=== PATIENT | female | born 1940 | race Caucasian/White ===

== ENCOUNTER 2016-12-15 09:15 | Day surgery (SDC) | payer OTHER, MEDICARE ==
[2016-12-15 08:38] VITALS: BMI 21.6
[2016-12-15] MEDS ORDERED: PROPOFOL 20 ML ONE ×2 (10:14)
[2016-12-15 11:46] VITALS: TEMP 97.4
[2016-12-15 12:22] VITALS: BP 143/62; PULSE 55
== END 2016-12-15 12:28 | disposition home or self-care (01) ==
LOC: JASU-ENDO 09:15
PROVIDERS: ATTEND Internal Medicine Gastroenterology
PROC: 0DJD8ZZ Inspection of Lower Intestinal Tract, Via Natural or Artificial Opening Endoscopic (ICD-10-PCS; principal; 2016-12-15 10:15)
DX: Z12.11 Encounter for screening for malignant neoplasm of colon (principal); K57.30 Diverticulosis of large intestine without perforation or abscess without bleeding; K63.89 Other specified diseases of intestine

== ENCOUNTER → 2017-04-26 | Day surgery (SDC) | payer OTHER, MEDICARE ==
--- NOTE | 2017-04-27 13:39 | PATH ---
Cytology Non-Gynecological Report Patient Name: RACHEL PERRIN [facility]. Rec. #: [id number] /Age/Gender: 1940 (Age: 76) / F Account: [id number] Location: RADIOLOGY Taken: 04/26/2017 Received: 04/26/2017 Reported: 04/27/2017 Physicians: Marlen Smith M.D. Specimen(s) Received LEFT THYROID FNA Clinical History Left 1.95 x 1.88 x 1.49 cm Final Diagnosis THYROID, LEFT, FINE NEEDLE ASPIRATION: SATISFACTORY FOR EVALUATION BETHESDA CATEGORY II: BENIGN (NO MALIGNANT CELLS IDENTIFIED) CYTOLOGIC FINDINGS ARE CONSISTENT WITH A BENIGN FOLLICULAR NODULE (ADENOMATOID NODULE) BENIGN FOLLICULAR CELLS AND COLLOID PRESENT. Comment: Recommend correlation with clinical findings and follow up as clinically indicated. Electronically Signed Mina Blunt M.D. Gross Description Received are eight direct smears, four of which are air-dried and Diff-Quik stained, and four of which are alcohol fixed and Pap stained. Also received is 20 ml of bloody formalin from which one cellblock is prepared.
== END | disposition home or self-care (01) ==
LOC: JRADIR 09:00
PROVIDERS: ATTEND Internal Medicine Endocrinology, Diabetes & Metabolism
PROC: 0G9G3ZX Drainage of Left Thyroid Gland Lobe, Percutaneous Approach, Diagnostic (ICD-10-PCS; principal; 2017-04-26)
PROC: BG44ZZZ Ultrasonography of Thyroid Gland (ICD-10-PCS; 2017-04-26)
DX: E04.1 Nontoxic single thyroid nodule (principal)
CPT/HCPCS: 76942; 88173; 88305-TC

== ENCOUNTER 2017-05-07 19:00 | Emergency (ER) | payer OTHER, MEDICARE ==
--- NOTE | 2017-05-07 19:13 | PDOC ---
History of Present Illness - General History Source: Patient, Family, Old Records Exam Limitations: No Limitations - History of Present Illness Initial Comments: 05/07/17 19:36 The patient is a 76 year old female, accompanied by son, with past medical history of chronic constipation and bronchiectasis, who presents to the emergency department today s/p witnessed fall. The patient states that she was sleeping on the couch in the living room when she heard her son yell in the kitchen and got up to help him. As per son the patient entered the kitchen, fell , and hit the back of her head on the tile floor. Son states that the patient lost consciousness for approximately 10 seconds. The patient reports compliance with all medications and denies being on any blood thinners. She notes that she took a muscle relaxant just prior to falling asleep on the couch. She reports recent discharge from the hospital today after a 9 day stay. She reports mild chest pain and shortness of breath upon entering the ED and notes it may be anxiety related. <Raul Alvarado - Last Filed: 05/07/17 19:17> <Idalia Atwood - Last Filed: 05/07/17 22:06> - General Chief Complaint: Injury Stated Complaint: FELL, STRUCK HEAD, LOC 10 SECONDS, CHEST PAIN Past History <Raul Alvarado - Last Filed: 05/07/17 19:17> - Past Medical History Anemia: No Asthma: No Cancer: No Cardiac Disorders: Yes (MVP) CVA: No COPD: Yes (BRONCHIETASIS) CHF: No Dementia: No Diabetes: No GI Disorders: No Disorders: No HTN: Yes (LOW BP) Hypercholesterolemia: No Liver Disease: No Seizures: No Thyroid Disease: No - Surgical History Abdominal Surgery: (S/P DIVERTICULITIS) Appendectomy: Yes Cardiac Surgery: No Cholecystectomy: No Lung Surgery: Yes (SX.FOR BRONCHIECTASIS) Neurologic Surgery: No Orthopedic Surgery: Yes (l hip orifice with insertion and hardware removal, hx.fall) - Immunization History Immunization Up to Date: Yes - Suicide/Smoking/Psychosocial Hx Smoking Status: Yes Smoking History: Former smoker Have you smoked in the past 12 months: No Number of Cigarettes Smoked Daily: 0 If you are a former smoker, when did you quit?: 1986 Alcohol Use: Yes (occasion) Drug/Substance Use Hx: No Substance Use Type: None Hx Substance Use Treatment: No <Idalia Atwood - Last Filed: 05/07/17 22:06> - Past Medical History Allergies/Adverse Reactions: Allergies Allergy/AdvReac Type Severity Reaction Status Date / Time No Known Drug Allergies Allergy Verified 01/06/16 11:01 Home Medications: Ambulatory Orders Alprazolam [Xanax] 0.25 mg PO BID PRN 01/25/12 Ascorbic Acid [Vitamin C] 2,000 mg PO DAILY 01/25/12 Calcium Carbonate/Vitamin D3 [Caltrate 600 + D Tablet] 1 each PO BID 01/25/12 Citalopram Hydrobromide [Celexa -] 20 mg PO HS 01/25/12 Propranolol HCl [Inderal -] 60 mg PO DAILY 01/25/12 Ranitidine [Zantac -] 150 mg PO BID 01/25/12 Albuterol 0.083% Nebulizer Manju [Ventolin 0.083% Nebulizer Soln -] 1 neb NEB DAILY 09/25/13 Oxycodone HCl/Acetaminophen [Percocet 10-325 mg Tablet] 15 mg PO BID PRN Tobramycin/Na Chlor 0.2% [Cornell (Do Not Stock)] 300 mg IH DAILY 02/19/15 Biotin 1 mg PO DAILY 01/05/16 Butalbit/Acetamin/Caff/Codeine [Fioricet-Cod 92-913-16-30 Cap] 1 each PO TID PRN 01/05/16 Calcium/Cranberry Fruit [Cranberry 400 mg Caplet] 1 each PO DAILY 01/05/16 Gabapentin [Neurontin] 300 mg PO TID 01/05/16 L.acidoph,Paracasei, B.lactis [Probiotic] 1 each PO BID 01/05/16 Multivitamins [Multivit ([facility] Formulary)] 1 tab PO DAILY 01/05/16 Potassium Chloride [Klor-Con 10] 20 meq PO BID 01/05/16 Budesonide/Formeterol Fumarate [SYMBICORT 160/4.5mcg -] 2 inh PO BID 12/15/16 Magnesium Oxide [Magnesium] 500 mg PO DAILY 12/15/16 Tizanidine HCl 2 mg PO HS 12/15/16 Review of Systems - Review of Systems Able to Perform ROS?: Yes Comments:: 05/07/17 19:37 GENERAL/CONSTITUTIONAL: No fever or chills. No weakness. HEAD, EYES, EARS, NOSE AND THROAT: No change in vision. No ear pain or discharge. No sore throat. GASTROINTESTINAL: No nausea, vomiting, diarrhea or constipation. GENITOURINARY: No dysuria, frequency, or change in urination. CARDIOVASCULAR: (+) Mild chest pain, shortness of breath. RESPIRATORY: No cough, wheezing, or hemoptysis. MUSCULOSKELETAL: No joint or muscle swelling or pain. No neck or back pain. SKIN: No rash NEUROLOGIC: (+) headache, loss of consciousness, No change in strength/ sensation. ENDOCRINE: No increased thirst. No abnormal weight change. HEMATOLOGIC/LYMPHATIC: No anemia, easy bleeding, or history of blood clots. ALLERGIC/IMMUNOLOGIC: No hives or skin allergy. <Raul Alvarado - Last Filed: 05/07/17 19:17> *Physical Exam - Physical Exam Comments: 05/07/17 19:37 GENERAL: Awake, alert, and fully oriented, in no acute distress HEAD: (+) 2cm by 2 cm right occipital hematoma EYES: PERRLA, EOMI, sclera anicteric, conjunctiva clear ENT: Nares patent, oropharynx clear without exudates. Moist mucosa NECK: Normal ROM, supple, no lymphadenopathy, JVD, or masses LUNGS: Breath sounds equal, clear to auscultation bilaterally. No wheezes, and no crackles HEART: Regular rate and rhythm, normal S1 and S2, no murmurs, rubs or gallops ABDOMEN: Soft, nontender, normoactive bowel sounds. No guarding, no rebound. No masses EXTREMITIES: Normal range of motion, no edema. No clubbing or cyanosis. No cords, erythema, or tenderness NEUROLOGICAL: Cranial nerves II through XII grossly intact. Normal speech, normal gait. Normal Romberg's. Normal finger to nose. SKIN: Warm, Dry, normal turgor, no rashes or lesions noted. <Raul Alvarado - Last Filed: 05/07/17 19:17> Medical Decision Making - Medical Decision Making 05/07/17 22:01 Patient Name: RACHEL PERRIN THIS IS A PRELIMINARY REPORT FROM [facility] DATE OF SERVICE: 2017-05-07 19:50:38 IMAGES: 69 EXAM: CT head without contrast HISTORY:Syncope COMPARISON: None. FINDINGS: 1. There is no CT evidence of an acute intracranial process and no evidence of intracranial hemorrhage or mass effect. 2. Ventricular size is concordant with the degree of atrophy. 3. The visualized portions of the orbits, paranasal and mastoid sinuses are notable for evidence of previous right sinonasal surgery. 4. There is no evidence of fracture. 5. Right parietal-occipital scalp soft tissue swelling/hematoma. Patient Name: RACHEL PERRIN THIS IS A PRELIMINARY REPORT FROM [facility] DATE OF SERVICE: 2017-05-07 19:42:03 IMAGES: [id number] EXAM: CT cervical spine without contrast HISTORY:Syncope COMPARISON: None. FINDINGS: 1. There is reversal of the normal lordotic curve of the cervical spine. This may be positional in nature. 2. There is mild anterolisthesis of C4 on C5 there is most likely secondary to degenerative facet change at this level. There is degenerative disc and endplate change at the C5-C6 and C6-C7 levels. 3. There is no evidence of fracture or posttraumatic subluxation of the cervical spine. 4. Visualization of detail of the contents of the cervical canal is significantly limited by artifact 05/07/17 22:03 Pt was released from the hospital at [facility] today, where she gets regular inpateint treatment for bronchiectasis. Today she wqas lying on the couch in the living room, took a muscle relaxant, and her BP was low. Her son was making dinner in the [place], and yelled out when he scalded his had. Pt went running to the kitches and when she got there felt lightheaded and fell to the ground, hitting occiput and lost consciousness x 10 seconds. She has no pain in the body or neck. Occipital tenderness only. A+Ox3. Pt has no distress; neuro exam normal, pt is on no blood thinners. CT normal, exam normal. She will go home with son. Follow with PMD as needed. <Idalia Atwood - Last Filed: 05/07/17 22:06> *DC/Admit/Observation/Transfer - Attestations Scribe Attestion: 05/07/17 19:37 Documentation prepared by Raul Alvarado, acting as medical radiation tech for Idalia Atwood MD <Raul Alvarado - Last Filed: 05/07/17 19:17> - Discharge Dispostion Admit: No <Idalia Atwood - Last Filed: 05/07/17 22:06> Diagnosis at time of Disposition: Vasovagal episode, Hypotension - Discharge Dispostion Disposition: HOME Condition at time of disposition: Stable - Referrals Referrals: John Vargas MD [Primary Care Provider] - - Patient Instructions Printed Discharge Instructions: DI for Orthostatic Hypotension
[2017-05-07 19:34] VITALS: TEMP 97.3; BMI 20.5
[2017-05-07 20:50] VITALS: BP 108/52; PULSE 66
--- NOTE | 2017-05-08 16:24 | EKG ---
Test Reason : Blood Pressure : / mmHG Vent. Rate : 069 BPM Atrial Rate : 069 BPM P-R Int : 206 ms QRS Dur : 082 ms QT Int : 396 ms P-R-T Axes : 057 013 048 degrees QTc Int : 424 ms NORMAL SINUS RHYTHM NONSPECIFIC ST ABNORMALITY ABNORMAL ECG WHEN COMPARED WITH ECG OF 10-DEC-2016 14:13, NO SIGNIFICANT CHANGE WAS FOUND CLINICAL CORRELATION IS RECOMMENDED Confirmed by JOSE SIEGEL MD ([id number]) on 05/08/2017 4:24:12 PM Referred By: ISH Confirmed By:JOSE SIEGEL MD
== END 2017-05-07 21:08 | disposition home or self-care (01) ==
LOC: FER 19:00
DX: R55 Syncope and collapse (principal); I95.9 Hypotension, unspecified; K59.00 Constipation, unspecified; Z87.891 Personal history of nicotine dependence; J44.9 Chronic obstructive pulmonary disease, unspecified; I51.9 Heart disease, unspecified
CPT/HCPCS: 70450-TC; 71010-TC; 72125-TC; 93005; 99283-25

== ENCOUNTER 2017-06-21 04:18 | Emergency (ER) | payer OTHER, MEDICARE ==
[2017-06-21] MEDS ORDERED: SODIUM CHLORIDE 1,000 ML IV STA ×2 (04:31→04:43)
[2017-06-21 04:34] VITALS: BMI 20.3
--- NOTE | 2017-06-21 05:09 | PDOC ---
History of Present Illness - General Chief Complaint: Constipation Stated Complaint: ABD PAIN Time Seen by Provider: 06/21/17 04:31 - History of Present Illness Initial Comments: 06/21/17 05:45 76 yo F with h/o who presents with worsening, diffuse, abdominal pain for the past 1 week with loss of appetite. Patient states that she has been having dry, hard, scant stools multiple times through the day. Reports waking up this AM with multiple episodes of non biliary, noon bloody emesis, and diaphoresis. Patient denies fevers/chills, chest pain, SOB, lightheadedness, weakness, LOC, dysuria, flank pain, blood per rectum, hematuria. Physical with predominant lower quadrant ttp, and dry mucous membranes. Pt. States that she takes Oxycodone daily for back pain. Has attempted senna/docusate, miralax, and other laxatives for constipation, with little to no relief. Recently seen at outpatient provider 2 weeks ago and told she was hyponatremic, and advised to eat "saltines." Past History - Past Medical History Allergies/Adverse Reactions: Allergies Allergy/AdvReac Type Severity Reaction Status Date / Time No Known Drug Allergies Allergy Verified 06/21/17 04:25 Home Medications: Ambulatory Orders Alprazolam [Xanax] 0.25 mg PO BID PRN 01/25/12 Ascorbic Acid [Vitamin C] 2,000 mg PO DAILY 01/25/12 Calcium Carbonate/Vitamin D3 [Caltrate 600 + D Tablet] 1 each PO BID 01/25/12 Citalopram Hydrobromide [Celexa -] 20 mg PO HS 01/25/12 Propranolol HCl [Inderal -] 60 mg PO DAILY 01/25/12 Ranitidine [Zantac -] 150 mg PO BID 01/25/12 Albuterol 0.083% Nebulizer Manju [Ventolin 0.083% Nebulizer Soln -] 1 neb NEB DAILY 09/25/13 Oxycodone HCl/Acetaminophen [Percocet 10-325 mg Tablet] 15 mg PO BID PRN Tobramycin/Na Chlor 0.2% [Cornell (Do Not Stock)] 300 mg IH DAILY 02/19/15 Biotin 1 mg PO DAILY 01/05/16 Butalbit/Acetamin/Caff/Codeine [Fioricet-Cod 28-351-11-30 Cap] 1 each PO TID PRN 01/05/16 Calcium/Cranberry Fruit [Cranberry 400 mg Caplet] 1 each PO DAILY 01/05/16 Gabapentin [Neurontin] 300 mg PO TID 01/05/16 L.acidoph,Paracasei, B.lactis [Probiotic] 1 each PO BID 01/05/16 Multivitamins [Multivit ([facility] Formulary)] 1 tab PO DAILY 01/05/16 Potassium Chloride [Klor-Con 10] 20 meq PO BID 01/05/16 Budesonide/Formeterol Fumarate [SYMBICORT 160/4.5mcg -] 2 inh PO BID 12/15/16 Magnesium Oxide [Magnesium] 500 mg PO DAILY 12/15/16 Tizanidine HCl 2 mg PO HS 12/15/16 Anemia: No Asthma: No Cancer: No Cardiac Disorders: Yes (MVP) CVA: No COPD: Yes (BRONCHIETASIS) CHF: No Dementia: No Diabetes: No GI Disorders: No Disorders: No HTN: Yes (LOW BP) Hypercholesterolemia: No Liver Disease: No Seizures: No Thyroid Disease: No - Surgical History Abdominal Surgery: (S/P DIVERTICULITIS) Appendectomy: Yes Cardiac Surgery: No Cholecystectomy: No Lung Surgery: Yes (SX.FOR BRONCHIECTASIS) Neurologic Surgery: No Orthopedic Surgery: Yes (l hip orifice with insertion and hardware removal, hx.fall) - Immunization History Immunization Up to Date: Yes - Suicide/Smoking/Psychosocial Hx Smoking Status: Yes Smoking History: Never smoked Have you smoked in the past 12 months: No Number of Cigarettes Smoked Daily: 0 If you are a former smoker, when did you quit?: 1986 Information on smoking cessation initiated: No Hx Alcohol Use: No Drug/Substance Use Hx: No Substance Use Type: None Hx Substance Use Treatment: No Review of Systems - Review of Systems Comments:: 06/21/17 05:09 GENERAL/CONSTITUTIONAL: No fever or chills. No weakness. HEAD, EYES, EARS, NOSE AND THROAT: No change in vision. No ear pain or discharge. No sore throat.- CARDIOVASCULAR: No chest pain or shortness of breath RESPIRATORY: No cough, wheezing, or hemoptysis. GASTROINTESTINAL:+ abdominal pain, nausea, vomiting,and constipation. No diarrhea GENITOURINARY: No dysuria, frequency, or change in urination. MUSCULOSKELETAL: No joint or muscle swelling or pain. No neck or back pain. SKIN: No rash NEUROLOGIC: No headache, vertigo, loss of consciousness, or change in strength/ sensation. ENDOCRINE: No increased thirst. No abnormal weight change HEMATOLOGIC/LYMPHATIC: No anemia, easy bleeding, or history of blood clots. ALLERGIC/IMMUNOLOGIC: No hives or skin allergy. *Physical Exam - Vital Signs Last Vital Signs Temp Pulse Resp BP Pulse Ox 97.1 F L 51 L 14 87/46 100 06/21/17 04:25 06/21/17 04:25 06/21/17 04:25 06/21/17 04:25 06/21/17 04:25 - Physical Exam Comments: 06/21/17 05:09 GENERAL: Pale appearing, Awake, alert, and fully oriented, in no acute distress HEAD: No signs of trauma, normocephalic, atraumatic EYES: PERRLA, EOMI, sclera anicteric, conjunctiva clear ENT: Hearing grossly normal, nares patent, oropharynx clear without exudates. Dry mucous membranes NECK: Normal ROM, supple, no JVD, or masses LUNGS: No distress, speaks full sentences, clear to auscultation bilaterally HEART: Regular rate and rhythm, normal S1 and S2, no murmurs, rubs or gallops, peripheral pulses normal and equal bilaterally. ABDOMEN: Soft, diffusely ttp with lower quadrant predominance, normoactive bowel sounds. No guarding, no rebound. No masses. Neg CVA ttp. EXTREMITIES : Normal inspection, Normal range of motion, no edema. No clubbing or cyanosis. SKIN: Warm, Dry, normal turgor, no rashes or lesions noted. ED Treatment Course - LABORATORY CBC & Chemistry Diagram: 06/21/17 05:16 06/21/17 05:16 - RADIOLOGY Radiology Studies Ordered: Category Date Time Status ABDOMEN [id number] [RAD] Stat Radiology 06/21/17 04:49 Ordered Medical Decision Making - Medical Decision Making 06/21/17 06:06 76 yo F with h/o who presents with worsening, diffuse, abdominal pain for the past 1 week with loss of appetite. Patient states that she has been having dry, hard, scant stools multiple times through the day and reports waking up this AM with multiple episodes of non biliary, non bloody emesis, and diaphoresis. No fevers/chills, chest pain, SOB, lightheadedness, urinary symptoms, blood per rectum, hematuria. Physical with predominant lower quadrant ttp, and dry mucous membranes. Arrived to ED with BP 87/46. P 51. Takes Oxycodone daily for back pain. ED Course: CBC, CMP, UA, EKG, ABD RAD SERIES 06/21/17 06:24 IV NS 1 L Patient had large bowel movement in bed. Symptoms resolved. 06/21/17 06:24 EKG: Sinus Bradycardia with absent RADHA, STD. 06/21/17 06:26 Na+ 129 WBC: 11.1 06/21/17 06:29 Serum Osmol:268 Hypotonic Hyponatremia 06/21/17 06:55 Patient is stable and ready for discharge with return precautions. Advised to f/ u outpatient. *DC/Admit/Observation/Transfer Diagnosis at time of Disposition: Constipation Qualifiers: Constipation type: other constipation type Qualified Code(s): K59.09 - Other constipation - Discharge Dispostion Disposition: HOME Condition at time of disposition: Stable Admit: No - Referrals Referrals: John Vargas MD [Primary Care Provider] - - Patient Instructions Printed Discharge Instructions: DI for Constipation, Constipation (Alternative Therapy) Additional Instructions: Please return to the emergency department with any new or worsening symptoms or concerns.Please follow up with your primary care within one week. - Post Discharge Activity - Attestations Physician Attestion: 06/21/17 06:58 I attest to the information provided in this note.
[2017-06-21 05:38] LABS: BASOPHIL 0.5 % (0-2.0); EOSINOPHIL 1.6 % (0-4.5); MCHC 33.5 g/dl (32.0-36.0); MEAN CELL VOLUME 101.4 fl (80-96); MEAN PLT VOLUME 7.4 fl (7.5-11.1); PLATELET COUNT 231 K/MM3 (134-434); WHITE BLOOD COUNT 11.1 K/mm3 (4.0-10.0)
[2017-06-21 05:53] LABS: INR 0.91 (0.82-1.09); PROTHROMBIN TIME (PATIENT) 10.3 SEC (9.98-11.88)
[2017-06-21 06:02] LABS: ALBUMIN 3.6 g/dl (3.4-5.0); ALK PHOS 66 U/L (45-117); ANION GAP 10 (8-16); BILIRUBIN,TOTAL 0.5 mg/dL (0.2-1.0); CALCIUM 8.5 mg/dL (8.5-10.1); CO2 23 mmol/L (21-32); CREATININE 0.8 mg/dL (0.55-1.02); GLUCOSE,RANDOM 97 mg/dL (74-106); SGOT/AST 25 U/L (15-37); SGPT/ALT 27 U/L (12-78); TOT PROT 6.1 g/dl (6.4-8.2)
[2017-06-21 06:04] LABS: CPK 94 IU/L (26-192); TROPONIN I < 0.02 ng/ml (0.00-0.05)
[2017-06-21 06:32] VITALS: BP 110/55; PULSE 56; TEMP 97.3
--- NOTE | 2017-06-21 18:00 | EKG ---
Test Reason : Blood Pressure : / mmHG Vent. Rate : 057 BPM Atrial Rate : 057 BPM P-R Int : 188 ms QRS Dur : 080 ms QT Int : 456 ms P-R-T Axes : 060 008 053 degrees QTc Int : 443 ms SINUS BRADYCARDIA NONSPECIFIC ST ABNORMALITY WHEN COMPARED WITH ECG OF 07-MAY-2017 19:16, NO MAJOR CHANGES SEEN CLINICAL CORRELATION IS RECOMMENDED Confirmed by JOSE SIEGEL MD ([id number]) on 06/21/2017 6:00:24 PM Referred By: Confirmed By:JOSE SIEGEL MD
== END 2017-06-21 07:10 | disposition home or self-care (01) ==
LOC: JER 04:18
PROC: 3E0337Z Introduction of Electrolytic and Water Balance Substance into Peripheral Vein, Percutaneous Approach (ICD-10-PCS; principal; 2017-06-21)
DX: K59.09 Other constipation (principal); Z87.19 Personal history of other diseases of the digestive system
CPT/HCPCS: 36415; 74020-TC; 80053; 82550; 83930; 84484; 85025; 85610; 93005; 93010; 99281-25

== ENCOUNTER 2019-03-14 12:01 | Inpatient (IN) | payer OTHER, MEDICARE ==
[2019-03-14 12:21] VITALS: BMI 19.5
--- NOTE | 2019-03-14 13:14 | PDOC ---
History of Present Illness - General Chief Complaint: Weakness Stated Complaint: WEAKNESS - History of Present Illness Initial Comments: 03/14/19 13:14 Ms. Burton is a 78 yo female w/ pmh of chronic constipation, bronchiectasis, prior hyponatremia, prior hyperkalemia, with daily laxative use, chronic abdominal pain, and mitral valve prolapse who presents for evaluation of 1 day history of weakness upon standing and coinciding sweating. Patient reports she is typically able to ambulate without difficulty however yesterday began to have weakness w/ any movement (improved by sitting / rest). Patient further endorses increased abdominal pain from her baseline. Last BM was yesterday. Denies any other symptoms at this time. The patient denies chest pain, shortness of breath, headache and dizziness. Denies fever, chills, nausea, vomit, diarrhea and constipation. Denies dysuria, frequency, urgency and hematuria. Past History - Past Medical History Allergies/Adverse Reactions: Allergies Allergy/AdvReac Type Severity Reaction Status Date / Time No Known Drug Allergies Allergy Verified 03/14/19 12:21 Home Medications: Ambulatory Orders Alprazolam [Xanax] 0.25 mg PO BID PRN 01/25/12 Ascorbic Acid [Vitamin C] 2,000 mg PO DAILY 01/25/12 Calcium Carbonate/Vitamin D3 [Caltrate 600 + D Tablet] 1 each PO BID 01/25/12 Citalopram Hydrobromide [Celexa -] 20 mg PO HS 01/25/12 Ranitidine [Zantac -] 150 mg PO BID 01/25/12 propRANOLol HCL [Inderal -] 60 mg PO DAILY 01/25/12 Albuterol 0.083% Nebulizer Manju [Ventolin 0.083% Nebulizer Soln -] 1 neb NEB DAILY 09/25/13 Oxycodone HCl/Acetaminophen [Percocet 10-325 mg Tablet] 15 mg PO BID PRN Tobramycin/Na Chlor 0.2% [Cornell (Do Not Stock)] 300 mg IH DAILY 02/19/15 Biotin 1 mg PO DAILY 01/05/16 Butalbit/Acetamin/Caff/Codeine [Fioricet-Cod 57-178-03-30 Cap] 1 each PO TID PRN 01/05/16 Calcium/Cranberry Fruit [Cranberry 400 mg Caplet] 1 each PO DAILY 01/05/16 Gabapentin [Neurontin] 300 mg PO TID 01/05/16 L.acidoph,Paracasei, B.lactis [Probiotic] 1 each PO BID 01/05/16 Multivitamins [Multivit ([facility] Formulary)] 1 tab PO DAILY 01/05/16 Potassium Chloride [Klor-Con 10] 20 meq PO BID 01/05/16 Budesonide/Formeterol Fumarate [SYMBICORT 160/4.5mcg -] 2 inh PO BID 12/15/16 Magnesium Oxide [Magnesium] 500 mg PO DAILY 12/15/16 Tizanidine HCl 2 mg PO HS 12/15/16 Anemia: No Asthma: No Cancer: No Cardiac Disorders: Yes (MVP) CVA: No COPD: Yes (BRONCHIETASIS) CHF: No Dementia: No Diabetes: No GI Disorders: No Disorders: No HTN: Yes (LOW BP) Hypercholesterolemia: No Liver Disease: No Seizures: No Thyroid Disease: No - Surgical History Abdominal Surgery: (S/P DIVERTICULITIS) Appendectomy: Yes Cardiac Surgery: No Cholecystectomy: No Lung Surgery: Yes (SX.FOR BRONCHIECTASIS) Neurologic Surgery: No Orthopedic Surgery: Yes (l hip orifice with insertion and hardware removal, hx.fall) - Immunization History Immunization Up to Date: Yes - Suicide/Smoking/Psychosocial Hx Smoking Status: Yes Smoking History: Never smoked Have you smoked in the past 12 months: No Number of Cigarettes Smoked Daily: 0 If you are a former smoker, when did you quit?: 1986 Information on smoking cessation initiated: No Hx Alcohol Use: No Drug/Substance Use Hx: No Substance Use Type: None Hx Substance Use Treatment: No Review of Systems - Review of Systems Comments:: 03/14/19 13:34 GENERAL/CONSTITUTIONAL: +Generalized weakness as described. No fever or chills. HEAD, EYES, EARS, NOSE AND THROAT: No change in vision. No ear pain or discharge. No sore throat. CARDIOVASCULAR: No chest pain or shortness of breath RESPIRATORY: No cough, wheezing, or hemoptysis. GASTROINTESTINAL: +Patient's normal constipation symptoms. No nausea, vomiting, or diarrhea. GENITOURINARY: No dysuria, frequency, or change in urination. MUSCULOSKELETAL: No joint or muscle swelling or pain. No neck or back pain. SKIN: No rash NEUROLOGIC: No headache, vertigo, loss of consciousness, or change in strength/ sensation. ENDOCRINE: No increased thirst. No abnormal weight change HEMATOLOGIC/LYMPHATIC: No anemia, easy bleeding, or history of blood clots. ALLERGIC/IMMUNOLOGIC: No hives or skin allergy. *Physical Exam - Vital Signs Last Vital Signs Temp Pulse Resp BP Pulse Ox 97.8 F 98 H 16 111/69 100 03/14/19 12:18 03/14/19 12:18 03/14/19 12:18 03/14/19 12:18 03/14/19 12:18 - Physical Exam Comments: 03/14/19 13:35 GENERAL: Awake, alert, and fully oriented, in no acute distress HEAD: No signs of trauma, normocephalic, atraumatic EYES: PERRLA, EOMI, sclera anicteric, conjunctiva clear ENT: Auricles normal inspection, hearing grossly normal, nares patent, oropharynx clear without exudates. Moist mucosa NECK: Normal ROM, supple, no lymphadenopathy, JVD, or masses LUNGS: No distress, speaks full sentences, clear to auscultation bilaterally HEART: Regular rate and rhythm, normal S1 and S2, no murmurs, rubs or gallops, peripheral pulses normal and equal bilaterally. ABDOMEN: +Diffuse abdominal TTP, greatest in RLQ. Soft, normoactive bowel sounds. No guarding, no rebound. No masses EXTREMITIES: Normal inspection, Normal range of motion, no edema. No clubbing or cyanosis. NEUROLOGICAL: Cranial nerves II through XII grossly intact. Normal speech, normal gait, no focal sensorimotor deficits SKIN: Warm, Dry, normal turgor, no rashes or lesions noted. RECTAL: No tenderness, small skin tag, no blood noted on glove ED Treatment Course - LABORATORY CBC & Chemistry Diagram: 03/14/19 14:04 03/14/19 14:04 Medical Decision Making - Medical Decision Making 03/14/19 15:55 Ms. Burton is a 78 yo female w/ pmh as described who presents for evaluation of symptoms of generalized weakness as described. Patient evaluated w/ cardiac/ infectious workup as below for causes. Patient labs significant for anemia as below likely causing symptoms. Abdominal CT ordered for evaluation of abdominal pain. Patient ordered for 2 units PRBc's. 03/14/19 17:03 CT abdomen negative. Stool for occult blood positive. Patient will be admitted for transfusion and GI evaluation. 03/14/19 17:15 IP team requested 2ndary access w/ EJ. Patient evaluated however unable to identify access point for patient. 2nd Access not obtained given anatomy. Patient continues to have 20g on R forearm. Laboratory Results - last 24 hr 03/14/19 03/14/19 03/14/19 14:04 14:04 14:04 WBC 12.1 H RBC 2.07 L Hgb 7.1 L Hct 21.6 L D MCV 104.3 H MCH 34.1 H MCHC 32.7 RDW 14.4 Plt Count 251 MPV 7.5 Absolute Neuts (auto) 9.5 H Neutrophils % 78.4 Lymphocytes % 13.0 Monocytes % 6.5 Eosinophils % 1.3 Basophils % 0.8 Nucleated RBC % 0 PT with INR INR PTT (Actin FS) Sodium 138 Potassium 4.7 Chloride 108 H Carbon Dioxide 24 Anion Gap 6 L BUN 64.1 H Creatinine 0.9 Est GFR (CKD-EPI)AfAm 70.48 Est GFR (CKD-EPI)NonAf 60.81 Random Glucose 113 H Calcium 8.3 L Total Bilirubin 0.2 AST 19 ALT 25 Alkaline Phosphatase 62 Total Protein 6.0 L Albumin 3.4 Urine Color Yellow Urine Appearance Clear Urine pH 6.5 Ur Specific [place] 1.016 Urine Protein Negative Urine Glucose (UA) Negative Urine Ketones Negative Urine Blood Negative Urine Nitrite Negative Urine Bilirubin Negative Urine Urobilinogen 0.2 Ur Leukocyte Esterase Negative Blood Type Antibody Screen Crossmatch 03/14/19 03/14/19 14:04 14:04 WBC RBC Hgb Hct MCV MCH MCHC RDW Plt Count MPV Absolute Neuts (auto) Neutrophils % Lymphocytes % Monocytes % Eosinophils % Basophils % Nucleated RBC % PT with INR 11.50 INR 0.97 PTT (Actin FS) 28.0 Sodium Potassium Chloride Carbon Dioxide Anion Gap BUN Creatinine Est GFR (CKD-EPI)AfAm Est GFR (CKD-EPI)NonAf Random Glucose Calcium Total Bilirubin AST ALT Alkaline Phosphatase Total Protein Albumin Urine Color Urine Appearance Urine pH Ur Specific [place] Urine Protein Urine Glucose (UA) Urine Ketones Urine Blood Urine Nitrite Urine Bilirubin Urine Urobilinogen Ur Leukocyte Esterase Blood Type O NEGATIVE Antibody Screen Negative Crossmatch See Detail *DC/Admit/Observation/Transfer Diagnosis at time of Disposition: Anemia Qualifiers: Anemia type: unspecified type Qualified Code(s): D64.9 - Anemia, unspecified GI bleed Qualifiers: GI bleed type/associated pathology: unspecified gastrointestinal hemorrhage type Qualified Code(s): K92.2 - Gastrointestinal hemorrhage, unspecified - Discharge Dispostion Decision to Admit order: Yes - Referrals - Patient Instructions - Post Discharge Activity
[2019-03-14] MEDS ORDERED: SODIUM CHLORIDE 500 ML IV STA (13:18)
[2019-03-14 14:36] LABS: BASO % 0.8 % (0-2.0); EOS % 1.3 % (0-4.5); HEMATOCRIT 21.6 % (32.4-45.2); HEMOGLOBIN 7.1 GM/dL (10.7-15.3); MCH 34.1 pg (25.7-33.7); MCHC 32.7 g/dl (32.0-36.0); MEAN CELL VOLUME 104.3 fl (80-96); MEAN PLT VOLUME 7.5 fl (7.5-11.1); MONO % 6.5 % (3.8-10.2); NEUT % 78.4 % (42.8-82.8); PLATELET COUNT 251 K/MM3 (134-434); RBC 2.07 M/mm3 (3.60-5.2); RDW 14.4 % (11.6-15.6); WHITE BLOOD COUNT 12.1 K/mm3 (4.0-10.0)
[2019-03-14 14:53] LABS: ALBUMIN 3.4 g/dl (3.4-5.0); BILIRUBIN,TOTAL 0.2 mg/dL (0.2-1); BLOOD UREA NITROGEN 64.1 mg/dL (7-18); CALCIUM 8.3 mg/dL (8.5-10.1); CREATININE 0.9 mg/dL (0.55-1.3); POTASSIUM 4.7 mmol/L (3.5-5.1)
[2019-03-14 15:12] LABS: INR 0.97 (0.83-1.09); PROTHROMBIN TIME (PATIENT) 11.5 SEC (9.7-13.0)
[2019-03-14 15:14] LABS: PH,URINE 6.5 (5.0-8.0); URINE APPEARANCE CLEAR; URINE BILIRUBIN NEGATIVE (NEGATIVE); URINE COLOR YELLOW; URINE GLUCOSE (UA) NEGATIVE (NEGATIVE); URINE KETONE NEGATIVE (NEGATIVE); URINE LEUK ESTERASE NEGATIVE (NEGATIVE); URINE NITRITE NEGATIVE (NEGATIVE); URINE PROTEIN NEGATIVE (NEGATIVE); URINE UROBILINOGEN 0.2 mg/dL (0.2-1.0)
[2019-03-14] MEDS ORDERED: morphine CARPU-JECT 2 MG/1 ML DISP.SYRIN IVPUSH ONE (16:07)
--- NOTE | 2019-03-14 17:15 | HP ---
CHIEF COMPLAINT:Generalised fatigue PCP: Sam HISTORY OF PRESENT ILLNESS: The patient is a 78 year old female, with a significant PMH of chronic constipation, bronchiectasis, diverticulosis, chronic abdominal pain, and mitral valve prolapse, who presents to the emergency department with 1 day of generalized weakness and diaphoresis upon walking and standing up. As per EMS, she was noted to be orthostatic hypotensive en route. She also endorses increased upper quadrant abdominal pain and recent green-brad stools. she reports lightheadedness , dizziness , palpitation , worsning when moving around , she reports back pain and she has been using alleve for pain. The patient denies chest pain and cough. Denies fever, nausea, vomiting, diarrhea. Denies any urinary symptoms. ER course was notable for: (1)CT A/P negative (2)CXR no acute pathology (3)Hgb 7.1 , occult blood + Recent Travel:denies PAST MEDICAL HISTORY: MVP, Constipation , bronchiectais, diverticulosis PAST SURGICAL HISTORY: BRONCHIECTASIS Surgery, Left hip orifice with insertion and hardware removal, appendectomy. Social History: Smoking:History of tobacco use, quit 1986. Alcohol:socially Drugs: denies Family History:colon cancer and pancreatic cancer Allergies No Known Drug Allergies Allergy (Verified 03/14/19 12:21) HOME MEDICATIONS: Home Medications Medication Instructions Recorded Alprazolam [Xanax] 0.25 mg PO BID PRN 01/25/12 Ascorbic Acid [Vitamin C] 2,000 mg PO DAILY 01/25/12 Calcium Carbonate/Vitamin D3 1 each PO BID 01/25/12 [Caltrate 600 + D Tablet] Citalopram Hydrobromide [Celexa -] 20 mg PO HS 01/25/12 Ranitidine [Zantac -] 150 mg PO BID 01/25/12 propRANOLol HCL [Inderal -] 60 mg PO DAILY 01/25/12 Albuterol 0.083% Nebulizer Manju 1 neb NEB DAILY 09/25/13 [Ventolin 0.083% Nebulizer Soln -] Oxycodone HCl/Acetaminophen 15 mg PO BID PRN 02/19/15 [Percocet 10-325 mg Tablet] Tobramycin/Na Chlor 0.2% [Cornell (Do 300 mg IH DAILY 02/19/15 Not Stock)] Biotin 1 mg PO DAILY 01/05/16 Butalbit/Acetamin/Caff/Codeine 1 each PO TID PRN 01/05/16 [Fioricet-Cod 38-409-21-30 Cap] Calcium/Cranberry Fruit [Cranberry 1 each PO DAILY 01/05/16 400 mg Caplet] Gabapentin [Neurontin] 300 mg PO TID 01/05/16 L.acidoph,Paracasei, B.lactis 1 each PO BID 01/05/16 [Probiotic] Multivitamins [Multivit ([facility] 1 tab PO DAILY 01/05/16 Formulary)] Potassium Chloride [Klor-Con 10] 20 meq PO BID 01/05/16 Budesonide/Formeterol Fumarate 2 inh PO BID 12/15/16 [SYMBICORT 160/4.5mcg -] Magnesium Oxide [Magnesium] 500 mg PO DAILY 12/15/16 Tizanidine HCl 2 mg PO HS 12/15/16 REVIEW OF SYSTEMS CONSTITUTIONAL: Absent: fever, chills, diaphoresis, generalized weakness, malaise, loss of appetite, weight change HEENT: Absent: rhinorrhea, nasal congestion, throat pain, throat swelling, difficulty swallowing, mouth swelling, ear pain, eye pain, visual changes CARDIOVASCULAR: Absent: chest pain, syncope, palpitations, irregular heart rate, lightheadedness , peripheral edema RESPIRATORY: Absent: cough, shortness of breath, dyspnea with exertion, orthopnea, wheezing, stridor, hemoptysis GASTROINTESTINAL: Absent: abdominal pain, abdominal distension, nausea, vomiting, diarrhea, constipation, melena, hematochezia GENITOURINARY: Absent: dysuria, frequency, urgency, hesitancy, hematuria, flank pain, genital pain MUSCULOSKELETAL: Absent: myalgia, arthralgia, joint swelling, back pain, neck pain SKIN: Absent: rash, itching, pallor HEMATOLOGIC/IMMUNOLOGIC: Absent: easy bleeding, easy bruising, lymphadenopathy, frequent infections ENDOCRINE: Absent: unexplained weight gain, unexplained weight loss, heat intolerance, cold intolerance NEUROLOGIC: Absent: headache, focal weakness or paresthesias, dizziness, unsteady gait, seizure, mental status changes, bladder or bowel incontinence PSYCHIATRIC: Absent: anxiety, depression, suicidal or homicidal ideation, hallucinations. PHYSICAL EXAMINATION Vital Signs - 24 hr 03/14/19 12:18 Temperature 97.8 F Pulse Rate 98 H Respiratory 16 Rate Blood Pressure 111/69 O2 Sat by Pulse 100 Oximetry (%) GENERAL: AAOx3 in NAD HEAD: NC/AT EYES: EOMI, Conjunctiva clear, sclera anicteric ENT: dry mucous membrane NECK: Supple, no JVD LUNGS: CTA B/L, no crackles no wheezing no accessory muscle use. HEART: RRR, normal s1, s2, no M/R/G ABDOMEN: Soft, ND, NT, +BS 4 Q, no CVA Tenderness, transverse low sergical scar LOWER EXTREMITIES: no edema, +2DP pulse, NEUROLOGICAL: No focal deficit. Normal speech. gait not observed. PSYCHIATRIC: Cooperative. Good eye contact. Appropriate mood and affect. SKIN: Warm, dry, Laboratory Results - last 24 hr 03/14/19 03/14/19 03/14/19 14:04 14:04 14:04 WBC 12.1 H RBC 2.07 L Hgb 7.1 L Hct 21.6 L D MCV 104.3 H MCH 34.1 H MCHC 32.7 RDW 14.4 Plt Count 251 MPV 7.5 Absolute Neuts (auto) 9.5 H Neutrophils % 78.4 Lymphocytes % 13.0 Monocytes % 6.5 Eosinophils % 1.3 Basophils % 0.8 Nucleated RBC % 0 PT with INR INR PTT (Actin FS) Sodium 138 Potassium 4.7 Chloride 108 H Carbon Dioxide 24 Anion Gap 6 L BUN 64.1 H Creatinine 0.9 Est GFR (CKD-EPI)AfAm 70.48 Est GFR (CKD-EPI)NonAf 60.81 Random Glucose 113 H Calcium 8.3 L Total Bilirubin 0.2 AST 19 ALT 25 Alkaline Phosphatase 62 Total Protein 6.0 L Albumin 3.4 Urine Color Yellow Urine Appearance Clear Urine pH 6.5 Ur Specific [place] 1.016 Urine Protein Negative Urine Glucose (UA) Negative Urine Ketones Negative Urine Blood Negative Urine Nitrite Negative Urine Bilirubin Negative Urine Urobilinogen 0.2 Ur Leukocyte Esterase Negative Stool Occult Blood Blood Type Antibody Screen Crossmatch 03/14/19 03/14/19 03/14/19 14:04 14:04 16:50 WBC RBC Hgb Hct MCV MCH MCHC RDW Plt Count MPV Absolute Neuts (auto) Neutrophils % Lymphocytes % Monocytes % Eosinophils % Basophils % Nucleated RBC % PT with INR 11.50 INR 0.97 PTT (Actin FS) 28.0 Sodium Potassium Chloride Carbon Dioxide Anion Gap BUN Creatinine Est GFR (CKD-EPI)AfAm Est GFR (CKD-EPI)NonAf Random Glucose Calcium Total Bilirubin AST ALT Alkaline Phosphatase Total Protein Albumin Urine Color Urine Appearance Urine pH Ur Specific [place] Urine Protein Urine Glucose (UA) Urine Ketones Urine Blood Urine Nitrite Urine Bilirubin Urine Urobilinogen Ur Leukocyte Esterase Stool Occult Blood Positive Blood Type O NEGATIVE Antibody Screen Negative Crossmatch See Detail CBC, BMP 03/14/19 14:04 03/14/19 14:04 ASSESSMENT/PLAN: 78 year old female with pmhx of MVP, Divertuclosis , Constipation , bronchiestsis come to ED due to generalized weakness and sob and abdominal pain was found to have hgb 7.1 and occult blood positive admitted to tele for further evaluation. # anemia * Hgb 7.1 , occult blood positive * 2 large iV pores * NPO * IV fluids * one units of BRBC * Avoids nSAIDS and blood thinner , ASA * GI consult for EGD and colonoscopy * CT scan A/p with no acute pathology * PPI 40 IV BID * monitor H/H Q 8hr * irone studies , b12 , FA , ferritin , reticulcyte count # CATA angiejimmy pre renal repeat lab after hydration # leuckocytosis un known etilogy , florian cx monitor off abx # Constipation Mirlax and colace as needed # H.O MVP , follow up Echo # FEN * NS @ 83 * monitor lytes * NPO till cleared by GI # Proph * SCDS * PPI BID IV 40 # Dispo : monitor in tele Visit type - Emergency Visit Emergency Visit: Yes ED Registration Date: 03/14/19 Care time: The patient presented to the Emergency Department on the above date and was hospitalized for further evaluation of their emergent condition. - New Patient This patient is new to me today: Yes Date on this admission: 03/14/19 - Critical Care Critical Care patient: No ATTENDING PHYSICIAN STATEMENT I saw and evaluated the patient. I reviewed the resident's note and discussed the case with the resident. I agree with the resident's findings and plan as documented. SUBJECTIVE: OBJECTIVE: ASSESSMENT AND PLAN:
[2019-03-14] MEDS ORDERED: ACETAMINOPHEN 1000 MG/100 ML VIAL (NON FORMULARY) IVPB ONE (18:12)
[2019-03-14] MEDS ORDERED: SODIUM CHLORIDE 1,000 ML IV SCH (18:15)
--- NOTE | 2019-03-14 18:45 | PN ---
Teaching Attending Note Name of Resident: Rayo Fischer ATTENDING PHYSICIAN STATEMENT I saw and evaluated the patient. I reviewed the resident's note and discussed the case with the resident. I agree with the resident's findings and plan as documented with exceptions below. SUBJECTIVE: 78 yof with PMhx of chronic anemia (h/o Bone marrow biopsy with Dr. Waller, on chronic Fe), also last EGD/colonoscopy [address] Wadsworth, last Hb reported around 10 3 months ago with PCP, Chronic constipation with abdominal pain and nausea, MVP, HTN, chronic low back pain on oxycodone, recently started taking Aleve 2 tabs daily for last few weeks, reports having sudden weakness, dizziness, palpitations, starting yesterday, unable to ambulate, so was brought to the Ed. patient also reports dark greenish stools for last 3 days. Has chronic constipation on standing miralax bid and dulcolax prn, last BM yesterday , and has chronic abdominal cramps/nausea when gets constipation. Also reports positional light headedness and palpitations. Denies any chest pain, palpitations, dsypnea, vomiting, urinary symptoms, or concerns otherwise. OBJECTIVE: Vital Signs Period Temp Pulse Resp BP Sys/[place] Pulse Ox Last 24 Hr 97.8 F-99.3 F 90-98 16-16 111-139/48-69 92-100 Intake & Output 03/11/19 03/12/19 03/13/19 03/14/19 23:59 23:59 23:59 23:59 Weight 110 lb GENERAL: Awake, alert, and fully oriented, in no acute distress, pos pallor. HEAD: Normal with no signs of trauma. EYES: Pupils equal, round and reactive to light, extraocular movements intact, sclera anicteric, conjunctiva clear. No lid lag. EARS, NOSE, THROAT: Ears normal, nares patent, oropharynx clear without exudates. Moist mucous membranes. NECK: Normal range of motion, supple without lymphadenopathy, JVD, or masses. LUNGS: Breath sounds equal, clear to auscultation bilaterally. No wheezes, and no crackles. No accessory muscle use. HEART: Regular rate and rhythm, normal S1 and S2 ABDOMEN: Soft, mild left rogelio-umbilical tenderness, (chronic when constipated per patient), no voluntary or involuntary guarding or rigidity, pos bowel sounds RECTAL: dark greenish stool, no internal haemorrhoids noted MUSCULOSKELETAL: Normal range of motion at all joints. No bony deformities or tenderness. No CVA tenderness. UPPER EXTREMITIES: 2+ pulses, warm, well-perfused. No cyanosis. No clubbing. No peripheral edema. LOWER EXTREMITIES: 2+ pulses, warm, well-perfused. No calf tenderness. No peripheral edema. NEUROLOGICAL: AAox3, facial symmetry, tongue midline, generalized weakness but no focal deficit, Normal speech, gait not observed PSYCHIATRIC: Cooperative. Good eye contact. Appropriate mood and affect. SKIN: Warm, dry, normal turgor, no rashes or lesions noted, normal capillary refill. Home Medications Medication Instructions Recorded Alprazolam [Xanax] 0.25 mg PO BID PRN 01/25/12 Ascorbic Acid [Vitamin C] 2,000 mg PO DAILY 01/25/12 Calcium Carbonate/Vitamin D3 1 each PO BID 01/25/12 [Caltrate 600 + D Tablet] Citalopram Hydrobromide [Celexa -] 20 mg PO HS 01/25/12 Ranitidine [Zantac -] 150 mg PO BID 01/25/12 propRANOLol HCL [Inderal -] 60 mg PO DAILY 01/25/12 Albuterol 0.083% Nebulizer Manju 1 neb NEB DAILY 09/25/13 [Ventolin 0.083% Nebulizer Soln -] Oxycodone HCl/Acetaminophen 15 mg PO BID PRN 02/19/15 [Percocet 10-325 mg Tablet] Tobramycin/Na Chlor 0.2% [[place]ell (Do 300 mg IH DAILY 02/19/15 Not Stock)] Biotin 1 mg PO DAILY 01/05/16 Butalbit/Acetamin/Caff/Codeine 1 each PO TID PRN 01/05/16 [Fioricet-Cod 33-858-71-30 Cap] Calcium/Cranberry Fruit [Cranberry 1 each PO DAILY 01/05/16 400 mg Caplet] Gabapentin [Neurontin] 300 mg PO TID 01/05/16 L.acidoph,Paracasei, B.lactis 1 each PO BID 01/05/16 [Probiotic] Multivitamins [Multivit ([facility] 1 tab PO DAILY 01/05/16 Formulary)] Potassium Chloride [Klor-Con 10] 20 meq PO BID 01/05/16 Budesonide/Formeterol Fumarate 2 inh PO BID 12/15/16 [SYMBICORT 160/4.5mcg -] Magnesium Oxide [Magnesium] 500 mg PO DAILY 12/15/16 Tizanidine HCl 2 mg PO HS 12/15/16 Active Medications Albuterol Sulfate (Ventolin 0.083% Nebulizer Soln -) 1 amp NEB Q8H UZIEL Alprazolam (Xanax -) 0.25 mg PO Q12H PRN PRN Reason: ANXIETY Budesonide/Formoterol Fumarate (Symbicort 160/4.5mcg -) 2 puff IH BID UZIEL Citalopram Hydrobromide (Celexa -) 20 mg PO HS UZIEL Gabapentin (Neurontin -) 300 mg PO TID UZIEL Sodium Chloride (Normal Saline -) 1,000 mls @ 83 mls/hr IV ASDIR UZIEL Pantoprazole Sodium (Protonix Iv) 40 mg IVPUSH BID [facility] Laboratory Results - last 24 hr 03/14/19 03/14/19 03/14/19 14:04 14:04 14:04 WBC 12.1 H RBC 2.07 L Hgb 7.1 L Hct 21.6 L D MCV 104.3 H MCH 34.1 H MCHC 32.7 RDW 14.4 Plt Count 251 MPV 7.5 Absolute Neuts (auto) 9.5 H Neutrophils % 78.4 Lymphocytes % 13.0 Monocytes % 6.5 Eosinophils % 1.3 Basophils % 0.8 Nucleated RBC % 0 PT with INR INR PTT (Actin FS) Sodium 138 Potassium 4.7 Chloride 108 H Carbon Dioxide 24 Anion Gap 6 L BUN 64.1 H Creatinine 0.9 Est GFR (CKD-EPI)AfAm 70.48 Est GFR (CKD-EPI)NonAf 60.81 Random Glucose 113 H Calcium 8.3 L Total Bilirubin 0.2 AST 19 ALT 25 Alkaline Phosphatase 62 Total Protein 6.0 L Albumin 3.4 Urine Color Yellow Urine Appearance Clear Urine pH 6.5 Ur Specific [place] 1.016 Urine Protein Negative Urine Glucose (UA) Negative Urine Ketones Negative Urine Blood Negative Urine Nitrite Negative Urine Bilirubin Negative Urine Urobilinogen 0.2 Ur Leukocyte Esterase Negative Stool Occult Blood Blood Type Antibody Screen Crossmatch 03/14/19 03/14/19 03/14/19 14:04 14:04 16:50 WBC RBC Hgb Hct MCV MCH MCHC RDW Plt Count MPV Absolute Neuts (auto) Neutrophils % Lymphocytes % Monocytes % Eosinophils % Basophils % Nucleated RBC % PT with INR 11.50 INR 0.97 PTT (Actin FS) 28.0 Sodium Potassium Chloride Carbon Dioxide Anion Gap BUN Creatinine Est GFR (CKD-EPI)AfAm Est GFR (CKD-EPI)NonAf Random Glucose Calcium Total Bilirubin AST ALT Alkaline Phosphatase Total Protein Albumin Urine Color Urine Appearance Urine pH Ur Specific [place] Urine Protein Urine Glucose (UA) Urine Ketones Urine Blood Urine Nitrite Urine Bilirubin Urine Urobilinogen Ur Leukocyte Esterase Stool Occult Blood Positive Blood Type O NEGATIVE Antibody Screen Negative Crossmatch See Detail EKG: NSR no acute ST-T changes CXR results and images reviewed ASSESSMENT AND PLAN: 78 yof with PMhx of chronic anemia (h/o Bone marrow biopsy with Dr. Waller, on chronic Fe), also last EGD/colonoscopy [address] Wadsworth, last Hb reported around 10 3 months ago with PCP, Chronic constipation with abdominal pain and nausea, MVP, HTN, chronic low back pain on oxycodone, recently started taking Aleve 2 tabs daily for last few weeks, admitted with weakness, acute on chronic anemia and melena -Acute on chronic symptomatic anemia, highly suspicious of ongoing GI bleed -Acute vs chronic GI bleed/melena, r/o PUD/gastritis given recent NSAIDs use, r/ o AVM, r/o diverticular/Angiodysplasia/Mass -Chronic constipation -Chronic low back pain -HTN -MVP Plan: 2 large bore IVs, Protonix IV, GI consult Dr. Wadsworth, follow up for possible EGD/colonoscopy Iron studies/b12/folate/retic count. Transfuse 2 units PRBC. Monitor h/h and hemodynamics closely. NPO for now. IV hydration. Bowel regimen with miralax,. Continue home xanax/oxycodone/tylenol for now. Hold anti-hypertensives DVTPPX with SCDs dispo admit to inpatient telemetry. Plan discussed with patient, ant at bedside in detail, all questions answered Care co-ordinated with ED. total admit time spent 65 min.
[2019-03-14] MEDS ORDERED: DOCUSATE SODIUM 100 MG CAPSULE (FP) PO PRN (18:46)
[2019-03-14] MEDS ORDERED: PANTOPRAZOLE SODIUM 40 MG VIAL IVPUSH ONE ×2 (18:51→18:56)
[2019-03-14] MEDS: DEXTROSE 5%-NORMAL SALINE 1,000 ML IV SCH (19:47)
[2019-03-14] MEDS ORDERED: MORPHINE SULFATE 2 MG/ML VIAL IVPUSH ONE (21:00)
[2019-03-14] MEDS: ALBUTEROL SO4 0.083% IH SOL 2.5 MG/3 ML VIAL.NEB. NEB SCH (21:05)
[2019-03-14] MEDS: CITALOPRAM HYDROBROMIDE 20 MG TABLET (FP) PO SCH (21:06)
[2019-03-14] MEDS: PANTOPRAZOLE SODIUM 40 MG VIAL IVPUSH SCH (21:06)
[2019-03-14] MEDS: ALPRAZolam 0.25 MG TABLET PO PRN (21:06)
[2019-03-14] MEDS: GABAPENTIN 300 MG CAPSULE (FP) PO SCH (21:06)
[2019-03-14] MEDS ORDERED: POLYETHYLENE GLYCOL 3350 119 GM BTL PO SCH (22:00)
[2019-03-14] MEDS: BUDESONIDE/FORMETEROL FUMARATE 160/4.5 mcg INHALER IH SCH (23:34)
[2019-03-15] MEDS: ACETAMINOPHEN/CAFFEINE/BUTALBITAL 1 TAB PO PRN ×2 (02:15→22:37)
[2019-03-15] MEDS: ACETAMINOPHEN 1000 MG/100 ML VIAL (NON FORMULARY) IVPB PRN ×2 (03:30→20:51)
[2019-03-15 03:41] LABS: BASO % 0.7 % (0-2.0); HEMATOCRIT 21.8 % (32.4-45.2); HEMOGLOBIN 7.5 GM/dL (10.7-15.3); LYMPH % 13.2 % (8-40); MCH 34.1 pg (25.7-33.7); MCHC 34.4 g/dl (32.0-36.0); MEAN CELL VOLUME 99.2 fl (80-96); MEAN PLT VOLUME 7.1 fl (7.5-11.1); MONO % 7.3 % (3.8-10.2); NEUT % 77.8 % (42.8-82.8); PLATELET COUNT 168 K/MM3 (134-434); RDW 15.2 % (11.6-15.6); WHITE BLOOD COUNT 8.6 K/mm3 (4.0-10.0)
[2019-03-15] MEDS ORDERED: MORPHINE SULFATE 2 MG/ML VIAL IVPUSH ONE (04:13)
[2019-03-15] MEDS: GABAPENTIN 300 MG CAPSULE (FP) PO SCH ×3 (06:48→22:38)
[2019-03-15] MEDS: ALBUTEROL SO4 0.083% IH SOL 2.5 MG/3 ML VIAL.NEB. NEB SCH ×3 (07:41→20:17)
--- NOTE | 2019-03-15 07:43 | PN ---
Physical Exam: SUBJECTIVE: Patient seen and examined received 2 unit of blood No BM , complain of abdominal pain , back pain and headache denies any dizziness , palpitation or sob OBJECTIVE: Vital Signs Period Temp Pulse Resp BP Sys/Casper Pulse Ox Last 24 Hr 97.8 F-99.3 F 70-98 16-20 100-152/46-69 92-100 GENERAL: AAOx3 in NAD HEAD: NC/AT EYES: EOMI, Conjunctiva clear, sclera anicteric ENT: dry mucous membrane NECK: Supple, no JVD LUNGS: CTA B/L, no crackles no wheezing no accessory muscle use. HEART: RRR, normal s1, s2, no M/R/G ABDOMEN: Soft, ND, NT, +BS 4 Q, no CVA Tenderness, transverse low sergical scar LOWER EXTREMITIES: no edema, +2DP pulse, NEUROLOGICAL: No focal deficit. Normal speech. gait not observed. PSYCHIATRIC: Cooperative. Good eye contact. Appropriate mood and affect. SKIN: Warm, dry, rectal normal sphincter tone , no hemorrhoids externally : Done by Dr De La Cruz in my present Laboratory Results - last 24 hr 03/14/19 03/14/19 03/14/19 14:04 14:04 14:04 WBC 12.1 H RBC 2.07 L Hgb 7.1 L Hct 21.6 L D MCV 104.3 H MCH 34.1 H MCHC 32.7 RDW 14.4 Plt Count 251 MPV 7.5 Absolute Neuts (auto) 9.5 H Neutrophils % 78.4 Lymphocytes % 13.0 Monocytes % 6.5 Eosinophils % 1.3 Basophils % 0.8 Nucleated RBC % 0 PT with INR INR PTT (Actin FS) Sodium 138 Potassium 4.7 Chloride 108 H Carbon Dioxide 24 Anion Gap 6 L BUN 64.1 H Creatinine 0.9 Est GFR (CKD-EPI)AfAm 70.48 Est GFR (CKD-EPI)NonAf 60.81 Random Glucose 113 H Calcium 8.3 L Iron TIBC Iron Saturation Unsaturated IBC Ferritin Total Bilirubin 0.2 AST 19 ALT 25 Alkaline Phosphatase 62 Total Protein 6.0 L Albumin 3.4 Vitamin B12 Serum Folate Urine Color Yellow Urine Appearance Clear Urine pH 6.5 Ur Specific [place] 1.016 Urine Protein Negative Urine Glucose (UA) Negative Urine Ketones Negative Urine Blood Negative Urine Nitrite Negative Urine Bilirubin Negative Urine Urobilinogen 0.2 Ur Leukocyte Esterase Negative Stool Occult Blood Blood Type Antibody Screen Crossmatch 03/14/19 03/14/19 03/14/19 14:04 14:04 16:50 WBC RBC Hgb Hct MCV MCH MCHC RDW Plt Count MPV Absolute Neuts (auto) Neutrophils % Lymphocytes % Monocytes % Eosinophils % Basophils % Nucleated RBC % PT with INR 11.50 INR 0.97 PTT (Actin FS) 28.0 Sodium Potassium Chloride Carbon Dioxide Anion Gap BUN Creatinine Est GFR (CKD-EPI)AfAm Est GFR (CKD-EPI)NonAf Random Glucose Calcium Iron TIBC Iron Saturation Unsaturated IBC Ferritin Total Bilirubin AST ALT Alkaline Phosphatase Total Protein Albumin Vitamin B12 Serum Folate Urine Color Urine Appearance Urine pH Ur Specific [place] Urine Protein Urine Glucose (UA) Urine Ketones Urine Blood Urine Nitrite Urine Bilirubin Urine Urobilinogen Ur Leukocyte Esterase Stool Occult Blood Positive Blood Type O NEGATIVE Antibody Screen Negative Crossmatch See Detail 03/14/19 03/15/19 19:00 03:30 WBC 8.6 RBC 2.20 L Hgb 7.5 L Hct 21.8 L MCV 99.2 H MCH 34.1 H MCHC 34.4 RDW 15.2 Plt Count 168 D MPV 7.1 L Absolute Neuts (auto) 6.7 Neutrophils % 77.8 Lymphocytes % 13.2 Monocytes % 7.3 Eosinophils % 1.0 Basophils % 0.7 Nucleated RBC % 0 PT with INR INR PTT (Actin FS) Sodium Potassium Chloride Carbon Dioxide Anion Gap BUN Creatinine Est GFR (CKD-EPI)AfAm Est GFR (CKD-EPI)NonAf Random Glucose Calcium Iron 42 L TIBC 297 Iron Saturation 14 L Unsaturated IBC 255 Ferritin 22.3 Total Bilirubin AST ALT Alkaline Phosphatase Total Protein Albumin Vitamin B12 581 Serum Folate 42 H Urine Color Urine Appearance Urine pH Ur Specific [place] Urine Protein Urine Glucose (UA) Urine Ketones Urine Blood Urine Nitrite Urine Bilirubin Urine Urobilinogen Ur Leukocyte Esterase Stool Occult Blood Blood Type Antibody Screen Crossmatch Active Medications Generic Name Dose Route Start Last Admin Trade Name Freq PRN Reason Stop Dose Admin Acetaminophen 1,000 mg 03/14/19 18:49 03/15/19 03:30 Ofirmev Injection - IVPB 1,000 mg Q6H PRN Administration PAIN LEVEL 1-5 Acetaminophen/Butalbital/Caffeine 1 tablet 03/14/19 18:49 03/15/19 02:15 Fioricet - PO 1 tablet Q8H PRN Administration HEADACHE Albuterol Sulfate 1 amp 03/14/19 20:00 03/15/19 07:41 Ventolin 0.083% Nebulizer Soln - NEB 1 amp RTID UZIEL Administration Alprazolam 0.25 mg 03/14/19 18:13 03/14/19 21:06 Xanax - PO 0.25 mg Q12H PRN Administration ANXIETY Budesonide/Formoterol Fumarate 2 puff 03/14/19 22:00 03/14/19 23:34 Symbicort 160/4.5mcg - IH 2 puff BID UZIEL Administration Citalopram Hydrobromide 20 mg 03/14/19 22:00 03/14/19 21:06 Celexa - PO 20 mg HS UZIEL Administration Docusate Sodium 100 mg 03/14/19 18:46 Colace - PO Q12H PRN CONSTIPATION Gabapentin 300 mg 03/14/19 22:00 03/15/19 06:48 Neurontin - PO 300 mg TID UZIEL Administration Dextrose/Sodium Chloride 1,000 mls @ 100 mls/hr 03/14/19 19:00 03/14/19 19:47 D5-Ns - IV 100 mls/hr ASDIR UZIEL Administration Non-Formulary Medication 15 mg 03/14/19 18:49 Oxycodone Hcl/Acetaminophen [Percocet 10-325 Mg Tablet] PO BID PRN PAIN Pantoprazole Sodium 40 mg 03/14/19 22:00 03/14/19 21:06 Protonix Iv IVPUSH 40 mg BID UZIEL Administration Polyethylene Glycol 17 gm 03/14/19 22:00 03/14/19 23:20 Miralax (For Daily Use) - PO Not Given BID [facility] CBC, BMP 03/15/19 09:22 03/15/19 09:22 ASSESSMENT/PLAN: 78 year old female with pmhx of MVP, Divertuclosis , Constipation , bronchiestsis come to ED due to generalized weakness and sob and abdominal pain was found to have hgb 7.1 and occult blood positive admitted to [facility] for further evaluation. # anemia * Hgb 7.1 , occult blood positive , s.p 2 units of PRBC * 2 large iV pores * NPO * IV fluids * Avoids NSAIDS and blood thinner , ASA * GI consult for EGD and colonoscopy * CT scan A/p with no acute pathology * PPI 40 IV BID * monitor H/H Q 8hr * iron studies , with irone defficiency anemia vs anemia of chronic disease * b12 , FA Elevated # CATA rafat pre renal repeat lab after hydration # leuckocytosis un known etiology , florian cx monitor off abx # Constipation chronic , cont Mirlax and colace TID # H.O MVP , follow up Echo # Bronchiectais , stable on bronchodilators # FEN * NS @ 83 * monitor lytes * NPO till cleared by GI # Proph * SCDS * PPI BID IV 40 # Dispo : monitor in tele Visit type - Emergency Visit Emergency Visit: Yes ED Registration Date: 03/14/19 Care time: The patient presented to the Emergency Department on the above date and was hospitalized for further evaluation of their emergent condition. - New Patient This patient is new to me today: No - Critical Care Critical Care patient: No ATTENDING PHYSICIAN STATEMENT I saw and evaluated the patient. I reviewed the resident's note and discussed the case with the resident. I agree with the resident's findings and plan as documented. SUBJECTIVE: OBJECTIVE: ASSESSMENT AND PLAN:
[2019-03-15 09:32] LABS: BASO % 0.6 % (0-2.0); EOS % 1.6 % (0-4.5); HEMATOCRIT 26.2 % (32.4-45.2); LYMPH % 13.1 % (8-40); MCHC 34.5 g/dl (32.0-36.0); MEAN CELL VOLUME 92.9 fl (80-96); MEAN PLT VOLUME 6.8 fl (7.5-11.1); NEUT % 77.7 % (42.8-82.8); PLATELET COUNT 146 K/MM3 (134-434); RBC 2.82 M/mm3 (3.60-5.2); RDW 19.1 % (11.6-15.6); WHITE BLOOD COUNT 7.8 K/mm3 (4.0-10.0)
[2019-03-15 09:59] LABS: INR 0.94 (0.83-1.09); PROTHROMBIN TIME (PATIENT) 11.1 SEC (9.7-13.0)
[2019-03-15 10:00] LABS: ALBUMIN 3.3 g/dl (3.4-5.0); BILIRUBIN,TOTAL 1.1 mg/dL (0.2-1); BLOOD UREA NITROGEN 29.5 mg/dL (7-18); CALCIUM 8.3 mg/dL (8.5-10.1); CREATININE 0.7 mg/dL (0.55-1.3); MAGNESIUM 2.6 mg/dL (1.8-2.4); PHOSPHOROUS 2.8 mg/dL (2.5-4.9); POTASSIUM 4.4 mmol/L (3.5-5.1); TOT PROT 5.6 g/dl (6.4-8.2)
[2019-03-15] MEDS ORDERED: ALBUTEROL SO4 0.083% IH SOL 2.5 MG/3 ML VIAL.NEB. NEB SCH (10:00)
[2019-03-15] MEDS: DOCUSATE SODIUM 100 MG CAPSULE (FP) PO SCH ×2 (10:34→22:38)
[2019-03-15] MEDS: BUDESONIDE/FORMETEROL FUMARATE 160/4.5 mcg INHALER IH SCH ×2 (10:35→22:51)
--- NOTE | 2019-03-15 10:37 | ECHO ---
Name: RACHEL PERRIN Exam:Adult Echocardiogram Study Date: 03/15/2019 08:19 AM Age: 78 yrs Reason For Study: MVP Height: 63 in Weight: 110 lb BSA: 1.5 m2 MMode/2D Measurements & Calculations IVSd: 0.76 cm Ao root diam: 2.6 cm LVIDd: 4.3 cm LA dimension: 3.0 cm LVIDs: 2.8 cm LVPWd: 0.74 cm EDV(Teich): 85.1 ml LVOT diam: 2.1 cm ESV(Teich): 29.1 ml Doppler Measurements & Calculations MV E max sundeep: 84.9 cm/sec Ao V2 max: 167.7 cm/sec MV A max sundeep: 98.7 cm/sec Ao max P.3 mmHg MV E/A: 0.86 Ao V2 mean: 108.1 cm/sec MV dec time: 0.14 sec Ao mean P.3 mmHg Ao V2 VTI: 35.4 cm MAURICIO(I,D): 2.4 cm2 MAURICIO(V,D): 2.3 cm2 LV V1 max P.1 mmHg MR max sundeep: 447.6 cm/sec LV V1 mean P.7 mmHg MR max P.1 mmHg LV V1 max: 112.5 cm/sec LV V1 mean: 77.7 cm/sec LV V1 VTI: 24.9 cm SV(LVOT): 84.2 ml TR max sundeep: 227.2 cm/sec TR max P.7 mmHg Med Peak E' Sundeep: 5.6 cm/sec Med E/e': 15.3 Lat Peak E' Sundeep: 8.0 cm/sec Lat E/e': 10.6 Left Ventricle Left ventricular systolic function is normal. Ejection Fraction = 55-60%. The transmitral spectral Do ppler flow pattern is suggestive of impaired LV relaxation. Right Ventricle The right ventricle is normal in size and function. Atria Normal left and right atrial size and function. Mitral Valve There is mild mitral valve thickening. There is borderline mitral valve prolapse. There is no mitral valve stenosis. There is mild mitral regurgitation. Tricuspid Valve The tricuspid valve is normal in structure and function. There is mild tricuspid regurgitation. Aortic Valve There is mild aortic sclerosis.;. No hemodynamically significant valvular aortic stenosis. No aortic regurgitation is present. Pulmonic Valve The pulmonic valve is not well seen, but is grossly normal. There is no pulmonic valvular stenosis. Great Vessels The aortic root is normal size. Pericardium/Pleura There is no pericardial effusion. Interpretation Summary Left ventricular systolic function is normal. Ejection Fraction = 55-60%. The transmitral spectral Doppler flow pattern is suggestive of impaired LV relaxation. There is borderline mitral valve prolapse. There is mild mitral regurgitation. There is mild tricuspid regurgitation. There is mild aortic sclerosis.; There is no pericardial effusion. MD Carver *Blaise 03/15/2019 10:36 AM
--- NOTE | 2019-03-15 11:12 | EKG ---
Test Reason : Blood Pressure : / mmHG Vent. Rate : 088 BPM Atrial Rate : 088 BPM P-R Int : 170 ms QRS Dur : 072 ms QT Int : 366 ms P-R-T Axes : 077 028 069 degrees QTc Int : 442 ms NORMAL SINUS RHYTHM NORMAL ECG WHEN COMPARED WITH ECG OF 21-JUN-2017 05:16, VENT. RATE HAS INCREASED BY 31 BPM Confirmed by JOSE EDUARDO MAHARAJ MD ([id number]) on 03/15/2019 11:12:41 AM Referred By: Confirmed By:JOSE EDUARDO MAHARAJ MD
[2019-03-15] MEDS: oxyCODONE HCL 5 MG TABLET PO PRN ×2 (11:14→23:19)
[2019-03-15] MEDS: PANTOPRAZOLE SODIUM 40 MG VIAL IVPUSH SCH ×2 (11:15→22:37)
[2019-03-15] MEDS: POLYETHYLENE GLYCOL 3350 119 GM BTL PO SCH ×2 (14:26→22:39)
--- NOTE | 2019-03-15 14:47 | PN ---
Teaching Attending Note Name of Resident: Rayo Fischer ATTENDING PHYSICIAN STATEMENT I saw and evaluated the patient. I reviewed the resident's note and discussed the case with the resident. I agree with the resident's findings and plan as documented with exceptions below. SUBJECTIVE: Patient seen and examined. reports her chronic back pain, no BM inhouse. No nausea, vomiting. Weakness/dizziness improved. OBJECTIVE: Vital Signs Period Temp Pulse Resp BP Sys/Casper Pulse Ox Last 24 Hr 97.8 F-99.3 F 70-94 16-20 100-152/46-58 92-96 Intake & Output 03/12/19 03/13/19 03/14/19 03/15/19 23:59 23:59 23:59 23:59 Intake Total 650 Balance 650 Weight 110 lb General: sitting in bed, improved pallor CVS:S1S2 regular Neck: soft, supple, no JVD Chest: CTAB, no rales or wheezing Abdomen:Soft, Nt, ND, pos bowel sounds Extremities: no edema Home Medications Medication Instructions Recorded Alprazolam [Xanax] 0.25 mg PO BID PRN 01/25/12 Ascorbic Acid [Vitamin C] 2,000 mg PO DAILY 01/25/12 Calcium Carbonate/Vitamin D3 1 each PO BID 01/25/12 [Caltrate 600 + D Tablet] Citalopram Hydrobromide [Celexa -] 20 mg PO HS 01/25/12 Ranitidine [Zantac -] 150 mg PO BID 01/25/12 propRANOLol HCL [Inderal -] 60 mg PO DAILY 01/25/12 Albuterol 0.083% Nebulizer Manju 1 neb NEB DAILY 09/25/13 [Ventolin 0.083% Nebulizer Soln -] Oxycodone HCl/Acetaminophen 15 mg PO BID PRN 02/19/15 [Percocet 10-325 mg Tablet] Tobramycin/Na Chlor 0.2% [[place] (Do 300 mg IH DAILY 02/19/15 Not Stock)] Biotin 1 mg PO DAILY 01/05/16 Butalbit/Acetamin/Caff/Codeine 1 each PO TID PRN 01/05/16 [Fioricet-Cod [id number] Cap] Calcium/Cranberry Fruit [Cranberry 1 each PO DAILY 01/05/16 400 mg Caplet] Gabapentin [Neurontin] 300 mg PO TID 01/05/16 L.acidoph,Paracasei, B.lactis 1 each PO BID 01/05/16 [Probiotic] Multivitamins [Multivit ([facility] 1 tab PO DAILY 01/05/16 Formulary)] Potassium Chloride [Klor-Con 10] 20 meq PO BID 01/05/16 Budesonide/Formeterol Fumarate 2 inh PO BID 12/15/16 [SYMBICORT 160/4.5mcg -] Magnesium Oxide [Magnesium] 500 mg PO DAILY 12/15/16 Tizanidine HCl 2 mg PO HS 12/15/16 Active Medications Acetaminophen (Ofirmev Injection -) 1,000 mg IVPB Q6H PRN PRN Reason: PAIN LEVEL 1-5 Last Admin: 03/15/19 03:30 Dose: 1,000 mg Acetaminophen (Tylenol -) 325 mg PO Q12H PRN PRN Reason: PAIN 6-10 Acetaminophen/Butalbital/Caffeine (Fioricet -) 1 tablet PO Q8H PRN PRN Reason: HEADACHE Last Admin: 03/15/19 02:15 Dose: 1 tablet Albuterol Sulfate (Ventolin 0.083% Nebulizer Soln -) 1 amp NEB RTID [facility] Last Admin: 03/15/19 13:26 Dose: 1 amp Alprazolam (Xanax -) 0.25 mg PO Q12H PRN PRN Reason: ANXIETY Last Admin: 03/14/19 21:06 Dose: 0.25 mg Budesonide/Formoterol Fumarate (Symbicort 160/4.5mcg -) 2 puff IH BID [facility] Last Admin: 03/15/19 10:35 Dose: 2 puff Citalopram Hydrobromide (Celexa -) 20 mg PO HS [facility] Last Admin: 03/14/19 21:06 Dose: 20 mg Docusate Sodium (Colace -) 100 mg PO BID [facility] Last Admin: 03/15/19 10:34 Dose: 100 mg Gabapentin (Neurontin -) 300 mg PO TID [facility] Last Admin: 03/15/19 06:48 Dose: 300 mg Dextrose/Sodium Chloride (D5-Ns -) 1,000 mls @ 100 mls/hr IV ASDIR [facility] Last Admin: 03/14/19 19:47 Dose: 100 mls/hr Oxycodone HCl (Roxicodone -) 10 mg PO Q12H PRN PRN Reason: PAIN 6-10 Last Admin: 03/15/19 11:14 Dose: 10 mg Pantoprazole Sodium (Protonix Iv) 40 mg IVPUSH BID UZIEL Last Admin: 03/15/19 11:15 Dose: 40 mg Polyethylene Glycol (Miralax (For Daily Use) -) 17 gm PO TID [facility] Laboratory Results - last 24 hr 03/14/19 03/14/19 03/14/19 14:04 14:04 14:04 WBC 12.1 H RBC 2.07 L Hgb 7.1 L Hct 21.6 L D MCV 104.3 H MCH 34.1 H MCHC 32.7 RDW 14.4 Plt Count 251 MPV 7.5 Absolute Neuts (auto) 9.5 H Neutrophils % 78.4 Lymphocytes % 13.0 Monocytes % 6.5 Eosinophils % 1.3 Basophils % 0.8 Nucleated RBC % 0 PT with INR INR PTT (Actin FS) Sodium 138 Potassium 4.7 Chloride 108 H Carbon Dioxide 24 Anion Gap 6 L BUN 64.1 H Creatinine 0.9 Est GFR (CKD-EPI)AfAm 70.48 Est GFR (CKD-EPI)NonAf 60.81 POC Glucometer Random Glucose 113 H Calcium 8.3 L Phosphorus Magnesium Iron TIBC Iron Saturation Unsaturated IBC Ferritin Total Bilirubin 0.2 AST 19 ALT 25 Alkaline Phosphatase 62 Total Protein 6.0 L Albumin 3.4 Vitamin B12 Serum Folate Urine Color Yellow Urine Appearance Clear Urine pH 6.5 Ur Specific [place] 1.016 Urine Protein Negative Urine Glucose (UA) Negative Urine Ketones Negative Urine Blood Negative Urine Nitrite Negative Urine Bilirubin Negative Urine Urobilinogen 0.2 Ur Leukocyte Esterase Negative Stool Occult Blood Blood Type Antibody Screen Crossmatch 03/14/19 03/14/19 03/14/19 14:04 14:04 16:50 WBC RBC Hgb Hct MCV MCH MCHC RDW Plt Count MPV Absolute Neuts (auto) Neutrophils % Lymphocytes % Monocytes % Eosinophils % Basophils % Nucleated RBC % PT with INR 11.50 INR 0.97 PTT (Actin FS) 28.0 Sodium Potassium Chloride Carbon Dioxide Anion Gap BUN Creatinine Est GFR (CKD-EPI)AfAm Est GFR (CKD-EPI)NonAf POC Glucometer Random Glucose Calcium Phosphorus Magnesium Iron TIBC Iron Saturation Unsaturated IBC Ferritin Total Bilirubin AST ALT Alkaline Phosphatase Total Protein Albumin Vitamin B12 Serum Folate Urine Color Urine Appearance Urine pH Ur Specific [place] Urine Protein Urine Glucose (UA) Urine Ketones Urine Blood Urine Nitrite Urine Bilirubin Urine Urobilinogen Ur Leukocyte Esterase Stool Occult Blood Positive Blood Type O NEGATIVE Antibody Screen Negative Crossmatch See Detail 03/14/19 03/15/19 03/15/19 19:00 03:30 09:22 WBC 8.6 7.8 RBC 2.20 L 2.82 L Hgb 7.5 L 9.0 L Hct 21.8 L 26.2 L D MCV 99.2 H 92.9 D MCH 34.1 H 32.0 MCHC 34.4 34.5 RDW 15.2 19.1 H Plt Count 168 D 146 MPV 7.1 L 6.8 L Absolute Neuts (auto) 6.7 6.1 Neutrophils % 77.8 77.7 Lymphocytes % 13.2 13.1 Monocytes % 7.3 7.0 Eosinophils % 1.0 1.6 Basophils % 0.7 0.6 Nucleated RBC % 0 0 PT with INR INR PTT (Actin FS) Sodium Potassium Chloride Carbon Dioxide Anion Gap BUN Creatinine Est GFR (CKD-EPI)AfAm Est GFR (CKD-EPI)NonAf POC Glucometer Random Glucose Calcium Phosphorus Magnesium Iron 42 L TIBC 297 Iron Saturation 14 L Unsaturated IBC 255 Ferritin 22.3 Total Bilirubin AST ALT Alkaline Phosphatase Total Protein Albumin Vitamin B12 581 Serum Folate 42 H Urine Color Urine Appearance Urine pH Ur Specific [place] Urine Protein Urine Glucose (UA) Urine Ketones Urine Blood Urine Nitrite Urine Bilirubin Urine Urobilinogen Ur Leukocyte Esterase Stool Occult Blood Blood Type Antibody Screen Crossmatch 03/15/19 03/15/19 03/15/19 09:22 09:22 09:52 WBC RBC Hgb Hct MCV MCH MCHC RDW Plt Count MPV Absolute Neuts (auto) Neutrophils % Lymphocytes % Monocytes % Eosinophils % Basophils % Nucleated RBC % PT with INR 11.10 INR 0.94 PTT (Actin FS) Sodium 142 Potassium 4.4 Chloride 113 H Carbon Dioxide 25 Anion Gap 4 L BUN 29.5 H Creatinine 0.7 Est GFR (CKD-EPI)AfAm 95.51 Est GFR (CKD-EPI)NonAf 82.41 POC Glucometer 106 Random Glucose 106 Calcium 8.3 L Phosphorus 2.8 Magnesium 2.6 H Iron TIBC Iron Saturation Unsaturated IBC Ferritin Total Bilirubin 1.1 H AST 22 ALT 25 Alkaline Phosphatase 61 Total Protein 5.6 L Albumin 3.3 L Vitamin B12 Serum Folate Urine Color Urine Appearance Urine pH Ur Specific [place] Urine Protein Urine Glucose (UA) Urine Ketones Urine Blood Urine Nitrite Urine Bilirubin Urine Urobilinogen Ur Leukocyte Esterase Stool Occult Blood Blood Type Antibody Screen Crossmatch Microbiology 03/14/19 14:04 Urine - Urine Clean Catch Urine Culture - Preliminary Staphylococcus Coagulase Neg Group D Strep Or Entero Coccus ASSESSMENT AND PLAN: 78 yof with PMhx of chronic anemia (h/o Bone marrow biopsy with Dr. Waller, on chronic Fe), also last EGD/colonoscopy [address] Wadsworth, last Hb reported around 10 3 months ago with PCP, Chronic constipation with abdominal pain and nausea, MVP, HTN, chronic low back pain on oxycodone, recently started taking Aleve 2 tabs daily for last few weeks, admitted with weakness, acute on chronic anemia and melena -Acute on chronic symptomatic anemia, highly suspicious of ongoing GI bleed -Acute vs chronic GI bleed/melena, r/o PUD/gastritis given recent NSAIDs use, r/ o AVM, r/o diverticular/Angiodysplasia/Mass -Chronic constipation -Chronic low back pain -Asymptomatic bacteruria -HTN -MVP Plan: s/p 2 units PRBC, no gross evidence of bleed. Continue PPI IV BID. Clears today , possible EGD in Am, follow up with GI. Iron studies/b12/folate noted, follow up retic count. Hematology input. Monitor h/h and hemodynamics closely. Continue IVF, hold off anti-hypertensives. Bowel regimen with miralax, colace. Continue home xanax/oxycodone/tylenol for now. No urinary symptoms, ua clean, hold off on abx for now. DVTPPX with SCDs dispo pending clinical improvement. Plan discussed with patient, sons at bedside in detail, all questions answered
--- NOTE | 2019-03-15 15:23 | CON.GI ---
Consult Consult Specialty:: GI Referred by:: Hospitalist service Reason for Consultation:: Anemia / weakness - History of Present Illness Chief Complaint: Weakness History of Present Illness: Please refer to my office note 02/05/19 which I left in progress note section . 78F admitted for evaluation of progressive weakness, diaphoresis. She called [address] [facility] ER. She was noted noted to be more anemic from her baseline and was transfused 2 U PRBC. She takes 2 aleve pills daily and has been doing this for some time now secondary to chronic back pain. She has noted dark green BM's as well and was noted guaiac + in the ED. I had evaluated her in 02/16 for evaluation of chronic constipation and chronic abdominal pain. At that time, she was guaiac negative, had a macrocytic anemia (hgb of 10, which is her baseline) with normal iron / b12/Folate (recent labs in progress note section). She also had an unrevealing upper GI series in . I trialed her on Linzess and it did not help with her constipation. She was trialed on Movantik prior to this by Dr. Wadsworth and this did not seem to help with her suspected opioid induced constipation, She takes colace as well as miralax 2-3 times per day and Senokot and this results in small, soft BM's. Records of her multiple prior colonoscopies were noted on an addendum on my office note. her last colonoscopy was 2018. Her last EGD was 2012 (hiatal hernia). She has chronic abdominal pain. She also complains of chronic back pain. There has been no gross rectal bleeding or melena reported today. - History Source History Provided By: Patient, Family Member (son present at bedside), Medical Record Limitations to Obtaining History: No Limitations - Past Medical History Cardio/Vascular: Yes: Other (Mitral lucy prolapse) Pulmonary: Yes: Other (bronchiectasis) Gastrointestinal: Yes: Constipation, GERD Renal/: Yes: Hematuria Heme/Onc: Yes: Anemia (macrocytic) Psych: Yes: Anxiety Musculoskeletal: Yes: Chronic low back pain Rheumatology: Yes: Other (Sjogren's syndrome, raynaud's disease, fibromyalgia) Endocrine: Yes: Hyperparathyroidism, Hypothyroidism - Past Surgical History Past Surgical History: Yes: Cataract Removal, Cholecystectomy, Hysterectomy ( MARKO secondary to fibroids), Joint Replacement Additional Surgical History: hemorrhoidectomy, facial surgery. larynopharyngeal cyst removal, B/L cataract removal. 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 Place of : [facility] History of Recent Travel: No Home Medications - Allergies Allergies/Adverse Reactions: Allergies Allergy/AdvReac Type Severity Reaction Status Date / Time No Known Drug Allergies Allergy Verified 03/14/19 12:21 - Home Medications Home Medications: Ambulatory Orders Alprazolam [Xanax] 0.25 mg PO BID PRN 01/25/12 Ascorbic Acid [Vitamin C] 2,000 mg PO DAILY 01/25/12 Calcium Carbonate/Vitamin D3 [Caltrate 600 + D Tablet] 1 each PO BID 01/25/12 Citalopram Hydrobromide [Celexa -] 20 mg PO HS 01/25/12 Ranitidine [Zantac -] 150 mg PO BID 01/25/12 propRANOLol HCL [Inderal -] 60 mg PO DAILY 01/25/12 Albuterol 0.083% Nebulizer Manju [Ventolin 0.083% Nebulizer Soln -] 1 neb NEB DAILY 09/25/13 Oxycodone HCl/Acetaminophen [Percocet 10-325 mg Tablet] 15 mg PO BID PRN Tobramycin/Na Chlor 0.2% [Cornell (Do Not Stock)] 300 mg IH DAILY 02/19/15 Biotin 1 mg PO DAILY 01/05/16 Butalbit/Acetamin/Caff/Codeine [Fioricet-Cod 45-936-53-30 Cap] 1 each PO TID PRN 01/05/16 Calcium/Cranberry Fruit [Cranberry 400 mg Caplet] 1 each PO DAILY 01/05/16 Gabapentin [Neurontin] 300 mg PO TID 01/05/16 L.acidoph,Paracasei, B.lactis [Probiotic] 1 each PO BID 01/05/16 Multivitamins [Multivit ([facility] Formulary)] 1 tab PO DAILY 01/05/16 Potassium Chloride [Klor-Con 10] 20 meq PO BID 01/05/16 Budesonide/Formeterol Fumarate [SYMBICORT 160/4.5mcg -] 2 inh PO BID 12/15/16 Magnesium Oxide [Magnesium] 500 mg PO DAILY 12/15/16 Tizanidine HCl 2 mg PO HS 12/15/16 Family Disease History - Family Disease History Family Disease History: Other: Father (: 74: "stomach and liver cancer"), Mother (: Dementia, colon Ca ), Brother (: pancreatic cancer), Son ( 2, healthy) Review of Systems - Review of Systems Constitutional: reports: Diaphoresis, Loss of Appetite, Weakness Cardiovascular: denies: Chest Pain Respiratory: reports: SOB (intermittent, chronic) Gastrointestinal: reports: Abdominal Pain (Chronic), Bloating, Constipation ( Chronic). denies: Diarrhea, Indigestion, Melena, Nausea, Rectal Bleeding, Vomiting, Vomiting Blood Musculoskeletal: reports: Back Pain, Other (B/L Leg pain) Physical Exam-GI Vital Signs: Vital Signs Temperature 98.1 F 03/15/19 06:00 Pulse Rate 70 03/15/19 06:00 Respiratory Rate 20 03/15/19 06:00 Blood Pressure 123/54 L 03/15/19 06:00 O2 Sat by Pulse Oximetry (%) 96 03/14/19 22:00 Constitutional: Yes: Calm Eyes: No: Sclera Icterus Cardiovascular: Yes: Regular Rate and Rhythm Respiratory: Yes: CTA Bilaterally Gastrointestinal Inspection: Yes: Scars (+ horizontal pelvic surgical scar, + ventral rectus diastasis, hernia noted midline caudad to the umbilicus). No: Distention ...Auscultate: Yes: Normoactive Bowel Sounds ...Palpate: Yes: Soft. No: Tenderness ...Percussion: No: Tympanitic ...Rectal Exam: Yes: Other (No external lesions, no masses, no fecal impaction, small amount of dark stool in rectal vault, Guaiac +) Edema: No (No LE edema) Neurological: Yes: Alert, Oriented Labs: CBC, BMP 03/15/19 09:22 ( 03/15/19 09:22 INR, PTT INR 0.94 (0.83-1.09) 03/15/19 09:22 Problem List - Problems (1) Anemia Assessment/Plan: Worsened from her baseline macrocytic anemia in the setting of dark guaiac + stool, elevated BUN, frequent NSAID use. Unclear cause of her baseline macrocytic anemia., however it has likely been compounded by upper GI bleeding. I discussed this with Ms. Burton and her son who was present at bedside. We discussed upper endoscopy for further evaluation. we discussed potential risks of the procedure like but not limited to bleeding, perforation requiring surgery to repair, infection, sedation medication effects all of which could be potentially life threatening. She has agreed to the procedure. Advanced to clears, NPO after midnight BID PPI for now Monitor H/H and for overt bleeding Code(s): D64.9 - ANEMIA, UNSPECIFIED Qualifiers: Anemia type: unspecified type Qualified Code(s): D64.9 - Anemia, unspecified
[2019-03-15] MEDS: DEXTROSE 5%-NORMAL SALINE 1,000 ML IV SCH (18:05)
--- NOTE | 2019-03-15 22:16 | CONSULT ---
Consult - text type - Consultation Consultation Note: The patient is a 78 year old female, with a significant PMH of chronic constipation, bronchiectasis, diverticulosis, chronic abdominal pain, and mitral valve prolapse, who presents to the emergency department with 1 day of generalized weakness and diaphoresis upon walking and standing up. As per EMS, she was noted to be orthostatic and hypotensive en route. PAST MEDICAL HISTORY: MVP, Constipation , bronchiectais, diverticulosis PAST SURGICAL HISTORY: BRONCHIECTASIS Surgery, Left hip orifice with insertion and hardware removal, appendectomy. Social History: Smoking:History of tobacco use, quit 1986. Alcohol:socially Drugs: denies Family History:colon cancer and pancreatic cancer Allergies No Known Drug Allergies Allergy (Verified 03/14/19 12:21) HOME MEDICATIONS: Home Medications Medication Instructions Recorded Alprazolam [Xanax] 0.25 mg PO BID PRN 01/25/12 Ascorbic Acid [Vitamin C] 2,000 mg PO DAILY 01/25/12 Calcium Carbonate/Vitamin D3 1 each PO BID 01/25/12 [Caltrate 600 + D Tablet] Citalopram Hydrobromide [Celexa -] 20 mg PO HS 01/25/12 Ranitidine [Zantac -] 150 mg PO BID 01/25/12 propRANOLol HCL [Inderal -] 60 mg PO DAILY 01/25/12 Albuterol 0.083% Nebulizer Manju 1 neb NEB DAILY 09/25/13 [Ventolin 0.083% Nebulizer Soln -] Oxycodone HCl/Acetaminophen 15 mg PO BID PRN 02/19/15 [Percocet 10-325 mg Tablet] Tobramycin/Na Chlor 0.2% [Cornell (Do 300 mg IH DAILY 02/19/15 Not Stock)] Biotin 1 mg PO DAILY 01/05/16 Butalbit/Acetamin/Caff/Codeine 1 each PO TID PRN 01/05/16 [Fioricet-Cod [id number] Cap] Calcium/Cranberry Fruit [Cranberry 1 each PO DAILY 01/05/16 400 mg Caplet] Gabapentin [Neurontin] 300 mg PO TID 01/05/16 L.acidoph,Paracasei, B.lactis 1 each PO BID 01/05/16 [Probiotic] Multivitamins [Multivit ([facility] 1 tab PO DAILY 01/05/16 Formulary)] Potassium Chloride [Klor-Con 10] 20 meq PO BID 01/05/16 Budesonide/Formeterol Fumarate 2 inh PO BID 12/15/16 [SYMBICORT 160/4.5mcg -] Magnesium Oxide [Magnesium] 500 mg PO DAILY 12/15/16 Tizanidine HCl 2 mg PO HS 12/15/16 Active Medications Generic Name Dose Route Start Last Admin Trade Name Freq PRN Reason Stop Dose Admin Acetaminophen 1,000 mg 03/14/19 18:49 03/15/19 20:51 Ofirmev Injection - IVPB 1,000 mg Q6H PRN Administration PAIN LEVEL 1-5 Acetaminophen 325 mg 03/15/19 11:11 Tylenol - PO Q12H PRN PAIN 6-10 Acetaminophen/Butalbital/Caffeine 1 tablet 03/14/19 18:49 03/15/19 02:15 Fioricet - PO 1 tablet Q8H PRN Administration HEADACHE Albuterol Sulfate 1 amp 03/14/19 20:00 03/15/19 13:26 Ventolin 0.083% Nebulizer Soln - NEB 1 amp RTID UZIEL Administration Alprazolam 0.25 mg 03/14/19 18:13 03/14/19 21:06 Xanax - PO 0.25 mg Q12H PRN Administration ANXIETY Ascorbic Acid 2,000 mg 03/16/19 10:00 Vitamin C - PO DAILY UZIEL Budesonide/Formoterol Fumarate 2 puff 03/14/19 22:00 03/15/19 10:35 Symbicort 160/4.5mcg - IH 2 puff BID UZIEL Administration Citalopram Hydrobromide 20 mg 03/14/19 22:00 03/14/19 21:06 Celexa - PO 20 mg HS UZIEL Administration Docusate Sodium 100 mg 03/15/19 08:15 03/15/19 10:34 Colace - PO 100 mg BID UZIEL Administration Gabapentin 300 mg 03/14/19 22:00 03/15/19 14:26 Neurontin - PO 300 mg TID UZIEL Administration Dextrose/Sodium Chloride 1,000 mls @ 100 mls/hr 03/14/19 19:00 03/15/19 18:05 D5-Ns - IV 100 mls/hr ASDIR UZIEL Administration Multivitamins/Minerals/Vitamin C 1 tab 03/16/19 10:00 Tab-A-Vit - PO DAILY UZIEL Non-Formulary Medication 500 mg 03/16/19 10:00 Magnesium Oxide [Magnesium] PO DAILY UZIEL Non-Formulary Medication 300 mg 03/16/19 10:00 Tobramycin/Na Chlor 0.2% [Cornell (Do Not Stock)] IH DAILY UZIEL Oxycodone HCl 10 mg 03/15/19 11:11 03/15/19 11:14 Roxicodone - PO 10 mg Q12H PRN Administration PAIN 6-10 Pantoprazole Sodium 40 mg 03/14/19 22:00 03/15/19 11:15 Protonix Iv IVPUSH 40 mg BID UZIEL Administration Polyethylene Glycol 17 gm 03/15/19 14:00 03/15/19 14:26 Miralax (For Daily Use) - PO 17 grams TID UZIEL Administration Potassium Chloride 20 meq 03/15/19 22:00 K-Dur - PO BID UZIEL Propranolol HCl 60 mg 03/15/19 17:00 03/15/19 18:03 Inderal La - PO 60 mg DAILY UZIEL Administration Tizanidine HCl 2 mg 03/15/19 22:00 Tizanidine Hcl PO HS [facility] Last Vital Signs Temp Pulse Resp BP Pulse Ox 97.8 F 82 20 136/58 L 96 03/15/19 17:00 03/15/19 17:00 03/15/19 17:00 03/15/19 17:00 03/15/19 09:00 Cachectic Cor: RSR, No murmurs, No gallops Lungs: Clear to P&A Abd: Soft, Normal bowel sounds, No organomegaly Ext:No significant edema Skin: No rashes, Integument intact Abnormal Lab Results 03/14/19 03/15/19 03/15/19 14:04 03:30 09:22 RBC 2.20 L 2.82 L Hgb 7.5 L 9.0 L Hct 21.8 L 26.2 L D MCV 99.2 H MCH 34.1 H RDW 19.1 H MPV 7.1 L 6.8 L Chloride Anion Gap BUN Calcium Magnesium Total Bilirubin Total Protein Albumin Crossmatch See Detail 03/15/19 09:22 RBC Hgb Hct MCV MCH RDW MPV Chloride 113 H Anion Gap 4 L BUN 29.5 H Calcium 8.3 L Magnesium 2.6 H Total Bilirubin 1.1 H Total Protein 5.6 L Albumin 3.3 L Crossmatch ASSESSMENT/PLAN: 78 year old female with pmhx of MVP, Divertuclosis , chronic low back pain, chronic Constipation , bronchiestsis come to ED due to generalized weakness and sob and abdominal pain was found to have hgb 7.1 and occult blood positive Anemia--initially macrocytic/ now normla MCV B12/folate--nl Check TSH/fT4 IRon studies --low saturation/ normal serum iron/ stool occult + per patient previous BMBX with Dr. Waller CT a/p unrevealing Was on NSAIDs r/o gi bleed will check ESR/CRP/ rheum consult given back pain
[2019-03-15] MEDS: TIZANIDINE HCL 2 MG TABLET PO SCH ×2 (22:38→22:45)
[2019-03-15] MEDS: CITALOPRAM HYDROBROMIDE 20 MG TABLET (FP) PO SCH (22:38)
[2019-03-15] MEDS: POTASSIUM CHLORIDE TABS 20 MEQ TABLET.ER (FP) PO SCH ×2 (22:39→22:45)
[2019-03-15] MEDS: ACETAMINOPHEN 325 MG TABLET (FP) PO PRN (23:18)
[2019-03-15] MEDS: ALPRAZolam 0.25 MG TABLET PO PRN (23:20)
[2019-03-16] MEDS: POLYETHYLENE GLYCOL 3350 119 GM BTL PO SCH ×4 (06:37→22:16)
[2019-03-16] MEDS: GABAPENTIN 300 MG CAPSULE (FP) PO SCH ×3 (06:39→22:08)
--- NOTE | 2019-03-16 07:22 | PN ---
Physical Exam: SUBJECTIVE: Patient seen and examined at bed side , NPO for EGD today , had one BM last night, still with abdominal pain , headache improved , no N/V. OBJECTIVE: Vital Signs Period Temp Pulse Resp BP Sys/Casper Pulse Ox Last 24 Hr 97.5 F-98.4 F 64-82 20-20 111-136/52-59 96-98 GENERAL: AAOx3 in NAD HEAD: NC/AT EYES: EOMI, Conjunctiva clear, sclera anicteric ENT: dry mucous membrane NECK: Supple, no JVD LUNGS: CTA B/L, no crackles no wheezing no accessory muscle use. HEART: RRR, normal s1, s2, no M/R/G ABDOMEN: Soft, ND, NT, +BS 4 Q, no CVA Tenderness, transverse low sergical scar LOWER EXTREMITIES: no edema, +2DP pulse, NEUROLOGICAL: No focal deficit. Normal speech. gait not observed. PSYCHIATRIC: Cooperative. Good eye contact. Appropriate mood and affect. SKIN: Warm, dry, rectal normal sphincter tone , no hemorrhoids externally : Done by Dr De La Cruz in my present Laboratory Results - last 24 hr 03/15/19 03/15/19 03/15/19 09:22 09:22 09:22 WBC 7.8 RBC 2.82 L Hgb 9.0 L Hct 26.2 L D MCV 92.9 D MCH 32.0 MCHC 34.5 RDW 19.1 H Plt Count 146 MPV 6.8 L Absolute Neuts (auto) 6.1 Neutrophils % 77.7 Lymphocytes % 13.1 Monocytes % 7.0 Eosinophils % 1.6 Basophils % 0.6 Nucleated RBC % 0 PT with INR 11.10 INR 0.94 Sodium 142 Potassium 4.4 Chloride 113 H Carbon Dioxide 25 Anion Gap 4 L BUN 29.5 H Creatinine 0.7 Est GFR (CKD-EPI)AfAm 95.51 Est GFR (CKD-EPI)NonAf 82.41 POC Glucometer Random Glucose 106 Calcium 8.3 L Phosphorus 2.8 Magnesium 2.6 H Total Bilirubin 1.1 H AST 22 ALT 25 Alkaline Phosphatase 61 Total Protein 5.6 L Albumin 3.3 L 03/15/19 09:52 WBC RBC Hgb Hct MCV MCH MCHC RDW Plt Count MPV Absolute Neuts (auto) Neutrophils % Lymphocytes % Monocytes % Eosinophils % Basophils % Nucleated RBC % PT with INR INR Sodium Potassium Chloride Carbon Dioxide Anion Gap BUN Creatinine Est GFR (CKD-EPI)AfAm Est GFR (CKD-EPI)NonAf POC Glucometer 106 Random Glucose Calcium Phosphorus Magnesium Total Bilirubin AST ALT Alkaline Phosphatase Total Protein Albumin Active Medications Generic Name Dose Route Start Last Admin Trade Name Freq PRN Reason Stop Dose Admin Acetaminophen 1,000 mg 03/14/19 18:49 03/15/19 20:51 Ofirmev Injection - IVPB 1,000 mg Q6H PRN Administration PAIN LEVEL 1-5 Acetaminophen 325 mg 03/15/19 11:11 03/15/19 23:18 Tylenol - PO 325 mg Q12H PRN Administration PAIN 6-10 Acetaminophen/Butalbital/Caffeine 1 tablet 03/14/19 18:49 03/15/19 22:37 Fioricet - PO 1 tablet Q8H PRN Administration HEADACHE Albuterol Sulfate 1 amp 03/14/19 20:00 03/15/19 20:17 Ventolin 0.083% Nebulizer Soln - NEB 1 amp RTID UZIEL Administration Alprazolam 0.25 mg 03/14/19 18:13 03/15/19 23:20 Xanax - PO 0.25 mg Q12H PRN Administration ANXIETY Ascorbic Acid 2,000 mg 03/16/19 10:00 Vitamin C - PO DAILY UZIEL Budesonide/Formoterol Fumarate 2 puff 03/14/19 22:00 03/15/19 22:51 Symbicort 160/4.5mcg - IH 2 puff BID UZIEL Administration Citalopram Hydrobromide 20 mg 03/14/19 22:00 03/15/19 22:38 Celexa - PO 20 mg HS UZIEL Administration Docusate Sodium 100 mg 03/15/19 08:15 03/15/19 22:38 Colace - PO 100 mg BID UZIEL Administration Gabapentin 300 mg 03/14/19 22:00 03/16/19 06:39 Neurontin - PO 300 mg TID UZIEL Administration Dextrose/Sodium Chloride 1,000 mls @ 100 mls/hr 03/14/19 19:00 03/15/19 18:05 D5-Ns - IV 100 mls/hr ASDIR UZIEL Administration Multivitamins/Minerals/Vitamin C 1 tab 03/16/19 10:00 Tab-A-Vit - PO DAILY UZIEL Non-Formulary Medication 500 mg 03/16/19 10:00 Magnesium Oxide [Magnesium] PO DAILY UZIEL Non-Formulary Medication 300 mg 03/16/19 10:00 Tobramycin/Na Chlor 0.2% [Cornell (Do Not Stock)] IH DAILY UZIEL Oxycodone HCl 10 mg 03/15/19 11:11 03/15/19 23:19 Roxicodone - PO 10 mg Q12H PRN Administration PAIN 6-10 Pantoprazole Sodium 40 mg 03/14/19 22:00 03/15/19 22:37 Protonix Iv IVPUSH 40 mg BID UZIEL Administration Polyethylene Glycol 17 gm 03/15/19 14:00 03/16/19 06:37 Miralax (For Daily Use) - PO Not Given TID UZIEL Potassium Chloride 20 meq 03/15/19 22:00 03/15/19 22:45 K-Dur - PO Not Given BID UZIEL Propranolol HCl 60 mg 03/15/19 17:00 03/15/19 18:03 Inderal La - PO 60 mg DAILY UZIEL Administration Tizanidine HCl 2 mg 03/15/19 22:00 03/15/19 22:45 Tizanidine Hcl PO Not Given HS UZIEL CBC, BMP 03/16/19 05:56 03/16/19 05:56 ASSESSMENT/PLAN: 78 year old female with pmhx of MVP, Divertuclosis , Constipation , bronchiestsis come to ED due to generalized weakness and sob and abdominal pain was found to have hgb 7.1 and occult blood positive admitted to [facility] for further evaluation. 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 repeat lab after hydration # leuckocytosis un known etiology , florian cx negative m asymptomatic bacteruria monitor off abx # Constipation chronic , cont Mirlax and colace TID # H.O MVP , follow up Echo Normal EF 45-50 , LV relaxation impairment , borderline MVP # Bronchiectais , stable on bronchodilators # FEN * NS @ 60 * monitor lytes * NPO till cleared by GI # Proph * SCDS * PPI BID IV 40 # Dispo : monitor in tele Visit type - Emergency Visit Emergency Visit: Yes ED Registration Date: 03/14/19 Care time: The patient presented to the Emergency Department on the above date and was hospitalized for further evaluation of their emergent condition. - New Patient This patient is new to me today: No - Critical Care Critical Care patient: No ATTENDING PHYSICIAN STATEMENT I saw and evaluated the patient. I reviewed the resident's note and discussed the case with the resident. I agree with the resident's findings and plan as documented. SUBJECTIVE: OBJECTIVE: ASSESSMENT AND PLAN:
[2019-03-16] MEDS: ALBUTEROL SO4 0.083% IH SOL 2.5 MG/3 ML VIAL.NEB. NEB SCH ×3 (07:26→21:15)
[2019-03-16 07:39] LABS: BASO % 0.9 % (0-2.0); EOS % 2.7 % (0-4.5); HEMATOCRIT 22.7 % (32.4-45.2); HEMOGLOBIN 7.9 GM/dL (10.7-15.3); LYMPH % 17.4 % (8-40); MCH 32.7 pg (25.7-33.7); MCHC 34.9 g/dl (32.0-36.0); MEAN CELL VOLUME 93.8 fl (80-96); MEAN PLT VOLUME 7.2 fl (7.5-11.1); MONO % 6.9 % (3.8-10.2); NEUT % 72.1 % (42.8-82.8); PLATELET COUNT 147 K/MM3 (134-434); RBC 2.42 M/mm3 (3.60-5.2); RDW 20.4 % (11.6-15.6); WHITE BLOOD COUNT 5.5 K/mm3 (4.0-10.0)
[2019-03-16 07:54] LABS: ALBUMIN 2.9 g/dl (3.4-5.0); BILIRUBIN,TOTAL 0.4 mg/dL (0.2-1); CALCIUM 7.8 mg/dL (8.5-10.1); CREATININE 0.5 mg/dL (0.55-1.3); POTASSIUM 4.2 mmol/L (3.5-5.1); TOT PROT 5.1 g/dl (6.4-8.2)
[2019-03-16] MEDS ORDERED: [UNRECOGNIZED DRUG - REMARK] IH SCH (10:00)
[2019-03-16] MEDS ORDERED: PATIENT'S OWN MEDICATION (NON-FORMULARY) (Magnesium Oxide [Magnesium] 500 MG) PO SCH (10:00)
[2019-03-16] MEDS: BUDESONIDE/FORMETEROL FUMARATE 160/4.5 mcg INHALER IH SCH ×2 (11:15→22:17)
--- NOTE | 2019-03-16 11:58 | PN ---
Progress Note (short form) - Note Progress Note: EGD complete. Report left in procedural section of physical chart and will be scanned into [facility]. Problem List - Problems (1) Anemia Code(s): D64.9 - ANEMIA, UNSPECIFIED Qualifiers: Anemia type: unspecified type Qualified Code(s): D64.9 - Anemia, unspecified
--- NOTE | 2019-03-16 12:07 | PN ---
Teaching Attending Note Name of Resident: Rayo Fischer ATTENDING PHYSICIAN STATEMENT I saw and evaluated the patient. I reviewed the resident's note and discussed the case with the resident. I agree with the resident's findings and plan as documented with exceptions below. SUBJECTIVE: Patient seen and examined, dark BM. Improved weakness, denies any dizziness currently. BM yesterday, abdominal pain improved. OBJECTIVE: Vital Signs Period Temp Pulse Resp BP Sys/Casper Pulse Ox Last 24 Hr 97.5 F-98.4 F 60-82 13-20 101-137/44-78 98-100 Intake & Output 03/13/19 03/14/19 03/15/19 03/16/19 23:59 23:59 23:59 23:59 Intake Total 1750 1200 Balance 1750 1200 Weight 110 lb General sitting in chair in no acute distress Neck: soft, supple, no JVD Chest: CTAB, no rales or wheezing Abdomen:soft, ND, mild rogelio-umbilical tenderness, no voluntary or involuntary guarding or rigidity, pos bowel sounds Extremities: no edema Home Medications Medication Instructions Recorded Alprazolam [Xanax] 0.25 mg PO BID PRN 01/25/12 Ascorbic Acid [Vitamin C] 2,000 mg PO DAILY 01/25/12 Calcium Carbonate/Vitamin D3 1 each PO BID 01/25/12 [Caltrate 600 + D Tablet] Citalopram Hydrobromide [Celexa -] 20 mg PO HS 01/25/12 Ranitidine [Zantac -] 150 mg PO BID 01/25/12 propRANOLol HCL [Inderal -] 60 mg PO DAILY 01/25/12 Albuterol 0.083% Nebulizer Manju 1 neb NEB DAILY 09/25/13 [Ventolin 0.083% Nebulizer Soln -] Oxycodone HCl/Acetaminophen 15 mg PO BID PRN 02/19/15 [Percocet 10-325 mg Tablet] Tobramycin/Na Chlor 0.2% [Cornell (Do 300 mg IH DAILY 02/19/15 Not Stock)] Biotin 1 mg PO DAILY 01/05/16 Butalbit/Acetamin/Caff/Codeine 1 each PO TID PRN 01/05/16 [Fioricet-Cod [id number] Cap] Calcium/Cranberry Fruit [Cranberry 1 each PO DAILY 01/05/16 400 mg Caplet] Gabapentin [Neurontin] 300 mg PO TID 01/05/16 L.acidoph,Paracasei, B.lactis 1 each PO BID 01/05/16 [Probiotic] Multivitamins [Multivit ([facility] 1 tab PO DAILY 01/05/16 Formulary)] Potassium Chloride [Klor-Con 10] 20 meq PO BID 01/05/16 Budesonide/Formeterol Fumarate 2 inh PO BID 12/15/16 [SYMBICORT 160/4.5mcg -] Magnesium Oxide [Magnesium] 500 mg PO DAILY 12/15/16 Tizanidine HCl 2 mg PO HS 12/15/16 Active Medications Acetaminophen (Ofirmev Injection -) 1,000 mg IVPB Q6H PRN PRN Reason: PAIN LEVEL 1-5 Last Admin: 03/15/19 20:51 Dose: 1,000 mg Acetaminophen (Tylenol -) 325 mg PO Q12H PRN PRN Reason: PAIN 6-10 Last Admin: 03/15/19 23:18 Dose: 325 mg Acetaminophen/Butalbital/Caffeine (Fioricet -) 1 tablet PO Q8H PRN PRN Reason: HEADACHE Last Admin: 03/15/19 22:37 Dose: 1 tablet Albuterol Sulfate (Ventolin 0.083% Nebulizer Soln -) 1 amp NEB RTID [facility] Last Admin: 03/16/19 07:26 Dose: 1 amp Alprazolam (Xanax -) 0.25 mg PO Q12H PRN PRN Reason: ANXIETY Last Admin: 03/15/19 23:20 Dose: 0.25 mg Ascorbic Acid (Vitamin C -) 2,000 mg PO DAILY [facility] Budesonide/Formoterol Fumarate (Symbicort 160/4.5mcg -) 2 puff IH BID [facility] Last Admin: 03/15/19 22:51 Dose: 2 puff Citalopram Hydrobromide (Celexa -) 20 mg PO HS [facility] Last Admin: 03/15/19 22:38 Dose: 20 mg Docusate Sodium (Colace -) 100 mg PO BID [facility] Last Admin: 03/15/19 22:38 Dose: 100 mg Gabapentin (Neurontin -) 300 mg PO TID [facility] Last Admin: 03/16/19 06:39 Dose: 300 mg Dextrose/Sodium Chloride (D5-Ns -) 1,000 mls @ 100 mls/hr IV ASDIR [facility] Last Admin: 03/15/19 18:05 Dose: 100 mls/hr Multivitamins/Minerals/Vitamin C (Tab-A-Vit -) 1 tab PO DAILY [facility] Non-Formulary Medication (Magnesium Oxide [Magnesium]) 500 mg PO DAILY [facility] Non-Formulary Medication (Tobramycin/Na Chlor 0.2% [Cornell (Do Not Stock)]) 300 mg IH DAILY [facility] Oxycodone HCl (Roxicodone -) 10 mg PO Q12H PRN PRN Reason: PAIN 6-10 Last Admin: 03/15/19 23:19 Dose: 10 mg Pantoprazole Sodium (Protonix -) 40 mg PO DAILY [facility] Polyethylene Glycol (Miralax (For Daily Use) -) 17 gm PO TID [facility] Last Admin: 03/16/19 06:37 Dose: Not Given Potassium Chloride (K-Dur -) 20 meq PO BID [facility] Last Admin: 03/15/19 22:45 Dose: Not Given Propranolol HCl (Inderal La -) 60 mg PO DAILY [facility] Last Admin: 03/15/19 18:03 Dose: 60 mg Tizanidine HCl (Tizanidine Hcl) 2 mg PO HS [facility] Last Admin: 03/15/19 22:45 Dose: Not Given Laboratory Results - last 24 hr 03/16/19 03/16/19 03/16/19 05:56 05:56 06:31 WBC 5.5 RBC 2.42 L Hgb 7.9 L Hct 22.7 L MCV 93.8 MCH 32.7 MCHC 34.9 RDW 20.4 H Plt Count 147 MPV 7.2 L Absolute Neuts (auto) 4.0 Neutrophils % 72.1 Lymphocytes % 17.4 D Monocytes % 6.9 Eosinophils % 2.7 Basophils % 0.9 Nucleated RBC % 0 Retic Count 2.68 H Sodium 144 Potassium 4.2 Chloride 113 H Carbon Dioxide 26 Anion Gap 5 L BUN 11.0 Creatinine 0.5 L Est GFR (CKD-EPI)AfAm 106.69 Est GFR (CKD-EPI)NonAf 92.05 Random Glucose 89 Calcium 7.8 L Total Bilirubin 0.4 AST 50 H ALT 62 H Alkaline Phosphatase 59 Total Protein 5.1 L Albumin 2.9 L TSH 3.11 ASSESSMENT AND PLAN: 78 yof with PMhx of chronic anemia (h/o Bone marrow biopsy with Dr. Waller, on chronic Fe), also last EGD/colonoscopy [address] Wadsworth, last Hb reported around 10 3 months ago with PCP, Chronic constipation with abdominal pain and nausea, MVP, HTN, chronic low back pain on oxycodone, recently started taking Aleve 2 tabs daily for last few weeks, admitted with weakness, acute on chronic anemia and melena -Acute on chronic symptomatic anemia, highly suspicious of ongoing GI bleed -Acute vs chronic GI bleed/melena, r/o PUD/gastritis given recent NSAIDs use, r/ o AVM, r/o diverticular/Angiodysplasia/Mass -Chronic constipation -Chronic low back pain -Asymptomatic bacteruria -HTN -MVP Plan: s/p 2 units PRBC, no gross evidence of bleed. For EGD today, will follow up. Hb drifting down, dark stools but no gross evidence of bleed or hemodynamic instability. Iron studies/b12/folate noted,Retic count noted. Hematology input. Taper IVF as po improved. resume anti-HTN as tolerated. Bowel regimen with miralax, colace. Continue home xanax/oxycodone/tylenol for now. No urinary symptoms, ua clean, hold off on abx for now. DVTPPX with [facility] PT eval dispo planning in 2-3 days pending GI work up and clinical course. Plan discussed with patient and nursing in detail, all questions answered
[2019-03-16] MEDS: MULTIVITAMINS (DAILY MVI) TABLET (FP) PO SCH (12:38)
[2019-03-16] MEDS: oxyCODONE HCL 5 MG TABLET PO PRN ×2 (12:39→22:06)
[2019-03-16] MEDS: ACETAMINOPHEN 325 MG TABLET (FP) PO PRN (12:40)
[2019-03-16] MEDS: DOCUSATE SODIUM 100 MG CAPSULE (FP) PO SCH ×2 (12:41→22:08)
[2019-03-16] MEDS: POTASSIUM CHLORIDE TABS 20 MEQ TABLET.ER (FP) PO SCH ×3 (12:41→22:08)
[2019-03-16] MEDS: ASCORBIC ACID 500 MG TABLET (FP) PO SCH (12:42)
[2019-03-16] MEDS ORDERED: DEXTROSE 5%-NORMAL SALINE 1,000 ML IV SCH (14:07)
[2019-03-16] MEDS: ACETAMINOPHEN/CAFFEINE/BUTALBITAL 1 TAB PO PRN (17:11)
[2019-03-16] MEDS: PANTOPRAZOLE 40 MG TABLET (FP) PO SCH (17:14)
[2019-03-16 17:28] LABS: HEMATOCRIT 23.8 % (32.4-45.2); HEMOGLOBIN 8.1 GM/dL (10.7-15.3); MCH 32.8 pg (25.7-33.7); MCHC 33.8 g/dl (32.0-36.0); MEAN CELL VOLUME 96.9 fl (80-96); MEAN PLT VOLUME 7.3 fl (7.5-11.1); PLATELET COUNT 148 K/MM3 (134-434); RBC 2.46 M/mm3 (3.60-5.2); RDW 20.4 % (11.6-15.6); WHITE BLOOD COUNT 6.7 K/mm3 (4.0-10.0)
[2019-03-16] MEDS: ALPRAZolam 0.25 MG TABLET PO PRN (22:06)
[2019-03-16] MEDS: CITALOPRAM HYDROBROMIDE 20 MG TABLET (FP) PO SCH (22:08)
[2019-03-16] MEDS: TIZANIDINE HCL 2 MG TABLET PO SCH (22:39)
[2019-03-17] MEDS: ACETAMINOPHEN/CAFFEINE/BUTALBITAL 1 TAB PO PRN (04:25)
[2019-03-17] MEDS: GABAPENTIN 300 MG CAPSULE (FP) PO SCH ×3 (06:05→22:12)
[2019-03-17] MEDS: POLYETHYLENE GLYCOL 3350 119 GM BTL PO SCH ×4 (06:06→22:12)
[2019-03-17 07:23] LABS: BASO % 0.9 % (0-2.0); EOS % 3.1 % (0-4.5); HEMATOCRIT 25.5 % (32.4-45.2); HEMOGLOBIN 8.8 GM/dL (10.7-15.3); LYMPH % 17.2 % (8-40); MCHC 34.6 g/dl (32.0-36.0); MEAN CELL VOLUME 95.4 fl (80-96); MEAN PLT VOLUME 7.5 fl (7.5-11.1); MONO % 5.9 % (3.8-10.2); NEUT % 72.9 % (42.8-82.8); PLATELET COUNT 178 K/MM3 (134-434); RBC 2.68 M/mm3 (3.60-5.2); RDW 19.7 % (11.6-15.6); WHITE BLOOD COUNT 7.3 K/mm3 (4.0-10.0)
[2019-03-17 07:36] LABS: ALBUMIN 3.1 g/dl (3.4-5.0); BILIRUBIN,TOTAL 0.3 mg/dL (0.2-1); BLOOD UREA NITROGEN 12.7 mg/dL (7-18); CALCIUM 8.3 mg/dL (8.5-10.1); CREATININE 0.6 mg/dL (0.55-1.3); POTASSIUM 4.2 mmol/L (3.5-5.1); TOT PROT 5.7 g/dl (6.4-8.2)
--- NOTE | 2019-03-17 07:54 | PN.GI ---
GI Progress Note Subjective: COMPLAINS OF DARK STOOL THIS MORNING . SHE DENIES ANY ABDOMINAL PAIN / NAUSEA/ VOMITING/ DIZZINESS - Objective Vital Signs: Vital Signs Temperature 98.4 F 03/17/19 05:00 Pulse Rate 64 03/17/19 05:00 Respiratory Rate 20 03/17/19 05:00 Blood Pressure 153/68 03/17/19 05:00 O2 Sat by Pulse Oximetry (%) 99 03/16/19 20:30 Constitutional: Well Nourished, No Distress, Calm Eyes: Yes: WNL HENT: Yes: WNL Neck: Yes: WNL Cardiovascular: Yes: WNL, Regular Rate and Rhythm Respiratory: Yes: WNL, Regular, CTA Bilaterally Gastrointestinal Inspection: Yes: WNL ...Auscultate: Yes: Normoactive Bowel Sounds, No Bowel Sounds Musculoskeletal: Yes: WNL Extremities: Yes: WNL Edema: No Labs: CBC, BMP 03/17/19 05:49 INR, PTT INR 0.94 (0.83-1.09) 03/15/19 09:22 Problem List - Problems (1) Anemia Assessment/Plan: S/P EGD WITH FINDINGS CONSISTENT WITH A CLEAN BASED ULCER AND EROSIONS H/H STABLE I SUSPECT HER DARK STOOLS ARE OLD BLOOD MONITOR H/H Q12 C/W PPI THERAPY DIET TOLERATED Code(s): D64.9 - ANEMIA, UNSPECIFIED Qualifiers: Anemia type: unspecified type Qualified Code(s): D64.9 - Anemia, unspecified (2) GI bleed Code(s): K92.2 - GASTROINTESTINAL HEMORRHAGE, UNSPECIFIED Qualifiers: GI bleed type/associated pathology: unspecified gastrointestinal hemorrhage type Qualified Code(s): K92.2 - Gastrointestinal hemorrhage, unspecified
[2019-03-17] MEDS: ALBUTEROL SO4 0.083% IH SOL 2.5 MG/3 ML VIAL.NEB. NEB SCH ×3 (09:14→20:58)
[2019-03-17] MEDS ORDERED: PT OWN MED DRAWER 7, Y5N ONE ×2 (09:31→22:07)
[2019-03-17] MEDS: ASCORBIC ACID 500 MG TABLET (FP) PO SCH (09:52)
[2019-03-17] MEDS: DOCUSATE SODIUM 100 MG CAPSULE (FP) PO SCH ×2 (09:52→22:12)
[2019-03-17] MEDS: PANTOPRAZOLE 40 MG TABLET (FP) PO SCH (09:52)
[2019-03-17] MEDS: MULTIVITAMINS (DAILY MVI) TABLET (FP) PO SCH (09:52)
[2019-03-17] MEDS: ALPRAZolam 0.25 MG TABLET PO PRN (09:53)
[2019-03-17] MEDS: BUDESONIDE/FORMETEROL FUMARATE 160/4.5 mcg INHALER IH SCH ×2 (09:55→22:13)
[2019-03-17] MEDS: POTASSIUM CHLORIDE TABS 20 MEQ TABLET.ER (FP) PO SCH ×2 (09:58→22:12)
[2019-03-17] MEDS: oxyCODONE HCL 5 MG TABLET PO PRN ×2 (12:31→22:11)
[2019-03-17] MEDS ORDERED: DEXTROSE 5%-NORMAL SALINE 1,000 ML IV SCH (13:46)
--- NOTE | 2019-03-17 13:48 | PN ---
Physical Exam: SUBJECTIVE: Patient seen and examined, dark stools in the toilet, no dizziness, weakness or concerns otherwise. Moving her bowels, loose today, abdominal pain better. OBJECTIVE: Vital Signs Period Temp Pulse Resp BP Sys/Casper Pulse Ox Last 24 Hr 97.9 F-98.4 F 64-70 20-20 112-153/46-68 99-99 Intake & Output 03/14/19 03/15/19 03/16/19 03/17/19 23:59 23:59 23:59 23:59 Intake Total 1750 2416 250 Balance 1750 2416 250 Weight 110 lb 110 lb General sitting in chair in no acute distress Neck: soft, supple, no JVD Chest: CTAB, no rales or wheezing CVS: S1s2 regular Abdomen:soft, ND, mild rogelio-umbilical tenderness, no voluntary or involuntary guarding or rigidity, pos bowel sounds Extremities: no edema Psych: pleasant, co-operative Laboratory Results - last 24 hr 03/16/19 03/17/19 03/17/19 16:15 05:49 05:49 WBC 6.7 7.3 RBC 2.46 L 2.68 L Hgb 8.1 L 8.8 L Hct 23.8 L 25.5 L MCV 96.9 H 95.4 MCH 32.8 33.0 MCHC 33.8 34.6 RDW 20.4 H 19.7 H Plt Count 148 178 D MPV 7.3 L 7.5 Absolute Neuts (auto) 5.3 Neutrophils % 72.9 Lymphocytes % 17.2 Monocytes % 5.9 Eosinophils % 3.1 Basophils % 0.9 Nucleated RBC % 0 ESR Sodium 142 Potassium 4.2 Chloride 110 H Carbon Dioxide 26 Anion Gap 6 L BUN 12.7 Creatinine 0.6 Est GFR (CKD-EPI)AfAm 100.48 Est GFR (CKD-EPI)NonAf 86.69 Random Glucose 90 Calcium 8.3 L Total Bilirubin 0.3 AST 44 H ALT 65 H Alkaline Phosphatase 72 C-Reactive Protein 0.6 H Total Protein 5.7 L Albumin 3.1 L 03/17/19 05:49 WBC RBC Hgb Hct MCV MCH MCHC RDW Plt Count MPV Absolute Neuts (auto) Neutrophils % Lymphocytes % Monocytes % Eosinophils % Basophils % Nucleated RBC % ESR 23 Sodium Potassium Chloride Carbon Dioxide Anion Gap BUN Creatinine Est GFR (CKD-EPI)AfAm Est GFR (CKD-EPI)NonAf Random Glucose Calcium Total Bilirubin AST ALT Alkaline Phosphatase C-Reactive Protein Total Protein Albumin Active Medications Generic Name Dose Route Start Last Admin Trade Name Mary Anne PRN Reason Stop Dose Admin Acetaminophen 1,000 mg 03/14/19 18:49 03/15/19 20:51 Ofirmev Injection - IVPB 1,000 mg Q6H PRN Administration PAIN LEVEL 1-5 Acetaminophen 325 mg 03/15/19 11:11 03/16/19 12:40 Tylenol - PO 325 mg Q12H PRN Administration PAIN 6-10 Acetaminophen/Butalbital/Caffeine 1 tablet 03/14/19 18:49 03/17/19 04:25 Fioricet - PO 1 tablet Q8H PRN Administration HEADACHE Albuterol Sulfate 1 amp 03/14/19 20:00 03/17/19 09:14 Ventolin 0.083% Nebulizer Soln - NEB 1 amp RTID [facility] Administration Alprazolam 0.25 mg 03/14/19 18:13 03/17/19 09:53 Xanax - PO 0.25 mg Q12H PRN Administration ANXIETY Ascorbic Acid 2,000 mg 03/16/19 10:00 03/17/19 09:52 Vitamin C - PO 2,000 mg DAILY [facility] Administration Budesonide/Formoterol Fumarate 2 puff 03/14/19 22:00 03/17/19 09:55 Symbicort 160/4.5mcg - IH 2 puff BID [facility] Administration Citalopram Hydrobromide 20 mg 03/14/19 22:00 03/16/19 22:08 Celexa - PO 20 mg HS [facility]IEL Administration Docusate Sodium 100 mg 03/15/19 08:15 03/17/19 09:52 Colace - PO 100 mg BID [facility] Administration Gabapentin 300 mg 03/14/19 22:00 03/17/19 06:05 Neurontin - PO 300 mg TID [facility] Administration Dextrose/Sodium Chloride 1,000 mls @ 60 mls/hr 03/16/19 14:07 D5-Ns - IV ASDIR [facility] Multivitamins/Minerals/Vitamin C 1 tab 03/16/19 10:00 03/17/19 09:52 Tab-A-Vit - PO 1 tab DAILY [facility] Administration Non-Formulary Medication 500 mg 03/16/19 10:00 Magnesium Oxide [Magnesium] PO DAILY [facility] Non-Formulary Medication 300 mg 03/16/19 10:00 Tobramycin/Na Chlor 0.2% [Cornell (Do Not Stock)] IH DAILY [facility] Oxycodone HCl 10 mg 03/15/19 11:11 03/17/19 12:31 Roxicodone - PO 10 mg Q12H PRN Administration PAIN 6-10 Pantoprazole Sodium 40 mg 03/16/19 12:00 03/17/19 09:52 Protonix - PO 40 mg DAILY [facility] Administration Polyethylene Glycol 17 gm 03/15/19 14:00 03/17/19 06:06 Miralax (For Daily Use) - PO 17 grams TID [facility] Administration Potassium Chloride 20 meq 03/15/19 22:00 03/17/19 09:58 K-Dur - PO Not Given BID [facility] Propranolol HCl 60 mg 03/15/19 17:00 03/17/19 09:53 Inderal La - PO 60 mg DAILY [facility] Administration Tizanidine HCl 2 mg 03/15/19 22:00 03/16/19 22:39 Tizanidine Hcl PO 2 mg HS [facility] Administration EGD results reviewed ASSESSMENT/PLAN: 78 yof with PMhx of chronic anemia (h/o Bone marrow biopsy with Dr. Waller, on chronic Fe), also last EGD/colonoscopy [address] Wadsworth, last Hb reported around 10 3 months ago with PCP, Chronic constipation with abdominal pain and nausea, MVP, HTN, chronic low back pain on oxycodone, recently started taking Aleve 2 tabs daily for last few weeks, admitted with weakness, acute on chronic anemia and melena -Acute on chronic symptomatic anemia, suspect from blood loss from antral ulcer/ erosions -Chronic constipation -Chronic low back pain -Asymptomatic bacteruria -HTN -MVP Plan: EGD results reviewed. Continue PPI. Ongoing dark stools, h/h, hemodynamics stable and symptoms improved. Discussed with Dr. Kendall, suspect old blood, monitor h/h for now. s/p 2 units PRBC Iron studies/b12/folate noted,Retic count noted. Hematology input noted. Taper IVF. resume anti-HTN as tolerated. Bowel regimen with miralax, colace. Continue home xanax/oxycodone/tylenol for now. No urinary symptoms, ua clean, hold off on abx for now. DVTPPX with [facility] PT eval dispo planning in 1-2 days if h/h stable and no new concerns. Plan discussed with patient and nursing in detail, all questions answered Care co-ordinated with Dr. Kendall. Visit type - Emergency Visit Emergency Visit: Yes ED Registration Date: 03/14/19 Care time: The patient presented to the Emergency Department on the above date and was hospitalized for further evaluation of their emergent condition. - New Patient This patient is new to me today: No - Critical Care Critical Care patient: No - Discharge Referral Referred to [facility] No
[2019-03-17 16:49] LABS: HEMOGLOBIN 9.4 GM/dL (10.7-15.3); MCHC 32.6 g/dl (32.0-36.0); MEAN CELL VOLUME 101.3 fl (80-96); PLATELET COUNT 199 K/MM3 (134-434); RBC 2.86 M/mm3 (3.60-5.2); WHITE BLOOD COUNT 8.8 K/mm3 (4.0-10.0)
[2019-03-17] MEDS: CITALOPRAM HYDROBROMIDE 20 MG TABLET (FP) PO SCH (22:12)
[2019-03-17] MEDS: TIZANIDINE HCL 2 MG TABLET PO SCH (22:48)
[2019-03-18] MEDS ORDERED: ACETAMINOPHEN/CAFFEINE/BUTALBITAL 1 TAB PO ONE (04:22)
[2019-03-18] MEDS ORDERED: ALPRAZolam 0.25 MG TABLET PO ONE (04:22)
[2019-03-18] MEDS ORDERED: PANTOPRAZOLE 20 MG TABLET (FP) PO ONE (04:23)
[2019-03-18] MEDS ORDERED: ACETAMINOPHEN/CAFFEINE/BUTALBITAL 1 TAB ONE (04:27)
[2019-03-18] MEDS: POLYETHYLENE GLYCOL 3350 119 GM BTL PO SCH ×3 (07:02→21:45)
[2019-03-18] MEDS: GABAPENTIN 300 MG CAPSULE (FP) PO SCH ×3 (07:04→21:44)
[2019-03-18 07:30] LABS: BASO % 0.7 % (0-2.0); EOS % 2.5 % (0-4.5); HEMATOCRIT 25.6 % (32.4-45.2); HEMOGLOBIN 8.6 GM/dL (10.7-15.3); LYMPH % 17.5 % (8-40); MCH 32.4 pg (25.7-33.7); MCHC 33.7 g/dl (32.0-36.0); MEAN CELL VOLUME 95.9 fl (80-96); MEAN PLT VOLUME 7.4 fl (7.5-11.1); MONO % 7.2 % (3.8-10.2); NEUT % 72.1 % (42.8-82.8); PLATELET COUNT 162 K/MM3 (134-434); RBC 2.67 M/mm3 (3.60-5.2); WHITE BLOOD COUNT 4.9 K/mm3 (4.0-10.0)
[2019-03-18 07:51] LABS: BLOOD UREA NITROGEN 12.4 mg/dL (7-18); CALCIUM 8.6 mg/dL (8.5-10.1); CREATININE 0.7 mg/dL (0.55-1.3); POTASSIUM 4.3 mmol/L (3.5-5.1)
--- NOTE | 2019-03-18 08:23 | PN.GI ---
GI Progress Note Subjective: COMPLAINS OF SOME EPIGASTRIC PAIN AFTER EATING ; DARK STOOL THIS AM ; - Objective Vital Signs: Vital Signs Temperature 98.2 F 03/18/19 04:50 Pulse Rate 60 03/18/19 04:50 Respiratory Rate 20 03/18/19 04:50 Blood Pressure 163/63 03/18/19 04:50 O2 Sat by Pulse Oximetry (%) 99 03/17/19 21:00 Constitutional: Well Nourished, No Distress, Calm Eyes: Yes: WNL HENT: Yes: WNL Neck: Yes: WNL Cardiovascular: Yes: WNL, Regular Rate and Rhythm Respiratory: Yes: WNL, Regular, CTA Bilaterally Gastrointestinal Inspection: Yes: WNL Extremities: Yes: WNL Edema: No Labs: CBC, BMP 03/18/19 06:11 03/18/19 06:11 INR, PTT INR 0.94 (0.83-1.09) 03/15/19 09:22 Problem List - Problems (1) Anemia Assessment/Plan: S/P EGD WITH FINDINGS CONSISTENT WITH A CLEAN BASED ULCER AND EROSIONS MONITOR H/H Q12 C/W PPI THERAPY DIET TOLERATED -- CHANGED TO LOW RESIDUE LACTOSE FREE DIET AXR ORDERED FOR ABD PAIN Code(s): D64.9 - ANEMIA, UNSPECIFIED Qualifiers: Anemia type: unspecified type Qualified Code(s): D64.9 - Anemia, unspecified (2) GI bleed Code(s): K92.2 - GASTROINTESTINAL HEMORRHAGE, UNSPECIFIED Qualifiers: GI bleed type/associated pathology: unspecified gastrointestinal hemorrhage type Qualified Code(s): K92.2 - Gastrointestinal hemorrhage, unspecified
[2019-03-18] MEDS: ALBUTEROL SO4 0.083% IH SOL 2.5 MG/3 ML VIAL.NEB. NEB SCH ×3 (09:27→21:15)
[2019-03-18] MEDS ORDERED: PT OWN MED DRAWER 7, Y5N ONE ×2 (10:03→21:39)
[2019-03-18] MEDS: oxyCODONE HCL 5 MG TABLET PO PRN ×2 (10:33→21:43)
[2019-03-18] MEDS: POTASSIUM CHLORIDE TABS 20 MEQ TABLET.ER (FP) PO SCH ×2 (10:36→21:45)
[2019-03-18] MEDS: PANTOPRAZOLE 40 MG TABLET (FP) PO SCH (10:36)
[2019-03-18] MEDS: ASCORBIC ACID 500 MG TABLET (FP) PO SCH (10:36)
[2019-03-18] MEDS: DOCUSATE SODIUM 100 MG CAPSULE (FP) PO SCH ×2 (10:36→21:44)
[2019-03-18] MEDS: BUDESONIDE/FORMETEROL FUMARATE 160/4.5 mcg INHALER IH SCH ×2 (10:36→21:45)
[2019-03-18] MEDS: MULTIVITAMINS (DAILY MVI) TABLET (FP) PO SCH (10:36)
[2019-03-18] MEDS: ACETAMINOPHEN 325 MG TABLET (FP) PO PRN (10:38)
--- NOTE | 2019-03-18 15:27 | PN ---
Physical Exam: SUBJECTIVE: Patient seen and examined, still with ongoing abdominal pain, and dark stools. Tolerating diet well. OBJECTIVE: Vital Signs Period Temp Pulse Resp BP Sys/Casper Pulse Ox Last 24 Hr 98 F-98.4 F 60-70 18-20 117-163/58-63 99-99 Intake & Output 03/15/19 03/16/19 03/17/19 03/18/19 23:59 23:59 23:59 23:59 Intake Total 1750 2416 490 Balance 1750 2416 490 Weight 110 lb General sitting in chair in no acute distress Neck: soft, supple, no JVD Chest: CTAB, no rales or wheezing CVS: S1s2 regular Abdomen:soft, ND, mild rogelio-umbilical tenderness, no voluntary or involuntary guarding or rigidity, pos bowel sounds Extremities: no edema Psych: pleasant, co-operative Laboratory Results - last 24 hr 03/14/19 03/17/19 03/18/19 14:04 15:05 06:11 WBC 8.8 4.9 RBC 2.86 L 2.67 L Hgb 9.4 L 8.6 L Hct 29.0 L 25.6 L MCV 101.3 H 95.9 MCH 33.0 32.4 MCHC 32.6 33.7 RDW 20.0 H 19.0 H Plt Count 199 162 MPV 8.0 7.4 L Absolute Neuts (auto) 3.5 Neutrophils % 72.1 Lymphocytes % 17.5 Monocytes % 7.2 Eosinophils % 2.5 Basophils % 0.7 Nucleated RBC % 0 Sodium Potassium Chloride Carbon Dioxide Anion Gap BUN Creatinine Est GFR (CKD-EPI)AfAm Est GFR (CKD-EPI)NonAf Random Glucose Calcium Blood Type O NEGATIVE Antibody Screen Negative Crossmatch See Detail 03/18/19 06:11 WBC RBC Hgb Hct MCV MCH MCHC RDW Plt Count MPV Absolute Neuts (auto) Neutrophils % Lymphocytes % Monocytes % Eosinophils % Basophils % Nucleated RBC % Sodium 141 Potassium 4.3 Chloride 110 H Carbon Dioxide 26 Anion Gap 5 L BUN 12.4 Creatinine 0.7 Est GFR (CKD-EPI)AfAm 95.51 Est GFR (CKD-EPI)NonAf 82.41 Random Glucose 89 Calcium 8.6 Blood Type Antibody Screen Crossmatch Active Medications Generic Name Dose Route Start Last Admin Trade Name Freq PRN Reason Stop Dose Admin Acetaminophen 1,000 mg 03/14/19 18:49 03/15/19 20:51 Ofirmev Injection - IVPB 1,000 mg Q6H PRN Administration PAIN LEVEL 1-5 Acetaminophen 325 mg 03/15/19 11:11 03/18/19 10:38 Tylenol - PO 325 mg Q12H PRN Administration PAIN 6-10 Albuterol Sulfate 1 amp 03/14/19 20:00 03/18/19 14:30 Ventolin 0.083% Nebulizer Soln - NEB 1 amp RTID [facility] Administration Ascorbic Acid 2,000 mg 03/16/19 10:00 03/18/19 10:36 Vitamin C - PO 2,000 mg DAILY [facility] Administration Budesonide/Formoterol Fumarate 2 puff 03/14/19 22:00 03/18/19 10:36 Symbicort 160/4.5mcg - IH 2 puff BID [facility] Administration Citalopram Hydrobromide 20 mg 03/14/19 22:00 03/17/19 22:12 Celexa - PO 20 mg HS [facility] Administration Docusate Sodium 100 mg 03/15/19 08:15 03/18/19 10:36 Colace - PO 100 mg BID [facility] Administration Gabapentin 300 mg 03/14/19 22:00 03/18/19 13:30 Neurontin - PO 300 mg TID [facility] Administration Multivitamins/Minerals/Vitamin C 1 tab 03/16/19 10:00 03/18/19 10:36 Tab-A-Vit - PO 1 tab DAILY [facility] Administration Non-Formulary Medication 500 mg 03/16/19 10:00 Magnesium Oxide [Magnesium] PO DAILY [facility] Oxycodone HCl 10 mg 03/15/19 11:11 03/18/19 10:33 Roxicodone - PO 10 mg Q12H PRN Administration PAIN 6-10 Pantoprazole Sodium 40 mg 03/16/19 12:00 03/18/19 10:36 Protonix - PO 40 mg DAILY [facility] Administration Polyethylene Glycol 17 gm 03/15/19 14:00 03/18/19 07:02 Miralax (For Daily Use) - PO Not Given TID [facility] Potassium Chloride 20 meq 03/15/19 22:00 03/18/19 10:36 K-Dur - PO Not Given BID [facility] Propranolol HCl 60 mg 03/15/19 17:00 03/18/19 10:36 Inderal La - PO 60 mg DAILY [facility] Administration Tizanidine HCl 2 mg 03/15/19 22:00 03/17/19 22:48 Tizanidine Hcl PO 2 mg HS [facility] Administration Microbiology 03/14/19 14:04 Urine - Urine Clean Catch Urine Culture - Final Staphylococcus Warneri Group D Strep Or Entero Coccus ASSESSMENT/PLAN: 78 yof with PMhx of chronic anemia (h/o Bone marrow biopsy with Dr. Waller, on chronic Fe), also last EGD/colonoscopy [address] Wadsworth, last Hb reported around 10 3 months ago with PCP, Chronic constipation with abdominal pain and nausea, MVP, HTN, chronic low back pain on oxycodone, recently started taking Aleve 2 tabs daily for last few weeks, admitted with weakness, acute on chronic anemia and melena -Acute on chronic symptomatic anemia, suspect from blood loss from antral ulcer/ erosions -Chronic abdominal pain -Chronic constipation -Chronic low back pain -Asymptomatic bacteruria -HTN -MVP Plan: EGD results reviewed. Continue PPI. Ongoing dark stools, h/h, hemodynamics stable and symptoms improved. Still with ongoing c/o abdominal pain but exam non concerning. CT A/p on admission with no acute process Follow up GI input. s/p 2 units PRBC Iron studies/b12/folate noted,Retic count noted. Hematology input noted. Off IVF. resume anti-HTN as tolerated. Bowel regimen with Miralax, Colace. Continue home xanax/oxycodone/tylenol for now. No urinary symptoms, ua clean, hold off on abx for now. DVTPPX with [facility] PT eval Dispo planning in 1-2 days if h/h stable and no new concerns and no further GI work up indicated. Plan discussed with patient and nursing in detail, all questions answered Visit type - Emergency Visit Emergency Visit: Yes ED Registration Date: 03/14/19 Care time: The patient presented to the Emergency Department on the above date and was hospitalized for further evaluation of their emergent condition. - New Patient This patient is new to me today: No - Critical Care Critical Care patient: No - Discharge Referral Referred to [facility] No
--- NOTE | 2019-03-18 15:50 | CONSULT ---
Consult Consult Specialty:: rHEUMATOLOGY - History of Present Illness History of Present Illness: 78 year old female, with a significant PMH of bronchiectasis, chronic low back pain, diverticulosis, chronic abdominal pain, and mitral valve prolapse,, admitted with weakness and diaphoresis. On admission she had a CBC with H/H: 8.1/23.8, and EGD gastric. clean based ulcer with erosions. Consult requested for evaluation of chronic low back pain. HPI The patient has more than 10 year history of chronic low back pain. Sh eis not limited in er walking (she exercises on a treadmil for 45 minutes with incline). L spine MRI (11/08/18) anterolisthesis L5/S1, mild levoscoliosis, L2- 3, L3-4 and L4-5 with mild disc bulges L5-S1 disc bulge impingement left L5 nerve root. The patient is been manage by Pain management (Dr. Lockett) and previously Dr. San. She does not improve with epidural injections and improves with physical therapy. Since admission she recieved blood transfusion, weakness improved. - History Source History Provided By: Patient, Medical Record - Past Medical History Cardio/Vascular: Yes: Other (Mitral lucy prolapse) Pulmonary: Yes: Other (bronchiectasis) Gastrointestinal: Yes: Constipation, GERD Renal/: Yes: Hematuria Psych: Yes: Anxiety Musculoskeletal: Yes: Chronic low back pain Rheumatology: Yes: Other (Sjogren's syndrome, raynaud's disease, fibromyalgia) Endocrine: Yes: Hyperparathyroidism, Hypothyroidism - Past Surgical History Past Surgical History: Yes: Cataract Removal, Cholecystectomy, Hysterectomy ( MARKO secondary to fibroids), Joint Replacement Additional Surgical History: hemorrhoidectomy, facial surgery. larynopharyngeal cyst removal, B/L cataract removal. 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 History of Recent Travel: No Home Medications - Allergies Allergies/Adverse Reactions: Allergies Allergy/AdvReac Type Severity Reaction Status Date / Time No Known Drug Allergies Allergy Verified 03/14/19 12:21 - Home Medications Home Medications: Ambulatory Orders Alprazolam [Xanax] 0.25 mg PO BID PRN 01/25/12 Ascorbic Acid [Vitamin C] 2,000 mg PO DAILY 01/25/12 Calcium Carbonate/Vitamin D3 [Caltrate 600 + D Tablet] 1 each PO BID 01/25/12 Citalopram Hydrobromide [Celexa -] 20 mg PO HS 01/25/12 Ranitidine [Zantac -] 150 mg PO BID 01/25/12 propRANOLol HCL [Inderal -] 60 mg PO DAILY 01/25/12 Albuterol 0.083% Nebulizer Manju [Ventolin 0.083% Nebulizer Soln -] 1 neb NEB DAILY 09/25/13 Oxycodone HCl/Acetaminophen [Percocet 10-325 mg Tablet] 15 mg PO BID PRN Tobramycin/Na Chlor 0.2% [Cornell (Do Not Stock)] 300 mg IH DAILY 02/19/15 Biotin 1 mg PO DAILY 01/05/16 Butalbit/Acetamin/Caff/Codeine [Fioricet-Cod 70-243-68-30 Cap] 1 each PO TID PRN 01/05/16 Calcium/Cranberry Fruit [Cranberry 400 mg Caplet] 1 each PO DAILY 01/05/16 Gabapentin [Neurontin] 300 mg PO TID 01/05/16 L.acidoph,Paracasei, B.lactis [Probiotic] 1 each PO BID 01/05/16 Multivitamins [Multivit ([facility] Formulary)] 1 tab PO DAILY 01/05/16 Potassium Chloride [Klor-Con 10] 20 meq PO BID 01/05/16 Budesonide/Formeterol Fumarate [SYMBICORT 160/4.5mcg -] 2 inh PO BID 12/15/16 Magnesium Oxide [Magnesium] 500 mg PO DAILY 12/15/16 Tizanidine HCl 2 mg PO HS 12/15/16 Family Disease History - Family Disease History Family Disease History: Other: Father (: 74: "stomach and liver cancer"), Mother (: Dementia, colon Ca ), Brother (: pancreatic cancer), Son ( 2, healthy) Review of Systems - Review of Systems Constitutional: reports: Malaise, Weakness Eyes: reports: No Symptoms HENT: reports: No Symptoms Neck: reports: No Symptoms Cardiovascular: reports: No Symptoms Respiratory: reports: No Symptoms Gastrointestinal: reports: No Symptoms Musculoskeletal: reports: Back Pain Physical Exam Vital Signs: Vital Signs Temperature 98.4 F 03/18/19 14:05 Pulse Rate 69 03/18/19 14:05 Respiratory Rate 18 03/18/19 14:05 Blood Pressure 117/60 03/18/19 14:05 O2 Sat by Pulse Oximetry (%) 99 03/18/19 09:00 Constitutional: Yes: No Distress Eyes: Yes: WNL HENT: Yes: WNL Neck: Yes: WNL Cardiovascular: Yes: WNL Respiratory: Yes: WNL Gastrointestinal: Yes: WNL Musculoskeletal: Yes: Other (Heberden's and Landon's nodes in hands. No active joints. Straight leg raising was negative,) Labs: CBC, BMP 03/18/19 06:11 03/18/19 06:11 Problem List - Problems (1) Low back pain Assessment/Plan: halfway history of chronic low back pain with no radiculopathy. The patient has been worked-up and continues management by pain management consultants. She is stable and at the present time does not required further work-up. Code(s): M54.5 - LOW BACK PAIN
[2019-03-18] MEDS: CITALOPRAM HYDROBROMIDE 20 MG TABLET (FP) PO SCH (21:44)
[2019-03-18] MEDS: TIZANIDINE HCL 2 MG TABLET PO SCH (21:57)
[2019-03-19] MEDS: GABAPENTIN 300 MG CAPSULE (FP) PO SCH ×2 (06:18→16:28)
[2019-03-19] MEDS: POLYETHYLENE GLYCOL 3350 119 GM BTL PO SCH ×2 (06:19→16:28)
--- NOTE | 2019-03-19 07:16 | PN ---
Physical Exam: SUBJECTIVE: Patient seen and examined OBJECTIVE: Vital Signs Period Temp Pulse Resp BP Sys/Casper Pulse Ox Last 24 Hr 97.6 F-98.4 F 66-84 18-20 117-145/57-75 99-99 GENERAL: The patient is awake, alert, and fully oriented, in no acute distress. HEAD: Normal with no signs of trauma. EYES: PERRL, extraocular movements intact, sclera anicteric, conjunctiva clear. No ptosis. ENT: Ears normal, nares patent, oropharynx clear without exudates, moist mucous membranes. NECK: Trachea midline, full range of motion, supple. LUNGS: Breath sounds equal, clear to auscultation bilaterally, no wheezes, no crackles, no accessory muscle use. HEART: Regular rate and rhythm, S1, S2 without murmur, rub or gallop. ABDOMEN: Soft, nontender, nondistended, normoactive bowel sounds, no guarding, no rebound, no hepatosplenomegaly, no masses. EXTREMITIES: 2+ pulses, warm, well-perfused, no edema. NEUROLOGICAL: Cranial nerves II through XII grossly intact. Normal speech, gait not observed. PSYCH: Normal mood, normal affect. SKIN: Warm, dry, normal turgor, no rashes or lesions noted Laboratory Results - last 24 hr 03/17/19 03/18/19 03/18/19 05:49 06:11 06:11 WBC 4.9 RBC 2.67 L Hgb 8.6 L Hct 25.6 L MCV 95.9 MCH 32.4 MCHC 33.7 RDW 19.0 H Plt Count 162 MPV 7.4 L Absolute Neuts (auto) 3.5 Neutrophils % 72.1 Lymphocytes % 17.5 Monocytes % 7.2 Eosinophils % 2.5 Basophils % 0.7 Nucleated RBC % 0 Sodium 141 Potassium 4.3 Chloride 110 H Carbon Dioxide 26 Anion Gap 5 L BUN 12.4 Creatinine 0.7 Est GFR (CKD-EPI)AfAm 95.51 Est GFR (CKD-EPI)NonAf 82.41 Random Glucose 89 Calcium 8.6 Rheumatoid Arth Biomark < 10.0 Active Medications Generic Name Dose Route Start Last Admin Trade Name Freq PRN Reason Stop Dose Admin Acetaminophen 1,000 mg 03/14/19 18:49 03/15/19 20:51 Ofirmev Injection - IVPB 1,000 mg Q6H PRN Administration PAIN LEVEL 1-5 Acetaminophen 325 mg 03/15/19 11:11 03/18/19 10:38 Tylenol - PO 325 mg Q12H PRN Administration PAIN 6-10 Albuterol Sulfate 1 amp 03/14/19 20:00 03/18/19 21:15 Ventolin 0.083% Nebulizer Soln - NEB 1 amp RTID UZIEL Administration Ascorbic Acid 2,000 mg 03/16/19 10:00 03/18/19 10:36 Vitamin C - PO 2,000 mg DAILY UZIEL Administration Budesonide/Formoterol Fumarate 2 puff 03/14/19 22:00 03/18/19 21:45 Symbicort 160/4.5mcg - IH 2 puff BID UZIEL Administration Citalopram Hydrobromide 20 mg 03/14/19 22:00 03/18/19 21:44 Celexa - PO 20 mg HS UZIEL Administration Docusate Sodium 100 mg 03/15/19 08:15 03/18/19 21:44 Colace - PO 100 mg BID UZIEL Administration Gabapentin 300 mg 03/14/19 22:00 03/19/19 06:18 Neurontin - PO 300 mg TID UZIEL Administration Multivitamins/Minerals/Vitamin C 1 tab 03/16/19 10:00 03/18/19 10:36 Tab-A-Vit - PO 1 tab DAILY UZIEL Administration Non-Formulary Medication 500 mg 03/16/19 10:00 Magnesium Oxide [Magnesium] PO DAILY UZIEL Oxycodone HCl 10 mg 03/15/19 11:11 03/18/19 21:43 Roxicodone - PO 10 mg Q12H PRN Administration PAIN 6-10 Pantoprazole Sodium 40 mg 03/16/19 12:00 03/18/19 10:36 Protonix - PO 40 mg DAILY [facility] Administration Polyethylene Glycol 17 gm 03/15/19 14:00 03/19/19 06:19 Miralax (For Daily Use) - PO 17 grams TID UZIEL Administration Potassium Chloride 20 meq 03/15/19 22:00 03/18/19 21:45 K-Dur - PO Not Given BID UZIEL Propranolol HCl 60 mg 03/15/19 17:00 03/18/19 10:36 Inderal La - PO 60 mg DAILY UZIEL Administration Tizanidine HCl 2 mg 03/15/19 22:00 08/18/19 21:57 Tizanidine Hcl PO 2 mg HS [facility] Administration ASSESSMENT/PLAN: ATTENDING PHYSICIAN STATEMENT I saw and evaluated the patient. I reviewed the resident's note and discussed the case with the resident. I agree with the resident's findings and plan as documented. SUBJECTIVE: OBJECTIVE: ASSESSMENT AND PLAN:
[2019-03-19 08:09] LABS: HEMATOCRIT 27.4 % (32.4-45.2); HEMOGLOBIN 9.5 GM/dL (10.7-15.3); MCH 32.9 pg (25.7-33.7); MCHC 34.6 g/dl (32.0-36.0); MEAN CELL VOLUME 95.2 fl (80-96); MEAN PLT VOLUME 7.4 fl (7.5-11.1); PLATELET COUNT 214 K/MM3 (134-434); RBC 2.87 M/mm3 (3.60-5.2); RDW 18.8 % (11.6-15.6); WHITE BLOOD COUNT 6.5 K/mm3 (4.0-10.0)
[2019-03-19] MEDS: ALBUTEROL SO4 0.083% IH SOL 2.5 MG/3 ML VIAL.NEB. NEB SCH ×2 (09:00→13:39)
[2019-03-19] MEDS ORDERED: PT OWN MED DRAWER 7, Y5N ONE (09:27)
[2019-03-19] MEDS: ASCORBIC ACID 500 MG TABLET (FP) PO SCH (09:28)
[2019-03-19] MEDS: oxyCODONE HCL 5 MG TABLET PO PRN (09:29)
[2019-03-19] MEDS: POTASSIUM CHLORIDE TABS 20 MEQ TABLET.ER (FP) PO SCH (09:29)
[2019-03-19] MEDS: DOCUSATE SODIUM 100 MG CAPSULE (FP) PO SCH (09:29)
[2019-03-19] MEDS: ACETAMINOPHEN 325 MG TABLET (FP) PO PRN (09:29)
[2019-03-19] MEDS: MULTIVITAMINS (DAILY MVI) TABLET (FP) PO SCH (09:29)
[2019-03-19] MEDS: PANTOPRAZOLE 40 MG TABLET (FP) PO SCH (09:29)
[2019-03-19] MEDS: BUDESONIDE/FORMETEROL FUMARATE 160/4.5 mcg INHALER IH SCH (09:30)
[2019-03-19] MEDS ORDERED: BISACODYL 10 MG SUPP.RECT RC ONE (11:30)
--- NOTE | 2019-03-19 11:31 | DS ---
Physical Exam: SUBJECTIVE: Patient seen and examined feeling better ,some abdominal comfort , otherwise stable and ready to be dc home . OBJECTIVE: Vital Signs Period Temp Pulse Resp BP Sys/Casper Pulse Ox Last 24 Hr 97.6 F-98.4 F 66-78 18-18 117-144/57-75 99-99 PHYSICAL EXAM GENERAL: AAOx3 in NAD HEAD: NC/AT EYES: EOMI, Conjunctiva clear, sclera anicteric ENT: dry mucous membrane NECK: Supple, no JVD LUNGS: CTA B/L, no crackles no wheezing no accessory muscle use. HEART: RRR, normal s1, s2, no M/R/G ABDOMEN: Soft, ND, NT, +BS 4 Q, no CVA Tenderness, transverse low sergical scar LOWER EXTREMITIES: no edema, +2DP pulse, NEUROLOGICAL: No focal deficit. Normal speech. gait not observed. PSYCHIATRIC: Cooperative. Good eye contact. Appropriate mood and affect. SKIN: Warm, dry, LABS Laboratory Results - last 24 hr 03/17/19 03/19/19 05:49 06:22 WBC 6.5 RBC 2.87 L Hgb 9.5 L Hct 27.4 L MCV 95.2 MCH 32.9 MCHC 34.6 RDW 18.8 H Plt Count 214 D MPV 7.4 L Rheumatoid Arth Biomark < 10.0 CBC, BMP 03/19/19 06:22 03/18/19 06:11 HOSPITAL COURSE: Date of Admission:03/14/19 Date of Discharge: 03/19/19 78 year old female with pmhx of MVP, Divertuclosis , Constipation , bronchiestsis come to ED due to generalized weakness and sob and abdominal pain was found to have hgb 7.1 and occult blood positive admitted to tele for further evaluation. 2 units of PRBC was transferred to the pt and EGD was done by Dr Diaz was found to have clean antral ulcer , pt will be send home on PPI 40 PO daily for more 4 weeks and follow up with Dr Diaz as out pt. pt was evaluated by Dr Franco for anemia who recommend Ferrous sulfate for now and follow up out pt. pt was seen by Dr Ma for chronic lower back pain and advice to follow up with pain management as no evidence of rheumatology disorder . pt was bale to tolerate diet , can resume her home meds and she will be send on bowel regimine with Mirlax TID as needed , Colace TID as needed and dulcolax as needed. recommend lactose free diet.son will pick her up at 4.30 pm . Minutes to complete discharge: 45 Discharge Summary Reason For Visit: GASTROINTESTINAL HEMORRHAGE,ANEMIA Current Active Problems Anemia (Chronic) Constipation (Chronic) Low back pain (Chronic) Condition: Stable - Instructions Diet, Activity, Other Instructions: You presented to the hospital due to generalized weakness and fatigue , you were found to have low blood count (Hemoglobin) due to gastric ulcer bleed , you were given 2 units of blood and the blood count has been stable. you will be discharged home with visiting nurse. MEDICATIONS: STOP NSAIDS INCLUDING ALEVE, NAPROSYN, IBUPROFEN, MOTRIN ETC, WITHOUT DISCUSSION WITH YOUR DOCTOR Protonix 40 mg daily for 1 month, then as directed. Bowel regimen as follows: Colace 100 mg twice daily Miralax 17 gm twice daily as needed Dulcolax suppository daily as needed. You are started on iron supplementation, if you notice worsening constipation or stomach upset, please stop the medication and call your doctor. Continue other medications (Except for NSAIDs) as before. INSTRUCTIONS: DO NOT TAKE ANY NSAIDS INCLUDING MOTRIN, IBUPROFEN, ALEVE, NAPROSYN ETC. Endoscopy was done and biopsy results will need to be followed up with edi developer. Lactose free diet. FOLLOW UP: Blood work CBC in 1 week With your primary care physician in [address] Diaz in 1 week. If you develop fever, chills, chest pain ,severe belly pain, ongoing dark or bloody stools, dizziness or any new concerns, please return to emergency room. Referrals: Brad Diaz DO [Staff Physician] - 2 Weeks John Vargas MD [Primary Care Provider] - 1 Week Disposition: VNS/HOME HEALTH CARE - Home Medications Comprehensive Discharge Medication List: Ambulatory Orders Alprazolam [Xanax] 0.25 mg PO BID PRN 01/25/12 Ascorbic Acid [Vitamin C] 2,000 mg PO DAILY 01/25/12 Calcium Carbonate/Vitamin D3 [Caltrate 600 + D Tablet] 1 each PO BID 01/25/12 Citalopram Hydrobromide [Celexa -] 20 mg PO HS 01/25/12 Ranitidine [Zantac -] 150 mg PO BID 01/25/12 propRANOLol HCL [Inderal -] 60 mg PO DAILY 01/25/12 Albuterol 0.083% Nebulizer Manju [Ventolin 0.083% Nebulizer Soln -] 1 neb NEB DAILY 09/25/13 Oxycodone HCl/Acetaminophen [Percocet 10-325 mg Tablet] 15 mg PO BID PRN Tobramycin/Na Chlor 0.2% [Cornell (Do Not Stock)] 300 mg IH DAILY 02/19/15 Biotin 1 mg PO DAILY 01/05/16 Butalbit/Acetamin/Caff/Codeine [Fioricet-Cod 92-935-97-30 Cap] 1 each PO TID PRN 01/05/16 Calcium/Cranberry Fruit [Cranberry 400 mg Caplet] 1 each PO DAILY 01/05/16 Gabapentin [Neurontin] 300 mg PO TID 01/05/16 L.acidoph,Paracasei, B.lactis [Probiotic] 1 each PO BID 01/05/16 Multivitamins [Multivit ([facility] Formulary)] 1 tab PO DAILY 01/05/16 Potassium Chloride [Klor-Con 10] 20 meq PO BID 01/05/16 Budesonide/Formeterol Fumarate [SYMBICORT 160/4.5mcg -] 2 inh PO BID 12/15/16 Magnesium Oxide [Magnesium] 500 mg PO DAILY 12/15/16 Tizanidine HCl 2 mg PO HS 12/15/16 Acetaminophen [Tylenol .Regular Strength -] 325 mg PO Q12H PRN tablet 03/19/19 Bisacodyl [Dulcolax] 5 mg PO DAILY PRN #30 tablet. 03/19/19 Docusate Sodium [Colace -] 100 mg PO BID #90 capsule 03/19/19 Ferrous Sulfate 325 mg PO DAILY #30 tablet 03/19/19 Pantoprazole Sodium [Protonix -] 40 mg PO DAILY #30 tablet.ec 03/19/19 Polyethylene Glycol 3350 [Miralax 119 gm Btl -] 17 gm PO TID #1 bottle 03/19/19 This patient is new to me today: No Emergency Visit: Yes ED Registration Date: 03/14/19 Care time: The patient presented to the Emergency Department on the above date and was hospitalized for further evaluation of their emergent condition. Critical Care patient: No - Discharge Referral Referred to [facility] Med P.C.: No ATTENDING PHYSICIAN STATEMENT I saw and evaluated the patient. I reviewed the resident's note and discussed the case with the resident. I agree with the resident's findings and plan as documented. SUBJECTIVE: OBJECTIVE: ASSESSMENT AND PLAN:
--- NOTE | 2019-03-19 12:44 | PN ---
Teaching Attending Note Name of Resident: Rayo Fischer ATTENDING PHYSICIAN STATEMENT I saw and evaluated the patient. I reviewed the resident's note and discussed the case with the resident. I agree with the resident's findings and plan as documented with exceptions below. SUBJECTIVE: Patient seen and examined. Pleasant, improved, no BM since Tuesday, feeling well. Denies any weakness, dizziness OBJECTIVE: Vital Signs Period Temp Pulse Resp BP Sys/Casper Pulse Ox Last 24 Hr 97.6 F-98.4 F 66-78 18-18 117-144/57-75 99-99 Intake & Output 03/16/19 03/17/19 03/18/19 03/19/19 23:59 23:59 23:59 23:59 Intake Total 2416 490 100 240 Balance 2416 490 100 240 Weight 110 lb General sitting in chair in no acute distress Neck: soft, supple, no JVD Chest: CTAB, no rales or wheezing CVS: S1s2 regular Abdomen:soft, ND, NT, no voluntary or involuntary guarding or rigidity, pos bowel sounds Extremities: no edema Psych: pleasant, co-operative Home Medications Medication Instructions Recorded Alprazolam [Xanax] 0.25 mg PO BID PRN 01/25/12 Ascorbic Acid [Vitamin C] 2,000 mg PO DAILY 01/25/12 Calcium Carbonate/Vitamin D3 1 each PO BID 01/25/12 [Caltrate 600 + D Tablet] Citalopram Hydrobromide [Celexa -] 20 mg PO HS 01/25/12 Ranitidine [Zantac -] 150 mg PO BID 01/25/12 propRANOLol HCL [Inderal -] 60 mg PO DAILY 01/25/12 Albuterol 0.083% Nebulizer Manju 1 neb NEB DAILY 09/25/13 [Ventolin 0.083% Nebulizer Soln -] Oxycodone HCl/Acetaminophen 15 mg PO BID PRN 02/19/15 [Percocet 10-325 mg Tablet] Tobramycin/Na Chlor 0.2% [Cornell (Do 300 mg IH DAILY 02/19/15 Not Stock)] Biotin 1 mg PO DAILY 01/05/16 Butalbit/Acetamin/Caff/Codeine 1 each PO TID PRN 01/05/16 [Fioricet-Cod 27-757-28-30 Cap] Calcium/Cranberry Fruit [Cranberry 1 each PO DAILY 01/05/16 400 mg Caplet] Gabapentin [Neurontin] 300 mg PO TID 01/05/16 L.acidoph,Paracasei, B.lactis 1 each PO BID 01/05/16 [Probiotic] Multivitamins [Multivit ([facility] 1 tab PO DAILY 01/05/16 Formulary)] Potassium Chloride [Klor-Con 10] 20 meq PO BID 01/05/16 Budesonide/Formeterol Fumarate 2 inh PO BID 12/15/16 [SYMBICORT 160/4.5mcg -] Magnesium Oxide [Magnesium] 500 mg PO DAILY 12/15/16 Tizanidine HCl 2 mg PO HS 12/15/16 Bisacodyl [Dulcolax] 5 mg PO DAILY PRN #30 tablet. 03/19/19 Docusate Sodium [Colace -] 100 mg PO BID #90 capsule 03/19/19 Ferrous Sulfate 325 mg PO DAILY #30 tablet 03/19/19 Pantoprazole Sodium [Protonix -] 40 mg PO DAILY #30 tablet.ec 03/19/19 Polyethylene Glycol 3350 [Miralax 17 gm PO BID PRN #1 bottle 03/19/19 (For Daily Use) -] Active Medications Acetaminophen (Ofirmev Injection -) 1,000 mg IVPB Q6H PRN PRN Reason: PAIN LEVEL 1-5 Last Admin: 03/15/19 20:51 Dose: 1,000 mg Acetaminophen (Tylenol -) 325 mg PO Q12H PRN PRN Reason: PAIN 6-10 Last Admin: 03/19/19 09:29 Dose: 325 mg Albuterol Sulfate (Ventolin 0.083% Nebulizer Soln -) 1 amp NEB RTID [facility] Last Admin: 03/19/19 09:00 Dose: 1 amp Ascorbic Acid (Vitamin C -) 2,000 mg PO DAILY [facility] Last Admin: 03/19/19 09:28 Dose: 2,000 mg Budesonide/Formoterol Fumarate (Symbicort 160/4.5mcg -) 2 puff IH BID [facility] Last Admin: 03/19/19 09:30 Dose: 2 puff Citalopram Hydrobromide (Celexa -) 20 mg PO HS [facility] Last Admin: 03/18/19 21:44 Dose: 20 mg Docusate Sodium (Colace -) 100 mg PO BID [facility] Last Admin: 03/19/19 09:29 Dose: 100 mg Gabapentin (Neurontin -) 300 mg PO TID [facility] Last Admin: 03/19/19 06:18 Dose: 300 mg Multivitamins/Minerals/Vitamin C (Tab-A-Vit -) 1 tab PO DAILY [facility] Last Admin: 03/19/19 09:29 Dose: 1 tab Non-Formulary Medication (Magnesium Oxide [Magnesium]) 500 mg PO DAILY [facility] Oxycodone HCl (Roxicodone -) 10 mg PO Q12H PRN PRN Reason: PAIN 6-10 Last Admin: 03/19/19 09:29 Dose: 10 mg Pantoprazole Sodium (Protonix -) 40 mg PO DAILY [facility] Last Admin: 03/19/19 09:29 Dose: 40 mg Polyethylene Glycol (Miralax (For Daily Use) -) 17 gm PO TID [facility] Last Admin: 03/19/19 06:19 Dose: 17 grams Potassium Chloride (K-Dur -) 20 meq PO BID [facility] Last Admin: 03/19/19 09:29 Dose: 20 meq Propranolol HCl (Inderal La -) 60 mg PO DAILY [facility] Last Admin: 03/19/19 09:29 Dose: 60 mg Tizanidine HCl (Tizanidine Hcl) 2 mg PO HS [facility] Last Admin: 03/18/19 21:57 Dose: 2 mg Laboratory Results - last 24 hr 03/17/19 03/19/19 05:49 06:22 WBC 6.5 RBC 2.87 L Hgb 9.5 L Hct 27.4 L MCV 95.2 MCH 32.9 MCHC 34.6 RDW 18.8 H Plt Count 214 D MPV 7.4 L Rheumatoid Arth Biomark < 10.0 ASSESSMENT AND PLAN: 78 yof with PMhx of chronic anemia (h/o Bone marrow biopsy with Dr. Waller, on chronic Fe), also last EGD/colonoscopy [address] Wadsworth, last Hb reported around 10 3 months ago with PCP, Chronic constipation with abdominal pain and nausea, MVP, HTN, chronic low back pain on oxycodone, recently started taking Aleve 2 tabs daily for last few weeks, admitted with weakness, acute on chronic anemia and melena -Acute on chronic symptomatic anemia, suspect from blood loss from antral ulcer/ erosions -Chronic abdominal pain -Chronic constipation -Chronic low back pain -Asymptomatic bacteruria -HTN -MVP Plan: h/h stable, no further dark or bloody stools. Dizziness/weakness resolved. Protonix 40 mg daily with outpatient GI follow up. Ambulating well, PT eval noted. Will need outpatient GI/PCP follow up. Bowel regimen PO Fe suppl. D/c home with services today. Plan discussed with patient, nursing and social work.
--- NOTE | 2019-03-19 17:29 | PATH ---
Surgical Pathology Report Patient Name: RACHEL PERRIN [facility]. Rec. #: [id number] /Age/Gender: 1940 (Age: 78) / F Account: [id number] Location: 4 W TELEMETRY U Taken: 03/16/2019 Received: 03/16/2019 Reported: 03/19/2019 Physicians: Dylon Diaz D.O. Specimen(s) Received A: ANTRAL ULCER B: ANGULARIS AND BODY Clinical History Anemia Postoperative diagnosis: Gastric ulcer, hiatal hernia, gastritis Final Diagnosis A. STOMACH, ANTRAL ULCER, BIOPSY: GASTRIC ANTRAL MUCOSA WITH MILD CHRONIC GASTRITIS. IMMUNOHISTOCHEMICAL STAIN FOR H. PYLORI IS NEGATIVE. B. STOMACH, ANGULARIS AND BODY, BIOPSY: GASTRIC BODY MUCOSA WITH MILD CHRONIC GASTRITIS. IMMUNOHISTOCHEMICAL STAIN FOR H. PYLORI IS NEGATIVE. Electronically Signed Sharon Melvin M.D. Gross Description A. Received in formalin, labeled "biopsy antral ulcer" are 4 araujo, irregular portions of soft tissue ranging from 0.1-0.3 cm. in greatest dimension. The specimens are submitted in toto in one cassette. B. Received in formalin, labeled "biopsy angularis and body" are 2 araujo, irregular portions of soft tissue measuring 0.2 and 0.5 cm. in greatest dimension. The specimens are submitted in toto in one cassette. 03/16/201903/16/2019
[2019-03-19 17:49] VITALS: BP 145/69; PULSE 67; TEMP 98.1
== END 2019-03-19 18:24 | disposition home health service (06) | DRG 378 ==
LOC: JER 12:01 → JERBED 16:03 → J4W 18:23
PROVIDERS: ADMIT Hospitalist; ATTEND Hospitalist
PROC: 30233N1 Transfusion of Nonautologous Red Blood Cells into Peripheral Vein, Percutaneous Approach (ICD-10-PCS; principal; 2019-03-14)
PROC: 0DB74ZX Excision of Stomach, Pylorus, Percutaneous Endoscopic Approach, Diagnostic (ICD-10-PCS; 2019-03-16)
DX: K92.2 Gastrointestinal hemorrhage, unspecified (principal); N17.9 Acute kidney failure, unspecified; K59.00 Constipation, unspecified; Z87.891 Personal history of nicotine dependence; R03.1 Nonspecific low blood-pressure reading; Z80.0 Family history of malignant neoplasm of digestive organs; G89.29 Other chronic pain; M54.5 Low back pain; D53.9 Nutritional anemia, unspecified; K31.89 Other diseases of stomach and duodenum; K44.9 Diaphragmatic hernia without obstruction or gangrene; R82.71 Bacteriuria; J47.9 Bronchiectasis, uncomplicated
CPT/HCPCS: 36415; 36430; 36511; 71045-TC-FY; 74019-TC-FY; 74177-TC; 80048; 80053; 81003; 82272; 82607; 82728; 82746; 82962; 83540; 83550; 83735; 84100; 84443; 85025; 85027; 85044; 85610; 85651; 85730; 86038; 86140; 86431; 86850; 86900; 86901; 86922; 87077; 87086; 87186; 88305-TC; 93005; 93010; 93306-TC; 94640; 97116-GP; 97161-GP; 99283-25; J0131; J7030; P9038; P9058

== ENCOUNTER 2019-04-03 11:32 | Emergency (ER) | payer OTHER, MEDICARE ==
[2019-04-03 11:37] VITALS: TEMP 97.6; BMI 18.6
--- NOTE | 2019-04-03 12:40 | PDOC ---
History of Present Illness - General Chief Complaint: Pain, Acute Stated Complaint: ABD PAIN/ DARK STOOL Time Seen by Provider: 04/03/19 12:00 History Source: Patient Exam Limitations: No Limitations - History of Present Illness Initial Comments: 04/03/19 12:35 Frida Burton is a 78F recently hospitalized at [facility] for gastric ulcers and UGIB presenting with dark stools and diarrhea. Patient reports being discharged from the hospital earlier last month after being hospitalized for dark stools and weakness, EGD performed and found to have antral gastric ulcers, put on protonix and given 2 units PRBCs for anemia, discharged home on protonix. 2 days after discharge had normal appearing stool, but after has had diarrhea 4x per day of liquid stools that have gotten progressively darker. Takes protonix and iron. Denies abdominal pain, N/V, blood in stool, urinary sx. Denies weakness, SOB, chest pain, palpitations, LOC, headache, fever. Called her PCP but was not available, called her GI Dr. Diaz who recommended she come to ED for blood testing for anemia and possible transfusion. History of lung disease ?bronchitis, no home oxygen but has nebulizer treatments at home she regularly uses, no SOB at all. Past History - Past Medical History Allergies/Adverse Reactions: Allergies Allergy/AdvReac Type Severity Reaction Status Date / Time No Known Drug Allergies Allergy Verified 04/03/19 11:37 Home Medications: Ambulatory Orders Alprazolam [Xanax] 0.25 mg PO BID PRN 01/25/12 Ascorbic Acid [Vitamin C] 2,000 mg PO DAILY 01/25/12 Calcium Carbonate/Vitamin D3 [Caltrate 600 + D Tablet] 1 each PO BID 01/25/12 Citalopram Hydrobromide [Celexa -] 20 mg PO HS 01/25/12 Ranitidine [Zantac -] 150 mg PO BID 01/25/12 propRANOLol HCL [Inderal -] 60 mg PO DAILY 01/25/12 Albuterol 0.083% Nebulizer Manju [Ventolin 0.083% Nebulizer Soln -] 1 neb NEB DAILY 09/25/13 Oxycodone HCl/Acetaminophen [Percocet 10-325 mg Tablet] 15 mg PO BID PRN Tobramycin/Na Chlor 0.2% [Cornell (Do Not Stock)] 300 mg IH DAILY 02/19/15 Biotin 1 mg PO DAILY 01/05/16 Butalbit/Acetamin/Caff/Codeine [Fioricet-Cod 06-602-76-30 Cap] 1 each PO TID PRN 01/05/16 Calcium/Cranberry Fruit [Cranberry 400 mg Caplet] 1 each PO DAILY 01/05/16 Gabapentin [Neurontin] 300 mg PO TID 01/05/16 L.acidoph,Paracasei, B.lactis [Probiotic] 1 each PO BID 01/05/16 Multivitamins [Multivit ([facility] Formulary)] 1 tab PO DAILY 01/05/16 Potassium Chloride [Klor-Con 10] 20 meq PO BID 01/05/16 Budesonide/Formeterol Fumarate [SYMBICORT 160/4.5mcg -] 2 inh PO BID 12/15/16 Magnesium Oxide [Magnesium] 500 mg PO DAILY 12/15/16 Tizanidine HCl 2 mg PO HS 12/15/16 Bisacodyl [Dulcolax] 5 mg PO DAILY PRN #30 tablet.dr 03/19/19 Docusate Sodium [Colace -] 100 mg PO BID #90 capsule 03/19/19 Ferrous Sulfate 325 mg PO DAILY #30 tablet 03/19/19 Pantoprazole Sodium [Protonix -] 40 mg PO DAILY #30 tablet.ec 03/19/19 Polyethylene Glycol 3350 [Miralax (For Daily Use) -] 17 gm PO BID PRN #1 bottle 03/19/19 Anemia: No Asthma: No Cancer: No Cardiac Disorders: Yes (MVP) CVA: No COPD: Yes (BRONCHIETASIS) CHF: No Dementia: No Diabetes: No GI Disorders: Yes (constipation, diverticulosis) Disorders: No HTN: (LOW BP) Hypercholesterolemia: No Liver Disease: No Seizures: No Thyroid Disease: No - Surgical History Abdominal Surgery: Yes (DIVERTICULITIS) Appendectomy: Yes Cardiac Surgery: No Cholecystectomy: No Lung Surgery: Yes (SX.FOR BRONCHIECTASIS) Neurologic Surgery: No Orthopedic Surgery: Yes (L hip ORIF w/ hardware removal) - Immunization History Immunization Up to Date: Yes - Suicide/Smoking/Psychosocial Hx Smoking Status: Yes Smoking History: Never smoked Have you smoked in the past 12 months: No Number of Cigarettes Smoked Daily: 0 If you are a former smoker, when did you quit?: 1986 Hx Alcohol Use: No Drug/Substance Use Hx: No Substance Use Type: None Hx Substance Use Treatment: No Review of Systems - Review of Systems Able to Perform ROS?: Yes Is the patient limited Georgian proficient: No Constitutional: No: Symptoms Reported HEENTM: No: Symptoms Reported Respiratory: No: Symptoms reported Cardiac (ROS): No: Symptoms Reported ABD/GI: Yes: Abdominal Distended (chronic issue, has diarrhea chronically), Diarrhea, Tarry Stools. No: Blood Streaked Bowels : No: Symptoms Reported Musculoskeletal: No: Symptoms Reported Integumentary: No: Symptoms Reported Neurological: No: Symptoms reported Endocrine: No: Symptoms Reported Hematologic/Lymphatic: Yes: Anemia All Other Systems: Reviewed and Negative *Physical Exam - Vital Signs Last Vital Signs Temp Pulse Resp BP Pulse Ox 97.6 F 79 16 139/64 98 04/03/19 11:35 04/03/19 11:35 04/03/19 11:35 04/03/19 11:35 04/03/19 11:35 - Physical Exam General Appearance: Yes: Nourished, Appropriately Dressed, Thin. No: Apparent Distress HEENT: positive: EOMI, Normal Voice, Symmetrical, Pharynx Normal. negative: Pale Conjunctivae, Scleral Icterus (R), Scleral Icterus (L) Neck: positive: Trachea midline, Normal Thyroid, Supple. negative: Tender, Rigid, Lymphadenopathy (R), Lymphadenopathy (L) Respiratory/Chest: positive: Lungs Clear, Normal Breath Sounds. negative: Respiratory Distress, Crackles, Rales, Rhonchi Cardiovascular: positive: Regular Rhythm, Regular Rate. negative: Edema, Murmur Gastrointestinal/Abdominal: positive: Normal Bowel Sounds, Flat, Soft, Distended. negative: Tender, Organomegaly, Guarding, Rebound, Mass Musculoskeletal: positive: Normal Inspection. negative: CVA Tenderness Extremity: positive: Normal Capillary Refill, Normal Inspection, Normal Range of Motion. negative: Tender Integumentary: positive: Normal Color, Dry, Warm Neurologic: positive: Fully Oriented, Alert, Normal Mood/Affect, Normal Response ED Treatment Course - LABORATORY CBC & Chemistry Diagram: 04/03/19 12:50 04/03/19 12:50 Medical Decision Making - Medical Decision Making 04/03/19 12:35 Frida Burton is a 78F recently hospitalized at [facility] for gastric ulcers and UGIB presenting with dark stools and diarrhea. Patient is stable in ED and not complaining of active bleeding, rather a chronic dark stools concerning for undertreated gastric ulcers and anemia. Will obtain CMP, CBC, CP, ECG, FOBT, T/S, and coags to evaluate bleeding status and anemia. Low threshold to transfuse, start protonix drip, give IVF if anemic. 04/03/19 14:[address] Diaz, VS stable, stool grossly not bloody or dark on rectal exam , labs do not show anemia, patient good to go home with close f/u and return precautions. *DC/Admit/Observation/Transfer Diagnosis at time of Disposition: Dark stools Diarrhea Qualifiers: Diarrhea type: unspecified type Qualified Code(s): R19.7 - Diarrhea, unspecified - Discharge Dispostion Disposition: HOME Condition at time of disposition: Stable Decision to Admit order: No - Referrals Referrals: John Vargas MD [Primary Care Provider] - Brad Diaz DO [Staff Physician] - - Patient Instructions Printed Discharge Instructions: DI for Iron Deficiency Anemia-Adult Additional Instructions: Today you were evaluated for dark stools. We got some labs that were all grossly normal. Your hemoglobin level is 9.4, up from 9.2 from the last time you visited Dr. Diaz. Your vital signs are all stable. The darkness in your stools and diarrhea are likely due to the iron you have been taking, which is known to cause both. You do not need a blood transfusion at this time. Please continue to take the Protonix and iron as prescribed. Follow-up with your primary doctor in the next 3 days for further care. Please see Dr. Diaz is the next week to further evaluate your dark stools. If you experience new fever, vomiting (especially bloody vomit), blood in your stools or diarrhea, weakness, dizziness, shortness of breath, chest pain, difficulty walking, have a fall, or have any new or concerning symptoms, please return to the closest emergency room as soon as possible. - Post Discharge Activity
--- NOTE | 2019-04-03 12:42 | PDOC ---
Attending Attestation - Resident Resident Name: Juice Rendon - ED Attending Attestation I have performed the following: I have examined & evaluated the patient, The case was reviewed & discussed with the resident, I agree w/resident's findings & plan, Exceptions are as noted - HPI HPI: 04/03/19 12:42 Ms. Burton is a 78F who was recently hospitalized for UGIB found on EGD to have gastric erosions and antral ulcer compatible with NSAID injury. Pt transfused for anemia and was started on Panoprazole 40mg daily Pt recently started Fe supplementation Since discharge from the hospital, she has noted loose stools and dark colored stools Pt denies abdominal pain Does have intermittent abdominal cramping pain She overall feels weak, no chest pain or shortness of breath, no palpitations Called her PCP but was not available, called her GI Dr. iDaz who recommended she come to ED for blood testing for anemia and possible transfusion. - Physicial Exam PE: 04/03/19 15:02 GENERAL: The patient is in no acute distress. ENT: Ears normal, nares patent, oropharynx clear without exudates. Moist mucous membranes. NECK: Normal range of motion, supple LUNGS: Breath sounds equal, clear to auscultation bilaterally. No wheezes, and no crackles. HEART:Regular rate and rhythm, normal S1 and S2 without murmur, rub or gallop. ABDOMEN: Soft, nontender, no guarding or rebound, no abdominal distention EXTREMITIES: Normal range of motion, no edema. NEUROLOGICAL: Cranial nerves II through XII grossly intact. Normal speech. No focal neurological deficits. SKIN: Warm, Dry, normal turgor, no rashes or lesions noted. - Medical Decision Making 04/03/19 15:03 78 yo F presenting with melanotic stools Pt s/p recent UGIB and endoscopy consistent with NSAID injury will do labs will contact GI 04/03/19 15:04 Laboratory Tests 03/18/19 03/19/19 04/03/19 06:11 06:22 12:50 WBC 6.5 4.0 Hgb 9.5 L 9.4 L Hct 27.4 L 27.4 L Plt Count 214 D 154 D INR BUN 12.4 Creatinine 0.7 Troponin I Stool Occult Blood 04/03/19 04/03/19 04/03/19 12:50 12:50 12:50 WBC Hgb Hct Plt Count INR 0.93 BUN 17.8 Creatinine 0.7 Troponin I < 0.02 Stool Occult Blood 04/03/19 13:09 WBC Hgb Hct Plt Count INR BUN Creatinine Troponin I Stool Occult Blood Negative EKG - Twelve-lead EKG was performed and reviewed by me. There is normal sinus rhythm with a normal rate of 63bpm. The axis is normal. The intervals are abnormal - pr:206ms, QRS:80ms, QTc:413ms. There are no ST or T wave abnormalities. Impression:1s degree AV block HGB stable as compared to prior Stool for occult blood negative Case reviewed with Dr Feliz Jackman d/x home with [facility] discharge instructions Return for persistent or worsening symptoms F/u with GI
[2019-04-03 13:04] LABS: HEMATOCRIT 27.4 % (32.4-45.2); HEMOGLOBIN 9.4 GM/dL (10.7-15.3); LYMPH % 17.6 % (8-40); MCH 33.5 pg (25.7-33.7); MCHC 34.4 g/dl (32.0-36.0); MEAN CELL VOLUME 97.4 fl (80-96); MEAN PLT VOLUME 6.8 fl (7.5-11.1); MONO % 7.6 % (3.8-10.2); NEUT % 69.8 % (42.8-82.8); PLATELET COUNT 154 K/MM3 (134-434); RBC 2.81 M/mm3 (3.60-5.2); RDW 17.9 % (11.6-15.6)
[2019-04-03 13:16] LABS: INR 0.93 (0.83-1.09)
[2019-04-03 13:40] LABS: ALBUMIN 3.6 g/dl (3.4-5.0); BILIRUBIN,TOTAL 0.2 mg/dL (0.2-1); BLOOD UREA NITROGEN 17.8 mg/dL (7-18); CREATININE 0.7 mg/dL (0.55-1.3); POTASSIUM 4.1 mmol/L (3.5-5.1); TOT PROT 6.4 g/dl (6.4-8.2)
[2019-04-03 15:14] VITALS: BP 130/68; PULSE 73
--- NOTE | 2019-04-04 09:02 | EKG ---
Test Reason : Blood Pressure : / mmHG Vent. Rate : 063 BPM Atrial Rate : 063 BPM P-R Int : 206 ms QRS Dur : 080 ms QT Int : 404 ms P-R-T Axes : 057 012 042 degrees QTc Int : 413 ms NORMAL SINUS RHYTHM NORMAL ECG WHEN COMPARED WITH ECG OF 14-MAR-2019 12:20, NO SIGNIFICANT CHANGE WAS FOUND Confirmed by DMITRI DUNBAR MD ([id number]) on 04/04/2019 9:02:16 AM Referred By: Confirmed By:DMITRI DUNBAR MD
== END 2019-04-03 15:14 | disposition home or self-care (01) ==
LOC: JER 11:32 → SUPCPDRO 11:32 → JER 15:14
DX: R19.7 Diarrhea, unspecified (principal); R19.5 Other fecal abnormalities; Z87.19 Personal history of other diseases of the digestive system
CPT/HCPCS: 36415; 80053; 82272; 82550; 83605; 83690; 84484; 85025; 85610; 86850; 86900; 86901; 93005; 93010; 99283-25

== ENCOUNTER 2019-09-24 11:50 | Inpatient (IN) | payer OTHER, MEDICARE ==
--- NOTE | 2019-09-24 12:30 | PDOC ---
History of Present Illness - General Chief Complaint: Shortness of Breath Stated Complaint: DIFFICULTY BREATHING Time Seen by Provider: 09/24/19 12:04 History Source: Patient, Family (Son at bedside) Exam Limitations: No Limitations - History of Present Illness Initial Comments: HPI: 79 y/o female presenting to [facility] ER complaining of three to four days of shortness of breath, coughing, and green sputum production. Further states she generally feels weak and vomited once this morning. Emesis described as yellow; nonbloody and nonbilious. Discussed these symptoms w/ her psychologist industrial organizational at [place] via telephone. Was prescribed Levaquin and a steroid. States she took this medication for the past three days without improvement in symptoms. Reports increased urinary frequency without hematuria or dysuria. Also states she fell on the floor last night and struck the left side of her head. Did not pass out. Was able to stand with the assistance of her son. Creative Resource Manager: Dr. Bhavani Aguila (at [facility]) Medical Hx: - Bronchiectasis - Mitral Valve Prolapse - Chronic Anemia - Diverticular Disease - Chronic Sinusitis - Raynads Disease - Depression and Anxiety - Chronic pain - Arthritis / Osteoporosis - Sjogrens Syndrome - Chronic Constipation - Chronic Sodium Level Issues Surgical Hx: - Hysterectomy - Hemorrhoids / Anal Fissure - Breast Surgery x2 - Hip Surgery x2 - Cataract Surgery x2 - Sinus surgery x2 - Unknown type of lung surgery, believes it was a biopsy - Temporal Nerve Biopsy - Foot surgery x3 Review of Systems: In addition to that documented in the HPI above, the additional ROS was obtained : Constitutional- Denies fevers or chills Head- Denies vision changes ENMT- Denies sore throat CV- Denies chest pain Resp- Per HPI GI- Denies abd pain or diarrhea - Endorses urinary frequency without painful urination Skin- Denies new rashes Neuro- Denies new numbness or tingling or weakness Endocrine- Denies polyuria Heme- Denies bleeding or bruising Physical Examination: Vital signs and nursing notes reviewed. Constitutional- Thin adult female in no acute distress or obvious discomfort. Found semi-fowlers on hospital bed. Head- Normocephalic. No obvious external signs of trauma. No point tenderness or swelling. Neck- Supple, trachea is midline. Cardiovascular / Chest- Regular rate and regular rhythm. Systolic murmur. No rubs, clicks, or gallops. Peripheral pulses- radial pulses full. No anterior chest wall pain. No pretibial edema. Respiratory- Sporadic coughing. Breathing mildly tachpenic. Able to speak in multi-word responses without pausing. Equal chest rise and fall. Diffuse rhonchi , with possible focal consolidation in right posterior lung field. Gastrointestinal- abdomen is soft, non-tender, non-distended. Neuro- Alert and oriented x4. Moving all four extremities spontaneously. Skin- Warm, dry, and intact. Psych- Affect- appropriate. Mood- normal. Speech was non-labored, non- pressured. MDM: 79 y/o female presenting with productive cough and shortness of breath for the past three or four days. S/p 3 days of Levaquin and PO steroids. In setting of bronchiectasis and h/o MAC infection. Afebrile. Vitals remarkable for tachypnea and mild hypoxia on room air. No hypotension or tachycardia. Physical exam as described above. CXR revealed possible early upper lobe infiltrates. Influenza A positive. Reviewed laboratory data. Noted anemia, which appears baseline per trend in [employer]. Noted hyponatremia, which is similar to baseline and consistent with reported history. Ordered Tamiflu, Azithromycin, and Ceftriazxone. Will admit the pt for further treatment given hypoxia and respiratory history. 24 Sep 2019 17:56 PM Telephone discussion with DORIS Jacobs. Verbally appraised of the pts HPI, ED course, and current plan of management. Will admit pt to med/surg for attending Dr. Leslie. Ordered home Oxycodone dose. Eduardo Swain M.D., PGY2 Emergency Medicine Resident Past History - Past Medical History Allergies/Adverse Reactions: Allergies Allergy/AdvReac Type Severity Reaction Status Date / Time No Known Drug Allergies Allergy Verified 09/24/19 12:08 Home Medications: Ambulatory Orders Alprazolam [Xanax] 0.25 mg PO BID PRN 01/25/12 Ascorbic Acid [Vitamin C] 2,000 mg PO DAILY 01/25/12 Calcium Carbonate/Vitamin D3 [Caltrate 600 + D Tablet] 1 each PO BID 01/25/12 Citalopram Hydrobromide [Celexa -] 20 mg PO HS 01/25/12 Ranitidine [Zantac -] 150 mg PO BID 01/25/12 propRANOLol HCL [Inderal -] 60 mg PO DAILY 01/25/12 Albuterol 0.083% Nebulizer Manju [Ventolin 0.083% Nebulizer Soln -] 1 neb NEB DAILY 09/25/13 Oxycodone HCl/Acetaminophen [Percocet 10-325 mg Tablet] 15 mg PO BID PRN Tobramycin/Na Chlor 0.2% [Cornell (Do Not Stock)] 300 mg IH DAILY 02/19/15 Biotin 1 mg PO DAILY 01/05/16 Butalbit/Acetamin/Caff/Codeine [Fioricet-Cod 23-261-82-30 Cap] 1 each PO TID PRN 01/05/16 Calcium/Cranberry Fruit [Cranberry 400 mg Caplet] 1 each PO DAILY 01/05/16 Gabapentin [Neurontin] 300 mg PO TID 01/05/16 L.acidoph,Paracasei, B.lactis [Probiotic] 1 each PO BID 01/05/16 Multivitamins [Multivit ([facility] Formulary)] 1 tab PO DAILY 01/05/16 Potassium Chloride [Klor-Con 10] 20 meq PO BID 01/05/16 Budesonide/Formeterol Fumarate [SYMBICORT 160/4.5mcg -] 2 inh PO BID 12/15/16 Magnesium Oxide [Magnesium] 500 mg PO DAILY 12/15/16 Tizanidine HCl 2 mg PO HS 12/15/16 Bisacodyl [Dulcolax] 5 mg PO DAILY PRN #30 tablet. 03/19/19 Docusate Sodium [Colace -] 100 mg PO BID #90 capsule 03/19/19 Ferrous Sulfate 325 mg PO DAILY #30 tablet 03/19/19 Pantoprazole Sodium [Protonix -] 40 mg PO DAILY #30 tablet.ec 03/19/19 Polyethylene Glycol 3350 [Miralax (For Daily Use) -] 17 gm PO BID PRN #1 bottle 03/19/19 Anemia: No Asthma: No Cancer: No Cardiac Disorders: Yes (MVP) CVA: No COPD: Yes (BRONCHIETASIS) CHF: No Dementia: No Diabetes: No GI Disorders: Yes (constipation, diverticulosis) Disorders: No HTN: (LOW BP) Hypercholesterolemia: No Liver Disease: No Seizures: No Thyroid Disease: No - Surgical History Abdominal Surgery: Yes (DIVERTICULITIS) Appendectomy: Yes Cardiac Surgery: No Cholecystectomy: No Lung Surgery: Yes (SX.FOR BRONCHIECTASIS) Neurologic Surgery: No Orthopedic Surgery: Yes (L hip ORIF w/ hardware removal) - Immunization History Immunization Up to Date: Yes - Psycho Social/Smoking Cessation Hx Smoking Status: Yes Smoking History: Former smoker Have you smoked in the past 12 months: No Number of Cigarettes Smoked Daily: 0 If you are a former smoker, when did you quit?: 1969 Information on smoking cessation initiated: No Hx Alcohol Use: No Drug/Substance Use Hx: No Substance Use Type: None Hx Substance Use Treatment: No *Physical Exam - Vital Signs Last Vital Signs Temp Pulse Resp BP Pulse Ox 98.3 F 65 24 H 133/58 L 100 09/24/19 11:50 09/24/19 11:50 09/24/19 11:50 09/24/19 11:50 09/24/19 11:50 ED Treatment Course - LABORATORY CBC & Chemistry Diagram: 09/24/19 13:20 09/24/19 13:20 Discharge - Discharge Information Problems reviewed: Yes Clinical Impression/Diagnosis: Influenza A, Shortness of breath at rest Condition: Stable - Admission Yes - Follow up/Referral - Patient Discharge Instructions - Post Discharge Activity
--- NOTE | 2019-09-24 12:55 | PDOC ---
Attending Attestation - Resident Resident Name: Eduardo Swain - ED Attending Attestation I have performed the following: I have examined & evaluated the patient, The case was reviewed & discussed with the resident, I agree w/resident's findings & plan, Exceptions are as noted - HPI HPI: 09/24/19 12:54 79y F hx of bronchiectasis, nvp, constipation, presents with complaint of sob/ cough for the past four days. Patient states she has a chronic cough however the last 4 days she has been coughing more than usual and it is productive of greenish sputum. Patient also notes that she has been feeling more weak, enough that she fell yesterday, states that she was in the kitchen felt generally weak and fell down on her behind and did strike her head, there was no LOC she denies any associated symptoms such as fever, chills, leg swelling, hemoptysis. She does endorse a mild abdominal pain but states this is chronic and she is following with GI for this there is no change that is from baseline. Exam: GENERAL: The patient is awake, alert, and fully oriented, Nontoxic - in no acute distress. HEAD: Normocephalic, minimal tenderness on the right parietal scalp without crepitus, step-offs. EYES: extraocular movements intact, sclera anicteric, conjunctiva clear. ENT: Normal voice, Moist mucous membranes. NECK: Normal range of motion, supple, no focal tenderness in the cervical thoracic or lumbar spine BACK: Mild tenderness in the buttock region, but normal movement of hips and lower extremities LUNGS: Diffuse rhonchi bilaterally, no significant respiratory response, no accessory muscle use, speaking complete sentences. HEART: Regular rate and rhythm, normal S1 and S2 without murmur, rub or gallop. ABDOMEN: Soft, nontender, No guarding, no rebound. No CVA tenderness EXTREMITIES: Normal range of motion, no edema. NEUROLOGICAL: No facial assymetry, Normal speech, PSYCH: Normal mood, normal affect. SKIN: Warm, Dry, normal turgor, Patient symptoms suggestive of exacerbation of bronchiectasis, consider possible pneumonia Will obtain chest x-ray, blood work, cultures CT of the head and x-ray of the LS spine to rule out fracture/bleed - Physicial Exam PE: 09/27/19 17:09 see above - Medical Decision Making 09/24/19 17:44 The patient's chest x-ray does not reveal reveal any acute infiltrate, patient' s blood work reviewed, influenza positive The patient will be isolated will be started on Tamiflu Based on the patient's history of bronchiectasis and her mild hypoxia will admit for further management of influenza. Heart Score/ECG Review - ECG Impressions Comment:: 09/24/19 13:24 Twelve-lead EKG was performed and reviewed by me. There is normal sinus rhythm with a normal rate. Rate of 64 The axis is normal. The intervals are normal. There is normal R wave progression There are no ST or T wave abnormalities. Impression: Normal twelve-lead EKG
[2019-09-24 13:41] LABS: BASO % 0.2 % (0-2.0); HEMATOCRIT 26.8 % (32.4-45.2); HEMOGLOBIN 9.3 GM/dL (10.7-15.3); LYMPH % 6.7 % (8-40); MCH 34.8 pg (25.7-33.7); MCHC 34.7 g/dl (32.0-36.0); MEAN CELL VOLUME 100.3 fl (80-96); MEAN PLT VOLUME 7.6 fl (7.5-11.1); MONO % 3.6 % (3.8-10.2); NEUT % 89.5 % (42.8-82.8); PLATELET COUNT 109 K/MM3 (134-434); RBC 2.68 M/mm3 (3.60-5.2); RDW 13.4 % (11.6-15.6); WHITE BLOOD COUNT 5.9 K/mm3 (4.0-10.0)
[2019-09-24 13:42] LABS: EPI CELLS 4.2 /HPF (0-5/HPF); HYALINE CASTS 0 /lpf (0-8); PH,URINE 7.5 (5.0-8.0); URINE APPEARANCE CLEAR; URINE BACTERIA 60.4 /hpf (NEGATIVE); URINE BILIRUBIN NEGATIVE (NEGATIVE); URINE COLOR YELLOW; URINE GLUCOSE (UA) NEGATIVE (NEGATIVE); URINE KETONE NEGATIVE (NEGATIVE); URINE LEUK ESTERASE NEGATIVE (NEGATIVE); URINE NITRITE NEGATIVE (NEGATIVE); URINE PROTEIN 1+ (NEGATIVE); URINE RBC 2 /hpf (0-4); URINE UROBILINOGEN 0.2 mg/dL (0.2-1.0); URINE WBC 0 /hpf (0-5)
[2019-09-24 13:57] LABS: ALBUMIN 3.1 g/dl (3.4-5.0); BILIRUBIN,TOTAL 0.3 mg/dL (0.2-1); BLOOD UREA NITROGEN 11.8 mg/dL (7-18); CREATININE 0.8 mg/dL (0.55-1.3); POTASSIUM 3.4 mmol/L (3.5-5.1)
--- NOTE | 2019-09-24 14:28 | EKG ---
Test Reason : Blood Pressure : / mmHG Vent. Rate : 064 BPM Atrial Rate : 064 BPM P-R Int : 180 ms QRS Dur : 086 ms QT Int : 456 ms P-R-T Axes : 041 002 054 degrees QTc Int : 470 ms NORMAL SINUS RHYTHM NORMAL ECG WHEN COMPARED WITH ECG OF 03-APR-2019 11:59, T WAVE AMPLITUDE HAS DECREASED IN ANTERIOR LEADS QT HAS LENGTHENED Confirmed by Eva Knox ([id number]) on 09/24/2019 2:27:37 PM Referred By: Confirmed By:Eva Knox
[2019-09-24] MEDS ORDERED: ONDANSETRON 4 MG/2 ML VIAL IVPUSH ONE (16:14)
[2019-09-24] MEDS ORDERED: ACETAMINOPHEN INJECTION 100 ML IVPB ONE (16:19)
[2019-09-24] MEDS ORDERED: ACETAMINOPHEN 1000 MG/100 ML VIAL (NON FORMULARY) IVPB ONE (16:19)
[2019-09-24] MEDS ORDERED: ONDANSETRON 4 MG/2 ML VIAL ONE (16:20)
[2019-09-24] MEDS ORDERED: AZITHROMYCIN 250 MG TABLET PO ONE (17:33)
[2019-09-24] MEDS ORDERED: OSELTAMIVIR PHOSPHATE 75 MG CAPSULE PO ONE (17:33)
[2019-09-24] MEDS ORDERED: CEFTRIAXONE 2,000 MG in DEXTROSE 5%-WATER - 50 ML IVPB ONE (17:34)
[2019-09-24] MEDS ORDERED: oxyCODONE HCL 5 MG TABLET PO ONE (17:59)
[2019-09-24] MEDS ORDERED: OSELTAMIVIR PHOSPHATE 75 MG CAPSULE ONE (18:51)
[2019-09-24] MEDS ORDERED: AZITHROMYCIN 250 MG TABLET ONE (18:52)
[2019-09-24] MEDS ORDERED: CEFTRIAXONE 2 GM/100 ML BAG IVPB ONE (18:52)
[2019-09-24] MEDS ORDERED: oxyCODONE HCL 5 MG TABLET ONE (18:52)
--- NOTE | 2019-09-24 20:28 | HP ---
CHIEF COMPLAINT: cough and shortness of breath for 4 days PCP:Dr. Beltrán Drywall Carrier: Dr. Bhavani Aguila (at [place]) HISTORY OF PRESENT ILLNESS: 79 year old female with history of bronchiectasis who presented with shortness of breath, and cough with green sputum for the past 4 days. She reported she feels generally weak and vomited once this morning. She was prescribed Levaquin and a steroid 3 days by her Drywall Carrier in [facility]. She states she took this medication for the past three days without improvement in symptoms.She reported increased urinary frequency without hematuria or dysuria. She also states she fell on the floor last night and struck the left side of her head. There was no loss of consciousness. She denied fever, chills, or chest pain. ER course was notable for: (1) CXR ? possible early infiltrate,received IV azithromycin and ceftriaxone (2) Influenza positive, received tamiflu 75mg (3) Hyponatremia (4) CT scan of head with small left parietal contusion Recent Travel: no PAST MEDICAL HISTORY: bronchiectasis PAST SURGICAL HISTORY: denies Social History: Smoking:no Alcohol:no Drugs: no Allergies No Known Drug Allergies Allergy (Verified 09/24/19 12:08) HOME MEDICATIONS: Home Medications Medication Instructions Recorded Alprazolam [Xanax] 0.25 mg PO BID PRN 01/25/12 Ascorbic Acid [Vitamin C] 2,000 mg PO DAILY 01/25/12 Calcium Carbonate/Vitamin D3 1 each PO BID 01/25/12 [Caltrate 600 + D Tablet] Citalopram Hydrobromide [Celexa -] 20 mg PO HS 01/25/12 Ranitidine [Zantac -] 150 mg PO BID 01/25/12 propRANOLol HCL [Inderal -] 60 mg PO DAILY 01/25/12 Albuterol 0.083% Nebulizer Manju 1 neb NEB DAILY 09/25/13 [Ventolin 0.083% Nebulizer Soln -] Oxycodone HCl/Acetaminophen 15 mg PO BID PRN 02/19/15 [Percocet 10-325 mg Tablet] Tobramycin/Na Chlor 0.2% [Cornell (Do 300 mg IH DAILY 02/19/15 Not Stock)] Biotin 1 mg PO DAILY 01/05/16 Butalbit/Acetamin/Caff/Codeine 1 each PO TID PRN 01/05/16 [Fioricet-Cod 89-909-24-30 Cap] Calcium/Cranberry Fruit [Cranberry 1 each PO DAILY 01/05/16 400 mg Caplet] Gabapentin [Neurontin] 300 mg PO TID 01/05/16 L.acidoph,Paracasei, B.lactis 1 each PO BID 01/05/16 [Probiotic] Multivitamins [Multivit ([facility] 1 tab PO DAILY 01/05/16 Formulary)] Potassium Chloride [Klor-Con 10] 20 meq PO BID 01/05/16 Budesonide/Formeterol Fumarate 2 inh PO BID 12/15/16 [SYMBICORT 160/4.5mcg -] Magnesium Oxide [Magnesium] 500 mg PO DAILY 12/15/16 Tizanidine HCl 2 mg PO HS 12/15/16 Bisacodyl [Dulcolax] 5 mg PO DAILY PRN #30 tablet.dr 03/19/19 Docusate Sodium [Colace -] 100 mg PO BID #90 capsule 03/19/19 Ferrous Sulfate 325 mg PO DAILY #30 tablet 03/19/19 Pantoprazole Sodium [Protonix -] 40 mg PO DAILY #30 tablet.ec 03/19/19 Polyethylene Glycol 3350 [Miralax 17 gm PO BID PRN #1 bottle 03/19/19 (For Daily Use) -] REVIEW OF SYSTEMS CONSTITUTIONAL: Absent: fever, chills, diaphoresis, generalized weakness, malaise, loss of appetite, weight change HEENT: Absent: rhinorrhea, nasal congestion, throat pain, throat swelling, difficulty swallowing, mouth swelling, ear pain, eye pain, visual changes CARDIOVASCULAR: Absent: chest pain, syncope, palpitations, irregular heart rate, lightheadedness , peripheral edema RESPIRATORY: Absent: cough, shortness of breath, dyspnea with exertion, orthopnea, wheezing, stridor, hemoptysis GASTROINTESTINAL: Absent: abdominal pain, abdominal distension, nausea, vomiting, diarrhea, constipation, melena, hematochezia GENITOURINARY: Absent: dysuria, frequency, urgency, hesitancy, hematuria, flank pain, genital pain MUSCULOSKELETAL: Absent: myalgia, arthralgia, joint swelling, back pain, neck pain SKIN: Absent: rash, itching, pallor HEMATOLOGIC/IMMUNOLOGIC: Absent: easy bleeding, easy bruising, lymphadenopathy, frequent infections ENDOCRINE: Absent: unexplained weight gain, unexplained weight loss, heat intolerance, cold intolerance NEUROLOGIC: Absent: headache, focal weakness or paresthesias, dizziness, unsteady gait, seizure, mental status changes, bladder or bowel incontinence PSYCHIATRIC: Absent: anxiety, depression, suicidal or homicidal ideation, hallucinations. PHYSICAL EXAMINATION Vital Signs - 24 hr 09/24/19 09/24/19 11:50 12:00 Temperature 98.3 F Pulse Rate 65 Respiratory 24 H Rate Blood Pressure 133/58 L O2 Sat by Pulse 100 96 Oximetry (%) GENERAL: awake, alert, and fully oriented, no acute distress HEAD: normal EYES: pupils equal, round and reactive to light EARS, NOSE, THROAT: ears normal, nares patent NECK:supple LUNGS: breath sounds rhonchourous, no wheezes, no crackles no accessory muscle use. HEART: regular rate and rhythm, normal S1 and S2 ABDOMEN: soft, nontender, not distended, normoactive bowel sounds MUSCULOSKELETAL: normal range of motion at all joints UPPER EXTREMITIES: 2+ pulses, warm well-perfused no cyanosis LOWER EXTREMITIES: 2+ pulses warm well-perfused no calf tenderness no pitting edema NEUROLOGICAL: Cranial nerves II-XII intact normal speech PSYCHIATRIC: cooperative good eye contact appropriate mood and affect SKIN: warm, dry, normal turgor, no rashes or lesions noted Laboratory Results - last 24 hr 09/24/19 09/24/19 09/24/19 13:00 13:20 13:20 WBC 5.9 RBC 2.68 L Hgb 9.3 L Hct 26.8 L MCV 100.3 H MCH 34.8 H MCHC 34.7 RDW 13.4 D Plt Count 109 L D MPV 7.6 Absolute Neuts (auto) 5.3 Neutrophils % 89.5 H D Lymphocytes % 6.7 L D Monocytes % 3.6 L Eosinophils % 0.0 D Basophils % 0.2 Nucleated RBC % 0 Sodium 128 L Potassium 3.4 L Chloride 95 L Carbon Dioxide 25 Anion Gap 9 BUN 11.8 Creatinine 0.8 Est GFR (CKD-EPI)AfAm 80.70 Est GFR (CKD-EPI)NonAf 69.63 Random Glucose 113 H Calcium 8.0 L Total Bilirubin 0.3 AST 52 H ALT 47 Alkaline Phosphatase 65 Total Protein 6.0 L Albumin 3.1 L Urine Color Yellow Urine Appearance Clear Urine pH 7.5 Ur Specific [place] 1.013 Urine Protein 1+ H Urine Glucose (UA) Negative Urine Ketones Negative Urine Blood Negative Urine Nitrite Negative Urine Bilirubin Negative Urine Urobilinogen 0.2 Ur Leukocyte Esterase Negative Urine WBC (Auto) 0 Urine RBC (Auto) 2 Urine Casts (Auto) 0 U Epithel Cells (Auto) 4.2 Urine Bacteria (Auto) 60.4 Influenza A (Rapid) Influenza B (Rapid) 09/24/19 16:23 WBC RBC Hgb Hct MCV MCH MCHC RDW Plt Count MPV Absolute Neuts (auto) Neutrophils % Lymphocytes % Monocytes % Eosinophils % Basophils % Nucleated RBC % Sodium Potassium Chloride Carbon Dioxide Anion Gap BUN Creatinine Est GFR (CKD-EPI)AfAm Est GFR (CKD-EPI)NonAf Random Glucose Calcium Total Bilirubin AST ALT Alkaline Phosphatase Total Protein Albumin Urine Color Urine Appearance Urine pH Ur Specific [place] Urine Protein Urine Glucose (UA) Urine Ketones Urine Blood Urine Nitrite Urine Bilirubin Urine Urobilinogen Ur Leukocyte Esterase Urine WBC (Auto) Urine RBC (Auto) Urine Casts (Auto) U Epithel Cells (Auto) Urine Bacteria (Auto) Influenza A (Rapid) Positive A Influenza B (Rapid) Negative ASSESSMENT/PLAN: 79 year old female with history of bronchiectasis who presented with shortness of breath, cough with green sputum associated with generalized weakness,fell yesterday with no LOC and an episode of vomiting.She was found to have influenza and possible community acquired pneumonia. She is being admitted to [facility] for further medical management. #1 Influenza Continue with Tamiflu Maintain airborne precautions #2 Possible Community Acquired Pneumonia Currently afebrile, no evidence of leukocytosis, CXR ? infiltrate , received IV Ceftriaxone and Azithromycin Continue with IV Ceftriaxone and Azithromycin Pulmonary - Dr. Mahajan consulted, hx bronchiectasis #3 Hyponatremia creatinine normal, IVF NS @ 75cc/hr #4 Head Contusion Patient is status post fall. CT scan of head with small left parietal contusion Monitor patient neuro status DVT Prophylaxsis lovenox 30 mg daily FEN IVF NS @75cc/hr monitor daily BMP regular diet Visit type - Emergency Visit Emergency Visit: Yes ED Registration Date: 09/24/19 Care time: The patient presented to the Emergency Department on the above date and was hospitalized for further evaluation of their emergent condition. - New Patient This patient is new to me today: Yes Date on this admission: 09/25/19 - Critical Care Critical Care patient: No
[2019-09-25] MEDS ORDERED: BISACODYL 5 MG TABLET.DR (FP) PO PRN (04:23)
[2019-09-25] MEDS ORDERED: POLYETHYLENE GLYCOL 3350 119 GM BTL PO PRN (04:23)
[2019-09-25] MEDS ORDERED: BUTALBIT PO PRN (04:23)
[2019-09-25] MEDS ORDERED: CAFF PO PRN (04:23)
[2019-09-25] MEDS ORDERED: [UNRECOGNIZED DRUG - OTHER] PO PRN (04:23)
[2019-09-25] MEDS ORDERED: ACETAMIN PO PRN (04:23)
[2019-09-25] MEDS ORDERED: CODEINE PO PRN (04:23)
[2019-09-25] MEDS ORDERED: oxyCODONE HCL 5 MG TABLET PO PRN ×3 (04:35→14:48)
[2019-09-25] MEDS ORDERED: ACETAMINOPHEN 325 MG TABLET (FP) PO PRN ×3 (04:36→14:47)
[2019-09-25] MEDS ORDERED: ACETAMINOPHEN/CAFFEINE/BUTALBITAL 1 TAB PO PRN ×2 (04:38→10:43)
[2019-09-25] MEDS: oxyCODONE HCL 5 MG TABLET PO PRN ×2 (04:46→10:33)
[2019-09-25] MEDS: ACETAMINOPHEN 325 MG TABLET (FP) PO PRN ×2 (04:47→10:34)
[2019-09-25] MEDS: GABAPENTIN 300 MG CAPSULE PO SCH ×3 (05:54→22:06)
[2019-09-25] MEDS ORDERED: ALBUTEROL SO4 0.083% IH SOL 2.5 MG/3 ML VIAL.NEB. NEB PRN (08:00)
[2019-09-25 08:33] LABS: HEMATOCRIT 28.3 % (32.4-45.2); HEMOGLOBIN 9.9 GM/dL (10.7-15.3); MCH 34.8 pg (25.7-33.7); MCHC 35.1 g/dl (32.0-36.0); MEAN CELL VOLUME 99.3 fl (80-96); RBC 2.85 M/mm3 (3.60-5.2); RDW 13.6 % (11.6-15.6); WHITE BLOOD COUNT 3.8 K/mm3 (4.0-10.0)
[2019-09-25 08:34] LABS: MEAN PLT VOLUME 7.8 fl (7.5-11.1); PLATELET COUNT 104 K/MM3 (134-434)
[2019-09-25 09:10] LABS: BLOOD UREA NITROGEN 8.8 mg/dL (7-18); CALCIUM 8.2 mg/dL (8.5-10.1); CREATININE 0.6 mg/dL (0.55-1.3)
[2019-09-25 09:12] LABS: POTASSIUM 2.9 mmol/L (3.5-5.1)
--- NOTE | 2019-09-25 09:15 | PN ---
Progress Note, Physician History of Present Illness: 79 year old female with history of bronchiectasis who presented with shortness of breath, and cough with green sputum for the past 4 days. She reported she feels generally weak and vomited once this morning. She was prescribed Levaquin and a steroid 3 days by her Kiln Packer in [facility]. She states she took this medication for the past three days without improvement in symptoms.She reported increased urinary frequency without hematuria or dysuria. She also states she fell on the floor last night and struck the left side of her head. There was no loss of consciousness. She denied fever, chills, or chest pain. - Current Medication List Current Medications: Active Medications Acetaminophen (Tylenol -) 325 mg PO BID PRN PRN Reason: PAIN 6-10 Last Admin: 09/25/19 04:47 Dose: 325 mg Acetaminophen/Butalbital/Caffeine (Fioricet -) 1 tablet PO TID PRN PRN Reason: HEADACHE Albuterol Sulfate (Ventolin 0.083% Nebulizer Soln -) 1 amp NEB RQID PRN PRN Reason: SHORT OF BREATH/WHEEZING Ascorbic Acid (Vitamin C -) 2,000 mg PO DAILY [facility] Bisacodyl (Dulcolax -) 5 mg PO DAILY PRN PRN Reason: CONSTIPATION Budesonide/Formoterol Fumarate (Symbicort 160/4.5mcg -) 2 puff IH BID U[facility] Calcium Carbonate/Cholecalciferol (Os-Cale 500+D -) 1 tab PO BID UZIEL Citalopram Hydrobromide (Celexa -) 20 mg PO HS U[facility] Docusate Sodium (Colace -) 100 mg PO BID UZIEL Enoxaparin Sodium (Lovenox -) 40 mg SQ DAILY U[facility] Ferrous Sulfate (Feosol -) 325 mg PO DAILY U[facility] Gabapentin (Neurontin -) 300 mg PO TID UZIEL Last Admin: 09/25/19 05:54 Dose: 300 mg Azithromycin (Zithromax 500mg Ivpb (Pre-Docked)) 500 mg in 250 mls @ 250 mls/ hr IVPB DAILY [facility] Ceftriaxone Sodium 1 gm/ (Dextrose) 50 mls @ 100 mls/hr IVPB DAILY [facility]; Protocol Lactobacillus Acidophilus (Bacid -) 1 tab PO BID U[facility] Magnesium Oxide (Mag-Ox -) 400 mg PO DAILY [facility] Non-Formulary Medication (Biotin [Biotin]) 1 mg PO DAILY [facility] Non-Formulary Medication (Calcium/Cranberry Fruit [Cranberry 400 Mg Caplet]) 1 each PO DAILY [facility] Oseltamivir Phosphate (Tamiflu -) 30 mg PO BID [facility] Stop: 09/30/19 09:59 Oxycodone HCl (Roxicodone -) 5 mg PO BID PRN PRN Reason: PAIN 6-10 Last Admin: 09/25/19 04:46 Dose: 5 mg Pantoprazole Sodium (Protonix -) 40 mg PO DAILY [facility] Polyethylene Glycol (Miralax (For Daily Use) -) 17 gm PO BID PRN PRN Reason: CONSTIPATION Potassium Chloride (K-Dur -) 20 meq PO BID [facility] Propranolol HCl (Inderal La -) 60 mg PO DAILY [facility] - Objective Vital Signs: Vital Signs Temperature 98.8 F 09/25/19 02:31 Pulse Rate 62 09/25/19 02:31 Respiratory Rate 18 09/25/19 02:31 Blood Pressure 134/63 09/25/19 02:31 O2 Sat by Pulse Oximetry (%) 99 09/25/19 02:30 Labs: CBC, BMP 09/25/19 08:05 09/25/19 08:05 Problem List - Problems (1) Pneumonia Assessment/Plan: BL infiltarted on CXR noted c/w azithromycin and ceftriaxone supplemental O2 to maintain SPO2 >88% Code(s): J18.9 - PNEUMONIA, UNSPECIFIED ORGANISM (2) Head contusion Assessment/Plan: s/p fall at home HCT with small left parietal contusion continue to monitor neuro status Code(s): S00.93XA - CONTUSION OF UNSPECIFIED PART OF HEAD, INITIAL ENCOUNTER (3) Prophylactic measure Assessment/Plan: FEN Fluids: poor PO intake. IVF at 75cc/hr Electrolytes: monitor & replete as needed Nutrition: reg diet with supplements DVT moderate risk sq lovenox Dispo Maintain as inpatient full code discharge planning Code(s): Z29.9 - ENCOUNTER FOR PROPHYLACTIC MEASURES, UNSPECIFIED (4) Influenza A Assessment/Plan: c/w tamiflu supportive care isolation precautions Code(s): J10.1 - FLU DUE TO OTH IDENT INFLUENZA VIRUS W OTH RESP MANIFEST (5) Shortness of breath at rest Assessment/Plan: supplemental O2 c/w duonebs standing and prn c/w solumedrol/budesonide pulmonary following Code(s): R06.02 - SHORTNESS OF BREATH (6) Hypokalemia Assessment/Plan: K 2.9, KCl 40MEq ordered on BID potassium at home continue to monitor Code(s): E87.6 - HYPOKALEMIA (7) Chronic low back pain Assessment/Plan: on oxycodone 15mg at home BID (Istop verified) offered lidoderm patches to low back PT Code(s): M54.5 - LOW BACK PAIN; G89.29 - OTHER CHRONIC PAIN Visit type - Emergency Visit Emergency Visit: Yes ED Registration Date: 09/24/19 Care time: The patient presented to the Emergency Department on the above date and was hospitalized for further evaluation of their emergent condition. - New Patient This patient is new to me today: Yes Date on this admission: 09/25/19 - Critical Care Critical Care patient: No - Discharge Referral Referred to [facility] Med P.C.: No
[2019-09-25] MEDS ORDERED: POTASSIUM CHLORIDE TABS 20 MEQ TABLET.ER (FP) PO ONE (09:35)
[2019-09-25] MEDS ORDERED: [UNRECOGNIZED DRUG - OTHER] PO SCH (10:00)
[2019-09-25] MEDS ORDERED: POTASSIUM CHLORIDE TABS 10 MEQ TABLET.ER (FP) PO SCH (10:00)
[2019-09-25] MEDS ORDERED: ASCORBIC ACID 2000 MG PO SCH (10:00)
[2019-09-25] MEDS ORDERED: POTASSIUM CHLORIDE 20 MEQ PO SCH (10:00)
[2019-09-25] MEDS ORDERED: CALCIUM PO SCH (10:00)
[2019-09-25] MEDS ORDERED: PATIENT'S OWN MEDICATION (NON-FORMULARY) (Magnesium Oxide [Magnesium] 500 MG) PO SCH (10:00)
[2019-09-25] MEDS ORDERED: [UNRECOGNIZED DRUG - OTHER] PO SCH (10:00)
[2019-09-25] MEDS ORDERED: CALCIUM CARBONATE PO SCH (10:00)
[2019-09-25] MEDS ORDERED: CRANBERRY FRUIT PO SCH (10:00)
[2019-09-25] MEDS ORDERED: VITAMIN D3 PO SCH (10:00)
[2019-09-25] MEDS ORDERED: ACETAMINOPHEN 325 MG TABLET (FP) PO SCH (10:00)
[2019-09-25] MEDS ORDERED: PATIENT'S OWN MEDICATION (NON-FORMULARY) (L.Acidoph,Paracasei, B.Lactis [Probiotic] 1 EACH PO SCH (10:00)
[2019-09-25] MEDS ORDERED: PATIENT'S OWN MEDICATION (NON-FORMULARY) (Ferrous Sulfate [Ferrous Sulfate] 325 MG) PO SCH (10:00)
[2019-09-25] MEDS ORDERED: PATIENT'S OWN MEDICATION (NON-FORMULARY) (Biotin [Biotin] 1 MG) PO SCH (10:00)
[2019-09-25] MEDS ORDERED: PT OWN MED DRAWER 7, Y5N ONE ×2 (10:04→21:43)
[2019-09-25] MEDS ORDERED: cefTRIAXone SODIUM 1 GM VIAL ONE (10:04)
[2019-09-25] MEDS ORDERED: DEXTROSE 5%-WATER - 50 ML IVPB ONE (10:05)
[2019-09-25] MEDS: PANTOPRAZOLE 40 MG TABLET PO SCH (10:33)
[2019-09-25] MEDS: DOCUSATE SODIUM 100 MG CAPSULE (FP) PO SCH ×2 (10:33→22:06)
[2019-09-25] MEDS: CALCIUM 500MG/VIT-D 200 UNITS COMBO TABLET (FP) PO SCH ×2 (10:33→22:06)
[2019-09-25] MEDS: FERROUS SO4 325 MG TABLET (FP) PO SCH (10:33)
[2019-09-25] MEDS: ASCORBIC ACID 500 MG TABLET (FP) PO SCH (10:33)
[2019-09-25] MEDS: ENOXAPARIN NA (PORCINE) 40 MG/0.4 ML DISP.SYRIN SQ SCH (10:34)
[2019-09-25] MEDS: OSELTAMIVIR PHOSPHATE 30 MG CAPSULE PO SCH ×2 (10:36→22:07)
[2019-09-25] MEDS: CEFTRIAXONE 1 GM in DEXTROSE 5%-WATER - 50 ML IVPB SCH (10:37)
[2019-09-25] MEDS: LACTOBACILLUS ACIDOPHILUS 1 TABLET PO SCH ×2 (10:38→22:05)
[2019-09-25] MEDS: AZITHROMYCIN IVPB 500 MG/250 ML BAG IVPB SCH (10:38)
[2019-09-25] MEDS: MAGNESIUM OXIDE 400 MG TABLET (FP) PO SCH (10:38)
--- NOTE | 2019-09-25 10:57 | CON.PULM ---
Consult Consult Specialty:: PULMONARY Referred by:: DORIS Beck Reason for Consultation:: bronchiectasis - History of Present Illness Chief Complaint: s/p fall History of Present Illness: 79yo female with h/o COPD, bronchiectasis who was admitted s/p fall. She had been feeling weaker for the past 3 days with a cough productive of green sputum. No fevers, chills or sweats. No sick contacts or recent travel. She sees a mobile heavy equipment mechanic in [facility] who prescribed her antibiotics and steroids without significant improvement. Maintained on Symbicort and nebulizers at home. She is a former smoker. - History Source History Provided By: Patient, Medical Record Limitations to Obtaining History: No Limitations - Past Medical History Cardio/Vascular: Yes: Other (Mitral lucy prolapse) Pulmonary: Yes: Other (bronchiectasis) Gastrointestinal: Yes: Constipation, GERD Renal/: Yes: Hematuria ...: No Psych: Yes: Anxiety Musculoskeletal: Yes: Chronic low back pain Rheumatology: Yes: Other (Sjogren's syndrome, raynaud's disease, fibromyalgia) Endocrine: Yes: Hyperparathyroidism, Hypothyroidism - Past Surgical History Past Surgical History: Yes: Cataract Removal, Cholecystectomy, Hysterectomy ( [facility] secondary to fibroids), Joint Replacement - Alcohol/Substance Use Hx Alcohol Use: No History of Substance Use: reports: None - Smoking History Smoking history: Former smoker Have you smoked in the past 12 months: No Aproximately how many cigarettes per day: 0 If you are a former smoker, when did you quit?: 1969 - Social History Usual Living Arrangement: With Child ADL: Independent 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 History of Recent Travel: No Home Medications - Allergies Allergies/Adverse Reactions: Allergies Allergy/AdvReac Type Severity Reaction Status Date / Time No Known Drug Allergies Allergy Verified 09/24/19 12:08 - Home Medications Home Medications: Ambulatory Orders Alprazolam [Xanax] 0.25 mg PO BID PRN 01/25/12 Ascorbic Acid [Vitamin C] 2,000 mg PO DAILY 01/25/12 Calcium Carbonate/Vitamin D3 [Caltrate 600 + D Tablet] 1 each PO BID 01/25/12 Citalopram Hydrobromide [Celexa -] 20 mg PO HS 01/25/12 Ranitidine [Zantac -] 150 mg PO BID 01/25/12 propRANOLol HCL [Inderal -] 60 mg PO DAILY 01/25/12 Albuterol 0.083% Nebulizer Manju [Ventolin 0.083% Nebulizer Soln -] 1 neb NEB DAILY 09/25/13 Oxycodone HCl/Acetaminophen [Percocet 10-325 mg Tablet] 15 mg PO BID PRN Tobramycin/Na Chlor 0.2% [Cornell (Do Not Stock)] 300 mg IH DAILY 02/19/15 Biotin 1 mg PO DAILY 01/05/16 Butalbit/Acetamin/Caff/Codeine [Fioricet-Cod 21-557-80-30 Cap] 1 each PO TID PRN 01/05/16 Calcium/Cranberry Fruit [Cranberry 400 mg Caplet] 1 each PO DAILY 01/05/16 Gabapentin [Neurontin] 300 mg PO TID 01/05/16 L.acidoph,Paracasei, B.lactis [Probiotic] 1 each PO BID 01/05/16 Multivitamins [Multivit ([facility] Formulary)] 1 tab PO DAILY 01/05/16 Potassium Chloride [Klor-Con 10] 20 meq PO BID 01/05/16 Budesonide/Formeterol Fumarate [SYMBICORT 160/4.5mcg -] 2 inh PO BID 12/15/16 Magnesium Oxide [Magnesium] 500 mg PO DAILY 12/15/16 Tizanidine HCl 2 mg PO HS 12/15/16 Bisacodyl [Dulcolax] 5 mg PO DAILY PRN #30 tablet. 03/19/19 Docusate Sodium [Colace -] 100 mg PO BID #90 capsule 03/19/19 Ferrous Sulfate 325 mg PO DAILY #30 tablet 03/19/19 Pantoprazole Sodium [Protonix -] 40 mg PO DAILY #30 tablet.ec 03/19/19 Polyethylene Glycol 3350 [Miralax (For Daily Use) -] 17 gm PO BID PRN #1 bottle 03/19/19 Review of Systems - Review of Systems Constitutional: reports: Weakness. denies: Chills, Fever Eyes: denies: Recent Change in Vision HENT: denies: Nasal Congestion, Throat Pain Neck: denies: Stiffness, Tenderness Cardiovascular: reports: Shortness of Breath. denies: Chest Pain Respiratory: reports: Cough, Wheezing. denies: Hemoptysis Gastrointestinal: reports: Nausea, Vomiting. denies: Abdominal Pain Genitourinary: denies: Dysuria, Hematuria Musculoskeletal: reports: Back Pain Neurological: denies: Dizziness, Headache Endocrine: denies: Unexplained Weight Loss Physical Exam Vital Sings: Vital Signs Temperature 98.8 F 09/25/19 02:31 Pulse Rate 62 09/25/19 02:31 Respiratory Rate 18 09/25/19 02:31 Blood Pressure 134/63 09/25/19 02:31 O2 Sat by Pulse Oximetry (%) 99 09/25/19 02:30 Constitutional: Yes: Anxious Eyes: Yes: Conjunctiva Clear, EOM Intact HENT: Yes: Atraumatic, Normocephalic Neck: Yes: Supple, Trachea Midline Cardiovascular: Yes: Regular Rate and Rhythm Respiratory: Yes: Rhonchi, Wheezes ...Clubbing: No Gastrointestinal: Yes: Normal Bowel Sounds, Soft. No: Tenderness Edema: No Neurological: Yes: Alert, Oriented Labs: CBC, BMP 09/25/19 08:05 09/25/19 08:05 Imaging - Results Chest X-ray: Report Reviewed, Image Reviewed (bilateral infiltrates) Problem List - Problems (1) Influenza A Code(s): J10.1 - FLU DUE TO OTH IDENT INFLUENZA VIRUS W OTH RESP MANIFEST (2) Pneumonia Code(s): J18.9 - PNEUMONIA, UNSPECIFIED ORGANISM Assessment/Plan Influenza A r/o Pneumonia Acute COPD/Bronchiectasis Exacerbation s/p Fall Raynaud's Disease Anxiety/Depression Hyponatremia Anemia - tamiflu x 5 days - agree with empiric antibiotics - IV medrol - inhaled bronchodilators standing and PRN - O2 to keep SpO2 >90% - pain control - monitor lytes - DVT prophylaxis Thank you for this consult Mina Adan MD
[2019-09-25] MEDS: ALBUTEROL SO4 2.5/IPRATROPIUM 0.5 INH SOL 3 ML VIAL.NEB. NEB SCH ×3 (11:47→20:44)
[2019-09-25] MEDS: BUDESONIDE/FORMETEROL FUMARATE 160/4.5 mcg INHALER IH SCH ×2 (11:53→22:10)
[2019-09-25] MEDS: LIDOCAINE 5% TOPICAL PATCH TP SCH (11:54)
[2019-09-25] MEDS: SODIUM CHLORIDE 1,000 ML IV SCH (11:54)
[2019-09-25] MEDS: methylPREDNISolone NA SUCC 40 MG/1 ML VIAL IVPUSH SCH ×2 (11:55→18:04)
[2019-09-25] MEDS ORDERED: ACETAMINOPHEN 1000 MG/100 ML VIAL (NON FORMULARY) IVPB PRN (14:41)
[2019-09-25] MEDS ORDERED: ONDANSETRON 4 MG/2 ML VIAL IVPUSH ONE (14:41)
[2019-09-25] MEDS ORDERED: ACETAMINOPHEN 1000 MG/100 ML VIAL (NON FORMULARY) IVPB ONE (14:55)
[2019-09-25] MEDS ORDERED: Methylnaltrexone Bromide 12 MG/0.6 ML KIT SQ SCH (19:00)
[2019-09-25] MEDS: LIDOCAINE PATCH REMOVAL MC SCH ×2 (22:00→22:09)
[2019-09-25] MEDS: CITALOPRAM HYDROBROMIDE 20 MG TABLET PO SCH (22:06)
[2019-09-26] MEDS ORDERED: LIDOCAINE HCL 2% JELLY (30 ML/TUBE) TP ONE (02:16)
[2019-09-26] MEDS ORDERED: oxyCODONE HCL 5 MG TABLET PO ONE (02:17)
[2019-09-26] MEDS: ALPRAZolam 1 MG TABLET PO PRN (02:18)
[2019-09-26] MEDS: methylPREDNISolone NA SUCC 40 MG/1 ML VIAL IVPUSH SCH ×3 (02:18→18:09)
--- NOTE | 2019-09-26 02:21 | HOSP ---
Subjective - Review of Symptoms Events since last encounter: called to see patient for report of abdominal pain. Subjective: pt denies N/V. Reports BM today. Reports she has been unable to void since straight catheterization earlier in day. Physical Examination Vital Signs: Vital Signs Temperature 98.0 F 09/25/19 18:51 Pulse Rate 60 09/25/19 18:51 Respiratory Rate 18 09/25/19 14:07 Blood Pressure 101/43 L 09/25/19 18:51 O2 Sat by Pulse Oximetry (%) 97 09/25/19 09:00 Constitutional: Yes: Anxious (mild) Cardiovascular: Yes: Regular Rate and Rhythm, S1, S2 Respiratory: Yes: CTA Bilaterally Gastrointestinal: Yes: Normal Bowel Sounds, Soft, Tenderness (very mild upper, relieved after catheterization) Labs: CBC, BMP 09/25/19 08:05 09/25/19 08:05 Hospitalist Encounter Assessment: abdominal discomfort in s/o urinary retention - bladder scan with >400cc urine - #16F hickey placed under aseptic technique, 360cc clear yellow urine obtained, maintain hickey; voiding trial once ambulatory - lidocaine jelly x1 to urinary meatus - oxycodone 5mg x 1.
[2019-09-26] MEDS: SODIUM CHLORIDE 1,000 ML IV SCH ×2 (03:46→20:10)
[2019-09-26] MEDS: GABAPENTIN 300 MG CAPSULE PO SCH ×3 (06:40→21:36)
[2019-09-26] MEDS: ALBUTEROL SO4 2.5/IPRATROPIUM 0.5 INH SOL 3 ML VIAL.NEB. NEB SCH ×4 (07:59→20:30)
[2019-09-26 08:12] LABS: HEMATOCRIT 28.2 % (32.4-45.2); HEMOGLOBIN 9.8 GM/dL (10.7-15.3); LYMPH % 7.9 % (8-40); MCHC 34.9 g/dl (32.0-36.0); MEAN CELL VOLUME 100.4 fl (80-96); MEAN PLT VOLUME 8.1 fl (7.5-11.1); MONO % 3.5 % (3.8-10.2); NEUT % 88.6 % (42.8-82.8); PLATELET COUNT 106 K/MM3 (134-434); RDW 13.7 % (11.6-15.6); WHITE BLOOD COUNT 4.9 K/mm3 (4.0-10.0)
--- NOTE | 2019-09-26 08:22 | PN ---
Progress Note, Physician Chief Complaint: c/o increased back pain and transient abd pain. Upset about insertion of hickey due to retention. States the weakness and cough is improved today History of Present Illness: 79 year old female with history of bronchiectasis who presented with shortness of breath, and cough with green sputum for the past 4 days. She reported she feels generally weak and vomited once this morning. She was prescribed Levaquin and a steroid 3 days by her Needle Grinder in [facility]. She states she took this medication for the past three days without improvement in symptoms.She reported increased urinary frequency without hematuria or dysuria. She also states she fell on the floor last night and struck the left side of her head. There was no loss of consciousness. She denied fever, chills, or chest pain. - Current Medication List Current Medications: Active Medications Acetaminophen (Tylenol -) 650 mg PO 12 PRN PRN Reason: PAIN 6-10 Acetaminophen/Butalbital/Caffeine (Fioricet -) 1 tablet PO TID PRN PRN Reason: HEADACHE Albuterol Sulfate (Ventolin 0.083% Nebulizer Soln -) 1 amp NEB RQID PRN PRN Reason: SHORT OF BREATH/WHEEZING Albuterol/Ipratropium (Duoneb -) 1 amp NEB RQID [facility] Last Admin: 09/26/19 07:59 Dose: 1 amp Alprazolam (Xanax) 0.25 mg PO Q12H PRN PRN Reason: ANXIETY Last Admin: 09/26/19 02:18 Dose: 0.25 mg Ascorbic Acid (Vitamin C -) 2,000 mg PO DAILY [facility] Last Admin: 09/25/19 10:33 Dose: 2,000 mg Bisacodyl (Dulcolax -) 5 mg PO DAILY PRN PRN Reason: CONSTIPATION Budesonide/Formoterol Fumarate (Symbicort 160/4.5mcg -) 2 puff IH BID [facility] Last Admin: 09/25/19 22:10 Dose: 2 puff Calcium Carbonate/Cholecalciferol (Os-Cale 500+D -) 1 tab PO BID [facility] Last Admin: 09/25/19 22:06 Dose: 1 tab Citalopram Hydrobromide (Celexa -) 20 mg PO HS [facility] Last Admin: 09/25/19 22:06 Dose: 20 mg Docusate Sodium (Colace -) 100 mg PO BID [facility] Last Admin: 09/25/19 22:06 Dose: 100 mg Enoxaparin Sodium (Lovenox -) 40 mg SQ DAILY [facility] Last Admin: 09/25/19 10:34 Dose: 40 mg Ferrous Sulfate (Feosol -) 325 mg PO DAILY [facility] Last Admin: 09/25/19 10:33 Dose: 325 mg Gabapentin (Neurontin -) 300 mg PO TID [facility] Last Admin: 09/26/19 06:40 Dose: 300 mg Azithromycin (Zithromax 500mg Ivpb (Pre-Docked)) 500 mg in 250 mls @ 250 mls/ hr IVPB DAILY [facility] Last Admin: 09/25/19 10:38 Dose: 250 mls/hr Ceftriaxone Sodium 1 gm/ (Dextrose) 50 mls @ 100 mls/hr IVPB DAILY [facility]; Protocol Last Admin: 09/25/19 10:37 Dose: 100 mls/hr Sodium Chloride (Normal Saline -) 1,000 mls @ 75 mls/hr IV ASDIR [facility] Last Admin: 09/26/19 03:46 Dose: 75 mls/hr Lactobacillus Acidophilus (Bacid -) 1 tab PO BID [facility] Last Admin: 09/25/19 22:05 Dose: 1 tab Lidocaine (Lidoderm Patch -) 1 patch TP DAILY [facility] Last Admin: 09/25/19 11:54 Dose: 1 patch Magnesium Oxide (Mag-Ox -) 400 mg PO DAILY [facility] Last Admin: 09/25/19 10:38 Dose: 400 mg Methylnaltrexone [place] (Relistor -) 8 mg SQ Q2D@1000 [facility] Last Admin: 09/25/19 23:32 Dose: Not Given Methylprednisolone Sodium Succinate (Solu-Medrol -) 40 mg IVPUSH Q8H-IV [facility] Last Admin: 09/26/19 02:18 Dose: 40 mg Miscellaneous (Lidoderm Patch Removal) 1 each MC DAILY@2200 [facility] Last Admin: 09/25/19 22:00 Dose: 1 each Multivitamins/Minerals/Vitamin C (Tab-A-Vit -) 1 tab PO DAILY [facility] Non-Formulary Medication (Biotin [Biotin]) 1 mg PO DAILY [facility] Non-Formulary Medication (Calcium/Cranberry Fruit [Cranberry 400 Mg Caplet]) 1 each PO DAILY [facility] Oseltamivir Phosphate (Tamiflu -) 30 mg PO BID [facility] Stop: 09/30/19 09:59 Last Admin: 09/25/19 22:07 Dose: 30 mg Oxycodone HCl (Roxicodone -) 15 mg PO Q12H PRN PRN Reason: PAIN 6-10 Last Admin: 09/25/19 18:04 Dose: 15 mg Pantoprazole Sodium (Protonix -) 40 mg PO DAILY [facility] Last Admin: 09/25/19 10:33 Dose: 40 mg Polyethylene Glycol (Miralax (For Daily Use) -) 17 gm PO BID PRN PRN Reason: CONSTIPATION Propranolol HCl (Inderal La -) 60 mg PO DAILY [facility] Last Admin: 09/25/19 10:38 Dose: 60 mg Tamsulosin HCl (Flomax -) 0.4 mg PO DAILY@0830 [facility] - Objective Vital Signs: Vital Signs Temperature 97.9 F 09/26/19 05:51 Pulse Rate 71 09/26/19 05:51 Respiratory Rate 21 H 09/26/19 05:51 Blood Pressure 159/75 09/26/19 05:51 O2 Sat by Pulse Oximetry (%) 97 09/25/19 21:00 Additional Findings/Remarks: PE GENERAL: awake, alert, and fully oriented, no acute distress, frail appearing HEAD: normal EYES: pupils equal, round and reactive to light EARS, NOSE, THROAT: ears normal, nares patent NECK:supple LUNGS: breath sounds rhonchourous, no wheezes, no crackles no accessory muscle use. HEART: regular rate and rhythm, normal S1 and S2 ABDOMEN: soft, not distended, normoactive bowel sounds, generalized tenderness to lower abd/epigastric area MUSCULOSKELETAL: normal range of motion at all joints UPPER EXTREMITIES: 2+ pulses, warm well-perfused no cyanosis LOWER EXTREMITIES: 2+ pulses warm well-perfused no calf tenderness no pitting edema NEUROLOGICAL: Cranial nerves II-XII intact normal speech PSYCHIATRIC: cooperative good eye contact appropriate mood and affect SKIN: warm, dry, normal turgor, no rashes or lesions noted - ....Imaging X-ray: Image Reviewed (gaseous pattern with distension) Problem List - Problems (1) Pneumonia Assessment/Plan: BL infiltartes on CXR noted seen by ID zosyn started supplemental O2 to maintain SPO2 >88% Problems reviewed: Yes Code(s): J18.9 - PNEUMONIA, UNSPECIFIED ORGANISM (2) Head contusion Assessment/Plan: s/p fall at home HCT with small left parietal contusion continue to monitor neuro status Code(s): S00.93XA - CONTUSION OF UNSPECIFIED PART OF HEAD, INITIAL ENCOUNTER (3) Prophylactic measure Assessment/Plan: FEN Fluids: poor PO intake. c./w IVF at 75cc/hr Electrolytes: monitor & replete as needed Nutrition: reg diet with supplements DVT moderate risk sq lovenox Dispo Maintain as inpatient full code discharge planning Code(s): Z29.9 - ENCOUNTER FOR PROPHYLACTIC MEASURES, UNSPECIFIED (4) Influenza A Assessment/Plan: c/w tamiflu supportive care isolation precautions Code(s): J10.1 - FLU DUE TO OTH IDENT INFLUENZA VIRUS W OTH RESP MANIFEST (5) Shortness of breath at rest Assessment/Plan: supplemental O2 c/w duonebs standing and prn c/w solumedrol/budesonide pulmonary following Code(s): R06.02 - SHORTNESS OF BREATH (6) Hypokalemia Assessment/Plan: resolved 4.2 today Code(s): E87.6 - HYPOKALEMIA (7) Chronic low back pain Assessment/Plan: on oxycodone 15mg at home BID (Istop verified) pt states the 15mg is not lasting more than 5-6 hours suggested to change 10mg PO q6h and pt willing to try regimen c/w lidoderm patches to low back PT with fall precautions Code(s): M54.5 - LOW BACK PAIN; G89.29 - OTHER CHRONIC PAIN (8) Abdominal pain Assessment/Plan: c/o tenderness to lower abdomen/epigastric AXR with gaseous pattern/distension on long standing opiods-at risk for ileus start relistor sq GI consultation requested-has seen Dr Jeffery in past recent EGD 03/19 with ulcer and erosion Code(s): R10.9 - UNSPECIFIED ABDOMINAL PAIN (9) Urinary retention Assessment/Plan: retaining urine requiring hickey insertion maintain hickey start flomax and trial to void when pt is more mobile Code(s): R33.9 - RETENTION OF URINE, UNSPECIFIED Visit type - Emergency Visit Emergency Visit: Yes ED Registration Date: 09/24/19 Care time: The patient presented to the Emergency Department on the above date and was hospitalized for further evaluation of their emergent condition. - New Patient This patient is new to me today: No - Critical Care Critical Care patient: No - Discharge Referral Referred to [facility] Med P.C.: No
[2019-09-26] MEDS: TAMSULOSIN HCL 0.4 MG CAP PO SCH (08:30)
[2019-09-26] MEDS ORDERED: cefTRIAXone SODIUM 1 GM VIAL ONE (08:59)
[2019-09-26] MEDS ORDERED: DEXTROSE 5%-WATER - 50 ML IVPB ONE ×3 (09:00→18:03)
[2019-09-26] MEDS ORDERED: PT OWN MED DRAWER 7, Y5N ONE ×2 (09:01→21:25)
[2019-09-26 09:16] LABS: ALBUMIN 2.7 g/dl (3.4-5.0); BILIRUBIN,TOTAL 0.2 mg/dL (0.2-1); BLOOD UREA NITROGEN 10.6 mg/dL (7-18); CALCIUM 8.3 mg/dL (8.5-10.1); CREATININE 0.5 mg/dL (0.55-1.3); MAGNESIUM 2.2 mg/dL (1.8-2.4); POTASSIUM 4.2 mmol/L (3.5-5.1); TOT PROT 5.7 g/dl (6.4-8.2)
[2019-09-26] MEDS: CALCIUM 500MG/VIT-D 200 UNITS COMBO TABLET (FP) PO SCH ×2 (09:19→21:36)
[2019-09-26] MEDS: PANTOPRAZOLE 40 MG TABLET PO SCH (09:20)
[2019-09-26] MEDS: ENOXAPARIN NA (PORCINE) 40 MG/0.4 ML DISP.SYRIN SQ SCH (09:20)
[2019-09-26] MEDS: FERROUS SO4 325 MG TABLET (FP) PO SCH (09:20)
[2019-09-26] MEDS: ASCORBIC ACID 500 MG TABLET (FP) PO SCH (09:21)
[2019-09-26] MEDS: MULTIVITAMINS (DAILY MVI) TABLET (FP) PO SCH (09:21)
[2019-09-26] MEDS: DOCUSATE SODIUM 100 MG CAPSULE (FP) PO SCH ×2 (09:21→21:33)
[2019-09-26] MEDS: MAGNESIUM OXIDE 400 MG TABLET (FP) PO SCH (09:21)
[2019-09-26] MEDS: LACTOBACILLUS ACIDOPHILUS 1 TABLET PO SCH ×2 (09:21→21:33)
[2019-09-26] MEDS: CEFTRIAXONE 1 GM in DEXTROSE 5%-WATER - 50 ML IVPB SCH (09:22)
[2019-09-26] MEDS: OSELTAMIVIR PHOSPHATE 30 MG CAPSULE PO SCH ×2 (09:22→21:36)
[2019-09-26] MEDS: AZITHROMYCIN IVPB 500 MG/250 ML BAG IVPB SCH (09:24)
[2019-09-26] MEDS: BUDESONIDE/FORMETEROL FUMARATE 160/4.5 mcg INHALER IH SCH ×2 (09:25→21:36)
[2019-09-26] MEDS: LIDOCAINE 5% TOPICAL PATCH TP SCH (09:25)
[2019-09-26] MEDS ORDERED: POLYETHYLENE GLYCOL 3350 119 GM BTL PO PRN (10:52)
[2019-09-26] MEDS ORDERED: Methylnaltrexone Bromide 12 MG/0.6 ML KIT SQ SCH (10:58)
[2019-09-26] MEDS: POLYETHYLENE GLYCOL 3350 119 GM BTL PO SCH ×2 (13:16→21:36)
--- NOTE | 2019-09-26 13:19 | CON.ID ---
Consult Consult Specialty:: infectious diseases Referred by:: Beatris Reason for Consultation:: pneumonia - History of Present Illness Chief Complaint: cough,weakness failed out patient therapy History of Present Illness: 79 year old female with history of bronchiectasis who presented with shortness of breath, and cough with green sputum for the past 4 days. She reported she feels generally weak and vomited once this morning. She was prescribed Levaquin and a steroid 3 days by her Control System Computer Scientist [facility]. She states she took this medication for the past three days without improvement in symptoms.She reported increased urinary frequency without hematuria or dysuria. She also states she fell on the floor last night and struck the left side of her head. There was no loss of consciousness. She denied fever, chills, or chest pain. patient was found to ahve urinary retention and foleys was placed patient also was hypoxic and now needing oxygen - History Source History Provided By: Patient Limitations to Obtaining History: No Limitations - Past Medical History Cardio/Vascular: Yes: Other (Mitral lucy prolapse) Pulmonary: Yes: Other (bronchiectasis) Gastrointestinal: Yes: Constipation, GERD Renal/: Yes: Hematuria ...: No Psych: Yes: Anxiety Musculoskeletal: Yes: Chronic low back pain Rheumatology: Yes: Other (Sjogren's syndrome, raynaud's disease, fibromyalgia) Endocrine: Yes: Hyperparathyroidism, Hypothyroidism - Past Surgical History Past Surgical History: Yes: Cataract Removal, Cholecystectomy, Hysterectomy ( MARKO secondary to fibroids), Joint Replacement - Alcohol/Substance Use Hx Alcohol Use: No History of Substance Use: reports: None - Smoking History Smoking history: Former smoker Have you smoked in the past 12 months: No Aproximately how many cigarettes per day: 0 If you are a former smoker, when did you quit?: 1969 - Social History Usual Living Arrangement: With Child ADL: Independent 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 History of Recent Travel: No Home Medications - Allergies Allergies/Adverse Reactions: Allergies Allergy/AdvReac Type Severity Reaction Status Date / Time No Known Drug Allergies Allergy Verified 09/24/19 12:08 - Home Medications Home Medications: Ambulatory Orders Alprazolam [Xanax] 0.25 mg PO BID PRN 01/25/12 Ascorbic Acid [Vitamin C] 2,000 mg PO DAILY 01/25/12 Calcium Carbonate/Vitamin D3 [Caltrate 600 + D Tablet] 1 each PO BID 01/25/12 Citalopram Hydrobromide [Celexa -] 20 mg PO HS 01/25/12 Ranitidine [Zantac -] 150 mg PO BID 01/25/12 propRANOLol HCL [Inderal -] 60 mg PO DAILY 01/25/12 Albuterol 0.083% Nebulizer [place] [Ventolin 0.083% Nebulizer Soln -] 1 neb NEB DAILY 09/25/13 Oxycodone HCl/Acetaminophen [Percocet 10-325 mg Tablet] 15 mg PO BID PRN Tobramycin/Na Chlor 0.2% [[place] (Do Not Stock)] 300 mg IH DAILY 02/19/15 Biotin 1 mg PO DAILY 01/05/16 Butalbit/Acetamin/Caff/Codeine [Fioricet-Cod [id number] Cap] 1 each PO TID PRN 01/05/16 Calcium/Cranberry Fruit [Cranberry 400 mg Caplet] 1 each PO DAILY 01/05/16 Gabapentin [Neurontin] 300 mg PO TID 01/05/16 L.acidoph,Paracasei, B.lactis [Probiotic] 1 each PO BID 01/05/16 Multivitamins [Multivit ([facility] Formulary)] 1 tab PO DAILY 01/05/16 Potassium Chloride [Klor-Con 10] 20 meq PO BID 01/05/16 Budesonide/Formeterol Fumarate [SYMBICORT 160/4.5mcg -] 2 inh PO BID 12/15/16 Magnesium Oxide [Magnesium] 500 mg PO DAILY 12/15/16 Tizanidine HCl 2 mg PO HS 12/15/16 Bisacodyl [Dulcolax] 5 mg PO DAILY PRN #30 tablet. 03/19/19 Docusate Sodium [Colace -] 100 mg PO BID #90 capsule 03/19/19 Ferrous Sulfate 325 mg PO DAILY #30 tablet 03/19/19 Pantoprazole Sodium [Protonix -] 40 mg PO DAILY #30 tablet.ec 03/19/19 Polyethylene Glycol 3350 [Miralax (For Daily Use) -] 17 gm PO BID PRN #1 bottle 03/19/19 Physical Exam Vital Signs: Vital Signs Temperature 98 F 09/26/19 09:36 Pulse Rate 68 09/26/19 09:36 Respiratory Rate 18 09/26/19 09:36 Blood Pressure 152/67 09/26/19 09:36 O2 Sat by Pulse Oximetry (%) 94 L 09/26/19 09:00 Constitutional: Yes: Calm, Mild Distress Eyes: Yes: Conjunctiva Clear HENT: Yes: Atraumatic Neck: Yes: Supple, Trachea Midline Cardiovascular: Yes: Regular Rate and Rhythm Respiratory: Yes: On Nasal O2, Rhonchi, SOB, SOB on Exertion, Other Gastrointestinal: Yes: Normal Bowel Sounds, Soft Musculoskeletal: Yes: WNL Extremities: Yes: WNL Neurological: Yes: Alert, Oriented Psychiatric: Yes: Alert, Oriented Labs: CBC, BMP 09/26/19 06:44 09/26/19 06:44 Imaging - Results Chest X-ray: Report Reviewed, Image Reviewed Cat Scan: Report Reviewed, Image Reviewed Assessment/Plan 79 year old female with history of bronchiectasis who presented with shortness of breath, cough with green sputum associated with generalized weakness,fell yesterday with no LOC and an episode of vomiting.She was found to have influenza and possible community acquired pneumonia. She is being admitted to [facility] for further medical management. #1 Influenza #2 Possible Community Acquired Pneumonia #3 Hyponatremia #4 Head Contusion 5 uti patient who is influenza positive coming in with pneumonia and also has uti failed outpatient on levaquin ,now greenish sputum turning to yellow i ahve started patient on zosyn will not treat uti at this time rest as per the team
[2019-09-26] MEDS ORDERED: PIPERACILLIN/TAZOBACTAM 3.375 GM VIAL IVPB ONE ×2 (13:22→18:03)
[2019-09-26] MEDS: PIPERACILLIN/TAZOB 3.375 GM 3.375 GM in DEXTROSE 5%-WATER - 50 ML IVPB SCH ×2 (13:24→18:10)
[2019-09-26] MEDS: VANCOMYCIN 1 GM in D5W (PRE-DOCKED) 1,000 MG/250 ML IVPB ONE ×2 (13:26→14:29)
[2019-09-26] MEDS: ACETAMINOPHEN 325 MG TABLET (FP) PO PRN (14:51)
[2019-09-26] MEDS: oxyCODONE HCL 5 MG TABLET PO PRN ×2 (14:53→21:30)
[2019-09-26] MEDS: DOXYCYCLINE HYCLATE 100 MG CAPSULE PO SCH (18:10)
--- NOTE | 2019-09-26 20:43 | PN ---
Progress Note (short form) - Note Progress Note: Patient followed by Dr. Diaz for IBS-C in setting of chronic opiate use for back pain. Would continue with Linzess, recently prescribed and add 34 g Miralax daily. Patient seen and examined. Dr. Diaz returns tomorrow.
[2019-09-26] MEDS: LIDOCAINE PATCH REMOVAL MC SCH (21:33)
[2019-09-26] MEDS: CITALOPRAM HYDROBROMIDE 20 MG TABLET PO SCH (21:33)
[2019-09-27] MEDS ORDERED: PIPERACILLIN/TAZOBACTAM 3.375 GM VIAL IVPB ONE ×3 (00:49→18:11)
[2019-09-27] MEDS ORDERED: DEXTROSE 5%-WATER - 50 ML IVPB ONE ×3 (00:49→18:11)
[2019-09-27] MEDS: methylPREDNISolone NA SUCC 40 MG/1 ML VIAL IVPUSH SCH ×3 (01:27→18:37)
[2019-09-27] MEDS: PIPERACILLIN/TAZOB 3.375 GM 3.375 GM in DEXTROSE 5%-WATER - 50 ML IVPB SCH ×3 (01:27→18:37)
[2019-09-27] MEDS: oxyCODONE HCL 5 MG TABLET PO PRN ×4 (03:38→22:55)
[2019-09-27] MEDS ORDERED: SIMETHICONE 80 MG TAB.CHEW (FP) PO ONE (04:45)
[2019-09-27] MEDS: GABAPENTIN 300 MG CAPSULE PO SCH ×3 (05:27→21:15)
[2019-09-27] MEDS: ALBUTEROL SO4 2.5/IPRATROPIUM 0.5 INH SOL 3 ML VIAL.NEB. NEB SCH ×4 (07:20→21:04)
[2019-09-27 08:05] LABS: HEMATOCRIT 27.4 % (32.4-45.2); HEMOGLOBIN 9.6 GM/dL (10.7-15.3); LYMPH % 8.5 % (8-40); MCH 35.1 pg (25.7-33.7); MEAN CELL VOLUME 100.2 fl (80-96); MEAN PLT VOLUME 7.8 fl (7.5-11.1); MONO % 4.9 % (3.8-10.2); NEUT % 86.6 % (42.8-82.8); PLATELET COUNT 105 K/MM3 (134-434); RBC 2.74 M/mm3 (3.60-5.2); RDW 13.5 % (11.6-15.6); WHITE BLOOD COUNT 5.8 K/mm3 (4.0-10.0)
[2019-09-27] MEDS ORDERED: PT OWN MED DRAWER 7, Y5N ONE (09:16)
[2019-09-27 09:24] LABS: ALBUMIN 2.7 g/dl (3.4-5.0); BILIRUBIN,TOTAL 0.4 mg/dL (0.2-1); BLOOD UREA NITROGEN 12.3 mg/dL (7-18); CALCIUM 8.5 mg/dL (8.5-10.1); CREATININE 0.6 mg/dL (0.55-1.3); POTASSIUM 4.1 mmol/L (3.5-5.1); TOT PROT 5.7 g/dl (6.4-8.2)
[2019-09-27] MEDS: SODIUM CHLORIDE 1,000 ML IV SCH ×2 (09:24→10:56)
[2019-09-27] MEDS: LIDOCAINE 5% TOPICAL PATCH TP SCH (09:25)
[2019-09-27] MEDS: POLYETHYLENE GLYCOL 3350 119 GM BTL PO SCH (09:27)
[2019-09-27] MEDS: ENOXAPARIN NA (PORCINE) 40 MG/0.4 ML DISP.SYRIN SQ SCH (09:27)
[2019-09-27] MEDS: MULTIVITAMINS (DAILY MVI) TABLET (FP) PO SCH (09:28)
[2019-09-27] MEDS: THIAMINE HCL 100 MG TABLET (FP) PO SCH (09:28)
[2019-09-27] MEDS: LACTOBACILLUS ACIDOPHILUS 1 TABLET PO SCH ×2 (09:28→21:14)
[2019-09-27] MEDS: TAMSULOSIN HCL 0.4 MG CAP PO SCH (09:28)
[2019-09-27] MEDS: FERROUS SO4 325 MG TABLET (FP) PO SCH (09:29)
[2019-09-27] MEDS: DOXYCYCLINE HYCLATE 100 MG CAPSULE PO SCH ×2 (09:29→18:37)
[2019-09-27] MEDS: PANTOPRAZOLE 40 MG TABLET PO SCH (09:29)
[2019-09-27] MEDS: DOCUSATE SODIUM 100 MG CAPSULE (FP) PO SCH ×2 (09:29→21:14)
[2019-09-27] MEDS: ASCORBIC ACID 500 MG TABLET (FP) PO SCH (09:29)
[2019-09-27] MEDS: MAGNESIUM OXIDE 400 MG TABLET (FP) PO SCH (09:29)
[2019-09-27] MEDS: CALCIUM 500MG/VIT-D 200 UNITS COMBO TABLET (FP) PO SCH ×2 (09:29→21:14)
[2019-09-27] MEDS: ACETAMINOPHEN 325 MG TABLET (FP) PO PRN ×3 (09:30→22:56)
[2019-09-27] MEDS: OSELTAMIVIR PHOSPHATE 30 MG CAPSULE PO SCH ×2 (09:37→21:26)
[2019-09-27] MEDS: ALPRAZolam 1 MG TABLET PO PRN (09:37)
--- NOTE | 2019-09-27 09:46 | PN ---
Progress Note, Physician History of Present Illness: still not feeling well abd pain bothering her - Current Medication List Current Medications: Active Medications Acetaminophen (Tylenol -) 650 mg PO Q6H PRN PRN Reason: PAIN 6-10 Last Admin: 09/27/19 09:30 Dose: 650 mg Albuterol Sulfate (Ventolin 0.083% Nebulizer Soln -) 1 amp NEB RQID PRN PRN Reason: SHORT OF BREATH/WHEEZING Albuterol/Ipratropium (Duoneb -) 1 amp NEB RQID [facility] Last Admin: 09/27/19 07:20 Dose: 1 amp Alprazolam (Xanax) 0.25 mg PO Q12H PRN PRN Reason: ANXIETY Last Admin: 09/27/19 09:37 Dose: 0.25 mg Ascorbic Acid (Vitamin C -) 2,000 mg PO DAILY [facility] Last Admin: 09/27/19 09:29 Dose: 2,000 mg Bisacodyl (Dulcolax -) 5 mg PO DAILY PRN PRN Reason: CONSTIPATION Budesonide/Formoterol Fumarate (Symbicort 160/4.5mcg -) 2 puff IH BID [facility] Last Admin: 09/26/19 21:36 Dose: 2 puff Calcium Carbonate/Cholecalciferol (Os-Cale 500+D -) 1 tab PO BID [facility] Last Admin: 09/27/19 09:29 Dose: 1 tab Citalopram Hydrobromide (Celexa -) 20 mg PO HS [facility] Last Admin: 09/26/19 21:33 Dose: 20 mg Docusate Sodium (Colace -) 100 mg PO BID [facility] Last Admin: 09/27/19 09:29 Dose: 100 mg Doxycycline Hyclate (Vibramycin -) 100 mg PO BID@1000,1800 [facility] Last Admin: 09/27/19 09:29 Dose: 100 mg Enoxaparin Sodium (Lovenox -) 40 mg SQ DAILY [facility] Last Admin: 09/27/19 09:27 Dose: 40 mg Ferrous Sulfate (Feosol -) 325 mg PO DAILY [facility] Last Admin: 09/27/19 09:29 Dose: 325 mg Gabapentin (Neurontin -) 300 mg PO TID [facility] Last Admin: 09/27/19 05:27 Dose: 300 mg Sodium Chloride (Normal Saline -) 1,000 mls @ 75 mls/hr IV ASDIR [facility] Last Admin: 09/27/19 09:24 Dose: 75 mls/hr Piperacillin Sod/Tazobactam (Sod 3.375 gm/ Dextrose) 50 mls @ 100 mls/hr IVPB Q8H-IV [facility]; Protocol Last Admin: 09/27/19 09:27 Dose: 100 mls/hr Lactobacillus Acidophilus (Bacid -) 1 tab PO BID [facility] Last Admin: 09/27/19 09:28 Dose: 1 tab Lidocaine (Lidoderm Patch -) 1 patch TP DAILY [facility] Last Admin: 09/27/19 09:25 Dose: 1 patch Magnesium Oxide (Mag-Ox -) 400 mg PO DAILY [facility] Last Admin: 09/27/19 09:29 Dose: 400 mg Methylnaltrexone [place] (Relistor -) 8 mg SQ Q2D@1000 [facility] Methylprednisolone Sodium Succinate (Solu-Medrol -) 40 mg IVPUSH Q8H-IV [facility] Last Admin: 09/27/19 09:27 Dose: 40 mg Miscellaneous (Lidoderm Patch Removal) 1 each MC DAILY@2200 [facility] Last Admin: 09/26/19 21:33 Dose: 1 each Multivitamins/Minerals/Vitamin C (Tab-A-Vit -) 1 tab PO DAILY [facility] Last Admin: 09/27/19 09:28 Dose: 1 tab Oseltamivir Phosphate (Tamiflu -) 30 mg PO BID [facility] Stop: 09/30/19 09:59 Last Admin: 09/27/19 09:37 Dose: 30 mg Oxycodone HCl (Roxicodone -) 10 mg PO Q6H PRN PRN Reason: PAIN LEVEL 6-10 Last Admin: 09/27/19 09:29 Dose: 10 mg Pantoprazole Sodium (Protonix -) 40 mg PO DAILY [facility] Last Admin: 09/27/19 09:29 Dose: 40 mg Polyethylene Glycol (Miralax (For Daily Use) -) 17 gm PO BID [facility] Last Admin: 09/27/19 09:27 Dose: 17 gm Polyethylene Glycol (Miralax (For Daily Use) -) 34 gm PO BID PRN PRN Reason: CONSTIPATION Propranolol HCl (Inderal La -) 60 mg PO DAILY [facility] Last Admin: 09/27/19 09:29 Dose: 60 mg Tamsulosin HCl (Flomax -) 0.4 mg PO DAILY@0830 [facility] Last Admin: 09/27/19 09:28 Dose: 0.4 mg Thiamine HCl (Vitamin B1 -) 100 mg PO DAILY [facility] Last Admin: 09/27/19 09:28 Dose: 100 mg - Objective Vital Signs: Vital Signs Temperature 98.2 F 09/27/19 05:37 Pulse Rate 64 09/27/19 05:37 Respiratory Rate 09/27/19 05:37 Blood Pressure 149/71 09/27/19 05:37 O2 Sat by Pulse Oximetry (%) 95 09/26/19 21:00 Constitutional: Yes: Mild Distress, Thin Cardiovascular: Yes: S1, S2 Respiratory: Yes: On Nasal O2, Rhonchi, Other Gastrointestinal: Yes: Normal Bowel Sounds, Soft Musculoskeletal: Yes: WNL Extremities: Yes: WNL Neurological: Yes: Alert, Oriented Psychiatric: Yes: Alert, Oriented Labs: CBC, BMP 09/27/19 07:25 09/27/19 07:25 Assessment/Plan 79 year old female with history of bronchiectasis who presented with shortness of breath, cough with green sputum associated with generalized weakness,fell yesterday with no LOC and an episode of vomiting.She was found to have influenza and possible community acquired pneumonia. She is being admitted to [facility] for further medical management. #1 Influenza #2 Possible Community Acquired Pneumonia #3 Hyponatremia #4 Head Contusion 5 uti continue abx resp support incentive aureliano rest as per the team
--- NOTE | 2019-09-27 09:48 | PN ---
Progress Note, Physician Chief Complaint: c/o generalized abdominal pain. OOB today with PT for short distance. History of Present Illness: 79 year old female with history of bronchiectasis who presented with shortness of breath, and cough with green sputum for the past 4 days. She reported she feels generally weak and vomited once this morning. She was prescribed Levaquin and a steroid 3 days by her Statistical Technician in [facility]. She states she took this medication for the past three days without improvement in symptoms.She reported increased urinary frequency without hematuria or dysuria. She also states she fell on the floor last night and struck the left side of her head. There was no loss of consciousness. She denied fever, chills, or chest pain. - Current Medication List Current Medications: Active Medications Acetaminophen (Tylenol -) 650 mg PO Q6H PRN PRN Reason: PAIN 6-10 Last Admin: 09/27/19 09:30 Dose: 650 mg Albuterol Sulfate (Ventolin 0.083% Nebulizer Soln -) 1 amp NEB RQID PRN PRN Reason: SHORT OF BREATH/WHEEZING Albuterol/Ipratropium (Duoneb -) 1 amp NEB RQID [facility] Last Admin: 09/27/19 07:20 Dose: 1 amp Alprazolam (Xanax) 0.25 mg PO Q12H PRN PRN Reason: ANXIETY Last Admin: 09/27/19 09:37 Dose: 0.25 mg Ascorbic Acid (Vitamin C -) 2,000 mg PO DAILY [facility] Last Admin: 09/27/19 09:29 Dose: 2,000 mg Bisacodyl (Dulcolax -) 5 mg PO DAILY PRN PRN Reason: CONSTIPATION Budesonide/Formoterol Fumarate (Symbicort 160/4.5mcg -) 2 puff IH BID [facility] Last Admin: 09/26/19 21:36 Dose: 2 puff Calcium Carbonate/Cholecalciferol (Os-Cale 500+D -) 1 tab PO BID [facility] Last Admin: 09/27/19 09:29 Dose: 1 tab Citalopram Hydrobromide (Celexa -) 20 mg PO HS [facility] Last Admin: 09/26/19 21:33 Dose: 20 mg Docusate Sodium (Colace -) 100 mg PO BID [facility] Last Admin: 02/27/20 09:29 Dose: 100 mg Doxycycline Hyclate (Vibramycin -) 100 mg PO BID@1000,1800 [facility] Last Admin: 09/27/19 09:29 Dose: 100 mg Enoxaparin Sodium (Lovenox -) 40 mg SQ DAILY [facility] Last Admin: 09/27/19 09:27 Dose: 40 mg Ferrous Sulfate (Feosol -) 325 mg PO DAILY [facility] Last Admin: 09/27/19 09:29 Dose: 325 mg Gabapentin (Neurontin -) 300 mg PO TID [facility] Last Admin: 09/27/19 05:27 Dose: 300 mg Sodium Chloride (Normal Saline -) 1,000 mls @ 75 mls/hr IV ASDIR [facility] Last Admin: 09/27/19 09:24 Dose: 75 mls/hr Piperacillin Sod/Tazobactam (Sod 3.375 gm/ Dextrose) 50 mls @ 100 mls/hr IVPB Q8H-IV [facility]; Protocol Last Admin: 09/27/19 09:27 Dose: 100 mls/hr Lactobacillus Acidophilus (Bacid -) 1 tab PO BID [facility] Last Admin: 09/27/19 09:28 Dose: 1 tab Lidocaine (Lidoderm Patch -) 1 patch TP DAILY [facility] Last Admin: 09/27/19 09:25 Dose: 1 patch Magnesium Oxide (Mag-Ox -) 400 mg PO DAILY [facility] Last Admin: 09/27/19 09:29 Dose: 400 mg Methylnaltrexone [place] (Relistor -) 8 mg SQ Q2D@1000 [facility] Methylprednisolone Sodium Succinate (Solu-Medrol -) 40 mg IVPUSH Q8H-IV [facility] Last Admin: 09/27/19 09:27 Dose: 40 mg Miscellaneous (Lidoderm Patch Removal) 1 each MC DAILY@2200 [facility] Last Admin: 09/26/19 21:33 Dose: 1 each Multivitamins/Minerals/Vitamin C (Tab-A-Vit -) 1 tab PO DAILY [facility] Last Admin: 09/27/19 09:28 Dose: 1 tab Oseltamivir Phosphate (Tamiflu -) 30 mg PO BID [facility] Stop: 09/30/19 09:59 Last Admin: 09/27/19 09:37 Dose: 30 mg Oxycodone HCl (Roxicodone -) 10 mg PO Q6H PRN PRN Reason: PAIN LEVEL 6-10 Last Admin: 09/27/19 09:29 Dose: 10 mg Pantoprazole Sodium (Protonix -) 40 mg PO DAILY [facility] Last Admin: 09/27/19 09:29 Dose: 40 mg Polyethylene Glycol (Miralax (For Daily Use) -) 34 gm PO DAILY [facility] Propranolol HCl (Inderal La -) 60 mg PO DAILY [facility] Last Admin: 09/27/19 09:29 Dose: 60 mg Tamsulosin HCl (Flomax -) 0.4 mg PO DAILY@0830 [facility] Last Admin: 09/27/19 09:28 Dose: 0.4 mg Thiamine HCl (Vitamin B1 -) 100 mg PO DAILY [facility] Last Admin: 09/27/19 09:28 Dose: 100 mg - Objective Vital Signs: Vital Signs Temperature 98.2 F 09/27/19 05:37 Pulse Rate 64 09/27/19 05:37 Respiratory Rate 09/27/19 05:37 Blood Pressure 149/71 09/27/19 05:37 O2 Sat by Pulse Oximetry (%) 95 09/26/19 21:00 Additional Findings/Remarks: GENERAL: awake, alert, and fully oriented, no acute distress, frail appearing HEAD: normal EYES: pupils equal, round and reactive to light EARS, NOSE, THROAT: ears normal, nares patent NECK:supple LUNGS: breath sounds rhonchourous, no wheezes, no crackles no accessory muscle use. HEART: regular rate and rhythm, normal S1 and S2 ABDOMEN: soft, not distended, normoactive bowel sounds, generalized tenderness to lower abd/epigastric area MUSCULOSKELETAL: normal range of motion at all joints UPPER EXTREMITIES: 2+ pulses, warm well-perfused no cyanosis LOWER EXTREMITIES: 2+ pulses warm well-perfused no calf tenderness no pitting edema NEUROLOGICAL: Cranial nerves II-XII intact normal speech PSYCHIATRIC: cooperative good eye contact appropriate mood and affect SKIN: warm, dry, normal turgor, no rashes or lesions noted Labs: CBC, BMP 09/27/19 07:25 09/27/19 07:25 Problem List - Problems (1) Pneumonia Assessment/Plan: BL infiltartes on CXR noted seen by ID c/w sulaiman godfrey supplemental O2 to maintain SPO2 >88% Code(s): J18.9 - PNEUMONIA, UNSPECIFIED ORGANISM (2) Head contusion Assessment/Plan: s/p fall at home HCT with small left parietal contusion no changes in neuro status Code(s): S00.93XA - CONTUSION OF UNSPECIFIED PART OF HEAD, INITIAL ENCOUNTER (3) Prophylactic measure Assessment/Plan: FEN Fluids: better PO intake. c./w IVF at 75cc/hr Electrolytes: monitor & replete as needed Nutrition: reg diet with supplements DVT moderate risk sq lovenox Dispo Maintain as inpatient full code discharge planning Code(s): Z29.9 - ENCOUNTER FOR PROPHYLACTIC MEASURES, UNSPECIFIED (4) Influenza A Assessment/Plan: c/w tamiflu supportive care isolation precautions Code(s): J10.1 - FLU DUE TO OTH IDENT INFLUENZA VIRUS W OTH RESP MANIFEST (5) Shortness of breath at rest Assessment/Plan: supplemental O2 c/w duonebs standing and prn c/w solumedrol/budesonide pulmonary following Code(s): R06.02 - SHORTNESS OF BREATH (6) Hypokalemia Assessment/Plan: resolved 4.1 today Code(s): E87.6 - HYPOKALEMIA (7) Chronic low back pain Assessment/Plan: on oxycodone 15mg at home BID (Istop verified) pt states the 15mg is not lasting more than 5-6 hours suggested to change 10mg PO q6h and pt willing to try regimen c/w lidoderm patches to low back PT with fall precautions Code(s): M54.5 - LOW BACK PAIN; G89.29 - OTHER CHRONIC PAIN (8) Abdominal pain Assessment/Plan: c/o tenderness to lower abdomen/epigastric AXR with gaseous pattern/distension on long standing opiods-at risk for ileus start relistor sq GI consultation requested-has seen Dr Jeffery in past recent EGD 03/19 with ulcer and erosion Code(s): R10.9 - UNSPECIFIED ABDOMINAL PAIN (9) Urinary retention Code(s): R33.9 - RETENTION OF URINE, UNSPECIFIED
[2019-09-27] MEDS: BUDESONIDE/FORMETEROL FUMARATE 160/4.5 mcg INHALER IH SCH ×2 (10:55→21:17)
--- NOTE | 2019-09-27 11:15 | PN ---
Progress Note (short form) - Note Progress Note: PULMONARY c/o abdominal pain not relieved with BM. States breathing better but with persistent cough. No fevers. Vital Signs Period Temp Pulse Resp BP Sys/Casper Pulse Ox Last 24 Hr 97.6 F-98.2 F 64-71 18-20 104-149/51-71 95 Gen: less tachypneic Heart: RRR Lung: scattered rhonchi Abd: softly distended, nontender Ext: no edema CBC, BMP 09/27/19 07:25 09/27/19 07:25 Active Medications Acetaminophen (Tylenol -) 650 mg PO Q6H PRN PRN Reason: PAIN 6-10 Last Admin: 09/27/19 09:30 Dose: 650 mg Albuterol Sulfate (Ventolin 0.083% Nebulizer Soln -) 1 amp NEB RQID PRN PRN Reason: SHORT OF BREATH/WHEEZING Albuterol/Ipratropium (Duoneb -) 1 amp NEB RQID [facility] Last Admin: 09/27/19 07:20 Dose: 1 amp Alprazolam (Xanax) 0.25 mg PO Q12H PRN PRN Reason: ANXIETY Last Admin: 09/27/19 09:37 Dose: 0.25 mg Ascorbic Acid (Vitamin C -) 2,000 mg PO DAILY [facility] Last Admin: 09/27/19 09:29 Dose: 2,000 mg Bisacodyl (Dulcolax -) 5 mg PO DAILY PRN PRN Reason: CONSTIPATION Budesonide/Formoterol Fumarate (Symbicort 160/4.5mcg -) 2 puff IH BID [facility] Last Admin: 09/27/19 10:55 Dose: 2 puff Calcium Carbonate/Cholecalciferol (Os-Cale 500+D -) 1 tab PO BID [facility] Last Admin: 09/27/19 09:29 Dose: 1 tab Citalopram Hydrobromide (Celexa -) 20 mg PO HS [facility] Last Admin: 09/26/19 21:33 Dose: 20 mg Docusate Sodium (Colace -) 100 mg PO BID [facility] Last Admin: 09/27/19 09:29 Dose: 100 mg Doxycycline Hyclate (Vibramycin -) 100 mg PO BID@1000,1800 [facility] Last Admin: 09/27/19 09:29 Dose: 100 mg Enoxaparin Sodium (Lovenox -) 40 mg SQ DAILY [facility] Last Admin: 09/27/19 09:27 Dose: 40 mg Ferrous Sulfate (Feosol -) 325 mg PO DAILY [facility] Last Admin: 09/27/19 09:29 Dose: 325 mg Gabapentin (Neurontin -) 300 mg PO TID [facility] Last Admin: 09/27/19 05:27 Dose: 300 mg Sodium Chloride (Normal Saline -) 1,000 mls @ 75 mls/hr IV ASDIR [facility] Last Admin: 09/27/19 10:56 Dose: Not Given Piperacillin Sod/Tazobactam (Sod 3.375 gm/ Dextrose) 50 mls @ 100 mls/hr IVPB Q8H-IV [facility]; Protocol Last Admin: 09/27/19 09:27 Dose: 100 mls/hr Lactobacillus Acidophilus (Bacid -) 1 tab PO BID [facility] Last Admin: 09/27/19 09:28 Dose: 1 tab Lidocaine (Lidoderm Patch -) 1 patch TP DAILY [facility] Last Admin: 09/27/19 09:25 Dose: 1 patch Magnesium Oxide (Mag-Ox -) 400 mg PO DAILY [facility] Last Admin: 09/27/19 09:29 Dose: 400 mg Methylnaltrexone [place] (Relistor -) 8 mg SQ Q2D@1000 [facility] Methylprednisolone Sodium Succinate (Solu-Medrol -) 40 mg IVPUSH Q8H-IV [facility] Last Admin: 09/27/19 09:27 Dose: 40 mg Miscellaneous (Lidoderm Patch Removal) 1 each MC DAILY@2200 [facility] Last Admin: 09/26/19 21:33 Dose: 1 each Multivitamins/Minerals/Vitamin C (Tab-A-Vit -) 1 tab PO DAILY [facility] Last Admin: 09/27/19 09:28 Dose: 1 tab Oseltamivir Phosphate (Tamiflu -) 30 mg PO BID [facility] Stop: 09/30/19 09:59 Last Admin: 09/27/19 09:37 Dose: 30 mg Oxycodone HCl (Roxicodone -) 10 mg PO Q6H PRN PRN Reason: PAIN LEVEL 6-10 Last Admin: 09/27/19 09:29 Dose: 10 mg Pantoprazole Sodium (Protonix -) 40 mg PO DAILY [facility] Last Admin: 09/27/19 09:29 Dose: 40 mg Polyethylene Glycol (Miralax (For Daily Use) -) 34 gm PO DAILY [facility] Propranolol HCl (Inderal La -) 60 mg PO DAILY [facility] Last Admin: 09/27/19 09:29 Dose: 60 mg Tamsulosin HCl (Flomax -) 0.4 mg PO DAILY@0830 [facility] Last Admin: 09/27/19 09:28 Dose: 0.4 mg Thiamine HCl (Vitamin B1 -) 100 mg PO DAILY [facility] Last Admin: 09/27/19 09:28 Dose: 100 mg A/P Influenza A r/o Pneumonia Acute COPD/Bronchiectasis Exacerbation s/p Fall Raynaud's Disease Anxiety/Depression Hyponatremia Anemia - tamiflu x 5 days - continue empiric antibiotics - continue medrol - inhaled bronchodilators standing and PRN - O2 to keep SpO2 >90% - pain control - monitor lytes - DVT prophylaxis Problem List - Problems (1) Influenza A Code(s): J10.1 - FLU DUE TO OTH IDENT INFLUENZA VIRUS W OTH RESP MANIFEST (2) Pneumonia Code(s): J18.9 - PNEUMONIA, UNSPECIFIED ORGANISM
[2019-09-27] MEDS ORDERED: SIMETHICONE 80 MG TAB.CHEW (FP) PO PRN (11:28)
--- NOTE | 2019-09-27 14:06 | PN.GI ---
GI Progress Note Subjective: Complains of ongoing abdominal pain. Points towards mid abdomen and pelvis. he usual pain medication dose at home has been decreased during admission. She usually complains of constipation but states that she has been moving her bowel more regularly during admission. Still with cough, tachypnea. Had hickey catheter placed for urinary retention. No vomiting, no rectal bleeding. - Objective Vital Signs: Vital Signs Temperature 98.1 F 09/27/19 10:00 Pulse Rate 68 09/27/19 10:00 Respiratory Rate 20 09/27/19 10:00 Blood Pressure 131/50 L 09/27/19 10:00 O2 Sat by Pulse Oximetry (%) 96 09/27/19 09:00 Constitutional: Calm Eyes: No: Sclera Icterus Cardiovascular: Yes: Regular Rate and Rhythm. No: Murmur Respiratory: Yes: Rhonchi (fine rhonchi bilaterally), Wheezes (expiratory) Gastrointestinal Inspection: No: Distention ...Auscultate: Yes: Normoactive Bowel Sounds ...Palpate: Yes: Soft, Tenderness (TTP mid abdomen, pelvis) ...Percussion: No: Tympanitic Edema: No (No LE ext edema) Neurological: Yes: Alert Labs: CBC, BMP 09/27/19 07:25 09/27/19 07:25 Hepatic Panel Total Bilirubin 0.4 mg/dL (0.2-1) 09/27/19 07:25 AST 58 U/L (15-37) H 09/27/19 07:25 ALT 71 U/L (13-61) H 09/27/19 07:25 Alkaline Phosphatase 62 U/L (45-117) 09/27/19 07:25 Albumin 2.7 g/dl (3.4-5.0) L 09/27/19 07:25 Problem List - Problems (1) Abdominal pain Assessment/Plan: Acute on chronic complaints ? if related to the dose adjustement of her chronic home opiate analgesia Ordered CT scan of the abdomen and pelvis with contrast Clear liquid diet until pain further evaluated Receiving relistor. Discontinue to see if this helps improve abdominal pain. Abdominal pain is a potential common reaction with this. Code(s): R10.9 - UNSPECIFIED ABDOMINAL PAIN
[2019-09-27] MEDS: CITALOPRAM HYDROBROMIDE 20 MG TABLET PO SCH (21:14)
[2019-09-27] MEDS: LIDOCAINE PATCH REMOVAL MC SCH (21:26)
[2019-09-28] MEDS ORDERED: PIPERACILLIN/TAZOBACTAM 3.375 GM VIAL IVPB ONE ×3 (02:15→17:46)
[2019-09-28] MEDS ORDERED: DEXTROSE 5%-WATER - 50 ML IVPB ONE ×3 (02:15→17:49)
[2019-09-28] MEDS: methylPREDNISolone NA SUCC 40 MG/1 ML VIAL IVPUSH SCH ×3 (02:35→18:02)
[2019-09-28] MEDS: PIPERACILLIN/TAZOB 3.375 GM 3.375 GM in DEXTROSE 5%-WATER - 50 ML IVPB SCH ×3 (02:36→17:59)
[2019-09-28] MEDS: oxyCODONE HCL 5 MG TABLET PO PRN ×3 (05:12→20:47)
[2019-09-28] MEDS: ACETAMINOPHEN 325 MG TABLET (FP) PO PRN ×3 (05:12→22:16)
[2019-09-28] MEDS: GABAPENTIN 300 MG CAPSULE PO SCH ×3 (05:12→22:17)
[2019-09-28] MEDS: SODIUM CHLORIDE 1,000 ML IV SCH ×2 (05:15→15:59)
[2019-09-28] MEDS: ALBUTEROL SO4 2.5/IPRATROPIUM 0.5 INH SOL 3 ML VIAL.NEB. NEB SCH ×4 (08:00→20:33)
[2019-09-28 08:19] LABS: BASO % 0.1 % (0-2.0); HEMATOCRIT 28.1 % (32.4-45.2); HEMOGLOBIN 9.9 GM/dL (10.7-15.3); LYMPH % 10.4 % (8-40); MCH 35.3 pg (25.7-33.7); MCHC 35.4 g/dl (32.0-36.0); MEAN CELL VOLUME 99.7 fl (80-96); MEAN PLT VOLUME 7.4 fl (7.5-11.1); MONO % 6.1 % (3.8-10.2); NEUT % 83.4 % (42.8-82.8); PLATELET COUNT 97 K/MM3 (134-434); RBC 2.82 M/mm3 (3.60-5.2); RDW 13.4 % (11.6-15.6); WHITE BLOOD COUNT 4.3 K/mm3 (4.0-10.0)
[2019-09-28 08:48] LABS: ALBUMIN 2.7 g/dl (3.4-5.0); BILIRUBIN,TOTAL 0.8 mg/dL (0.2-1); BLOOD UREA NITROGEN 9.4 mg/dL (7-18); CALCIUM 7.9 mg/dL (8.5-10.1); CREATININE 0.6 mg/dL (0.55-1.3); MAGNESIUM 1.8 mg/dL (1.8-2.4); POTASSIUM 3.4 mmol/L (3.5-5.1)
[2019-09-28] MEDS: TAMSULOSIN HCL 0.4 MG CAP PO SCH (08:59)
[2019-09-28] MEDS ORDERED: PT OWN MED DRAWER 7, Y5N ONE ×2 (09:18→22:12)
[2019-09-28] MEDS: LIDOCAINE 5% TOPICAL PATCH TP SCH (09:27)
[2019-09-28] MEDS: ENOXAPARIN NA (PORCINE) 40 MG/0.4 ML DISP.SYRIN SQ SCH (09:27)
[2019-09-28] MEDS: MAGNESIUM OXIDE 400 MG TABLET (FP) PO SCH (09:33)
[2019-09-28] MEDS: THIAMINE HCL 100 MG TABLET (FP) PO SCH (09:33)
--- NOTE | 2019-09-28 09:33 | PN.GI ---
GI Progress Note Subjective: No acute events States abdominal pain not that different than yesterday - Objective Vital Signs: Vital Signs Temperature 97.7 F 09/28/19 05:21 Pulse Rate 60 09/28/19 05:21 Respiratory Rate 20 09/28/19 05:21 Blood Pressure 166/77 09/28/19 05:21 O2 Sat by Pulse Oximetry (%) 97 09/27/19 21:00 Constitutional: Calm Eyes: No: Sclera Icterus Cardiovascular: Yes: Regular Rate and Rhythm Respiratory: Yes: Rhonchi (bilaterally) Gastrointestinal Inspection: No: Distention ...Auscultate: Yes: Normoactive Bowel Sounds ...Palpate: Yes: Tenderness (TTP mid abdomen). No: Guarding, Tenderness, Rebound ...Percussion: No: Tympanitic Edema: No (No LE edema) Neurological: Yes: Alert Labs: CBC, BMP 09/28/19 07:27 09/28/19 07:27 Hepatic Panel Total Bilirubin 0.8 mg/dL (0.2-1) 09/28/19 07:27 AST 42 U/L (15-37) H 09/28/19 07:27 ALT 77 U/L (13-61) H 09/28/19 07:27 Alkaline Phosphatase 64 U/L (45-117) 09/28/19 07:27 Albumin 2.7 g/dl (3.4-5.0) L 09/28/19 07:27 Problem List - Problems (1) Abdominal pain Assessment/Plan: Acute on chronic complaints Relistor held Awaiting CT scan results Continue clears for now until CT scan read and reviewed Continue bowel regimen Simplify medication regimen as feasible as possible Code(s): R10.9 - UNSPECIFIED ABDOMINAL PAIN
[2019-09-28] MEDS: CALCIUM 500MG/VIT-D 200 UNITS COMBO TABLET (FP) PO SCH ×2 (09:34→22:16)
[2019-09-28] MEDS: LACTOBACILLUS ACIDOPHILUS 1 TABLET PO SCH ×2 (09:34→22:15)
[2019-09-28] MEDS: DOCUSATE SODIUM 100 MG CAPSULE (FP) PO SCH ×2 (09:35→22:16)
[2019-09-28] MEDS: PANTOPRAZOLE 40 MG TABLET PO SCH (09:36)
[2019-09-28] MEDS: FERROUS SO4 325 MG TABLET (FP) PO SCH (09:36)
[2019-09-28] MEDS: ASCORBIC ACID 500 MG TABLET (FP) PO SCH (09:36)
[2019-09-28] MEDS: OSELTAMIVIR PHOSPHATE 30 MG CAPSULE PO SCH ×2 (09:38→22:16)
[2019-09-28] MEDS: MULTIVITAMINS (DAILY MVI) TABLET (FP) PO SCH (09:38)
[2019-09-28] MEDS: DOXYCYCLINE HYCLATE 100 MG CAPSULE PO SCH ×2 (09:38→18:04)
[2019-09-28] MEDS: BUDESONIDE/FORMETEROL FUMARATE 160/4.5 mcg INHALER IH SCH ×2 (09:39→22:14)
[2019-09-28] MEDS: POLYETHYLENE GLYCOL 3350 119 GM BTL PO SCH (10:34)
[2019-09-28] MEDS: ALPRAZolam 1 MG TABLET PO PRN ×2 (10:36→22:25)
--- NOTE | 2019-09-28 11:49 | PN ---
Physical Exam: SUBJECTIVE: Patient seen and examined at the bedside. still feels some abdominal pain, no nausea or vomiting. OBJECTIVE: petechia on left upper back, right leg Patient is a 79 year old female with history of bronchiectasis who presented to the ED on 09/24/2019 with shortness of breath, and cough with green sputum for the past 4 days. She was prescribed Levaquin and a steroid 3 days by her Embedded Systems Engineer in [facility]. She states she took this medication for three days without improvement in symptoms. She reported increased urinary frequency without hematuria or dysuria. She also states she fell on the floor and struck the left side of her head the night before admission. There was no loss of consciousness. She denied fever, chills, or chest pain. Patient was also found to be + for influenza A and noted to have thrombocytopenia with mild petechia on right lower leg and left upper back. problem list: Influenza A Possible Community Acquired Pneumonia Hyponatremia Head Contusion UTI petechia thrombocytopenia Vital Signs Period Temp Pulse Resp BP Sys/Casper Pulse Ox Last 24 Hr 97.7 F-98.0 F 57-62 -20 133-166/55-95 97 GENERAL: The patient is awake, alert, and fully oriented, in no acute distress. on supplemental oxygen support HEAD: Normal with no signs of trauma. EYES: PERRL, extraocular movements intact, sclera anicteric, conjunctiva clear. No ptosis. ENT: Ears normal, nares patent, oropharynx clear without exudates, moist mucous membranes. NECK: Trachea midline, full range of motion, supple. LUNGS: Breath sounds diminished bilaterally, no wheezes HEART: Regular rate and rhythm ABDOMEN: Soft, nontender, nondistended, normoactive bowel sounds EXTREMITIES: no edema. NEUROLOGICAL: Normal speech, gait not observed. PSYCH: Normal mood, normal affect. SKIN: petechia of right leg (lower), petechia left upper back Laboratory Results - last 24 hr 09/28/19 09/28/19 07:27 07:27 WBC 4.3 RBC 2.82 L Hgb 9.9 L Hct 28.1 L MCV 99.7 H MCH 35.3 H MCHC 35.4 RDW 13.4 Plt Count 97 L MPV 7.4 L Absolute Neuts (auto) 3.5 Neutrophils % 83.4 H Lymphocytes % 10.4 D Monocytes % 6.1 Eosinophils % 0.0 Basophils % 0.1 D Nucleated RBC % 0 Sodium 139 Potassium 3.4 L Chloride 104 Carbon Dioxide 27 Anion Gap 8 BUN 9.4 Creatinine 0.6 Est GFR (CKD-EPI)AfAm 99.77 Est GFR (CKD-EPI)NonAf 86.09 Random Glucose 120 H Calcium 7.9 L Magnesium 1.8 Total Bilirubin 0.8 AST 42 H ALT 77 H Alkaline Phosphatase 64 Total Protein 6.0 L Albumin 2.7 L Active Medications Generic Name Dose Route Start Last Admin Trade Name Freq PRN Reason Stop Dose Admin Acetaminophen 650 mg 09/26/19 11:00 09/28/19 05:12 Tylenol - PO 650 mg Q6H PRN Administration PAIN 6-10 Albuterol Sulfate 1 amp 09/25/19 08:00 Ventolin 0.083% Nebulizer Soln - NEB RQID PRN SHORT OF BREATH/WHEEZING Albuterol/Ipratropium 1 amp 09/25/19 12:00 09/28/19 11:30 Duoneb - NEB 1 amp RQID [facility] Administration Alprazolam 0.25 mg 09/25/19 14:48 09/28/19 10:36 Xanax PO 0.25 mg Q12H PRN Administration ANXIETY Ascorbic Acid 2,000 mg 09/25/19 10:00 09/28/19 09:36 Vitamin C - PO 2,000 mg DAILY [facility] Administration Bisacodyl 5 mg 09/25/19 04:23 Dulcolax - PO DAILY PRN CONSTIPATION Budesonide/Formoterol Fumarate 2 puff 09/25/19 10:00 09/28/19 09:39 Symbicort 160/4.5mcg - IH 2 puff BID [facility] Administration Calcium Carbonate/Cholecalciferol 1 tab 09/25/19 10:00 09/28/19 09:34 Os-Cale 500+D - PO 1 tab BID [facility] Administration Citalopram Hydrobromide 20 mg 09/25/19 22:00 09/27/19 21:14 Celexa - PO 20 mg HS [facility] Administration Docusate Sodium 100 mg 09/25/19 10:00 09/28/19 09:35 Colace - PO Not Given BID [facility] Doxycycline Hyclate 100 mg 09/26/19 18:00 09/28/19 09:38 Vibramycin - PO 100 mg BID@1000,1800 [facility] Administration Enoxaparin Sodium 40 mg 09/24/19 22:33 09/28/19 09:27 Lovenox - SQ 40 mg DAILY [facility] Administration Ferrous Sulfate 325 mg 09/25/19 10:00 09/28/19 09:36 Feosol - PO 325 mg DAILY [facility] Administration Gabapentin 300 mg 09/25/19 06:00 09/28/19 05:12 Neurontin - PO 300 mg TID [facility] Administration Sodium Chloride 1,000 mls @ 75 mls/hr 09/25/19 10:45 09/28/19 05:15 Normal Saline - IV 75 mls/hr ASDIR [facility] Administration Piperacillin Sod/Tazobactam 50 mls @ 100 mls/hr 09/26/19 13:15 09/28/19 09:27 Sod 3.375 gm/ Dextrose IVPB 100 mls/hr Q8H-IV [facility] Administration Protocol Lactobacillus Acidophilus 1 tab 09/25/19 10:00 09/28/19 09:34 Bacid - PO Not Given BID [facility] Lidocaine 1 patch 09/25/19 11:00 09/28/19 09:27 Lidoderm Patch - TP 1 patch DAILY [facility] Administration Magnesium Oxide 400 mg 09/25/19 10:00 09/28/19 09:33 Mag-Ox - PO 400 mg DAILY [facility] Administration Methylprednisolone Sodium Succinate 40 mg 09/25/19 11:00 09/28/19 09:39 Solu-Medrol - IVPUSH 40 mg Q8H-IV [facility] Administration Miscellaneous 1 each 09/25/19 22:00 09/27/19 21:26 Lidoderm Patch Removal MC 1 each DAILY@2200 [facility] Administration Multivitamins/Minerals/Vitamin C 1 tab 09/26/19 10:00 09/28/19 09:38 Tab-A-Vit - PO 1 tab DAILY [facility] Administration Oseltamivir Phosphate 30 mg 09/25/19 10:00 09/28/19 09:38 Tamiflu - PO 09/30/19 09:59 30 mg BID [facility] Administration Oxycodone HCl 10 mg 09/26/19 10:59 09/28/19 05:12 Roxicodone - PO 10 mg Q6H PRN Administration PAIN LEVEL 6-10 Pantoprazole Sodium 40 mg 09/25/19 10:09/28/19 09:36 Protonix - PO 40 mg DAILY [facility] Administration Polyethylene Glycol 34 gm 09/28/19 10:00 09/28/19 10:34 Miralax (For Daily Use) - PO Not Given DAILY [facility] Propranolol HCl 60 mg 09/25/19 10:00 09/28/19 09:31 Inderal La - PO 60 mg DAILY [facility] Administration Simethicone 80 mg 09/27/19 11:28 09/27/19 11:54 Mylicon - PO 80 mg QID PRN Administration GAS Tamsulosin HCl 0.4 mg 09/26/19 08:30 09/28/19 08:59 Flomax - PO 0.4 mg DAILY@0830 [facility] Administration Thiamine HCl 100 mg 09/27/19 10:00 09/28/19 09:33 Vitamin B1 - PO 100 mg DAILY [facility] Administration ASSESSMENT/PLAN: Problem List - Problems (1) Pneumonia Assessment/Plan: on zosyn per ID pulmonary following Code(s): J18.9 - PNEUMONIA, UNSPECIFIED ORGANISM (2) Shortness of breath at rest Assessment/Plan: on medrol taper Code(s): R06.02 - SHORTNESS OF BREATH (3) Thrombocytopenia Assessment/Plan: platelets decreasing and now with mild petechie on right lower leg, left upper back. will ask hematology to evaluate Code(s): D69.6 - THROMBOCYTOPENIA, UNSPECIFIED (4) Petechiae Code(s): R23.3 - SPONTANEOUS ECCHYMOSES (5) Abdominal pain Assessment/Plan: ct scan without acute finding of abdominal pain c/o tenderness to lower abdomen/epigastric AXR with gaseous pattern/distension on long standing opiods-at risk for ileus gi following recent EGD 03/19 with ulcer and erosion Code(s): R10.9 - UNSPECIFIED ABDOMINAL PAIN (6) Chronic low back pain Assessment/Plan: on oxycodone prn Code(s): M54.5 - LOW BACK PAIN; G89.29 - OTHER CHRONIC PAIN (7) Head contusion Assessment/Plan: s/p fall at home HCT with small left parietal contusion no changes in neuro status patient denies any symptoms Code(s): S00.93XA - CONTUSION OF UNSPECIFIED PART OF HEAD, INITIAL ENCOUNTER (8) Hypokalemia Assessment/Plan: supplemented Code(s): E87.6 - HYPOKALEMIA (9) Influenza A Assessment/Plan: on tamiflu to complete 09/30/2019 Code(s): J10.1 - FLU DUE TO OTH IDENT INFLUENZA VIRUS W OTH RESP MANIFEST (10) Hyponatremia Assessment/Plan: resolved Code(s): E87.1 - HYPO-OSMOLALITY AND HYPONATREMIA (11) Prophylactic measure Assessment/Plan: fen tolerating po monitor electrolytes low salt diet Code(s): Z29.9 - ENCOUNTER FOR PROPHYLACTIC MEASURES, UNSPECIFIED Visit type - Emergency Visit Emergency Visit: Yes ED Registration Date: 09/24/19 Care time: The patient presented to the Emergency Department on the above date and was hospitalized for further evaluation of their emergent condition. - New Patient This patient is new to me today: Yes Date on this admission: 09/28/19 - Critical Care Critical Care patient: No - Discharge Referral Referred to [facility] No
--- NOTE | 2019-09-28 11:53 | PN ---
Progress Note, Physician History of Present Illness: stable no new issues - Current Medication List Current Medications: Active Medications Acetaminophen (Tylenol -) 650 mg PO Q6H PRN PRN Reason: PAIN 6-10 Last Admin: 09/28/19 05:12 Dose: 650 mg Albuterol Sulfate (Ventolin 0.083% Nebulizer Soln -) 1 amp NEB RQID PRN PRN Reason: SHORT OF BREATH/WHEEZING Albuterol/Ipratropium (Duoneb -) 1 amp NEB RQID [facility] Last Admin: 09/28/19 11:30 Dose: 1 amp Alprazolam (Xanax) 0.25 mg PO Q12H PRN PRN Reason: ANXIETY Last Admin: 09/28/19 10:36 Dose: 0.25 mg Ascorbic Acid (Vitamin C -) 2,000 mg PO DAILY [facility] Last Admin: 09/28/19 09:36 Dose: 2,000 mg Bisacodyl (Dulcolax -) 5 mg PO DAILY PRN PRN Reason: CONSTIPATION Budesonide/Formoterol Fumarate (Symbicort 160/4.5mcg -) 2 puff IH BID [facility] Last Admin: 09/28/19 09:39 Dose: 2 puff Calcium Carbonate/Cholecalciferol (Os-Cale 500+D -) 1 tab PO BID [facility] Last Admin: 09/28/19 09:34 Dose: 1 tab Citalopram Hydrobromide (Celexa -) 20 mg PO HS [facility] Last Admin: 09/27/19 21:14 Dose: 20 mg Docusate Sodium (Colace -) 100 mg PO BID [facility] Last Admin: 09/28/19 09:35 Dose: Not Given Doxycycline Hyclate (Vibramycin -) 100 mg PO BID@1000,1800 [facility] Last Admin: 09/28/19 09:38 Dose: 100 mg Enoxaparin Sodium (Lovenox -) 40 mg SQ DAILY [facility] Last Admin: 09/28/19 09:27 Dose: 40 mg Ferrous Sulfate (Feosol -) 325 mg PO DAILY [facility] Last Admin: 09/28/19 09:36 Dose: 325 mg Gabapentin (Neurontin -) 300 mg PO TID [facility] Last Admin: 09/28/19 05:12 Dose: 300 mg Sodium Chloride (Normal Saline -) 1,000 mls @ 75 mls/hr IV ASDIR [facility] Last Admin: 09/28/19 05:15 Dose: 75 mls/hr Piperacillin Sod/Tazobactam (Sod 3.375 gm/ Dextrose) 50 mls @ 100 mls/hr IVPB Q8H-IV [facility]; Protocol Last Admin: 09/28/19 09:27 Dose: 100 mls/hr Lactobacillus Acidophilus (Bacid -) 1 tab PO BID [facility] Last Admin: 09/28/19 09:34 Dose: Not Given Lidocaine (Lidoderm Patch -) 1 patch TP DAILY [facility] Last Admin: 09/28/19 09:27 Dose: 1 patch Magnesium Oxide (Mag-Ox -) 400 mg PO DAILY [facility] Last Admin: 09/28/19 09:33 Dose: 400 mg Methylprednisolone Sodium Succinate (Solu-Medrol -) 40 mg IVPUSH Q8H-IV [facility] Last Admin: 09/28/19 09:39 Dose: 40 mg Miscellaneous (Lidoderm Patch Removal) 1 each MC DAILY@2200 [facility] Last Admin: 09/27/19 21:26 Dose: 1 each Multivitamins/Minerals/Vitamin C (Tab-A-Vit -) 1 tab PO DAILY [facility] Last Admin: 09/28/19 09:38 Dose: 1 tab Oseltamivir Phosphate (Tamiflu -) 30 mg PO BID [facility] Stop: 09/30/19 09:59 Last Admin: 09/28/19 09:38 Dose: 30 mg Oxycodone HCl (Roxicodone -) 10 mg PO Q6H PRN PRN Reason: PAIN LEVEL 6-10 Last Admin: 09/28/19 05:12 Dose: 10 mg Pantoprazole Sodium (Protonix -) 40 mg PO DAILY [facility] Last Admin: 09/28/19 09:36 Dose: 40 mg Polyethylene Glycol (Miralax (For Daily Use) -) 34 gm PO DAILY [facility] Last Admin: 09/28/19 10:34 Dose: Not Given Propranolol HCl (Inderal La -) 60 mg PO DAILY [facility] Last Admin: 09/28/19 09:31 Dose: 60 mg Simethicone (Mylicon -) 80 mg PO QID PRN PRN Reason: GAS Last Admin: 09/27/19 11:54 Dose: 80 mg Tamsulosin HCl (Flomax -) 0.4 mg PO DAILY@0830 [facility] Last Admin: 09/28/19 08:59 Dose: 0.4 mg Thiamine HCl (Vitamin B1 -) 100 mg PO DAILY [facility] Last Admin: 09/28/19 09:33 Dose: 100 mg - Objective Vital Signs: Vital Signs Temperature 97.7 F 09/28/19 05:21 Pulse Rate 60 09/28/19 05:21 Respiratory Rate 20 09/28/19 05:21 Blood Pressure 166/77 09/28/19 05:21 O2 Sat by Pulse Oximetry (%) 97 09/27/19 21:00 Constitutional: Yes: No Distress, Calm Cardiovascular: Yes: S1, S2 Respiratory: Yes: Regular, On Nasal O2, Poor Air Entry Gastrointestinal: Yes: Normal Bowel Sounds, Soft Musculoskeletal: Yes: WNL Extremities: Yes: Other Neurological: Yes: Alert, Oriented Psychiatric: Yes: Alert, Oriented Labs: CBC, BMP 09/28/19 07:27 09/28/19 07:27 Assessment/Plan 79 year old female with history of bronchiectasis who presented with shortness of breath, cough with green sputum associated with generalized weakness,fell yesterday with no LOC and an episode of vomiting.She was found to have influenza and possible community acquired pneumonia. She is being admitted to [facility] for further medical management. #1 Influenza #2 Possible Community Acquired Pneumonia #3 Hyponatremia #4 Head Contusion 5 uti continue abx resp support incentive aureliano rest as per the team
[2019-09-28] MEDS ORDERED: POTASSIUM CHLORIDE TABS 20 MEQ TABLET.ER (FP) PO ONE (15:38)
--- NOTE | 2019-09-28 16:56 | PN ---
Progress Note (short form) - Note Progress Note: I was called by her pulmonary MD in [facility] Dr. Bhavani Aguila. She was made aware of her pulmonary issues and I told the doctor I thought the patient was improving with her current medicine. Dr. Aguila suggested chest PT but the patient is having a lot of back pain. Regarding her normal abdominal CT scan and yet continuing abdominal pain I would consider having a thoracic spine x-ray done because of her fall at home. Occasionally a small compression fracture can cause a mild ileus and abdominal pain. We have no other cause of her abdominal pain unless she has some occult issue such as mesenteric artery stenosis .
[2019-09-28 21:04] VITALS: BMI 20.3
[2019-09-28] MEDS: CITALOPRAM HYDROBROMIDE 20 MG TABLET PO SCH (22:16)
[2019-09-28] MEDS: LIDOCAINE PATCH REMOVAL MC SCH (22:17)
[2019-09-29] MEDS ORDERED: PIPERACILLIN/TAZOBACTAM 3.375 GM VIAL IVPB ONE ×3 (02:33→18:12)
[2019-09-29] MEDS ORDERED: DEXTROSE 5%-WATER - 50 ML IVPB ONE ×3 (02:33→18:12)
[2019-09-29] MEDS: PIPERACILLIN/TAZOB 3.375 GM 3.375 GM in DEXTROSE 5%-WATER - 50 ML IVPB SCH ×3 (03:00→18:41)
[2019-09-29] MEDS: methylPREDNISolone NA SUCC 40 MG/1 ML VIAL IVPUSH SCH ×2 (03:00→10:04)
[2019-09-29] MEDS: ACETAMINOPHEN 325 MG TABLET (FP) PO PRN ×3 (03:54→20:57)
[2019-09-29] MEDS: oxyCODONE HCL 5 MG TABLET PO PRN ×3 (03:55→20:56)
[2019-09-29] MEDS: SODIUM CHLORIDE 1,000 ML IV SCH (06:38)
[2019-09-29] MEDS: GABAPENTIN 300 MG CAPSULE PO SCH ×3 (06:39→22:39)
[2019-09-29] MEDS: ALBUTEROL SO4 2.5/IPRATROPIUM 0.5 INH SOL 3 ML VIAL.NEB. NEB SCH ×4 (07:40→19:44)
[2019-09-29 08:52] LABS: BASO % 0.2 % (0-2.0); HEMATOCRIT 30.3 % (32.4-45.2); HEMOGLOBIN 10.7 GM/dL (10.7-15.3); LYMPH % 11.5 % (8-40); MCH 34.9 pg (25.7-33.7); MCHC 35.3 g/dl (32.0-36.0); MEAN PLT VOLUME 7.1 fl (7.5-11.1); MONO % 5.7 % (3.8-10.2); NEUT % 82.6 % (42.8-82.8); PLATELET COUNT 113 K/MM3 (134-434); RBC 3.07 M/mm3 (3.60-5.2); RDW 13.3 % (11.6-15.6); WHITE BLOOD COUNT 5.2 K/mm3 (4.0-10.0)
[2019-09-29] MEDS: TAMSULOSIN HCL 0.4 MG CAP PO SCH (08:52)
[2019-09-29 08:55] LABS: INR 0.98 (0.83-1.09); PROTHROMBIN TIME (PATIENT) 11.6 SEC (9.7-13.0)
[2019-09-29 09:33] LABS: BILIRUBIN,TOTAL 1.2 mg/dL (0.2-1); BLOOD UREA NITROGEN 11.1 mg/dL (7-18); CALCIUM 8.5 mg/dL (8.5-10.1); CREATININE 0.6 mg/dL (0.55-1.3); MAGNESIUM 1.9 mg/dL (1.8-2.4); POTASSIUM 3.3 mmol/L (3.5-5.1); TOT PROT 6.4 g/dl (6.4-8.2)
[2019-09-29] MEDS ORDERED: PT OWN MED DRAWER 7, Y5N ONE ×2 (09:55→21:52)
[2019-09-29] MEDS: LACTOBACILLUS ACIDOPHILUS 1 TABLET PO SCH ×2 (10:02→22:39)
[2019-09-29] MEDS: CALCIUM 500MG/VIT-D 200 UNITS COMBO TABLET (FP) PO SCH ×2 (10:02→22:39)
[2019-09-29] MEDS: DOXYCYCLINE HYCLATE 100 MG CAPSULE PO SCH ×2 (10:03→18:21)
[2019-09-29] MEDS: ASCORBIC ACID 500 MG TABLET (FP) PO SCH (10:03)
[2019-09-29] MEDS: FERROUS SO4 325 MG TABLET (FP) PO SCH (10:03)
[2019-09-29] MEDS: PANTOPRAZOLE 40 MG TABLET PO SCH (10:03)
[2019-09-29] MEDS: MULTIVITAMINS (DAILY MVI) TABLET (FP) PO SCH (10:03)
[2019-09-29] MEDS: MAGNESIUM OXIDE 400 MG TABLET (FP) PO SCH (10:03)
[2019-09-29] MEDS: THIAMINE HCL 100 MG TABLET (FP) PO SCH (10:03)
[2019-09-29] MEDS: DOCUSATE SODIUM 100 MG CAPSULE (FP) PO SCH ×2 (10:03→22:39)
[2019-09-29] MEDS: LIDOCAINE 5% TOPICAL PATCH TP SCH (10:04)
[2019-09-29] MEDS: BUDESONIDE/FORMETEROL FUMARATE 160/4.5 mcg INHALER IH SCH ×2 (10:05→22:40)
[2019-09-29] MEDS: OSELTAMIVIR PHOSPHATE 30 MG CAPSULE PO SCH ×2 (10:08→22:40)
[2019-09-29] MEDS ORDERED: predniSONE 20 MG TABLET (UD) PO ONE (10:33)
[2019-09-29] MEDS: POLYETHYLENE GLYCOL 3350 119 GM BTL PO SCH (10:43)
[2019-09-29 11:12] LABS: ANISOCYTOSIS 0; MACROCYTOSIS 0; PLATELET ESTIMATE DECREASED
--- NOTE | 2019-09-29 12:43 | PN ---
Progress Note (short form) - Note Progress Note: Breathing feels better today. Less SOB and cough. No acute events overnight. Intake & Output 09/26/19 09/27/19 09/28/19 09/29/19 23:59 23:59 23:59 23:59 Intake Total 2009 1789 1699 Output Total 2249 4050 2850 1800 Balance -240 -4470 -4390 -1800 Weight 107 lb 2 oz 110 lb 8 oz 115 lb 111 lb 5 oz Last Vital Signs Temp Pulse Resp BP Pulse Ox 97.4 F L 76 20 124/66 97 09/29/19 10:10 09/29/19 10:10 09/29/19 10:10 09/29/19 10:10 09/27/19 21:00 Active Medications Acetaminophen (Tylenol -) 650 mg PO Q6H PRN PRN Reason: PAIN 6-10 Last Admin: 09/29/19 10:59 Dose: 650 mg Albuterol Sulfate (Ventolin 0.083% Nebulizer Soln -) 1 amp NEB RQID PRN PRN Reason: SHORT OF BREATH/WHEEZING Albuterol/Ipratropium (Duoneb -) 1 amp NEB RQID [facility] Last Admin: 09/29/19 11:35 Dose: 1 amp Alprazolam (Xanax) 0.25 mg PO Q12H PRN PRN Reason: ANXIETY Last Admin: 09/28/19 22:25 Dose: 0.25 mg Ascorbic Acid (Vitamin C -) 2,000 mg PO DAILY [facility] Last Admin: 09/29/19 10:03 Dose: 2,000 mg Bisacodyl (Dulcolax -) 5 mg PO DAILY PRN PRN Reason: CONSTIPATION Budesonide/Formoterol Fumarate (Symbicort 160/4.5mcg -) 2 puff IH BID [facility] Last Admin: 09/29/19 10:05 Dose: 2 puff Calcium Carbonate/Cholecalciferol (Os-Cale 500+D -) 1 tab PO BID [facility] Last Admin: 09/29/19 10:02 Dose: 1 tab Citalopram Hydrobromide (Celexa -) 20 mg PO HS [facility] Last Admin: 09/28/19 22:16 Dose: 20 mg Docusate Sodium (Colace -) 100 mg PO BID [facility] Last Admin: 09/29/19 10:03 Dose: 100 mg Doxycycline Hyclate (Vibramycin -) 100 mg PO BID@1000,1800 [facility] Last Admin: 09/29/19 10:03 Dose: 100 mg Enoxaparin Sodium (Lovenox -) 40 mg SQ DAILY [facility] Last Admin: 09/28/19 09:27 Dose: 40 mg Ferrous Sulfate (Feosol -) 325 mg PO DAILY [facility] Last Admin: 09/29/19 10:03 Dose: 325 mg Gabapentin (Neurontin -) 300 mg PO TID [facility] Last Admin: 09/29/19 06:39 Dose: 300 mg Piperacillin Sod/Tazobactam (Sod 3.375 gm/ Dextrose) 50 mls @ 100 mls/hr IVPB Q8H-IV [facility]; Protocol Last Admin: 09/29/19 10:07 Dose: 100 mls/hr Lactobacillus Acidophilus (Bacid -) 1 tab PO BID [facility] Last Admin: 09/29/19 10:02 Dose: 1 tab Lidocaine (Lidoderm Patch -) 1 patch TP DAILY [facility] Last Admin: 09/29/19 10:04 Dose: 1 patch Magnesium Oxide (Mag-Ox -) 400 mg PO DAILY [facility] Last Admin: 09/29/19 10:03 Dose: 400 mg Miscellaneous (Lidoderm Patch Removal) 1 each MC DAILY@2200 [facility] Last Admin: 09/28/19 22:17 Dose: 1 each Multivitamins/Minerals/Vitamin C (Tab-A-Vit -) 1 tab PO DAILY [facility] Last Admin: 09/29/19 10:03 Dose: 1 tab Oseltamivir Phosphate (Tamiflu -) 30 mg PO BID [facility] Stop: 09/30/19 09:59 Last Admin: 09/29/19 10:08 Dose: 30 mg Oxycodone HCl (Roxicodone -) 10 mg PO Q6H PRN PRN Reason: PAIN LEVEL 6-10 Last Admin: 09/29/19 10:58 Dose: 10 mg Pantoprazole Sodium (Protonix -) 40 mg PO DAILY [facility] Last Admin: 09/29/19 10:03 Dose: 40 mg Polyethylene Glycol (Miralax (For Daily Use) -) 34 gm PO DAILY [facility] Last Admin: 09/29/19 10:43 Dose: 34 gm Prednisone (Deltasone -) 40 mg PO DAILY [facility] Propranolol HCl (Inderal La -) 60 mg PO DAILY [facility] Last Admin: 09/29/19 10:03 Dose: 60 mg Simethicone (Mylicon -) 80 mg PO QID PRN PRN Reason: GAS Last Admin: 09/27/19 11:54 Dose: 80 mg Tamsulosin HCl (Flomax -) 0.4 mg PO DAILY@0830 [facility] Last Admin: 09/29/19 08:52 Dose: 0.4 mg Thiamine HCl (Vitamin B1 -) 100 mg PO DAILY [facility] Last Admin: 09/29/19 10:03 Dose: 100 mg Gen: NAD Heart: RRR Lung: scattered rhonchi Abd: softly distended, nontender Ext: no edema Laboratory Results - last 24 hr 09/29/19 09/29/19 09/29/19 07:40 07:40 07:40 WBC 5.2 RBC 3.07 L Hgb 10.7 Hct 30.3 L MCV 99.0 H MCH 34.9 H MCHC 35.3 RDW 13.3 Plt Count 113 L MPV 7.1 L Absolute Neuts (auto) 4.3 Neutrophils % 82.6 Neutrophils % (Manual) 77.2 Band Neutrophils % 0.0 Lymphocytes % 11.5 Lymphocytes % (Manual) 13.8 Monocytes % 5.7 Monocytes % (Manual) 3 L Eosinophils % 0.0 Eosinophils % (Manual) 0.0 Basophils % 0.2 Basophils % (Manual) 0.0 Myelocytes % (Man) 2 Promyelocytes % (Man) 0 Blast Cells % (Manual) 0 Nucleated RBC % 0 Metamyelocytes 2 Hypochromia 0 Platelet Estimate Decreased Polychromasia 0 Poikilocytosis 0 Anisocytosis 0 Microcytosis 0 Macrocytosis 0 PT with INR 11.60 INR 0.98 Sodium 136 Potassium 3.3 L Chloride 102 Carbon Dioxide 28 Anion Gap 7 L BUN 11.1 Creatinine 0.6 Est GFR (CKD-EPI)AfAm 99.77 Est GFR (CKD-EPI)NonAf 86.09 Random Glucose 107 H Calcium 8.5 Magnesium 1.9 Total Bilirubin 1.2 H AST 35 ALT 79 H Alkaline Phosphatase 62 Total Protein 6.4 Albumin 3.0 L Problem List - Problems (1) Influenza A Code(s): J10.1 - FLU DUE TO OTH IDENT INFLUENZA VIRUS W OTH RESP MANIFEST (2) Pneumonia Code(s): J18.9 - PNEUMONIA, UNSPECIFIED ORGANISM A/P Influenza A r/o Pneumonia Acute COPD/Bronchiectasis Exacerbation JEREMIAS/Pseudomonas s/p Fall Raynaud's Disease Anxiety/Depression Hyponatremia Anemia - tamiflu x 5 days - continue empiric antibiotics - continue medrol - inhaled bronchodilators standing and PRN - O2 to keep SpO2 >90% - pain control - monitor lytes - DVT prophylaxis Dr Tran
--- NOTE | 2019-09-29 14:34 | CONSULT ---
Consult Consult Specialty:: Heme Referred by:: Dr. Leslie Reason for Consultation:: Thrombocytopenia - History of Present Illness Chief Complaint: cough and sob History of Present Illness: 79F with hx bronchiectasis admitted with shortness of breath, cough with green sputum and generalized weakness on 09/24. Found to have influenza and possible community acquired pneumonia. Hematology consulted for thrombocytopenia. Plt count 109 on presentation, down to 97 yesterday and up to 113 today. Plt count is normal at baseline (last 04/2019). Hgb 10.7 (has mild chronic macrocytic anemia), WBC normal. INR normal. Has been on Zosyn, doxycycline. Pt denies prior hx of abnormal blood counts. No bleeding. - Past Medical History Cardio/Vascular: Yes: Other (Mitral lucy prolapse) Pulmonary: Yes: Other (bronchiectasis) Gastrointestinal: Yes: Constipation, GERD Renal/: Yes: Hematuria ...: No Psych: Yes: Anxiety Musculoskeletal: Yes: Chronic low back pain Rheumatology: Yes: Other (Sjogren's syndrome, raynaud's disease, fibromyalgia) Endocrine: Yes: Hyperparathyroidism, Hypothyroidism - Past Surgical History Past Surgical History: Yes: Cataract Removal, Cholecystectomy, Hysterectomy ( MARKO secondary to fibroids), Joint Replacement - Alcohol/Substance Use Hx Alcohol Use: No History of Substance Use: reports: None - Smoking History Smoking history: Former smoker Have you smoked in the past 12 months: No Aproximately how many cigarettes per day: 0 If you are a former smoker, when did you quit?: 1969 - Social History Usual Living Arrangement: With Child ADL: Independent 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 History of Recent Travel: No Home Medications - Allergies Allergies/Adverse Reactions: Allergies Allergy/AdvReac Type Severity Reaction Status Date / Time No Known Drug Allergies Allergy Verified 09/24/19 12:08 - Home Medications Home Medications: Ambulatory Orders Alprazolam [Xanax] 0.25 mg PO BID PRN 01/25/12 Ascorbic Acid [Vitamin C] 2,000 mg PO DAILY 01/25/12 Calcium Carbonate/Vitamin D3 [Caltrate 600 + D Tablet] 1 each PO BID 01/25/12 Citalopram Hydrobromide [Celexa -] 20 mg PO HS 01/25/12 Ranitidine [Zantac -] 150 mg PO BID 01/25/12 propRANOLol HCL [Inderal -] 60 mg PO DAILY 01/25/12 Albuterol 0.083% Nebulizer Manju [Ventolin 0.083% Nebulizer Soln -] 1 neb NEB DAILY 09/25/13 Oxycodone HCl/Acetaminophen [Percocet 10-325 mg Tablet] 15 mg PO BID PRN Tobramycin/Na Chlor 0.2% [Cornell (Do Not Stock)] 300 mg IH DAILY 02/19/15 Biotin 1 mg PO DAILY 01/05/16 Butalbit/Acetamin/Caff/Codeine [Fioricet-Cod 75-269-88-30 Cap] 1 each PO TID PRN 01/05/16 Calcium/Cranberry Fruit [Cranberry 400 mg Caplet] 1 each PO DAILY 01/05/16 Gabapentin [Neurontin] 300 mg PO TID 01/05/16 L.acidoph,Paracasei, B.lactis [Probiotic] 1 each PO BID 01/05/16 Multivitamins [Multivit ([facility] Formulary)] 1 tab PO DAILY 01/05/16 Potassium Chloride [Klor-Con 10] 20 meq PO BID 01/05/16 Budesonide/Formeterol Fumarate [SYMBICORT 160/4.5mcg -] 2 inh PO BID 12/15/16 Magnesium Oxide [Magnesium] 500 mg PO DAILY 12/15/16 Tizanidine HCl 2 mg PO HS 12/15/16 Bisacodyl [Dulcolax] 5 mg PO DAILY PRN #30 tablet. 03/19/19 Docusate Sodium [Colace -] 100 mg PO BID #90 capsule 03/19/19 Ferrous Sulfate 325 mg PO DAILY #30 tablet 03/19/19 Pantoprazole Sodium [Protonix -] 40 mg PO DAILY #30 tablet.ec 03/19/19 Polyethylene Glycol 3350 [Miralax (For Daily Use) -] 17 gm PO BID PRN #1 bottle 03/19/19 Review of Systems - Review of Systems Constitutional: reports: Fever. denies: Lethargy, Weakness Cardiovascular: denies: Chest Pain Respiratory: reports: No Symptoms, Cough, SOB Hematology/Lymphatic: reports: No Symptoms Physical Exam Vital Signs: Vital Signs Temperature 97.4 F L 09/29/19 10:10 Pulse Rate 76 09/29/19 10:10 Respiratory Rate 20 29/20 10:10 Blood Pressure 124/66 09/29/19 10:10 O2 Sat by Pulse Oximetry (%) 97 09/27/19 21:00 Constitutional: Yes: Well Nourished, No Distress, Calm Eyes: Yes: Conjunctiva Clear Neck: Yes: Supple. No: Lymphadenopathy Cardiovascular: Yes: Regular Rate and Rhythm Respiratory: Yes: Regular, CTA Bilaterally Gastrointestinal: Yes: Soft. No: Distention, Hepatomegaly, Palpable Mass, Splenomegaly Edema: No Labs: CBC, BMP 09/29/19 07:40 09/29/19 07:40 Assessment/Plan 79F with flu, pneumonia, and mild improving thrombocytopenia. Peripheral smear with no plt clumps or schistocytes, some neutrophils with toxic granulations. Expect that plt count will improve as infection gets better. Please check b12, folate, iron studies.
--- NOTE | 2019-09-29 15:33 | PN ---
Teaching Attending Note Name of Resident: Maribel Chan ATTENDING PHYSICIAN STATEMENT I saw and evaluated the patient. I reviewed the resident's note and discussed the case with the resident. I agree with the resident's findings and plan as documented. SUBJECTIVE: Dyspnea improving, no overnight events. Feels generally weak. No specific complaints. No fever/chills. OBJECTIVE: Afebrile, Hemodynamically Stable. Last Vital Signs Temp Pulse Resp BP Pulse Ox 97.4 F L 76 20 124/66 97 09/29/19 10:10 09/29/19 10:10 09/29/19 10:10 09/29/19 10:10 09/27/19 21:00 HEENT - Atraumatic, Normocephalic. Heart - S1, S2, soft SM Lungs - clear to auscultation, no wheeze Abdomen - soft, non-tender. Bowel Sounds normal. Extremities - no edema, no calf tenderness. Neuro - AAO x 3.Tone/Power normal. Laboratory Results - last 24 hr 09/29/19 09/29/19 09/29/19 07:40 07:40 07:40 WBC 5.2 RBC 3.07 L Hgb 10.7 Hct 30.3 L MCV 99.0 H MCH 34.9 H MCHC 35.3 RDW 13.3 Plt Count 113 L MPV 7.1 L Absolute Neuts (auto) 4.3 Neutrophils % 82.6 Neutrophils % (Manual) 77.2 Band Neutrophils % 0.0 Lymphocytes % 11.5 Lymphocytes % (Manual) 13.8 Monocytes % 5.7 Monocytes % (Manual) 3 L Eosinophils % 0.0 Eosinophils % (Manual) 0.0 Basophils % 0.2 Basophils % (Manual) 0.0 Myelocytes % (Man) 2 Promyelocytes % (Man) 0 Blast Cells % (Manual) 0 Nucleated RBC % 0 Metamyelocytes 2 Hypochromia 0 Platelet Estimate Decreased Polychromasia 0 Poikilocytosis 0 Anisocytosis 0 Microcytosis 0 Macrocytosis 0 PT with INR 11.60 INR 0.98 Sodium 136 Potassium 3.3 L Chloride 102 Carbon Dioxide 28 Anion Gap 7 L BUN 11.1 Creatinine 0.6 Est GFR (CKD-EPI)AfAm 99.77 Est GFR (CKD-EPI)NonAf 86.09 Random Glucose 107 H Calcium 8.5 Magnesium 1.9 Total Bilirubin 1.2 H AST 35 ALT 79 H Alkaline Phosphatase 62 Total Protein 6.4 Albumin 3.0 L Current Medications Generic Name Dose Route Start Last Admin Trade Name Freq PRN Reason Stop Dose Admin Acetaminophen 650 mg 09/26/19 11:00 09/29/19 10:59 Tylenol - PO 650 mg Q6H PRN Administration PAIN 6-10 Albuterol Sulfate 1 amp 09/25/19 08:00 Ventolin 0.083% Nebulizer Soln - NEB RQID PRN SHORT OF BREATH/WHEEZING Albuterol/Ipratropium 1 amp 09/25/19 12:00 09/29/19 11:35 Duoneb - NEB 1 amp RQID [facility] Administration Alprazolam 0.25 mg 09/25/19 14:48 09/28/19 22:25 Xanax PO 0.25 mg Q12H PRN Administration ANXIETY Ascorbic Acid 2,000 mg 09/25/19 10:00 09/29/19 10:03 Vitamin C - PO 2,000 mg DAILY [facility] Administration Bisacodyl 5 mg 09/25/19 04:23 Dulcolax - PO DAILY PRN CONSTIPATION Budesonide/Formoterol Fumarate 2 puff 09/25/19 10:00 09/29/19 10:05 Symbicort 160/4.5mcg - IH 2 puff BID [facility] Administration Calcium Carbonate/Cholecalciferol 1 tab 09/25/19 10:00 09/29/19 10:02 Os-Cale 500+D - PO 1 tab BID [facility] Administration Citalopram Hydrobromide 20 mg 09/25/19 22:00 09/28/19 22:16 Celexa - PO 20 mg HS [facility] Administration Docusate Sodium 100 mg 09/25/19 10:00 09/29/19 10:03 Colace - PO 100 mg BID [facility] Administration Doxycycline Hyclate 100 mg 09/26/19 18:00 09/29/19 10:03 Vibramycin - PO 100 mg BID@1000,1800 [facility] Administration Enoxaparin Sodium 40 mg 09/24/19 22:33 09/28/19 09:27 Lovenox - SQ 40 mg DAILY [facility] Administration Ferrous Sulfate 325 mg 09/25/19 10:00 09/29/19 10:03 Feosol - PO 325 mg DAILY [facility] Administration Gabapentin 300 mg 09/25/19 06:00 09/29/19 14:47 Neurontin - PO 300 mg TID [facility] Administration Piperacillin Sod/Tazobactam 50 mls @ 100 mls/hr 09/26/19 13:15 09/29/19 10:07 Sod 3.375 gm/ Dextrose IVPB 100 mls/hr Q8H-IV [facility] Administration Protocol Lactobacillus Acidophilus 1 tab 09/25/19 10:00 09/29/19 10:02 Bacid - PO 1 tab BID [facility] Administration Lidocaine 1 patch 09/25/19 11:00 09/29/19 10:04 Lidoderm Patch - TP 1 patch DAILY [facility] Administration Magnesium Oxide 400 mg 09/25/19 10:00 09/29/19 10:03 Mag-Ox - PO 400 mg DAILY [facility] Administration Miscellaneous 1 each 09/25/19 22:00 09/28/19 22:17 Lidoderm Patch Removal MC 1 each DAILY@2200 [facility] Administration Multivitamins/Minerals/Vitamin C 1 tab 09/26/19 10:00 09/29/19 10:03 Tab-A-Vit - PO 1 tab DAILY [facility] Administration Oseltamivir Phosphate 30 mg 09/25/19 10:00 09/29/19 10:08 Tamiflu - PO 09/30/19 09:59 30 mg BID [facility] Administration Oxycodone HCl 10 mg 09/26/19 10:59 09/29/19 10:58 Roxicodone - PO 10 mg Q6H PRN Administration PAIN LEVEL 6-10 Pantoprazole Sodium 40 mg 09/25/19 10:00 09/29/19 10:03 Protonix - PO 40 mg DAILY [facility] Administration Polyethylene Glycol 34 gm 09/28/19 10:00 09/29/19 10:43 Miralax (For Daily Use) - PO 34 gm DAILY [facility] Administration Prednisone 40 mg 09/30/19 10:00 Deltasone - PO DAILY [facility] Propranolol HCl 60 mg 09/25/19 10:00 09/29/19 10:03 Inderal La - PO 60 mg DAILY [facility] Administration Simethicone 80 mg 09/27/19 11:28 09/27/19 11:54 Mylicon - PO 80 mg QID PRN Administration GAS Tamsulosin HCl 0.4 mg 09/26/19 08:30 09/29/19 08:52 Flomax - PO 0.4 mg DAILY@0830 [facility] Administration Thiamine HCl 100 mg 09/27/19 10:00 09/29/19 10:03 Vitamin B1 - PO 100 mg DAILY [facility] Administration Home Medications Medication Instructions Recorded Alprazolam [Xanax] 0.25 mg PO BID PRN 01/25/12 Ascorbic Acid [Vitamin C] 2,000 mg PO DAILY 01/25/12 Calcium Carbonate/Vitamin D3 1 each PO BID 01/25/12 [Caltrate 600 + D Tablet] Citalopram Hydrobromide [Celexa -] 20 mg PO HS 01/25/12 Ranitidine [Zantac -] 150 mg PO BID 01/25/12 propRANOLol HCL [Inderal -] 60 mg PO DAILY 01/25/12 Albuterol 0.083% Nebulizer Manju 1 neb NEB DAILY 09/25/13 [Ventolin 0.083% Nebulizer Soln -] Oxycodone HCl/Acetaminophen 15 mg PO BID PRN 02/19/15 [Percocet 10-325 mg Tablet] Tobramycin/Na Chlor 0.2% [Cornell (Do 300 mg IH DAILY 02/19/15 Not Stock)] Biotin 1 mg PO DAILY 01/05/16 Butalbit/Acetamin/Caff/Codeine 1 each PO TID PRN 01/05/16 [Fioricet-Cod 99-128-23-30 Cap] Calcium/Cranberry Fruit [Cranberry 1 each PO DAILY 01/05/16 400 mg Caplet] Gabapentin [Neurontin] 300 mg PO TID 01/05/16 L.acidoph,Paracasei, B.lactis 1 each PO BID 01/05/16 [Probiotic] Multivitamins [Multivit ([facility] 1 tab PO DAILY 01/05/16 Formulary)] Potassium Chloride [Klor-Con 10] 20 meq PO BID 01/05/16 Budesonide/Formeterol Fumarate 2 inh PO BID 12/15/16 [SYMBICORT 160/4.5mcg -] Magnesium Oxide [Magnesium] 500 mg PO DAILY 12/15/16 Tizanidine HCl 2 mg PO HS 12/15/16 Bisacodyl [Dulcolax] 5 mg PO DAILY PRN #30 tablet. 03/19/19 Docusate Sodium [Colace -] 100 mg PO BID #90 capsule 03/19/19 Ferrous Sulfate 325 mg PO DAILY #30 tablet 03/19/19 Pantoprazole Sodium [Protonix -] 40 mg PO DAILY #30 tablet.ec 03/19/19 Polyethylene Glycol 3350 [Miralax 17 gm PO BID PRN #1 bottle 03/19/19 (For Daily Use) -] ASSESSMENT AND PLAN: 79 year old female with history of COPD/Bronchiectasis, Anxiety, PUD/GERD, BRE, presented with 4 day history of shortness of breath, and cough with green sputum for the past 4 days, failed out-patient Abx/Steroid therapy with Levaquin /Prednisone. Found to be Influenza A positive. 1. Acute COPD Exacerbation sec to CAP/Influenza A on background Bronchiectasis. Continue Zosyn, Tamiflu. Afebrile, Hemodynamically Stable. Transition IV Solumedrol to oral Prednisone Wean off supplemental O2. 2. PUD/GERD - On PPI 3. 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 On Oxycodone PRN chronically 4. Anxiety/Depression - stable on Alprazolam, Celexa and Inderal. 5. Thrombocytopenia ? etiology. Hematology consulted, will await further recommendations. 6. Non-specific intermittent abdominal pain with elevated ALT - CT A/P w/ contrast negative for any acute findings; small R pl effusion and bibasilar consolidation. GI following. DVT Px - Lovenox SQ
--- NOTE | 2019-09-29 16:36 | PN ---
Progress Note, Physician History of Present Illness: Pt states she is breathing better, less cough. Remains afebrile. - Current Medication List Current Medications: Active Medications Acetaminophen (Tylenol -) 650 mg PO Q6H PRN PRN Reason: PAIN 6-10 Last Admin: 09/29/19 10:59 Dose: 650 mg Albuterol Sulfate (Ventolin 0.083% Nebulizer Soln -) 1 amp NEB RQID PRN PRN Reason: SHORT OF BREATH/WHEEZING Albuterol/Ipratropium (Duoneb -) 1 amp NEB RQID [facility] Last Admin: 09/29/19 11:35 Dose: 1 amp Alprazolam (Xanax) 0.25 mg PO Q12H PRN PRN Reason: ANXIETY Last Admin: 09/28/19 22:25 Dose: 0.25 mg Ascorbic Acid (Vitamin C -) 2,000 mg PO DAILY [facility] Last Admin: 09/29/19 10:03 Dose: 2,000 mg Bisacodyl (Dulcolax -) 5 mg PO DAILY PRN PRN Reason: CONSTIPATION Budesonide/Formoterol Fumarate (Symbicort 160/4.5mcg -) 2 puff IH BID [facility] Last Admin: 09/29/19 10:05 Dose: 2 puff Calcium Carbonate/Cholecalciferol (Os-Cale 500+D -) 1 tab PO BID [facility] Last Admin: 09/29/19 10:02 Dose: 1 tab Citalopram Hydrobromide (Celexa -) 20 mg PO HS [facility] Last Admin: 09/28/19 22:16 Dose: 20 mg Docusate Sodium (Colace -) 100 mg PO BID [facility] Last Admin: 09/29/19 10:03 Dose: 100 mg Doxycycline Hyclate (Vibramycin -) 100 mg PO BID@1000,1800 [facility] Last Admin: 09/29/19 10:03 Dose: 100 mg Enoxaparin Sodium (Lovenox -) 40 mg SQ DAILY [facility] Last Admin: 09/28/19 09:27 Dose: 40 mg Ferrous Sulfate (Feosol -) 325 mg PO DAILY [facility] Last Admin: 09/29/19 10:03 Dose: 325 mg Gabapentin (Neurontin -) 300 mg PO TID [facility] Last Admin: 09/29/19 14:47 Dose: 300 mg Piperacillin Sod/Tazobactam (Sod 3.375 gm/ Dextrose) 50 mls @ 100 mls/hr IVPB Q8H-IV [facility]; Protocol Last Admin: 09/29/19 10:07 Dose: 100 mls/hr Lactobacillus Acidophilus (Bacid -) 1 tab PO BID [facility] Last Admin: 09/29/19 10:02 Dose: 1 tab Lidocaine (Lidoderm Patch -) 1 patch TP DAILY [facility] Last Admin: 09/29/19 10:04 Dose: 1 patch Magnesium Oxide (Mag-Ox -) 400 mg PO DAILY [facility] Last Admin: 09/29/19 10:03 Dose: 400 mg Miscellaneous (Lidoderm Patch Removal) 1 each MC DAILY@2200 [facility] Last Admin: 09/28/19 22:17 Dose: 1 each Multivitamins/Minerals/Vitamin C (Tab-A-Vit -) 1 tab PO DAILY [facility] Last Admin: 09/29/19 10:03 Dose: 1 tab Oseltamivir Phosphate (Tamiflu -) 30 mg PO BID [facility] Stop: 09/30/19 09:59 Last Admin: 09/29/19 10:08 Dose: 30 mg Oxycodone HCl (Roxicodone -) 10 mg PO Q6H PRN PRN Reason: PAIN LEVEL 6-10 Last Admin: 09/29/19 10:58 Dose: 10 mg Pantoprazole Sodium (Protonix -) 40 mg PO DAILY [facility] Last Admin: 09/29/19 10:03 Dose: 40 mg Polyethylene Glycol (Miralax (For Daily Use) -) 34 gm PO DAILY [facility] Last Admin: 09/29/19 10:43 Dose: 34 gm Potassium Chloride (K-Dur -) 40 meq PO Q6H [facility] Stop: 09/29/19 22:01 Prednisone (Deltasone -) 40 mg PO DAILY [facility] Propranolol HCl (Inderal La -) 60 mg PO DAILY [facility] Last Admin: 09/29/19 10:03 Dose: 60 mg Simethicone (Mylicon -) 80 mg PO QID PRN PRN Reason: GAS Last Admin: 09/27/19 11:54 Dose: 80 mg Tamsulosin HCl (Flomax -) 0.4 mg PO DAILY@0830 [facility] Last Admin: 09/29/19 08:52 Dose: 0.4 mg Thiamine HCl (Vitamin B1 -) 100 mg PO DAILY [facility] Last Admin: 09/29/19 10:03 Dose: 100 mg - Objective Vital Signs: Vital Signs Temperature 97.4 F L 09/29/19 10:10 Pulse Rate 76 09/29/19 10:10 Respiratory Rate 20 09/29/19 10:10 Blood Pressure 124/66 09/29/19 10:10 O2 Sat by Pulse Oximetry (%) 97 09/29/19 10:00 Constitutional: Yes: No Distress, Calm Cardiovascular: Yes: Regular Rate and Rhythm Respiratory: Yes: CTA Bilaterally Gastrointestinal: Yes: Normal Bowel Sounds, Soft Genitourinary: Yes: Bernal Present Musculoskeletal: Yes: Back Pain Edema: No Integumentary: Yes: WNL Neurological: Yes: Alert, Oriented Labs: CBC, BMP 09/29/19 07:40 09/29/19 07:40 INR, PTT INR 0.98 (0.83-1.09) 09/29/19 07:40 Microbiology 09/27/19 04:40 Sputum - Expectorated Gram Stain - Final 09/27/19 04:40 Sputum - Expectorated Sputum Culture - Preliminary Staphylococcus Latex Coag Pos Non Lactose Fermenting Gnb Non Lactose Fermenting Gnb#2 Pending Organism 09/24/19 13:00 Urine - Urine Clean Catch Urine Culture - Final S Aureus - ....Imaging Chest X-ray: Report Reviewed X-ray: Report Reviewed Problem List - Problems (1) Influenza A Code(s): J10.1 - FLU DUE TO OTH IDENT INFLUENZA VIRUS W OTH RESP MANIFEST (2) Pneumonia Code(s): J18.9 - PNEUMONIA, UNSPECIFIED ORGANISM (3) Thrombocytopenia Code(s): D69.6 - THROMBOCYTOPENIA, UNSPECIFIED (4) Low back pain Code(s): M54.5 - LOW BACK PAIN Assessment/Plan Multilobar PNA Influenza A Acute COPD Exacerbation COPD s/p Fall Vertebral Fx Thrombocytopenia Raynaud's -- continue Zosyn/doxycycline -- complete Tamiflu course -- follow up sputum culture isolates: multiple organisms -- Orthopedics f/u -- Hematology evaluation noted, monitor cbc -- Pt states she is feeling better respiratory-[place], afebrile Continue monitor
--- NOTE | 2019-09-29 18:13 | PN ---
Physical Exam: SUBJECTIVE: Patient seen and examined at bedside. No acute events overnight. Pt complaining of back pain and generalized weakness. No respiratory complaints. OBJECTIVE: Vital Signs Temperature 97.4 F L 09/29/19 10:10 Pulse Rate 76 09/29/19 10:10 Respiratory Rate 09/29/19 10:10 Blood Pressure 124/66 09/29/19 10:10 O2 Sat by Pulse Oximetry (%) 97 09/29/19 10:00 GENERAL: AAOx3. NAD. Resting comfortably in bed. HEENT: AT/NC. EOMI. MMM. NECK: Trachea midline, full range of motion, supple. LUNGS: CTA B/L. No wheezes or rales noted. HEART: RRR. Normal S1, S2. No murmurs noted. ABDOMEN: Soft, NT/ND. Normoactive bowel sounds in all 4qs. EXTREMITIES: 2+ pulses, warm, well-perfused, no edema. NEUROLOGICAL: Cranial nerves II through XII grossly intact. Normal speech. SKIN: Warm, dry, normal turgor, no rashes or lesions noted Laboratory Results - last 24 hr 09/29/19 09/29/19 09/29/19 07:40 07:40 07:40 WBC 5.2 RBC 3.07 L Hgb 10.7 Hct 30.3 L MCV 99.0 H MCH 34.9 H MCHC 35.3 RDW 13.3 Plt Count 113 L MPV 7.1 L Absolute Neuts (auto) 4.3 Neutrophils % 82.6 Neutrophils % (Manual) 77.2 Band Neutrophils % 0.0 Lymphocytes % 11.5 Lymphocytes % (Manual) 13.8 Monocytes % 5.7 Monocytes % (Manual) 3 L Eosinophils % 0.0 Eosinophils % (Manual) 0.0 Basophils % 0.2 Basophils % (Manual) 0.0 Myelocytes % (Man) 2 Promyelocytes % (Man) 0 Blast Cells % (Manual) 0 Nucleated RBC % 0 Metamyelocytes 2 Hypochromia 0 Platelet Estimate Decreased Polychromasia 0 Poikilocytosis 0 Anisocytosis 0 Microcytosis 0 Macrocytosis 0 PT with INR 11.60 INR 0.98 Sodium 136 Potassium 3.3 L Chloride 102 Carbon Dioxide 28 Anion Gap 7 L BUN 11.1 Creatinine 0.6 Est GFR (CKD-EPI)AfAm 99.77 Est GFR (CKD-EPI)NonAf 86.09 Random Glucose 107 H Calcium 8.5 Magnesium 1.9 Total Bilirubin 1.2 H AST 35 ALT 79 H Alkaline Phosphatase 62 Total Protein 6.4 Albumin 3.0 L Active Medications Acetaminophen (Tylenol -) 650 mg PO Q6H PRN PRN Reason: PAIN 6-10 Last Admin: 09/29/19 10:59 Dose: 650 mg Albuterol Sulfate (Ventolin 0.083% Nebulizer Soln -) 1 amp NEB RQID PRN PRN Reason: SHORT OF BREATH/WHEEZING Albuterol/Ipratropium (Duoneb -) 1 amp NEB RQID [facility] Last Admin: 09/29/19 15:35 Dose: 1 amp Alprazolam (Xanax) 0.25 mg PO Q12H PRN PRN Reason: ANXIETY Last Admin: 09/28/19 22:25 Dose: 0.25 mg Ascorbic Acid (Vitamin C -) 2,000 mg PO DAILY [facility] Last Admin: 09/29/19 10:03 Dose: 2,000 mg Bisacodyl (Dulcolax -) 5 mg PO DAILY PRN PRN Reason: CONSTIPATION Budesonide/Formoterol Fumarate (Symbicort 160/4.5mcg -) 2 puff IH BID [facility] Last Admin: 09/29/19 10:05 Dose: 2 puff Calcium Carbonate/Cholecalciferol (Os-Cale 500+D -) 1 tab PO BID [facility] Last Admin: 09/29/19 10:02 Dose: 1 tab Citalopram Hydrobromide (Celexa -) 20 mg PO HS [facility] Last Admin: 09/28/19 22:16 Dose: 20 mg Docusate Sodium (Colace -) 100 mg PO BID [facility] Last Admin: 09/29/19 10:03 Dose: 100 mg Doxycycline Hyclate (Vibramycin -) 100 mg PO BID@1000,1800 [facility] Last Admin: 09/29/19 10:03 Dose: 100 mg Enoxaparin Sodium (Lovenox -) 40 mg SQ DAILY [facility] Last Admin: 09/28/19 09:27 Dose: 40 mg Ferrous Sulfate (Feosol -) 325 mg PO DAILY [facility] Last Admin: 09/29/19 10:03 Dose: 325 mg Gabapentin (Neurontin -) 300 mg PO TID [facility] Last Admin: 09/29/19 14:47 Dose: 300 mg Piperacillin Sod/Tazobactam (Sod 3.375 gm/ Dextrose) 50 mls @ 100 mls/hr IVPB Q8H-IV [facility]; Protocol Last Admin: 09/29/19 10:07 Dose: 100 mls/hr Lactobacillus Acidophilus (Bacid -) 1 tab PO BID [facility] Last Admin: 09/29/19 10:02 Dose: 1 tab Lidocaine (Lidoderm Patch -) 1 patch TP DAILY [facility] Last Admin: 09/29/19 10:04 Dose: 1 patch Magnesium Oxide (Mag-Ox -) 400 mg PO DAILY [facility] Last Admin: 09/29/19 10:03 Dose: 400 mg Miscellaneous (Lidoderm Patch Removal) 1 each MC DAILY@2200 [facility] Last Admin: 09/28/19 22:17 Dose: 1 each Multivitamins/Minerals/Vitamin C (Tab-A-Vit -) 1 tab PO DAILY [facility] Last Admin: 09/29/19 10:03 Dose: 1 tab Oseltamivir Phosphate (Tamiflu -) 30 mg PO BID [facility] Stop: 09/30/19 09:59 Last Admin: 09/29/19 10:08 Dose: 30 mg Oxycodone HCl (Roxicodone -) 10 mg PO Q6H PRN PRN Reason: PAIN LEVEL 6-10 Last Admin: 09/29/19 10:58 Dose: 10 mg Pantoprazole Sodium (Protonix -) 40 mg PO DAILY [facility] Last Admin: 09/29/19 10:03 Dose: 40 mg Polyethylene Glycol (Miralax (For Daily Use) -) 34 gm PO DAILY [facility] Last Admin: 09/29/19 10:43 Dose: 34 gm Potassium Chloride (K-Dur -) 40 meq PO Q6H [facility] Stop: 09/29/19 22:01 Prednisone (Deltasone -) 40 mg PO DAILY [facility] Propranolol HCl (Inderal La -) 60 mg PO DAILY [facility] Last Admin: 09/29/19 10:03 Dose: 60 mg Simethicone (Mylicon -) 80 mg PO QID PRN PRN Reason: GAS Last Admin: 09/27/19 11:54 Dose: 80 mg Tamsulosin HCl (Flomax -) 0.4 mg PO DAILY@0830 [facility] Last Admin: 09/29/19 08:52 Dose: 0.4 mg Thiamine HCl (Vitamin B1 -) 100 mg PO DAILY [facility] Last Admin: 09/29/19 10:03 Dose: 100 mg ASSESSMENT/PLAN: 79F w/ pmhx of COPD/Bronchiectasis, Anxiety, PUD/GERD, BRE, presented with 4 day history of shortness of breath, and cough with green sputum for the past 4 days (failed out-patient abx/steroid therapy with Levaquin/Prednisone) currently admitted for acute COPD exacerbation. #Acute COPD Exacerbation; 2/2 CAP/Influenza A -Afebrile, Hemodynamically Stable. No respiratory issues. -Cont Zosyn 3.375 Q8H, Tamiflu 30 mg BID -Previously on IV Solumedrol to oral Prednisone -Wean off supplemental O2 #PUD/GERD; No acute issues. Cont home med: Protonix 40 #Acute T6 Vertebral fracture s/p fall; Cont home med: Oxycodone 10 Q6H PRN, Lidoderm patch -Lumbar xray showed forward subluxation of L5 on S1, some vertebral wedging of L1 and L2. 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 Estrada) consulted for further opinion #Anxiety/Depression; No acute issues. Cont home meds: Alprazolam 0.25 Q12H PRN, Celexa 20 HS, and Inderal 60 QD #Thrombocytopenia; Unknown etiology. Hematology consulted, will check B12, folate, iron studies. #Non-specific abd pain -CT A/P w/contrast negative for any acute findings; small R pl effusion and bibasilar consolidation. -Recent EGD done 03/19 showing ulcer and erosion -GI following #Prophylaxis DVT: Lovenox SQ FEN -No IVf -recheck lytes in AM -fat/sodium-controlled diet Dispo -cont to monitor on med-surg Visit type - Emergency Visit Emergency Visit: Yes ED Registration Date: 09/24/19 Care time: The patient presented to the Emergency Department on the above date and was hospitalized for further evaluation of their emergent condition. - New Patient This patient is new to me today: Yes Date on this admission: 09/29/19 - Critical Care Critical Care patient: No ATTENDING PHYSICIAN STATEMENT I saw and evaluated the patient. I reviewed the resident's note and discussed the case with the resident. I agree with the resident's findings and plan as documented. SUBJECTIVE: OBJECTIVE: ASSESSMENT AND PLAN:
[2019-09-29] MEDS: POTASSIUM CHLORIDE TABS 20 MEQ TABLET.ER (FP) PO SCH ×2 (18:22→22:37)
[2019-09-29] MEDS: CITALOPRAM HYDROBROMIDE 20 MG TABLET PO SCH (22:39)
[2019-09-29] MEDS: LIDOCAINE PATCH REMOVAL MC SCH (22:41)
[2019-09-29] MEDS: ALPRAZolam 1 MG TABLET PO PRN (22:44)
[2019-09-30] MEDS ORDERED: PT OWN MED DRAWER 7, Y5N ONE (02:04)
[2019-09-30] MEDS: PIPERACILLIN/TAZOB 3.375 GM 3.375 GM in DEXTROSE 5%-WATER - 50 ML IVPB SCH ×3 (02:43→18:28)
[2019-09-30] MEDS: GABAPENTIN 300 MG CAPSULE PO SCH ×4 (05:47→22:23)
[2019-09-30] MEDS: TAMSULOSIN HCL 0.4 MG CAP PO SCH (08:25)
[2019-09-30] MEDS: oxyCODONE HCL 5 MG TABLET PO PRN ×3 (08:25→22:25)
[2019-09-30] MEDS: ACETAMINOPHEN 325 MG TABLET (FP) PO PRN ×3 (08:26→22:25)
[2019-09-30] MEDS: ALBUTEROL SO4 2.5/IPRATROPIUM 0.5 INH SOL 3 ML VIAL.NEB. NEB SCH ×4 (08:30→20:15)
[2019-09-30 09:15] LABS: HEMATOCRIT 32.1 % (32.4-45.2); HEMOGLOBIN 11.4 GM/dL (10.7-15.3); MCH 35.2 pg (25.7-33.7); MCHC 35.4 g/dl (32.0-36.0); MEAN CELL VOLUME 99.2 fl (80-96); MEAN PLT VOLUME 6.9 fl (7.5-11.1); PLATELET COUNT 165 K/MM3 (134-434); RBC 3.24 M/mm3 (3.60-5.2); RDW 13.3 % (11.6-15.6)
[2019-09-30 09:35] LABS: BLOOD UREA NITROGEN 18.9 mg/dL (7-18); CALCIUM 8.4 mg/dL (8.5-10.1); CREATININE 0.7 mg/dL (0.55-1.3)
[2019-09-30] MEDS ORDERED: DEXTROSE 5%-WATER - 50 ML IVPB ONE ×2 (10:43→18:25)
[2019-09-30] MEDS ORDERED: PIPERACILLIN/TAZOBACTAM 3.375 GM VIAL IVPB ONE ×2 (10:43→18:25)
[2019-09-30] MEDS: CALCIUM 500MG/VIT-D 200 UNITS COMBO TABLET (FP) PO SCH ×2 (10:54→22:23)
[2019-09-30] MEDS: FERROUS SO4 325 MG TABLET (FP) PO SCH (10:54)
[2019-09-30] MEDS: DOXYCYCLINE HYCLATE 100 MG CAPSULE PO SCH (10:54)
[2019-09-30] MEDS: predniSONE 20 MG TABLET (UD) PO SCH (10:55)
[2019-09-30] MEDS: THIAMINE HCL 100 MG TABLET (FP) PO SCH (10:55)
[2019-09-30] MEDS: ASCORBIC ACID 500 MG TABLET (FP) PO SCH (10:55)
[2019-09-30] MEDS: MAGNESIUM OXIDE 400 MG TABLET (FP) PO SCH (10:55)
[2019-09-30] MEDS: MULTIVITAMINS (DAILY MVI) TABLET (FP) PO SCH (10:55)
[2019-09-30] MEDS: DOCUSATE SODIUM 100 MG CAPSULE (FP) PO SCH ×2 (10:55→22:23)
[2019-09-30] MEDS: PANTOPRAZOLE 40 MG TABLET PO SCH (10:55)
[2019-09-30] MEDS: LIDOCAINE 5% TOPICAL PATCH TP SCH (10:57)
[2019-09-30] MEDS: BUDESONIDE/FORMETEROL FUMARATE 160/4.5 mcg INHALER IH SCH ×2 (10:58→22:29)
[2019-09-30] MEDS: LACTOBACILLUS ACIDOPHILUS 1 TABLET PO SCH ×2 (10:58→22:23)
[2019-09-30] MEDS: POLYETHYLENE GLYCOL 3350 119 GM BTL PO SCH (10:59)
--- NOTE | 2019-09-30 12:34 | PN ---
Progress Note (short form) - Note Progress Note: Feels generalized malaise and fatigue. Less SOB and cough. No acute events overnight. Intake & Output 09/27/19 09/28/19 09/29/19 09/30/19 23:59 23:59 23:59 23:59 Intake Total 1790 1700 820 690 Output Total 4050 2850 3650 1750 Balance -2260 -1150 -2830 -1060 Weight 110 lb 8 oz 115 lb 111 lb 5 oz 110 lb Last Vital Signs Temp Pulse Resp BP Pulse Ox 97.4 F L 76 18 124/70 97 09/30/19 07:46 09/30/19 07:46 09/30/19 07:46 09/30/19 07:46 09/29/19 10:00 Active Medications Acetaminophen (Tylenol -) 650 mg PO Q6H PRN PRN Reason: PAIN 6-10 Last Admin: 09/30/19 08:26 Dose: 650 mg Albuterol Sulfate (Ventolin 0.083% Nebulizer Soln -) 1 amp NEB RQID PRN PRN Reason: SHORT OF BREATH/WHEEZING Albuterol/Ipratropium (Duoneb -) 1 amp NEB RQID [facility] Last Admin: 09/30/19 08:30 Dose: 1 amp Alprazolam (Xanax) 0.25 mg PO Q12H PRN PRN Reason: ANXIETY Last Admin: 09/29/19 22:44 Dose: 0.25 mg Ascorbic Acid (Vitamin C -) 2,000 mg PO DAILY [facility] Last Admin: 09/30/19 10:55 Dose: 2,000 mg Bisacodyl (Dulcolax -) 5 mg PO DAILY PRN PRN Reason: CONSTIPATION Budesonide/Formoterol Fumarate (Symbicort 160/4.5mcg -) 2 puff IH BID [facility] Last Admin: 09/30/19 10:58 Dose: 2 puff Calcium Carbonate/Cholecalciferol (Os-Cale 500+D -) 1 tab PO BID [facility] Last Admin: 09/30/19 10:54 Dose: 1 tab Citalopram Hydrobromide (Celexa -) 20 mg PO HS [facility] Last Admin: 09/29/19 22:39 Dose: 20 mg Docusate Sodium (Colace -) 100 mg PO BID [facility] Last Admin: 09/30/19 10:55 Dose: 100 mg Doxycycline Hyclate (Vibramycin -) 100 mg PO BID@1000,1800 [facility] Last Admin: 09/30/19 10:54 Dose: 100 mg Enoxaparin Sodium (Lovenox -) 40 mg SQ DAILY [facility] Last Admin: 09/28/19 09:27 Dose: 40 mg Ferrous Sulfate (Feosol -) 325 mg PO DAILY [facility] Last Admin: 09/30/19 10:54 Dose: 325 mg Gabapentin (Neurontin -) 300 mg PO TID [facility] Last Admin: 09/30/19 05:47 Dose: 300 mg Piperacillin Sod/Tazobactam (Sod 3.375 gm/ Dextrose) 50 mls @ 100 mls/hr IVPB Q8H-IV [facility]; Protocol Last Admin: 09/30/19 10:56 Dose: 100 mls/hr Lactobacillus Acidophilus (Bacid -) 1 tab PO BID [facility] Last Admin: 09/30/19 10:58 Dose: 1 tab Lidocaine (Lidoderm Patch -) 1 patch TP DAILY [facility] Last Admin: 09/30/19 10:57 Dose: 1 patch Magnesium Oxide (Mag-Ox -) 400 mg PO DAILY [facility] Last Admin: 09/30/19 10:55 Dose: 400 mg Miscellaneous (Lidoderm Patch Removal) 1 each MC DAILY@2200 [facility] Last Admin: 09/29/19 22:41 Dose: 1 each Multivitamins/Minerals/Vitamin C (Tab-A-Vit -) 1 tab PO DAILY [facility] Last Admin: 09/30/19 10:55 Dose: 1 tab Oxycodone HCl (Roxicodone -) 10 mg PO Q6H PRN PRN Reason: PAIN LEVEL 6-10 Last Admin: 09/30/19 08:25 Dose: 10 mg Pantoprazole Sodium (Protonix -) 40 mg PO DAILY [facility] Last Admin: 09/30/19 10:55 Dose: 40 mg Polyethylene Glycol (Miralax (For Daily Use) -) 34 gm PO DAILY [facility] Last Admin: 09/30/19 10:59 Dose: 34 gm Prednisone (Deltasone -) 40 mg PO DAILY [facility] Last Admin: 09/30/19 10:55 Dose: 40 mg Propranolol HCl (Inderal La -) 60 mg PO DAILY [facility] Last Admin: 09/30/19 10:55 Dose: 60 mg Simethicone (Mylicon -) 80 mg PO QID PRN PRN Reason: GAS Last Admin: 09/27/19 11:54 Dose: 80 mg Tamsulosin HCl (Flomax -) 0.4 mg PO DAILY@0830 [facility] Last Admin: 09/30/19 08:25 Dose: 0.4 mg Thiamine HCl (Vitamin B1 -) 100 mg PO DAILY [facility] Last Admin: 09/30/19 10:55 Dose: 100 mg Gen: NAD Heart: RRR Lung: scattered rhonchi Abd: softly distended, nontender Ext: no edema Laboratory Results - last 24 hr 09/30/19 09/30/19 07:30 07:30 WBC 9.0 RBC 3.24 L Hgb 11.4 Hct 32.1 L MCV 99.2 H MCH 35.2 H MCHC 35.4 RDW 13.3 Plt Count 165 D MPV 6.9 L Sodium 138 Potassium 4.0 Chloride 102 Carbon Dioxide 29 Anion Gap 6 L BUN 18.9 H Creatinine 0.7 Est GFR (CKD-EPI)AfAm 94.84 Est GFR (CKD-EPI)NonAf 81.83 Random Glucose 72 L Calcium 8.4 L Iron 74 TIBC 248 L Iron Saturation 29 Unsaturated IBC 174 L Ferritin 106.6 Vitamin B12 1636 H Serum Folate 32 H Problem List - Problems (1) Influenza A Code(s): J10.1 - FLU DUE TO OTH IDENT INFLUENZA VIRUS W OTH RESP MANIFEST (2) Pneumonia Code(s): J18.9 - PNEUMONIA, UNSPECIFIED ORGANISM A/P Influenza A r/o Pneumonia Acute COPD/Bronchiectasis Exacerbation JEREMIAS/Pseudomonas s/p Fall Raynaud's Disease Anxiety/Depression Hyponatremia Anemia - tamiflu to be completed today - ABX Per ID - Prednisone - inhaled bronchodilators standing and PRN - O2 to keep SpO2 >90% - pain control - monitor lytes - DVT prophylaxis Dr Tran
--- NOTE | 2019-09-30 14:47 | PN ---
Progress Note (short form) - Note Progress Note: SUBJECTIVE: Dyspnea improving, no overnight events. Cough, dirty sputum. No hemoptysis. No fever/chills. OBJECTIVE: Afebrile, Hemodynamically Stable. Last Vital Signs Temp Pulse Resp BP Pulse Ox 98.2 F 97 H 18 134/68 93 L 09/30/19 09:19 09/30/19 09:19 09/30/19 09:19 09/30/19 09:19 09/30/19 09:00 Heart - S1, S2, soft SM Lungs - clear to auscultation, no wheeze Abdomen - soft, non-tender. Bowel Sounds normal. Extremities - no edema, no calf tenderness. Neuro - AAO x 3.Tone/Power normal. Laboratory Results - last 24 hr 09/30/19 09/30/19 07:30 07:30 WBC 9.0 RBC 3.24 L Hgb 11.4 Hct 32.1 L MCV 99.2 H MCH 35.2 H MCHC 35.4 RDW 13.3 Plt Count 165 D MPV 6.9 L Sodium 138 Potassium 4.0 Chloride 102 Carbon Dioxide 29 Anion Gap 6 L BUN 18.9 H Creatinine 0.7 Est GFR (CKD-EPI)AfAm 94.84 Est GFR (CKD-EPI)NonAf 81.83 Random Glucose 72 L Calcium 8.4 L Iron 74 TIBC 248 L Iron Saturation 29 Unsaturated IBC 174 L Ferritin 106.6 Vitamin B12 1636 H Serum Folate 32 H Current Medications Generic Name Dose Route Start Last Admin Trade Name Freq PRN Reason Stop Dose Admin Acetaminophen 650 mg 09/26/19 11:00 09/30/19 08:26 Tylenol - PO 650 mg Q6H PRN Administration PAIN 6-10 Albuterol Sulfate 1 amp 09/25/19 08:00 Ventolin 0.083% Nebulizer Soln - NEB RQID PRN SHORT OF BREATH/WHEEZING Albuterol/Ipratropium 1 amp 09/25/19 12:00 09/30/19 11:33 Duoneb - NEB 1 amp RQID [facility]EL Administration Alprazolam 0.25 mg 09/25/19 14:48 09/29/19 22:44 Xanax PO 0.25 mg Q12H PRN Administration ANXIETY Ascorbic Acid 2,000 mg 09/25/19 10:00 09/30/19 10:55 Vitamin C - PO 2,000 mg DAILY U[facility]EL Administration Bisacodyl 5 mg 09/25/19 04:23 Dulcolax - PO DAILY PRN CONSTIPATION Budesonide/Formoterol Fumarate 2 puff 09/25/19 10:00 09/30/19 10:58 Symbicort 160/4.5mcg - IH 2 puff BID U[facility]EL Administration Calcium Carbonate/Cholecalciferol 1 tab 09/25/19 10:00 09/30/19 10:54 Os-Cale 500+D - PO 1 tab BID U[facility]EL Administration Citalopram Hydrobromide 20 mg 09/25/19 22:00 09/29/19 22:39 Celexa - PO 20 mg HS [facility]EL Administration Docusate Sodium 100 mg 09/25/19 10:00 09/30/19 10:55 Colace - PO 100 mg BID [facility] Administration Doxycycline Hyclate 100 mg 09/26/19 18:00 09/30/19 10:54 Vibramycin - PO 100 mg BID@1000,1800 [facility] Administration Enoxaparin Sodium 40 mg 09/24/19 22:33 09/28/19 09:27 Lovenox - SQ 40 mg DAILY [facility] Administration Ferrous Sulfate 325 mg 09/25/19 10:00 09/30/19 10:54 Feosol - PO 325 mg DAILY [facility] Administration Gabapentin 300 mg 09/25/19 06:00 09/30/19 14:01 Neurontin - PO 300 mg TID [facility]EL Administration Piperacillin Sod/Tazobactam 50 mls @ 100 mls/hr 09/26/19 13:15 09/30/19 10:56 Sod 3.375 gm/ Dextrose IVPB 100 mls/hr Q8H-IV [facility] Administration Protocol Lactobacillus Acidophilus 1 tab 09/25/19 10:00 09/30/19 10:58 Bacid - PO 1 tab BID [facility] Administration Lidocaine 1 patch 09/25/19 11:00 09/30/19 10:57 Lidoderm Patch - TP 1 patch DAILY [facility] Administration Magnesium Oxide 400 mg 09/25/19 10:00 09/30/19 10:55 Mag-Ox - PO 400 mg DAILY [facility] Administration Miscellaneous 1 each 09/25/19 22:00 09/29/19 22:41 Lidoderm Patch Removal MC 1 each DAILY@0 [facility] Administration Multivitamins/Minerals/Vitamin C 1 tab 09/26/19 10:00 09/30/19 10:55 Tab-A-Vit - PO 1 tab DAILY [facility] Administration Oxycodone HCl 10 mg 09/26/19 10:59 09/30/19 08:25 Roxicodone - PO 10 mg Q6H PRN Administration PAIN LEVEL 6-10 Pantoprazole Sodium 40 mg 09/25/19 10:00 09/30/19 10:55 Protonix - PO 40 mg DAILY [facility] Administration Polyethylene Glycol 34 gm 09/28/19 10:00 09/30/19 10:59 Miralax (For Daily Use) - PO 34 gm DAILY [facility] Administration Prednisone 40 mg 09/30/19 10:00 09/30/19 10:55 Deltasone - PO 40 mg DAILY [facility] Administration Propranolol HCl 60 mg 09/25/19 10:00 09/30/19 10:55 Inderal La - PO 60 mg DAILY [facility] Administration Simethicone 80 mg 09/27/19 11:28 09/27/19 11:54 Mylicon - PO 80 mg QID PRN Administration GAS Tamsulosin HCl 0.4 mg 09/26/19 08:30 09/30/19 08:25 Flomax - PO 0.4 mg DAILY@0830 [facility] Administration Thiamine HCl 100 mg 09/27/19 10:00 09/30/19 10:55 Vitamin B1 - PO 100 mg DAILY [facility] Administration Home Medications Medication Instructions Recorded Alprazolam [Xanax] 0.25 mg PO BID PRN 01/25/12 Ascorbic Acid [Vitamin C] 2,000 mg PO DAILY 01/25/12 Calcium Carbonate/Vitamin D3 1 each PO BID 01/25/12 [Caltrate 600 + D Tablet] Citalopram Hydrobromide [Celexa -] 20 mg PO HS 01/25/12 Ranitidine [Zantac -] 150 mg PO BID 01/25/12 propRANOLol HCL [Inderal -] 60 mg PO DAILY 01/25/12 Albuterol 0.083% Nebulizer Manju 1 neb NEB DAILY 09/25/13 [Ventolin 0.083% Nebulizer Soln -] Oxycodone HCl/Acetaminophen 15 mg PO BID PRN 02/19/15 [Percocet 10-325 mg Tablet] Tobramycin/Na Chlor 0.2% [[place]ell (Do 300 mg IH DAILY 02/19/15 Not Stock)] Biotin 1 mg PO DAILY 01/05/16 Butalbit/Acetamin/Caff/Codeine 1 each PO TID PRN 01/05/16 [Fioricet-Cod 19-200-17-30 Cap] Calcium/Cranberry Fruit [Cranberry 1 each PO DAILY 01/05/16 400 mg Caplet] Gabapentin [Neurontin] 300 mg PO TID 01/05/16 L.acidoph,Paracasei, B.lactis 1 each PO BID 01/05/16 [Probiotic] Multivitamins [Multivit ([facility] 1 tab PO DAILY 01/05/16 Formulary)] Potassium Chloride [Klor-Con 10] 20 meq PO BID 01/05/16 Budesonide/Formeterol Fumarate 2 inh PO BID 12/15/16 [SYMBICORT 160/4.5mcg -] Magnesium Oxide [Magnesium] 500 mg PO DAILY 12/15/16 Tizanidine HCl 2 mg PO HS 12/15/16 Bisacodyl [Dulcolax] 5 mg PO DAILY PRN #30 tablet.dr 03/19/19 Docusate Sodium [Colace -] 100 mg PO BID #90 capsule 03/19/19 Ferrous Sulfate 325 mg PO DAILY #30 tablet 03/19/19 Pantoprazole Sodium [Protonix -] 40 mg PO DAILY #30 tablet.ec 03/19/19 Polyethylene Glycol 3350 [Miralax 17 gm PO BID PRN #1 bottle 03/19/19 (For Daily Use) -] ASSESSMENT AND PLAN: 79 year old female with history of COPD/Bronchiectasis, Anxiety, PUD/GERD, BRE, presented with 4 day history of shortness of breath, and cough with green sputum , failed out-patient Abx/Steroid therapy with Levaquin/Prednisone. Found to be Influenza A positive. 1. Acute COPD Exacerbation sec to CAP/Influenza A on background Bronchiectasis. To complete 5 days Tamiflu today. Sputum Cx - polymicrobial including MRSA/GNB x 3types On Zosyn, Doxy - duration as per ID. Afebrile, Hemodynamically Stable. Transitioned from IV Solumedrol to oral Prednisone Weaned off supplemental O2. Pulmonary following. 2. PUD/GERD - On PPI 3. 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 On Oxycodone PRN chronically 4. Anxiety/Depression - stable on Alprazolam, Celexa and Inderal. 5. Thrombocytopenia, resolved. Seen by Hematology. Iron/B12/Folate levels non- deficient. No further work-up required. 6. Non-specific intermittent abdominal pain with elevated ALT - CT A/P w/ contrast negative for any acute intra-abdominal findings; small R pl effusion and bibasilar consolidation. GI following. DVT Px - Lovenox SQ Visit type - Emergency Visit Emergency Visit: Yes ED Registration Date: 09/24/19 Care time: The patient presented to the Emergency Department on the above date and was hospitalized for further evaluation of their emergent condition. - New Patient This patient is new to me today: No - Critical Care Critical Care patient: No - Discharge Referral Referred to [facility] No
--- NOTE | 2019-09-30 18:09 | PN ---
Progress Note, Physician History of Present Illness: Pt states she feels weak. States last night was slightly SOB, improved with O2 NC, nebulizer. Afebrile, without current distress. - Current Medication List Current Medications: Active Medications Acetaminophen (Tylenol -) 650 mg PO Q6H PRN PRN Reason: PAIN 6-10 Last Admin: 09/30/19 16:01 Dose: 650 mg Albuterol Sulfate (Ventolin 0.083% Nebulizer Soln -) 1 amp NEB RQID PRN PRN Reason: SHORT OF BREATH/WHEEZING Albuterol/Ipratropium (Duoneb -) 1 amp NEB RQID [facility] Last Admin: 09/30/19 15:33 Dose: 1 amp Alprazolam (Xanax) 0.25 mg PO Q12H PRN PRN Reason: ANXIETY Last Admin: 09/29/19 22:44 Dose: 0.25 mg Ascorbic Acid (Vitamin C -) 2,000 mg PO DAILY [facility] Last Admin: 09/30/19 10:55 Dose: 2,000 mg Bisacodyl (Dulcolax -) 5 mg PO DAILY PRN PRN Reason: CONSTIPATION Budesonide/Formoterol Fumarate (Symbicort 160/4.5mcg -) 2 puff IH BID [facility] Last Admin: 09/30/19 10:58 Dose: 2 puff Calcium Carbonate/Cholecalciferol (Os-Cale 500+D -) 1 tab PO BID [facility] Last Admin: 09/30/19 10:54 Dose: 1 tab Citalopram Hydrobromide (Celexa -) 20 mg PO HS [facility] Last Admin: 09/29/19 22:39 Dose: 20 mg Docusate Sodium (Colace -) 100 mg PO BID [facility] Last Admin: 09/30/19 10:55 Dose: 100 mg Doxycycline Hyclate (Vibramycin -) 100 mg PO BID@1000,1800 [facility] Last Admin: 09/30/19 10:54 Dose: 100 mg Enoxaparin Sodium (Lovenox -) 40 mg SQ DAILY [facility] Last Admin: 09/28/19 09:27 Dose: 40 mg Ferrous Sulfate (Feosol -) 325 mg PO DAILY [facility] Last Admin: 09/30/19 10:54 Dose: 325 mg Gabapentin (Neurontin -) 300 mg PO TID [facility] Last Admin: 09/30/19 14:01 Dose: 300 mg Piperacillin Sod/Tazobactam (Sod 3.375 gm/ Dextrose) 50 mls @ 100 mls/hr IVPB Q8H-IV [facility]; Protocol Last Admin: 09/30/19 10:56 Dose: 100 mls/hr Lactobacillus Acidophilus (Bacid -) 1 tab PO BID [facility] Last Admin: 09/30/19 10:58 Dose: 1 tab Lidocaine (Lidoderm Patch -) 1 patch TP DAILY [facility] Last Admin: 09/30/19 10:57 Dose: 1 patch Magnesium Oxide (Mag-Ox -) 400 mg PO DAILY [facility] Last Admin: 09/30/19 10:55 Dose: 400 mg Miscellaneous (Lidoderm Patch Removal) 1 each MC DAILY@0 [facility] Last Admin: 09/29/19 22:41 Dose: 1 each Multivitamins/Minerals/Vitamin C (Tab-A-Vit -) 1 tab PO DAILY [facility] Last Admin: 09/30/19 10:55 Dose: 1 tab Oxycodone HCl (Roxicodone -) 10 mg PO Q6H PRN PRN Reason: PAIN LEVEL 6-10 Last Admin: 09/30/19 16:01 Dose: 10 mg Pantoprazole Sodium (Protonix -) 40 mg PO DAILY [facility] Last Admin: 09/30/19 10:55 Dose: 40 mg Polyethylene Glycol (Miralax (For Daily Use) -) 34 gm PO DAILY [facility] Last Admin: 09/30/19 10:59 Dose: 34 gm Prednisone (Deltasone -) 40 mg PO DAILY [facility] Last Admin: 09/30/19 10:55 Dose: 40 mg Propranolol HCl (Inderal La -) 60 mg PO DAILY [facility] Last Admin: 09/30/19 10:55 Dose: 60 mg Simethicone (Mylicon -) 80 mg PO QID PRN PRN Reason: GAS Last Admin: 09/27/19 11:54 Dose: 80 mg Tamsulosin HCl (Flomax -) 0.4 mg PO DAILY@0830 [facility] Last Admin: 09/30/19 08:25 Dose: 0.4 mg Thiamine HCl (Vitamin B1 -) 100 mg PO DAILY [facility] Last Admin: 09/30/19 10:55 Dose: 100 mg - Objective Vital Signs: Vital Signs Temperature 97.3 F L 09/30/19 15:11 Pulse Rate 87 09/30/19 15:11 Respiratory Rate 09/30/19 15:11 Blood Pressure 127/58 L 09/30/19 15:11 O2 Sat by Pulse Oximetry (%) 93 L 09/30/19 09:00 Constitutional: Yes: No Distress, Calm Cardiovascular: Yes: Regular Rate and Rhythm Respiratory: Yes: Rhonchi Gastrointestinal: Yes: Normal Bowel Sounds, Soft Genitourinary: Yes: WNL Musculoskeletal: Yes: Back Pain Extremities: Yes: WNL Integumentary: Yes: WNL Neurological: Yes: Alert, Oriented Labs: CBC, BMP 09/30/19 07:30 09/30/19 07:30 INR, PTT INR 0.98 (0.83-1.09) 09/29/19 07:40 Microbiology 09/27/19 04:40 Sputum - Expectorated Gram Stain - Final 09/27/19 04:40 Sputum - Expectorated Sputum Culture - Preliminary Presumptive Mrsa (Pbp2a Pos) Non Lactose Fermenting Gnb Non Lactose Fermenting Gnb#2 Non Lactose Fermenting Gnb#3 09/24/19 13:00 Urine - Urine Clean Catch Urine Culture - Final S Aureus Problem List - Problems (1) Influenza A Code(s): J10.1 - FLU DUE TO OTH IDENT INFLUENZA VIRUS W OTH RESP MANIFEST (2) Pneumonia Code(s): J18.9 - PNEUMONIA, UNSPECIFIED ORGANISM (3) Thrombocytopenia Code(s): D69.6 - THROMBOCYTOPENIA, UNSPECIFIED (4) Low back pain Code(s): M54.5 - LOW BACK PAIN Assessment/Plan Multilobar PNA Influenza A Acute COPD Exacerbation COPD s/p Fall Vertebral Fx Thrombocytopenia Raynaud's -- still with some SOB -- continue Zosyn -- sputum cultures: MRSA, gram negatives - follow up final results -- will d/c Doxycycline, start Vancomycin IV, monitor renal function , check Vancomycin trough prior to 4th dose -- completed Tamiflu course -- Orthopedics f/u -- Thrombocytopenia resolved Continue monitor vitals
[2019-09-30] MEDS: VANCOMYCIN 1 GRAM (PRE-DOCKED) 1,000 MG/250 ML BAG IVPB SCH (19:05)
[2019-09-30] MEDS: CITALOPRAM HYDROBROMIDE 20 MG TABLET PO SCH (22:23)
[2019-09-30] MEDS: LIDOCAINE PATCH REMOVAL MC SCH (22:24)
[2019-09-30] MEDS: ALPRAZolam 1 MG TABLET PO PRN (23:11)
[2019-10-01] MEDS ORDERED: PIPERACILLIN/TAZOBACTAM 3.375 GM VIAL IVPB ONE ×3 (01:35→16:28)
[2019-10-01] MEDS ORDERED: DEXTROSE 5%-WATER - 50 ML IVPB ONE ×3 (01:35→16:28)
[2019-10-01] MEDS: PIPERACILLIN/TAZOB 3.375 GM 3.375 GM in DEXTROSE 5%-WATER - 50 ML IVPB SCH ×3 (01:43→17:02)
[2019-10-01] MEDS: GABAPENTIN 300 MG CAPSULE PO SCH ×3 (06:35→22:09)
[2019-10-01] MEDS: ACETAMINOPHEN 325 MG TABLET (FP) PO PRN ×3 (07:35→20:39)
[2019-10-01] MEDS: oxyCODONE HCL 5 MG TABLET PO PRN ×3 (07:36→20:39)
--- NOTE | 2019-10-01 07:37 | PN ---
Progress Note, Physician - Current Medication List Current Medications: Active Medications Acetaminophen (Tylenol -) 650 mg PO Q6H PRN PRN Reason: PAIN 6-10 Last Admin: 09/30/19 22:25 Dose: 650 mg Albuterol Sulfate (Ventolin 0.083% Nebulizer Soln -) 1 amp NEB RQID PRN PRN Reason: SHORT OF BREATH/WHEEZING Albuterol/Ipratropium (Duoneb -) 1 amp NEB RQID [facility] Last Admin: 09/30/19 20:15 Dose: 1 amp Alprazolam (Xanax) 0.25 mg PO Q12H PRN PRN Reason: ANXIETY Last Admin: 09/30/19 23:11 Dose: 0.25 mg Ascorbic Acid (Vitamin C -) 2,000 mg PO DAILY [facility] Last Admin: 09/30/19 10:55 Dose: 2,000 mg Bisacodyl (Dulcolax -) 5 mg PO DAILY PRN PRN Reason: CONSTIPATION Budesonide/Formoterol Fumarate (Symbicort 160/4.5mcg -) 2 puff IH BID [facility] Last Admin: 09/30/19 22:29 Dose: 2 puff Calcium Carbonate/Cholecalciferol (Os-Cale 500+D -) 1 tab PO BID [facility] Last Admin: 09/30/19 22:23 Dose: 1 tab Citalopram Hydrobromide (Celexa -) 20 mg PO HS [facility] Last Admin: 09/30/19 22:23 Dose: 20 mg Docusate Sodium (Colace -) 100 mg PO BID [facility] Last Admin: 09/30/19 22:23 Dose: 100 mg Enoxaparin Sodium (Lovenox -) 40 mg SQ DAILY [facility] Last Admin: 09/28/19 09:27 Dose: 40 mg Ferrous Sulfate (Feosol -) 325 mg PO DAILY [facility] Last Admin: 09/30/19 10:54 Dose: 325 mg Gabapentin (Neurontin -) 300 mg PO TID [facility] Last Admin: 10/01/19 06:35 Dose: 300 mg Piperacillin Sod/Tazobactam (Sod 3.375 gm/ Dextrose) 50 mls @ 100 mls/hr IVPB Q8H-IV [facility]; Protocol Last Admin: 10/01/19 01:43 Dose: 100 mls/hr Vancomycin HCl (Vancomycin (Pre-Docked)) 1,000 mg in 250 mls @ 166.667 mls/hr IVPB DAILY@1830 [facility]; Protocol Last Admin: 09/30/19 19:05 Dose: 166.667 mls/hr Lactobacillus Acidophilus (Bacid -) 1 tab PO BID [facility] Last Admin: 09/30/19 22:23 Dose: 1 tab Lidocaine (Lidoderm Patch -) 1 patch TP DAILY [facility] Last Admin: 09/30/19 10:57 Dose: 1 patch Magnesium Oxide (Mag-Ox -) 400 mg PO DAILY [facility] Last Admin: 09/30/19 10:55 Dose: 400 mg Miscellaneous (Lidoderm Patch Removal) 1 each MC DAILY@2200 [facility] Last Admin: 09/30/19 22:24 Dose: 1 each Multivitamins/Minerals/Vitamin C (Tab-A-Vit -) 1 tab PO DAILY [facility] Last Admin: 09/30/19 10:55 Dose: 1 tab Oxycodone HCl (Roxicodone -) 10 mg PO Q6H PRN PRN Reason: PAIN LEVEL 6-10 Last Admin: 09/30/19 22:25 Dose: 10 mg Pantoprazole Sodium (Protonix -) 40 mg PO DAILY [facility] Last Admin: 09/30/19 10:55 Dose: 40 mg Polyethylene Glycol (Miralax (For Daily Use) -) 34 gm PO DAILY [facility] Last Admin: 09/30/19 10:59 Dose: 34 gm Prednisone (Deltasone -) 40 mg PO DAILY [facility] Last Admin: 09/30/19 10:55 Dose: 40 mg Propranolol HCl (Inderal La -) 60 mg PO DAILY [facility] Last Admin: 09/30/19 10:55 Dose: 60 mg Simethicone (Mylicon -) 80 mg PO QID PRN PRN Reason: GAS Last Admin: 09/27/19 11:54 Dose: 80 mg Tamsulosin HCl (Flomax -) 0.4 mg PO DAILY@0830 [facility] Last Admin: 09/30/19 08:25 Dose: 0.4 mg Thiamine HCl (Vitamin B1 -) 100 mg PO DAILY [facility] Last Admin: 09/30/19 10:55 Dose: 100 mg - Objective Vital Signs: Vital Signs Temperature 97.5 F L 10/01/19 02:00 Pulse Rate 67 10/01/19 02:00 Respiratory Rate 18 10/01/19 02:00 Blood Pressure 132/56 L 10/01/19 02:00 O2 Sat by Pulse Oximetry (%) 93 L 09/30/19 21:00 Labs: CBC, BMP 09/30/19 07:30 09/30/19 07:30 INR, PTT INR 0.98 (0.83-1.09) 09/29/19 07:40
[2019-10-01] MEDS: ALBUTEROL SO4 2.5/IPRATROPIUM 0.5 INH SOL 3 ML VIAL.NEB. NEB SCH ×4 (07:40→21:23)
--- NOTE | 2019-10-01 08:45 | PN ---
Progress Note, Physician Chief Complaint: States she feels much improved. LBP tolerable and abd pain "comes & goes". History of Present Illness: 79 year old female with history of bronchiectasis who presented with shortness of breath, and cough with green sputum for the past 4 days. She reported she feels generally weak and vomited once this morning. She was prescribed Levaquin and a steroid 3 days by her [employer] Outside in [facility]. She states she took this medication for the past three days without improvement in symptoms.She reported increased urinary frequency without hematuria or dysuria. She also states she fell on the floor last night and struck the left side of her head. There was no loss of consciousness. She denied fever, chills, or chest pain. - Current Medication List Current Medications: Active Medications Acetaminophen (Tylenol -) 650 mg PO Q6H PRN PRN Reason: PAIN 6-10 Last Admin: 10/01/19 07:35 Dose: 650 mg Albuterol Sulfate (Ventolin 0.083% Nebulizer Soln -) 1 amp NEB RQID PRN PRN Reason: SHORT OF BREATH/WHEEZING Albuterol/Ipratropium (Duoneb -) 1 amp NEB RQID [facility] Last Admin: 10/01/19 07:40 Dose: 1 amp Alprazolam (Xanax) 0.25 mg PO Q12H PRN PRN Reason: ANXIETY Last Admin: 09/30/19 23:11 Dose: 0.25 mg Ascorbic Acid (Vitamin C -) 2,000 mg PO DAILY [facility] Last Admin: 09/30/19 10:55 Dose: 2,000 mg Bisacodyl (Dulcolax -) 5 mg PO DAILY PRN PRN Reason: CONSTIPATION Budesonide/Formoterol Fumarate (Symbicort 160/4.5mcg -) 2 puff IH BID [facility] Last Admin: 09/30/19 22:29 Dose: 2 puff Calcium Carbonate/Cholecalciferol (Os-Cale 500+D -) 1 tab PO BID [facility] Last Admin: 09/30/19 22:23 Dose: 1 tab Citalopram Hydrobromide (Celexa -) 20 mg PO HS [facility] Last Admin: 09/30/19 22:23 Dose: 20 mg Docusate Sodium (Colace -) 100 mg PO BID [facility] Last Admin: 09/30/19 22:23 Dose: 100 mg Enoxaparin Sodium (Lovenox -) 40 mg SQ DAILY [facility] Last Admin: 09/28/19 09:27 Dose: 40 mg Ferrous Sulfate (Feosol -) 325 mg PO DAILY [facility] Last Admin: 09/30/19 10:54 Dose: 325 mg Gabapentin (Neurontin -) 300 mg PO TID [facility] Last Admin: 10/01/19 06:35 Dose: 300 mg Piperacillin Sod/Tazobactam (Sod 3.375 gm/ Dextrose) 50 mls @ 100 mls/hr IVPB Q8H-IV [facility]; Protocol Last Admin: 10/01/19 01:43 Dose: 100 mls/hr Vancomycin HCl (Vancomycin (Pre-Docked)) 1,000 mg in 250 mls @ 166.667 mls/hr IVPB DAILY@1830 [facility]; Protocol Last Admin: 09/30/19 19:05 Dose: 166.667 mls/hr Lactobacillus Acidophilus (Bacid -) 1 tab PO BID [facility] Last Admin: 09/30/19 22:23 Dose: 1 tab Lidocaine (Lidoderm Patch -) 1 patch TP DAILY [facility] Last Admin: 09/30/19 10:57 Dose: 1 patch Magnesium Oxide (Mag-Ox -) 400 mg PO DAILY [facility] Last Admin: 09/30/19 10:55 Dose: 400 mg Miscellaneous (Lidoderm Patch Removal) 1 each MC DAILY@2200 [facility] Last Admin: 09/30/19 22:24 Dose: 1 each Multivitamins/Minerals/Vitamin C (Tab-A-Vit -) 1 tab PO DAILY [facility] Last Admin: 09/30/19 10:55 Dose: 1 tab Oxycodone HCl (Roxicodone -) 10 mg PO Q6H PRN PRN Reason: PAIN LEVEL 6-10 Last Admin: 10/01/19 07:36 Dose: 10 mg Pantoprazole Sodium (Protonix -) 40 mg PO DAILY [facility] Last Admin: 09/30/19 10:55 Dose: 40 mg Polyethylene Glycol (Miralax (For Daily Use) -) 34 gm PO DAILY [facility] Last Admin: 09/30/19 10:59 Dose: 34 gm Prednisone (Deltasone -) 40 mg PO DAILY [facility] Last Admin: 09/30/19 10:55 Dose: 40 mg Propranolol HCl (Inderal La -) 60 mg PO DAILY [facility] Last Admin: 09/30/19 10:55 Dose: 60 mg Simethicone (Mylicon -) 80 mg PO QID PRN PRN Reason: GAS Last Admin: 09/27/19 11:54 Dose: 80 mg Tamsulosin HCl (Flomax -) 0.4 mg PO DAILY@0830 [facility] Last Admin: 09/30/19 08:25 Dose: 0.4 mg Thiamine HCl (Vitamin B1 -) 100 mg PO DAILY [facility] Last Admin: 09/30/19 10:55 Dose: 100 mg - Objective Vital Signs: Vital Signs Temperature 97.5 F L 10/01/19 08:36 Pulse Rate 90 10/01/19 08:36 Respiratory Rate 14 10/01/19 08:36 Blood Pressure 100/74 10/01/19 08:36 O2 Sat by Pulse Oximetry (%) 93 L 09/30/19 21:00 Additional Findings/Remarks: PE GENERAL: awake, alert, and fully oriented, no acute distress, frail appearing HEAD: normal EYES: pupils equal, round and reactive to light EARS, NOSE, THROAT: ears normal, nares patent NECK:supple LUNGS: clear, no wheezes, no crackles no accessory muscle use. HEART: regular rate and rhythm, normal S1 and S2 ABDOMEN: soft, not distended, normoactive bowel sounds, non tender MUSCULOSKELETAL: normal range of motion at all joints UPPER EXTREMITIES: 2+ pulses, warm well-perfused no cyanosis LOWER EXTREMITIES: 2+ pulses warm well-perfused no calf tenderness no pitting edema NEUROLOGICAL: Cranial nerves II-XII intact normal speech PSYCHIATRIC: cooperative good eye contact appropriate mood and affect SKIN: warm, dry, normal turgor, no rashes or lesions noted Labs: CBC, BMP 09/30/19 07:30 09/30/19 07:30 INR, PTT INR 0.98 (0.83-1.09) 09/29/19 07:40 Problem List - Problems (1) Pneumonia Assessment/Plan: BL infiltrates on CXR noted ID following c/w zosyn , vanco supplemental O2 to maintain SPO2 >88% Code(s): J18.9 - PNEUMONIA, UNSPECIFIED ORGANISM (2) Head contusion Assessment/Plan: s/p fall at home HCT with small left parietal contusion no changes in neuro status during stay Code(s): S00.93XA - CONTUSION OF UNSPECIFIED PART OF HEAD, INITIAL ENCOUNTER (3) Prophylactic measure Assessment/Plan: FEN Fluids: adequate PO intake Electrolytes: monitor & replete as needed Nutrition: reg diet with supplements DVT moderate risk sq lovenox Dispo Maintain as inpatient full code discharge planning Code(s): Z29.9 - ENCOUNTER FOR PROPHYLACTIC MEASURES, UNSPECIFIED (4) Influenza A Assessment/Plan: completed course of tamiflu supportive care isolation precautions Code(s): J10.1 - FLU DUE TO OTH IDENT INFLUENZA VIRUS W OTH RESP MANIFEST (5) Shortness of breath at rest Assessment/Plan: supplemental O2 c/w duonebs standing and prn c/w prednsione/budesonide pulmonary following Code(s): R06.02 - SHORTNESS OF BREATH (6) Hypokalemia Assessment/Plan: resolved Code(s): E87.6 - HYPOKALEMIA (7) Chronic low back pain Assessment/Plan: c/w oxycodone c/w lidoderm patches to low back PT with fall precautions Code(s): M54.5 - LOW BACK PAIN; G89.29 - OTHER CHRONIC PAIN (8) Abdominal pain Assessment/Plan: resolving GI following recent EGD 03/19 with ulcer and erosion Code(s): R10.9 - UNSPECIFIED ABDOMINAL PAIN (9) Urinary retention Assessment/Plan: resolved c/w flomax Code(s): R33.9 - RETENTION OF URINE, UNSPECIFIED (10) Compression fracture Assessment/Plan: Acute T6 Vertebral fracture sp fall 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 Neurosurgery consulted -offered TLSO brace and pt declined no surgical intervention at this time c/w Oxycodone PRN & lidoderm patch Code(s): VMN1538 - (11) Thrombocytopenia Assessment/Plan: plt 227 heme following Code(s): D69.6 - THROMBOCYTOPENIA, UNSPECIFIED (12) Hyponatremia Assessment/Plan: Na 133 fluid restiction free water 1500cc/day Code(s): E87.1 - HYPO-OSMOLALITY AND HYPONATREMIA Visit type - Emergency Visit Emergency Visit: Yes ED Registration Date: 09/24/19 Care time: The patient presented to the Emergency Department on the above date and was hospitalized for further evaluation of their emergent condition. - New Patient This patient is new to me today: No - Critical Care Critical Care patient: No - Discharge Referral Referred to [facility] No
[2019-10-01] MEDS: LIDOCAINE 5% TOPICAL PATCH TP SCH (10:39)
[2019-10-01] MEDS: CALCIUM 500MG/VIT-D 200 UNITS COMBO TABLET (FP) PO SCH ×2 (10:43→22:09)
[2019-10-01] MEDS: MULTIVITAMINS (DAILY MVI) TABLET (FP) PO SCH (10:43)
[2019-10-01] MEDS: MAGNESIUM OXIDE 400 MG TABLET (FP) PO SCH (10:43)
[2019-10-01] MEDS: ASCORBIC ACID 500 MG TABLET (FP) PO SCH (10:43)
[2019-10-01] MEDS: FERROUS SO4 325 MG TABLET (FP) PO SCH (10:44)
[2019-10-01] MEDS: predniSONE 20 MG TABLET (UD) PO SCH (10:44)
[2019-10-01] MEDS: PANTOPRAZOLE 40 MG TABLET PO SCH (10:45)
[2019-10-01] MEDS: DOCUSATE SODIUM 100 MG CAPSULE (FP) PO SCH ×2 (10:45→22:10)
[2019-10-01] MEDS: TAMSULOSIN HCL 0.4 MG CAP PO SCH (10:45)
[2019-10-01] MEDS: LACTOBACILLUS ACIDOPHILUS 1 TABLET PO SCH ×2 (10:45→22:09)
[2019-10-01] MEDS: BUDESONIDE/FORMETEROL FUMARATE 160/4.5 mcg INHALER IH SCH ×2 (10:46→22:10)
[2019-10-01] MEDS: THIAMINE HCL 100 MG TABLET (FP) PO SCH (10:46)
--- NOTE | 2019-10-01 11:02 | PN ---
Progress Note (short form) - Note Progress Note: Feels less generalized malaise and fatigue. Appetite better today. Less SOB and cough. No acute events overnight. Intake & Output 09/28/19 09/29/19 09/30/19 10/01/19 23:59 23:59 23:59 23:59 Intake Total 8426 923 3148 150 Output Total 2850 3650 2650 800 Balance -1150 -2830 -880 -650 Weight 115 lb 111 lb 5 oz 110 lb 105 lb 3 oz Last Vital Signs Temp Pulse Resp BP Pulse Ox 97.5 F L 90 14 100/74 93 L 10/01/19 08:36 10/01/19 08:36 10/01/19 08:36 10/01/19 08:36 09/30/19 21:00 Active Medications Acetaminophen (Tylenol -) 650 mg PO Q6H PRN PRN Reason: PAIN 6-10 Last Admin: 10/01/19 07:35 Dose: 650 mg Albuterol Sulfate (Ventolin 0.083% Nebulizer Soln -) 1 amp NEB RQID PRN PRN Reason: SHORT OF BREATH/WHEEZING Albuterol/Ipratropium (Duoneb -) 1 amp NEB RQID [facility] Last Admin: 10/01/19 07:40 Dose: 1 amp Alprazolam (Xanax) 0.25 mg PO Q12H PRN PRN Reason: ANXIETY Last Admin: 09/30/19 23:11 Dose: 0.25 mg Ascorbic Acid (Vitamin C -) 2,000 mg PO DAILY [facility] Last Admin: 10/01/19 10:43 Dose: 2,000 mg Bisacodyl (Dulcolax -) 5 mg PO DAILY PRN PRN Reason: CONSTIPATION Budesonide/Formoterol Fumarate (Symbicort 160/4.5mcg -) 2 puff IH BID [facility] Last Admin: 10/01/19 10:46 Dose: 2 puff Calcium Carbonate/Cholecalciferol (Os-Cale 500+D -) 1 tab PO BID [facility] Last Admin: 10/01/19 10:43 Dose: 1 tab Citalopram Hydrobromide (Celexa -) 20 mg PO HS [facility] Last Admin: 09/30/19 22:23 Dose: 20 mg Docusate Sodium (Colace -) 100 mg PO BID [facility] Last Admin: 10/01/19 10:45 Dose: 100 mg Enoxaparin Sodium (Lovenox -) 40 mg SQ DAILY [facility] Last Admin: 09/28/19 09:27 Dose: 40 mg Ferrous Sulfate (Feosol -) 325 mg PO DAILY [facility] Last Admin: 10/01/19 10:44 Dose: 325 mg Gabapentin (Neurontin -) 300 mg PO TID [facility] Last Admin: 10/01/19 06:35 Dose: 300 mg Piperacillin Sod/Tazobactam (Sod 3.375 gm/ Dextrose) 50 mls @ 100 mls/hr IVPB Q8H-IV [facility]; Protocol Last Admin: 10/01/19 10:40 Dose: 100 mls/hr Vancomycin HCl (Vancomycin (Pre-Docked)) 1,000 mg in 250 mls @ 166.667 mls/hr IVPB DAILY@1830 [facility]; Protocol Last Admin: 09/30/19 19:05 Dose: 166.667 mls/hr Lactobacillus Acidophilus (Bacid -) 1 tab PO BID [facility] Last Admin: 10/01/19 10:45 Dose: 1 tab Lidocaine (Lidoderm Patch -) 1 patch TP DAILY [facility] Last Admin: 10/01/19 10:39 Dose: 1 patch Magnesium Oxide (Mag-Ox -) 400 mg PO DAILY [facility] Last Admin: 10/01/19 10:43 Dose: 400 mg Miscellaneous (Lidoderm Patch Removal) 1 each MC DAILY@2200 [facility] Last Admin: 09/30/19 22:24 Dose: 1 each Multivitamins/Minerals/Vitamin C (Tab-A-Vit -) 1 tab PO DAILY [facility] Last Admin: 10/01/19 10:43 Dose: 1 tab Oxycodone HCl (Roxicodone -) 10 mg PO Q6H PRN PRN Reason: PAIN LEVEL 6-10 Last Admin: 10/01/19 07:36 Dose: 10 mg Pantoprazole Sodium (Protonix -) 40 mg PO DAILY [facility] Last Admin: 10/01/19 10:45 Dose: 40 mg Polyethylene Glycol (Miralax (For Daily Use) -) 34 gm PO DAILY [facility] Last Admin: 09/30/19 10:59 Dose: 34 gm Prednisone (Deltasone -) 40 mg PO DAILY [facility] Last Admin: 10/01/19 10:44 Dose: 40 mg Propranolol HCl (Inderal La -) 60 mg PO DAILY [facility] Last Admin: 10/01/19 10:45 Dose: 60 mg Simethicone (Mylicon -) 80 mg PO QID PRN PRN Reason: GAS Last Admin: 09/27/19 11:54 Dose: 80 mg Tamsulosin HCl (Flomax -) 0.4 mg PO DAILY@0830 [facility] Last Admin: 10/01/19 10:45 Dose: 0.4 mg Thiamine HCl (Vitamin B1 -) 100 mg PO DAILY [facility] Last Admin: 10/01/19 10:46 Dose: 100 mg Gen: NAD Heart: RRR Lung: scattered rhonchi Abd: softly distended, nontender Ext: no edema Problem List - Problems (1) Influenza A Code(s): J10.1 - FLU DUE TO OTH IDENT INFLUENZA VIRUS W OTH RESP MANIFEST (2) Pneumonia Code(s): J18.9 - PNEUMONIA, UNSPECIFIED ORGANISM A/P Influenza A r/o Pneumonia Acute COPD/Bronchiectasis Exacerbation JEREMIAS/Pseudomonas s/p Fall Raynaud's Disease Anxiety/Depression Hyponatremia Anemia - tamiflu completed yesterday - ABX Per ID - Prednisone - inhaled bronchodilators standing and PRN - O2 to keep SpO2 >90% - pain control - monitor lytes - DVT prophylaxis Dr Tran
[2019-10-01] MEDS: POLYETHYLENE GLYCOL 3350 119 GM BTL PO SCH (11:17)
[2019-10-01 11:24] LABS: BASO % 0.5 % (0-2.0); EOS % 0.7 % (0-4.5); HEMATOCRIT 33.7 % (32.4-45.2); HEMOGLOBIN 11.7 GM/dL (10.7-15.3); LYMPH % 10.7 % (8-40); MCH 35.1 pg (25.7-33.7); MCHC 34.7 g/dl (32.0-36.0); MEAN CELL VOLUME 101.2 fl (80-96); MONO % 9.5 % (3.8-10.2); NEUT % 78.6 % (42.8-82.8); PLATELET COUNT 227 K/MM3 (134-434); RBC 3.33 M/mm3 (3.60-5.2); RDW 13.5 % (11.6-15.6); WHITE BLOOD COUNT 8.9 K/mm3 (4.0-10.0)
--- NOTE | 2019-10-01 11:32 | PN ---
Progress Note (short form) - Note Progress Note: NEUROSURGERY CONSULT DICTATED Chart reviewed Pt examined X-rays reviewed h/o bronchiectasis and osteoporosis with prior L hip fx c/o coughs x 2 weeks. Fell on the floor backwards almost 2 weeks ago at home when feeling weak/sick. No H/A,N/V, neck pain, LOC, fever, chills, or chest pain. c/o LBP and L paraspinal and flank area pain with movement. Pain better than 2 weeks ago. 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
[2019-10-01 11:38] LABS: INR 1.01 (0.83-1.09); PROTHROMBIN TIME (PATIENT) 11.9 SEC (9.7-13.0)
[2019-10-01 12:02] LABS: ALBUMIN 2.9 g/dl (3.4-5.0); BILIRUBIN,TOTAL 0.6 mg/dL (0.2-1); BLOOD UREA NITROGEN 30.2 mg/dL (7-18); CALCIUM 8.9 mg/dL (8.5-10.1); CREATININE 0.8 mg/dL (0.55-1.3); POTASSIUM 3.8 mmol/L (3.5-5.1); TOT PROT 6.4 g/dl (6.4-8.2)
[2019-10-01] MEDS: VANCOMYCIN 1 GRAM (PRE-DOCKED) 1,000 MG/250 ML BAG IVPB SCH (18:37)
[2019-10-01] MEDS: CITALOPRAM HYDROBROMIDE 20 MG TABLET PO SCH (22:09)
[2019-10-01] MEDS: LIDOCAINE PATCH REMOVAL MC SCH (22:12)
[2019-10-01] MEDS: ALPRAZolam 1 MG TABLET PO PRN (22:18)
[2019-10-02] MEDS ORDERED: DEXTROSE 5%-WATER - 50 ML IVPB ONE ×2 (02:03→09:26)
[2019-10-02] MEDS ORDERED: PIPERACILLIN/TAZOBACTAM 3.375 GM VIAL IVPB ONE ×2 (02:03→09:26)
[2019-10-02] MEDS: PIPERACILLIN/TAZOB 3.375 GM 3.375 GM in DEXTROSE 5%-WATER - 50 ML IVPB SCH ×2 (02:10→09:39)
[2019-10-02] MEDS: GABAPENTIN 300 MG CAPSULE PO SCH ×3 (06:13→21:54)
[2019-10-02] MEDS: oxyCODONE HCL 5 MG TABLET PO PRN ×3 (06:32→20:35)
[2019-10-02] MEDS: ACETAMINOPHEN 325 MG TABLET (FP) PO PRN ×3 (06:35→20:34)
[2019-10-02] MEDS: ALBUTEROL SO4 2.5/IPRATROPIUM 0.5 INH SOL 3 ML VIAL.NEB. NEB SCH ×4 (08:00→20:40)
[2019-10-02 08:17] LABS: BASO % 0.3 % (0-2.0); EOS % 0.8 % (0-4.5); HEMATOCRIT 31.7 % (32.4-45.2); HEMOGLOBIN 10.9 GM/dL (10.7-15.3); LYMPH % 13.3 % (8-40); MCH 34.4 pg (25.7-33.7); MCHC 34.5 g/dl (32.0-36.0); MEAN CELL VOLUME 99.7 fl (80-96); MEAN PLT VOLUME 7.5 fl (7.5-11.1); MONO % 9.8 % (3.8-10.2); NEUT % 75.8 % (42.8-82.8); PLATELET COUNT 200 K/MM3 (134-434); RBC 3.18 M/mm3 (3.60-5.2); RDW 13.6 % (11.6-15.6); WHITE BLOOD COUNT 6.2 K/mm3 (4.0-10.0)
[2019-10-02 08:22] LABS: ALBUMIN 2.8 g/dl (3.4-5.0); BILIRUBIN,TOTAL 0.4 mg/dL (0.2-1); BLOOD UREA NITROGEN 24.1 mg/dL (7-18); CALCIUM 9.3 mg/dL (8.5-10.1); CREATININE 0.6 mg/dL (0.55-1.3); MAGNESIUM 2.3 mg/dL (1.8-2.4); POTASSIUM 4.1 mmol/L (3.5-5.1); TOT PROT 6.2 g/dl (6.4-8.2)
--- NOTE | 2019-10-02 08:45 | PN ---
Progress Note (short form) - Note Progress Note: NEUROSURGERY LBP and L paraspinal and flank area pain with movement. Pain better than 2 weeks ago. Wants to go home instead of SNF. 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
[2019-10-02] MEDS: TAMSULOSIN HCL 0.4 MG CAP PO SCH (08:46)
[2019-10-02] MEDS: MAGNESIUM OXIDE 400 MG TABLET (FP) PO SCH (09:44)
[2019-10-02] MEDS: FERROUS SO4 325 MG TABLET (FP) PO SCH (09:44)
[2019-10-02] MEDS: ASCORBIC ACID 500 MG TABLET (FP) PO SCH (09:44)
[2019-10-02] MEDS: CALCIUM 500MG/VIT-D 200 UNITS COMBO TABLET (FP) PO SCH ×2 (09:45→21:54)
[2019-10-02] MEDS: MULTIVITAMINS (DAILY MVI) TABLET (FP) PO SCH (09:45)
[2019-10-02] MEDS: DOCUSATE SODIUM 100 MG CAPSULE (FP) PO SCH ×2 (09:45→21:54)
[2019-10-02] MEDS: PANTOPRAZOLE 40 MG TABLET PO SCH (09:45)
[2019-10-02] MEDS: THIAMINE HCL 100 MG TABLET (FP) PO SCH (09:45)
[2019-10-02] MEDS: predniSONE 20 MG TABLET (UD) PO SCH (09:45)
[2019-10-02] MEDS: LACTOBACILLUS ACIDOPHILUS 1 TABLET PO SCH ×2 (09:45→21:54)
[2019-10-02] MEDS: LIDOCAINE 5% TOPICAL PATCH TP SCH (09:46)
[2019-10-02] MEDS: POLYETHYLENE GLYCOL 3350 119 GM BTL PO SCH (09:55)
[2019-10-02] MEDS: BUDESONIDE/FORMETEROL FUMARATE 160/4.5 mcg INHALER IH SCH ×2 (09:55→21:58)
[2019-10-02 10:21] LABS: ANISOCYTOSIS 0; MACROCYTOSIS 0; PLATELET ESTIMATE NORMAL
--- NOTE | 2019-10-02 10:53 | PN ---
Progress Note (short form) - Note Progress Note: Feels overall better today and appears clinically improved. Appetite better today. Less SOB and cough. No acute events overnight. Intake & Output 09/29/19 09/30/19 10/01/19 10/02/19 23:59 23:59 23:59 23:59 Intake Total 820 1770 350 600 Output Total 3650 2650 1200 Balance -2830 -880 -850 600 Weight 111 lb 5 oz 110 lb 105 lb 3 oz 110 lb 3 oz Last Vital Signs Temp Pulse Resp BP Pulse Ox 97.5 F L 71 18 146/66 96 10/02/19 06:00 10/02/19 06:00 10/02/19 06:00 10/02/19 06:00 10/01/19 21:00 Active Medications Acetaminophen (Tylenol -) 650 mg PO Q6H PRN PRN Reason: PAIN 6-10 Last Admin: 10/02/19 06:35 Dose: 650 mg Albuterol Sulfate (Ventolin 0.083% Nebulizer Soln -) 1 amp NEB RQID PRN PRN Reason: SHORT OF BREATH/WHEEZING Albuterol/Ipratropium (Duoneb -) [address] [facility] Last Admin: 10/02/19 08:00 Dose: 1 amp Alprazolam (Xanax) 0.25 mg PO Q12H PRN PRN Reason: ANXIETY Last Admin: 10/01/19 22:18 Dose: 0.25 mg Ascorbic Acid (Vitamin C -) 2,[address] [facility] Last Admin: 10/02/19 09:44 Dose: 2,000 mg Bisacodyl (Dulcolax -) 5 mg PO DAILY PRN PRN Reason: CONSTIPATION Budesonide/Formoterol Fumarate (Symbicort 160/4.5mcg -) [address] [facility] Last Admin: 10/02/19 09:55 Dose: 2 puff Calcium Carbonate/Cholecalciferol (Os-Cale 500+D -) [address] [facility] Last Admin: 10/02/19 09:45 Dose: 1 tab Citalopram Hydrobromide (Celexa -) [address] [facility] Last Admin: 10/01/19 22:09 Dose: 20 mg Docusate Sodium (Colace -) [address] [facility] Last Admin: 10/02/19 09:45 Dose: 100 mg Enoxaparin Sodium (Lovenox -) [address] [facility] Last Admin: 09/28/19 09:27 Dose: 40 mg Ferrous Sulfate (Feosol -) [address] [facility] Last Admin: 10/02/19 09:44 Dose: 325 mg Gabapentin (Neurontin -) [address] [facility] Last Admin: 10/02/19 06:13 Dose: 300 mg Piperacillin Sod/Tazobactam (Sod 3.375 gm/ Dextrose) 50 mls @ 100 mls/hr IVPB Q8H-IV [facility]; Protocol Last Admin: 10/02/19 09:39 Dose: 100 mls/hr Vancomycin HCl (Vancomycin (Pre-Docked)) 1,000 mg in 250 mls @ 166.667 mls/hr IVPB DAILY@1830 [facility]; Protocol Last Admin: 10/01/19 18:37 Dose: 166.667 mls/hr Lactobacillus Acidophilus (Bacid -) [address] [facility] Last Admin: 10/02/19 09:45 Dose: 1 tab Lidocaine (Lidoderm Patch -) [address] [facility] Last Admin: 10/02/19 09:46 Dose: 1 patch Magnesium Oxide (Mag-Ox -) [address] [facility] Last Admin: 10/02/19 09:44 Dose: 400 mg Miscellaneous (Lidoderm Patch Removal) 1 each MC DAILY@2200 [facility] Last Admin: 10/01/19 22:12 Dose: 1 each Multivitamins/Minerals/Vitamin C (Tab-A-Vit -) [address] [facility] Last Admin: 10/02/19 09:45 Dose: 1 tab Oxycodone HCl (Roxicodone -) 10 mg PO Q6H PRN PRN Reason: PAIN LEVEL 6-10 Last Admin: 10/02/19 06:32 Dose: 10 mg Pantoprazole Sodium (Protonix -) [address] [facility] Last Admin: 10/02/19 09:45 Dose: 40 mg Polyethylene Glycol (Miralax (For Daily Use) -) [address] [facility] Last Admin: 10/02/19 09:55 Dose: Not Given Prednisone (Deltasone -) [address] [facility] Last Admin: 10/02/19 09:45 Dose: 40 mg Propranolol HCl (Inderal La -) [address] [facility] Last Admin: 10/02/19 09:46 Dose: 60 mg Simethicone (Mylicon -) 80 mg PO QID PRN PRN Reason: GAS Last Admin: 09/27/19 11:54 Dose: 80 mg Tamsulosin HCl (Flomax -) 0.4 mg PO DAILY@0830 [facility] Last Admin: 10/02/19 08:46 Dose: 0.4 mg Thiamine HCl (Vitamin B1 -) [address] [facility] Last Admin: 10/02/19 09:45 Dose: 100 mg Gen: NAD Heart: RRR Lung: scattered rhonchi Abd: softly distended, nontender Ext: no edema Laboratory Results - last 24 hr 10/01/19 10/01/19 10/01/19 10:07 10:07 10:07 WBC 8.9 RBC 3.33 L Hgb 11.7 Hct 33.7 MCV 101.2 H MCH 35.1 H MCHC 34.7 RDW 13.5 Plt Count 227 D MPV 7.0 L Absolute Neuts (auto) 7.0 Neutrophils % 78.6 Neutrophils % (Manual) Band Neutrophils % Lymphocytes % 10.7 Lymphocytes % (Manual) Monocytes % 9.5 Monocytes % (Manual) Eosinophils % 0.7 D Eosinophils % (Manual) Basophils % 0.5 Basophils % (Manual) Myelocytes % (Man) Promyelocytes % (Man) Blast Cells % (Manual) Nucleated RBC % 0 Metamyelocytes Hypochromia Platelet Estimate Polychromasia Poikilocytosis Anisocytosis Microcytosis Macrocytosis PT with INR 11.90 INR 1.01 Sodium 133 L Potassium 3.8 Chloride 97 L Carbon Dioxide 29 Anion Gap 7 L BUN 30.2 H Creatinine 0.8 Est GFR (CKD-EPI)AfAm 80.70 Est GFR (CKD-EPI)NonAf 69.63 Random Glucose 94 Calcium 8.9 Magnesium 2.0 Total Bilirubin 0.6 AST 18 ALT 62 H Alkaline Phosphatase 73 Total Protein 6.4 Albumin 2.9 L 10/02/19 10/02/19 06:25 06:25 WBC 6.2 RBC 3.18 L Hgb 10.9 Hct 31.7 L MCV 99.7 H MCH 34.4 H MCHC 34.5 RDW 13.6 Plt Count 200 MPV 7.5 Absolute Neuts (auto) 4.7 Neutrophils % 75.8 Neutrophils % (Manual) 79.6 Band Neutrophils % 0.0 Lymphocytes % 13.3 D Lymphocytes % (Manual) 16.3 Monocytes % 9.8 Monocytes % (Manual) 4 Eosinophils % 0.8 Eosinophils % (Manual) 0.0 Basophils % 0.3 Basophils % (Manual) 0.0 Myelocytes % (Man) 0 D Promyelocytes % (Man) 0 Blast Cells % (Manual) 0 Nucleated RBC % 0 Metamyelocytes 0 D Hypochromia 0 Platelet Estimate Normal Polychromasia 0 Poikilocytosis 0 Anisocytosis 0 Microcytosis 0 Macrocytosis 0 PT with INR INR Sodium 135 L Potassium 4.1 Chloride 97 L Carbon Dioxide 31 Anion Gap 7 L BUN 24.1 H Creatinine 0.6 Est GFR (CKD-EPI)AfAm 99.77 Est GFR (CKD-EPI)NonAf 86.09 Random Glucose 73 L Calcium 9.3 Magnesium 2.3 Total Bilirubin 0.4 AST 18 ALT 55 Alkaline Phosphatase 72 Total Protein 6.2 L Albumin 2.8 L Problem List - Problems (1) Influenza A Code(s): J10.1 - FLU DUE TO OTH IDENT INFLUENZA VIRUS W OTH RESP MANIFEST (2) Pneumonia Code(s): J18.9 - PNEUMONIA, UNSPECIFIED ORGANISM A/P Influenza A r/o Pneumonia Acute COPD/Bronchiectasis Exacerbation JEREMIAS/Pseudomonas s/p Fall Raynaud's Disease Anxiety/Depression Hyponatremia Anemia - tamiflu completed - ABX Per ID - Prednisone - inhaled bronchodilators standing and PRN - O2 to keep SpO2 >90% - pain control - monitor lytes - DVT prophylaxis Dr Tran
--- NOTE | 2019-10-02 12:43 | PN ---
Progress Note, Physician History of Present Illness: improving still with cough - Current Medication List Current Medications: Active Medications Acetaminophen (Tylenol -) 650 mg PO Q6H PRN PRN Reason: PAIN 6-10 Last Admin: 10/02/19 06:35 Dose: 650 mg Albuterol Sulfate (Ventolin 0.083% Nebulizer Soln -) 1 amp NEB RQID PRN PRN Reason: SHORT OF BREATH/WHEEZING Albuterol/Ipratropium (Duoneb -) 1 amp NEB RQID [facility] Last Admin: 10/02/19 08:00 Dose: 1 amp Alprazolam (Xanax) 0.25 mg PO Q12H PRN PRN Reason: ANXIETY Last Admin: 10/01/19 22:18 Dose: 0.25 mg Ascorbic Acid (Vitamin C -) 2,000 mg PO DAILY [facility] Last Admin: 10/02/19 09:44 Dose: 2,000 mg Bisacodyl (Dulcolax -) 5 mg PO DAILY PRN PRN Reason: CONSTIPATION Budesonide/Formoterol Fumarate (Symbicort 160/4.5mcg -) 2 puff IH BID [facility] Last Admin: 10/02/19 09:55 Dose: 2 puff Calcium Carbonate/Cholecalciferol (Os-Cale 500+D -) 1 tab PO BID [facility] Last Admin: 10/02/19 09:45 Dose: 1 tab Citalopram Hydrobromide (Celexa -) 20 mg PO HS [facility] Last Admin: 10/01/19 22:09 Dose: 20 mg Docusate Sodium (Colace -) 100 mg PO BID [facility] Last Admin: 10/02/19 09:45 Dose: 100 mg Enoxaparin Sodium (Lovenox -) 40 mg SQ DAILY [facility] Last Admin: 09/28/19 09:27 Dose: 40 mg Ferrous Sulfate (Feosol -) 325 mg PO DAILY [facility] Last Admin: 10/02/19 09:44 Dose: 325 mg Gabapentin (Neurontin -) 300 mg PO TID [facility] Last Admin: 10/02/19 06:13 Dose: 300 mg Vancomycin HCl (Vancomycin (Pre-Docked)) 1,000 mg in 250 mls @ 166.667 mls/hr IVPB DAILY@1830 [facility]; Protocol Last Admin: 10/01/19 18:37 Dose: 166.667 mls/hr Meropenem 1 gm/ Dextrose 100 mls @ 200 mls/hr IVPB Q8H-IV [facility] Lactobacillus Acidophilus (Bacid -) 1 tab PO BID [facility] Last Admin: 10/02/19 09:45 Dose: 1 tab Lidocaine (Lidoderm Patch -) 1 patch TP DAILY [facility] Last Admin: 10/02/19 09:46 Dose: 1 patch Magnesium Oxide (Mag-Ox -) 400 mg PO DAILY [facility] Last Admin: 10/02/19 09:44 Dose: 400 mg Miscellaneous (Lidoderm Patch Removal) 1 each MC DAILY@2200 [facility] Last Admin: 10/01/19 22:12 Dose: 1 each Multivitamins/Minerals/Vitamin C (Tab-A-Vit -) 1 tab PO DAILY [facility] Last Admin: 10/02/19 09:45 Dose: 1 tab Oxycodone HCl (Roxicodone -) 10 mg PO Q6H PRN PRN Reason: PAIN LEVEL 6-10 Last Admin: 10/02/19 06:32 Dose: 10 mg Pantoprazole Sodium (Protonix -) 40 mg PO DAILY [facility] Last Admin: 10/02/19 09:45 Dose: 40 mg Polyethylene Glycol (Miralax (For Daily Use) -) 34 gm PO DAILY [facility] Last Admin: 10/02/19 09:55 Dose: Not Given Prednisone (Deltasone -) 40 mg PO DAILY [facility] Last Admin: 10/02/19 09:45 Dose: 40 mg Propranolol HCl (Inderal La -) 60 mg PO DAILY [facility] Last Admin: 10/02/19 09:46 Dose: 60 mg Simethicone (Mylicon -) 80 mg PO QID PRN PRN Reason: GAS Last Admin: 09/27/19 11:54 Dose: 80 mg Tamsulosin HCl (Flomax -) 0.4 mg PO DAILY@0830 [facility] Last Admin: 10/02/19 08:46 Dose: 0.4 mg Thiamine HCl (Vitamin B1 -) 100 mg PO DAILY [facility] Last Admin: 10/02/19 09:45 Dose: 100 mg - Objective Vital Signs: Vital Signs Temperature 97.5 F L 10/02/19 06:00 Pulse Rate 71 10/02/19 06:00 Respiratory Rate 18 10/02/19 06:00 Blood Pressure 146/66 10/02/19 06:00 O2 Sat by Pulse Oximetry (%) 96 03/02/20 21:00 Constitutional: Yes: No Distress, Calm Cardiovascular: Yes: S1, S2 Respiratory: Yes: Regular, On Nasal O2, Poor Air Entry, Rhonchi Gastrointestinal: Yes: Normal Bowel Sounds, Soft Musculoskeletal: Yes: WNL Extremities: Yes: WNL Neurological: Yes: Alert, Oriented Psychiatric: Yes: Alert, Oriented Labs: CBC, BMP 10/02/19 06:25 10/02/19 06:25 INR, PTT INR 1.01 (0.83-1.09) 10/01/19 10:07 Assessment/Plan 79 year old female with history of bronchiectasis who presented with shortness of breath, cough with green sputum associated with generalized weakness,fell yesterday with no LOC and an episode of vomiting.She was found to have influenza and possible community acquired pneumonia. She is being admitted to [facility] for further medical management. #1 Influenza #2 Possible Community Acquired Pneumonia #3 Hyponatremia #4 Head Contusion 5 uti continue abx resp support incentive aureliano rest as per the team cx report noted will need longer duration of treatment still awaiting for identification of the organisms
--- NOTE | 2019-10-02 12:49 | PN ---
Physical Exam: SUBJECTIVE: Patient seen and examined at the bedside. Sitting in chair, feels like her breathing is improving, still having intermittent dry cough. OBJECTIVE: Patient is an 79 year old female with history of bronchiectasis who presented to the ED on 09/24/2019 with shortness of breath, and cough with green sputum for 4 days along with weakness. She was prescribed Levaquin and a steroid 3 days by her [facility] She states she took this medication without improvement in symptoms.She reported increased urinary frequency without hematuria or dysuria. She also states she fell on the floor the day prior to admission and struck the left side of her head. There was no loss of consciousness. She denied fever, chills, or chest pain. Period Temp Pulse Resp BP Sys/Casper Pulse Ox Last 24 Hr 97.4 F-97.8 F 71-78 18-18 125-146/55-66 96 GENERAL: The patient is awake, alert, and fully oriented, in no acute distress. on supplemental oxygen support HEAD: Normal with no signs of trauma. EYES: PERRL, extraocular movements intact, sclera anicteric, conjunctiva clear. No ptosis. ENT: Ears normal, nares patent, oropharynx clear without exudates, moist mucous membranes. NECK: Trachea midline, full range of motion, supple. LUNGS: Breath sounds diminished bilaterally, no wheezes HEART: Regular rate and rhythm ABDOMEN: Soft, nontender, nondistended, normoactive bowel sounds EXTREMITIES: no edema. NEUROLOGICAL: Normal speech, gait not observed. PSYCH: Normal mood, normal affect. SKIN: petechia of right leg (lower), small patch of petechia left upper back Laboratory Results - last 24 hr 10/02/19 10/02/19 06:25 06:25 WBC 6.2 RBC 3.18 L Hgb 10.9 Hct 31.7 L MCV 99.7 H MCH 34.4 H MCHC 34.5 RDW 13.6 Plt Count 200 MPV 7.5 Absolute Neuts (auto) 4.7 Neutrophils % 75.8 Neutrophils % (Manual) 79.6 Band Neutrophils % 0.0 Lymphocytes % 13.3 D Lymphocytes % (Manual) 16.3 Monocytes % 9.8 Monocytes % (Manual) 4 Eosinophils % 0.8 Eosinophils % (Manual) 0.0 Basophils % 0.3 Basophils % (Manual) 0.0 Myelocytes % (Man) 0 D Promyelocytes % (Man) 0 Blast Cells % (Manual) 0 Nucleated RBC % 0 Metamyelocytes 0 D Hypochromia 0 Platelet Estimate Normal Polychromasia 0 Poikilocytosis 0 Anisocytosis 0 Microcytosis 0 Macrocytosis 0 Sodium 135 L Potassium 4.1 Chloride 97 L Carbon Dioxide 31 Anion Gap 7 L BUN 24.1 H Creatinine 0.6 Est GFR (CKD-EPI)AfAm 99.77 Est GFR (CKD-EPI)NonAf 86.09 Random Glucose 73 L Calcium 9.3 Magnesium 2.3 Total Bilirubin 0.4 AST 18 ALT 55 Alkaline Phosphatase 72 Total Protein 6.2 L Albumin 2.8 L Active Medications Generic Name Dose Route Start Last Admin Trade Name Freq PRN Reason Stop Dose Admin Acetaminophen 650 mg 09/26/19 11:00 10/02/19 06:35 Tylenol - PO 650 mg Q6H PRN Administration PAIN 6-10 Albuterol Sulfate 1 amp 09/25/19 08:00 Ventolin 0.083% Nebulizer Soln - NEB RQID PRN SHORT OF BREATH/WHEEZING Albuterol/Ipratropium 1 amp 09/25/19 12:00 10/02/19 08:00 Duoneb - NEB 1 amp RQID UZIEL Administration Alprazolam 0.25 mg 09/25/19 14:48 10/01/19 22:18 Xanax PO 0.25 mg Q12H PRN Administration ANXIETY Ascorbic Acid 2,000 mg 09/25/19 10:00 10/02/19 09:44 Vitamin C - PO 2,000 mg DAILY UZIEL Administration Bisacodyl 5 mg 09/25/19 04:23 Dulcolax - PO DAILY PRN CONSTIPATION Budesonide/Formoterol Fumarate 2 puff 09/25/19 10:00 10/02/19 09:55 Symbicort 160/4.5mcg - IH 2 puff BID UZIEL Administration Calcium Carbonate/Cholecalciferol 1 tab 09/25/19 10:00 10/02/19 09:45 Os-Cale 500+D - PO 1 tab BID UZIEL Administration Citalopram Hydrobromide 20 mg 09/25/19 22:00 10/01/19 22:09 Celexa - PO 20 mg HS UZIEL Administration Docusate Sodium 100 mg 09/25/19 10:00 10/02/19 09:45 Colace - PO 100 mg BID UZIEL Administration Enoxaparin Sodium 40 mg 09/24/19 22:33 09/28/19 09:27 Lovenox - SQ 40 mg DAILY UZIEL Administration Ferrous Sulfate 325 mg 09/25/19 10:00 10/02/19 09:44 Feosol - PO 325 mg DAILY UZIEL Administration Gabapentin 300 mg 09/25/19 06:00 10/02/19 06:13 Neurontin - PO 300 mg TID UIZEL Administration Vancomycin HCl 1,000 mg in 250 mls @ 166.667 mls/hr 09/30/19 18:30 10/01/19 18:37 Vancomycin (Pre-Docked) IVPB 166.667 mls/hr DAILY@1830 UZIEL Administration Protocol Meropenem 1 gm/ Dextrose 100 mls @ 200 mls/hr 10/02/19 18:00 IVPB Q8H-IV UZIEL Lactobacillus Acidophilus 1 tab 09/25/19 10:00 10/02/19 09:45 Bacid - PO 1 tab BID UZIEL Administration Lidocaine 1 patch 09/25/19 11:00 10/02/19 09:46 Lidoderm Patch - TP 1 patch DAILY UZIEL Administration Magnesium Oxide 400 mg 09/25/19 10:00 10/02/19 09:44 Mag-Ox - PO 400 mg DAILY UZIEL Administration Miscellaneous 1 each 09/25/19 22:00 10/01/19 22:12 Lidoderm Patch Removal MC 1 each DAILY@2200 UZIEL Administration Multivitamins/Minerals/Vitamin C 1 tab 09/26/19 10:00 10/02/19 09:45 Tab-A-Vit - PO 1 tab DAILY U[facility]IEL Administration Oxycodone HCl 10 mg 09/26/19 10:59 10/02/19 06:32 Roxicodone - PO 10 mg Q6H PRN Administration PAIN LEVEL 6-10 Pantoprazole Sodium 40 mg 09/25/19 10:00 10/02/19 09:45 Protonix - PO 40 mg DAILY UZIEL Administration Polyethylene Glycol 34 gm 09/28/19 10:00 10/02/19 09:55 Miralax (For Daily Use) - PO Not Given DAILY [facility] Prednisone 40 mg 09/30/19 10:00 10/02/19 09:45 Deltasone - PO 40 mg DAILY UZIEL Administration Propranolol HCl 60 mg 09/25/19 10:00 10/02/19 09:46 Inderal La - PO 60 mg DAILY U[facility]IEL Administration Simethicone 80 mg 09/27/19 11:28 09/27/19 11:54 Mylicon - PO 80 mg QID PRN Administration GAS Tamsulosin HCl 0.4 mg 09/26/19 08:30 10/02/19 08:46 Flomax - PO 0.4 mg DAILY@0830 UZIEL Administration Thiamine HCl 100 mg 09/27/19 10:00 10/02/19 09:45 Vitamin B1 - PO 100 mg DAILY UZIEL Administration ASSESSMENT/PLAN: Problem List - Problems (1) Pneumonia Assessment/Plan: on meropenm and vanco per ID pulmonary following Code(s): J18.9 - PNEUMONIA, UNSPECIFIED ORGANISM (2) Shortness of breath at rest Assessment/Plan: improved, attempt to take off oxygen today and monitor oxygen saturations. on prednisone taper Code(s): R06.02 - SHORTNESS OF BREATH (3) Thrombocytopenia Assessment/Plan: resolved, hit panel pending Code(s): D69.6 - THROMBOCYTOPENIA, UNSPECIFIED (4) Petechiae Code(s): R23.3 - SPONTANEOUS ECCHYMOSES (5) Abdominal pain Assessment/Plan: ct scan without acute finding of abdominal pain c/o tenderness to lower abdomen/epigastric AXR with gaseous pattern/distension on long standing opiods-at risk for ileus gi following recent EGD 03/19 with ulcer and erosion Code(s): R10.9 - UNSPECIFIED ABDOMINAL PAIN (6) Chronic low back pain Assessment/Plan: on oxycodone prn Code(s): M54.5 - LOW BACK PAIN; G89.29 - OTHER CHRONIC PAIN (7) Head contusion Assessment/Plan: s/p fall at home HCT with small left parietal contusion no changes in neuro status patient denies any symptoms Code(s): S00.93XA - CONTUSION OF UNSPECIFIED PART OF HEAD, INITIAL ENCOUNTER (8) Hypokalemia Assessment/Plan: resolved Code(s): E87.6 - HYPOKALEMIA (9) Influenza A Assessment/Plan: completed tamiflu Code(s): J10.1 - FLU DUE TO OTH IDENT INFLUENZA VIRUS W OTH RESP MANIFEST (10) Hyponatremia Assessment/Plan: resolved Code(s): E87.1 - HYPO-OSMOLALITY AND HYPONATREMIA (11) Compression fracture Assessment/Plan: Acute T6 Vertebral fracture sp fall 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 Neurosurgery consulted -offered TLSO brace and pt declined no surgical intervention at this time c/w Oxycodone PRN & lidoderm patch Code(s): DXL1274 - (12) Hyponatremia Code(s): E87.1 - HYPO-OSMOLALITY AND HYPONATREMIA (13) Prophylactic measure Assessment/Plan: fen tolerating po monitor electrolytes low salt diet Code(s): Z29.9 - ENCOUNTER FOR PROPHYLACTIC MEASURES, UNSPECIFIED Visit type - Emergency Visit Emergency Visit: Yes ED Registration Date: 09/24/19 Care time: The patient presented to the Emergency Department on the above date and was hospitalized for further evaluation of their emergent condition. - New Patient This patient is new to me today: No - Critical Care Critical Care patient: No - Discharge Referral Referred to [facility] Med P.C.: No
--- NOTE | 2019-10-02 15:54 | CONS ---
DATE OF CONSULTATION: 10/01/2019 CHIEF COMPLAINT: Mid and lower back pain. HISTORY OF PRESENT ILLNESS: Patient is an 79-year-old, right-handed female with history of osteoporosis and osteoporotic fracture, and bronchiectasis, who complains of an [id number] history of coughing with sputum. She denies any fevers or chills. She also because of her generalized weakness and fatigue, she fell about 10 days ago, landing on her back. She did not lose consciousness. She denied increasing headache, nausea, vomiting, seizure activity, weakness or numbness or loss of bowel/bladder control. Presently, she complains of back pain on the left side, as well as lower back pain bilaterally. It is worse with movement. Her pain is better than it was a week and a half ago when she first fell. PAST MEDICAL HISTORY: Significant for osteoporosis, left hip fracture, bronchiectasis. CURRENT MEDICATION: Includes Lidoderm patch, Symbicort, Deltasone, Flomax, Tylenol, magnesium oxide, Zosyn, vancomycin, Lovenox, Celexa, Bacid, Mylicon, vitamin B1. ALLERGIES: There is no known drug allergy. FAMILY HISTORY: Noncontributory. SOCIAL HISTORY: She quit smoking over 30 years ago. She only drinks alcohol socially. She lives at home. REVIEW OF SYSTEMS: Otherwise negative for other major constitutional, head and neck, cardiovascular, pulmonary, gastrointestinal, genitourinary, endocrinological, neurological or psychological problem except for the above. She denies any recent foreign travel. PHYSICAL EXAMINATION: Vital Signs: On physical examination, temperature is 97.5, blood pressure is 100/74 with a pulse rate 90, O2 saturation is 93% with 2 L nasal cannula. HEENT: Examination shows her to be normocephalic, atraumatic, anicteric. Neck: Supple. Coronary: Examination demonstrated regular rhythm. Lungs: Show decreased breath sounds at bases. Abdomen: Benign. Extremities: Examination shows no signs of DVT. Neurologic: She is awake, alert, and oriented x4. Speech is normal. Memory appears to be intact. Cranial nerve examination is intact 2 through 12. She has slight decreased hearing bilaterally. Motor examination shows 4+/5 strength without drift. Sensory examination intact to light touch. Deep tendon reflexes are 1 to 2+ throughout and symmetric. There is no pathological long-tract sign. Examination of the back shows tenderness of lumbosacral junction bilaterally as well as the left-sided thoracolumbar junction in the paraspinal and flanks region. LABORATORY: Examination shows a white blood cell count of 8.9, hemoglobin is 11.7, platelet count is 227,000. INR is 0.98. BUN and creatinine are 19 and 0.7, respectively. Sodium is 138. AST and ALT were mildly elevated earlier. Urinalysis is negative. Sputum culture shows multiple gram-negative bacilli and urine culture shows MRSA. IMPRESSION: 1. Gram-negative pneumonia. On intravenous antibiotics. 2. Osteoporotic compression fracture, acute T6 and chronic T12. 3. Urinary tract infection with methicillin-resistant Staphylococcus aureus. 4. Osteoporosis. 5. History of bronchiectasis. RECOMMENDATIONS: Patient presents with a 2-week history of cough, as well as a 1-1/2-week history of increasing back pain after a mechanical fall. She has history of osteoporosis and had fractured her left hip over 25 years ago. Because of her generalized osteoporosis, consideration should be given to treatment with bisphosphonates per the medical team. She had been on calcium and vitamin D3 for a long time previously and was taking dairy products regularly. No neurosurgical intervention is needed given the fracture. The x-ray demonstrated mild T6 and T12 compression fracture though T12 compression appears to be more chronic. There is also L5 compression deformity seen on x-rays as well as abdominal CT scan. I did offer the patient the use of a TLSO brace, but she declined. If her pain persists, an MRI of the thoracic spine should be considered to further delineate the acuity of the T6 compression fracture. Vertebroplasty can then be considered for optimal pain control. The patient did mention that her pain improved over 10 days ago when she initially fell. Continued medical treatment and observation and monitoring of her symptoms should be the way to go at this time. The patient concurred with the treatment plan and recommendations. All questions answered at bedside. MAGUE NOBLE M.D. CHICA/[id number] MTDD
[2019-10-02] MEDS ORDERED: MEROPENEM 1 GM VIAL (RESTRICTED TO ID) IVPB ONE (17:28)
[2019-10-02] MEDS ORDERED: DEXTROSE 5%-WATER 100 ML IVPB ONE (17:28)
[2019-10-02] MEDS: MEROPENEM 1 GM in DEXTROSE 5%-WATER 100 ML IVPB SCH (17:35)
[2019-10-02] MEDS: VANCOMYCIN 1 GRAM (PRE-DOCKED) 1,000 MG/250 ML BAG IVPB SCH (18:41)
[2019-10-02] MEDS: CITALOPRAM HYDROBROMIDE 20 MG TABLET PO SCH (21:54)
[2019-10-02] MEDS: LIDOCAINE PATCH REMOVAL MC SCH (21:54)
[2019-10-03] MEDS ORDERED: DEXTROSE 5%-WATER 100 ML IVPB ONE (01:57)
[2019-10-03] MEDS ORDERED: MEROPENEM 1 GM VIAL (RESTRICTED TO ID) IVPB ONE (01:57)
[2019-10-03] MEDS: MEROPENEM 1 GM in DEXTROSE 5%-WATER 100 ML IVPB SCH ×2 (02:01→10:14)
[2019-10-03] MEDS: ACETAMINOPHEN 325 MG TABLET (FP) PO PRN ×3 (03:36→16:03)
[2019-10-03] MEDS: oxyCODONE HCL 5 MG TABLET PO PRN ×3 (03:36→16:03)
[2019-10-03] MEDS: GABAPENTIN 300 MG CAPSULE PO SCH ×2 (05:46→13:25)
[2019-10-03 06:05] VITALS: BP 147/66; PULSE 62; TEMP 98.1
[2019-10-03] MEDS: ALBUTEROL SO4 2.5/IPRATROPIUM 0.5 INH SOL 3 ML VIAL.NEB. NEB SCH ×3 (08:00→16:00)
[2019-10-03] MEDS: TAMSULOSIN HCL 0.4 MG CAP PO SCH (08:23)
[2019-10-03 08:28] LABS: BASO % 0.4 % (0-2.0); EOS % 1.1 % (0-4.5); HEMATOCRIT 31.5 % (32.4-45.2); HEMOGLOBIN 10.9 GM/dL (10.7-15.3); LYMPH % 14.1 % (8-40); MCH 34.6 pg (25.7-33.7); MCHC 34.5 g/dl (32.0-36.0); MEAN CELL VOLUME 100.1 fl (80-96); MEAN PLT VOLUME 7.2 fl (7.5-11.1); NEUT % 77.4 % (42.8-82.8); PLATELET COUNT 194 K/MM3 (134-434); RBC 3.15 M/mm3 (3.60-5.2); RDW 13.4 % (11.6-15.6); WHITE BLOOD COUNT 6.6 K/mm3 (4.0-10.0)
[2019-10-03 09:04] LABS: ALBUMIN 2.8 g/dl (3.4-5.0); BILIRUBIN,TOTAL 0.4 mg/dL (0.2-1); BLOOD UREA NITROGEN 23.1 mg/dL (7-18); CREATININE 0.6 mg/dL (0.55-1.3); MAGNESIUM 2.1 mg/dL (1.8-2.4); TOT PROT 6.2 g/dl (6.4-8.2)
[2019-10-03] MEDS: LIDOCAINE 5% TOPICAL PATCH TP SCH (09:54)
[2019-10-03] MEDS: MAGNESIUM OXIDE 400 MG TABLET (FP) PO SCH (09:55)
[2019-10-03] MEDS: MULTIVITAMINS (DAILY MVI) TABLET (FP) PO SCH (09:55)
[2019-10-03] MEDS: PANTOPRAZOLE 40 MG TABLET PO SCH (09:55)
[2019-10-03] MEDS: DOCUSATE SODIUM 100 MG CAPSULE (FP) PO SCH (09:56)
[2019-10-03] MEDS: THIAMINE HCL 100 MG TABLET (FP) PO SCH (09:56)
[2019-10-03] MEDS: FERROUS SO4 325 MG TABLET (FP) PO SCH (09:56)
[2019-10-03] MEDS: LACTOBACILLUS ACIDOPHILUS 1 TABLET PO SCH (09:56)
[2019-10-03] MEDS: predniSONE 20 MG TABLET (UD) PO SCH (09:57)
[2019-10-03] MEDS: CALCIUM 500MG/VIT-D 200 UNITS COMBO TABLET (FP) PO SCH (09:57)
[2019-10-03] MEDS: POLYETHYLENE GLYCOL 3350 119 GM BTL PO SCH (09:58)
[2019-10-03] MEDS: ASCORBIC ACID 500 MG TABLET (FP) PO SCH (09:58)
--- NOTE | 2019-10-03 10:02 | PN ---
Progress Note, Physician History of Present Illness: stable no new issues - Current Medication List Current Medications: Active Medications Acetaminophen (Tylenol -) 650 mg PO Q6H PRN PRN Reason: PAIN 6-10 Last Admin: 10/03/19 03:36 Dose: 650 mg Albuterol Sulfate (Ventolin 0.083% Nebulizer Soln -) 1 amp NEB RQID PRN PRN Reason: SHORT OF BREATH/WHEEZING Albuterol/Ipratropium (Duoneb -) 1 amp NEB RQID [facility] Last Admin: 10/02/19 20:40 Dose: 1 amp Ascorbic Acid (Vitamin C -) 2,000 mg PO DAILY [facility] Last Admin: 10/03/19 09:58 Dose: 2,000 mg Bisacodyl (Dulcolax -) 5 mg PO DAILY PRN PRN Reason: CONSTIPATION Budesonide/Formoterol Fumarate (Symbicort 160/4.5mcg -) 2 puff IH BID [facility] Last Admin: 10/02/19 21:58 Dose: 2 puff Calcium Carbonate/Cholecalciferol (Os-Cale 500+D -) 1 tab PO BID [facility] Last Admin: 10/03/19 09:57 Dose: 1 tab Citalopram Hydrobromide (Celexa -) 20 mg PO HS [facility] Last Admin: 10/02/19 21:54 Dose: 20 mg Docusate Sodium (Colace -) 100 mg PO BID [facility] Last Admin: 10/03/19 09:56 Dose: 100 mg Enoxaparin Sodium (Lovenox -) 40 mg SQ DAILY [facility] Last Admin: 09/28/19 09:27 Dose: 40 mg Ferrous Sulfate (Feosol -) 325 mg PO DAILY [facility] Last Admin: 10/03/19 09:56 Dose: 325 mg Gabapentin (Neurontin -) 300 mg PO TID [facility] Last Admin: 10/03/19 05:46 Dose: 300 mg Vancomycin HCl (Vancomycin (Pre-Docked)) 1,000 mg in 250 mls @ 166.667 mls/hr IVPB DAILY@1830 UZIEL; Protocol Last Admin: 10/02/19 18:41 Dose: 166.667 mls/hr Meropenem 1 gm/ Dextrose 100 mls @ 200 mls/hr IVPB Q8H-IV [facility] Last Admin: 10/03/19 02:01 Dose: 200 mls/hr Lactobacillus Acidophilus (Bacid -) 1 tab PO BID [facility] Last Admin: 10/03/19 09:56 Dose: 1 tab Lidocaine (Lidoderm Patch -) 1 patch TP DAILY [facility] Last Admin: 10/03/19 09:54 Dose: 1 patch Magnesium Oxide (Mag-Ox -) 400 mg PO DAILY [facility] Last Admin: 10/03/19 09:55 Dose: 400 mg Miscellaneous (Lidoderm Patch Removal) 1 each MC DAILY@2200 [facility] Last Admin: 10/02/19 21:54 Dose: 1 each Multivitamins/Minerals/Vitamin C (Tab-A-Vit -) 1 tab PO DAILY [facility] Last Admin: 10/03/19 09:55 Dose: 1 tab Oxycodone HCl (Roxicodone -) 10 mg PO Q6H PRN PRN Reason: PAIN LEVEL 6-10 Last Admin: 10/03/19 03:36 Dose: 10 mg Pantoprazole Sodium (Protonix -) 40 mg PO DAILY [facility] Last Admin: 10/03/19 09:55 Dose: 40 mg Polyethylene Glycol (Miralax (For Daily Use) -) 34 gm PO DAILY [facility] Last Admin: 10/03/19 09:58 Dose: Not Given Prednisone (Deltasone -) 40 mg PO DAILY [facility] Last Admin: 10/03/19 09:57 Dose: 40 mg Propranolol HCl (Inderal La -) 60 mg PO DAILY [facility] Last Admin: 10/03/19 09:56 Dose: 60 mg Simethicone (Mylicon -) 80 mg PO QID PRN PRN Reason: GAS Last Admin: 09/27/19 11:54 Dose: 80 mg Tamsulosin HCl (Flomax -) 0.4 mg PO DAILY@0830 [facility] Last Admin: 10/03/19 08:23 Dose: 0.4 mg Thiamine HCl (Vitamin B1 -) 100 mg PO DAILY [facility] Last Admin: 10/03/19 09:56 Dose: 100 mg - Objective Vital Signs: Vital Signs Temperature 98.1 F 10/03/19 06:00 Pulse Rate 62 10/03/19 06:00 Respiratory Rate 18 10/03/19 06:00 Blood Pressure 147/66 10/03/19 06:00 O2 Sat by Pulse Oximetry (%) 96 10/02/19 20:46 Constitutional: Yes: No Distress, Calm Cardiovascular: Yes: S1, S2 Respiratory: Yes: Regular, CTA Bilaterally Gastrointestinal: Yes: Normal Bowel Sounds, Soft Musculoskeletal: Yes: WNL Extremities: Yes: WNL Neurological: Yes: Alert, Oriented Psychiatric: Yes: Alert, Oriented Labs: CBC, BMP 10/03/19 06:38 10/03/19 06:38 INR, PTT INR 1.01 (0.83-1.09) 10/01/19 10:07 Assessment/Plan 79 year old female with history of bronchiectasis who presented with shortness of breath, cough with green sputum associated with generalized weakness,fell yesterday with no LOC and an episode of vomiting.She was found to have influenza and possible community acquired pneumonia. She is being admitted to [facility] for further medical management. #1 Influenza #2 Possible Community Acquired Pneumonia #3 Hyponatremia #4 Head Contusion 5 uti continue abx resp support incentive aureliano rest as per the team cx report noted will need longer duration of treatment still awaiting for identification of the organisms
[2019-10-03] MEDS: BUDESONIDE/FORMETEROL FUMARATE 160/4.5 mcg INHALER IH SCH (10:07)
[2019-10-03 11:57] LABS: ANISOCYTOSIS 1+; MACROCYTOSIS 1+; PLATELET ESTIMATE NORMAL
--- NOTE | 2019-10-03 12:18 | DS ---
Physical Exam: SUBJECTIVE: Patient seen and examined at the bedside. patient and son agree to rehab for continuation of IV antibiotics. Discharge likely today to rehab pending insurance approval. OBJECTIVE: ----- patient has not traveled anywhere in last month and she has no symptoms which suggest she might have a viral infection she does not meet any criteria for bass virus testing and she does not need any testing for bass virus ----- Patient is an 79 year old female with history of bronchiectasis who presented to the ED on 09/24/2019 with shortness of breath, and cough with green sputum for 4 days along with weakness. She was prescribed Levaquin and a steroid 3 days by her Medical Device [facility] She states she took this medication without improvement in symptoms.She reported increased urinary frequency without hematuria or dysuria. She also states she fell on the floor the day prior to admission and struck the left side of her head. There was no loss of consciousness. She denied fever, chills, or chest pain. Patient discharge to rehab today for continuation of IV antibiotics per ID as follows: patient to get vanco 1250 mg daily for 7 days meropenam 1 gm every 8hrly for 14 days followed by oral doxy for 10 more days after vanco is completed Period Temp Pulse Resp BP Sys/Casper Pulse Ox Last 24 Hr 97.5 F-98.1 F 62-76 16-18 131-147/61-70 96-96 PHYSICAL EXAM GENERAL: The patient is awake, alert, and fully oriented, in no acute distress. on supplemental oxygen support HEAD: Normal with no signs of trauma. EYES: PERRL, extraocular movements intact, sclera anicteric, conjunctiva clear. No ptosis. ENT: Ears normal, nares patent, oropharynx clear without exudates, moist mucous membranes. NECK: Trachea midline, full range of motion, supple. LUNGS: Breath sounds diminished bilaterally, no wheezes HEART: Regular rate and rhythm ABDOMEN: Soft, nontender, nondistended, normoactive bowel sounds EXTREMITIES: no edema. NEUROLOGICAL: Normal speech, gait not observed. PSYCH: Normal mood, normal affect. SKIN: petechia of right leg (lower), small patch of petechia left upper back LABS Laboratory Results - last 24 hr 02/28/20 03/04/20 03/04/20 19:30 06:38 06:38 WBC 6.6 RBC 3.15 L Hgb 10.9 Hct 31.5 L MCV 100.1 H MCH 34.6 H MCHC 34.5 RDW 13.4 Plt Count 194 MPV 7.2 L Absolute Neuts (auto) 5.1 Neutrophils % 77.4 Neutrophils % (Manual) 74.8 Band Neutrophils % 0.0 Lymphocytes % 14.1 Lymphocytes % (Manual) 12.1 D Monocytes % 7.0 Monocytes % (Manual) 11 H D Eosinophils % 1.1 Eosinophils % (Manual) 0.0 Basophils % 0.4 Basophils % (Manual) 0.0 Myelocytes % (Man) 0 Promyelocytes % (Man) 0 Blast Cells % (Manual) 0 Nucleated RBC % 0 Metamyelocytes 1 D Hypochromia 0 Platelet Estimate Normal Polychromasia 1+ Poikilocytosis 0 Basophilic Stippling 0 Anisocytosis 1+ Microcytosis 0 Macrocytosis 1+ Sodium 138 Potassium 4.0 Chloride 99 Carbon Dioxide 32 Anion Gap 7 L BUN 23.1 H Creatinine 0.6 Est GFR (CKD-EPI)AfAm 99.77 Est GFR (CKD-EPI)NonAf 86.09 Random Glucose 95 Calcium 9.0 Magnesium 2.1 Total Bilirubin 0.4 AST 18 ALT 48 Alkaline Phosphatase 81 Total Protein 6.2 L Albumin 2.8 L Heparin-Ind Plt Ab Scrn 0.156 HOSPITAL COURSE: Date of Admission:09/24/19 Date of Discharge: 10/03/19 Minutes to complete discharge: 60 Discharge Summary Problems reviewed: Yes Reason For Visit: INFLUENZA DUE TO INFLUENZA VIRUS TYPE A SOB Current Active Problems Abdominal pain (Acute) Chronic low back pain (Acute) Compression fracture (Acute) Head contusion (Acute) Hypokalemia (Acute) Hyponatremia (Acute) Hyponatremia (Acute) Influenza A (Acute) Petechiae (Acute) Pneumonia (Acute) Prophylactic measure (Acute) Shortness of breath at rest (Acute) Thrombocytopenia (Acute) Urinary retention (Acute) Condition: Stable - Instructions Diet, Activity, Other Instructions: Patient discharged to rehab to continue antibiotic therapy. Per ID, patient will need patient to get vanco 1250 mg daily for 7 days meropenam 1 gm every 8hrly for 14 days followed by oral doxy for 10 more days after vanco is completed ID specialist: Dr. Avila Referrals: John Vargas MD [Primary Care Provider] - Willie Avila MD [Staff Physician] - Disposition: HOME - Home Medications Comprehensive Discharge Medication List: Ambulatory Orders Alprazolam [Xanax] 0.25 mg PO BID PRN 01/25/12 Ascorbic Acid [Vitamin C] 2,000 mg PO DAILY 01/25/12 Citalopram Hydrobromide [Celexa -] 20 mg PO HS 01/25/12 propRANOLol HCL [Inderal -] 60 mg PO DAILY 01/25/12 Albuterol 0.083% Nebulizer Manju [Ventolin 0.083% Nebulizer Soln -] 1 neb NEB DAILY 09/25/13 Oxycodone HCl/Acetaminophen [Percocet 10-325 mg Tablet] 15 mg PO BID PRN Calcium/Cranberry Fruit [Cranberry 400 mg Caplet] 1 each PO DAILY 01/05/16 Gabapentin [Neurontin] 300 mg PO TID 01/05/16 Potassium Chloride [Klor-Con 10] 20 meq PO BID 01/05/16 Budesonide/Formeterol Fumarate [SYMBICORT 160/4.5mcg -] 2 inh PO BID 12/15/16 Tizanidine HCl 2 mg PO HS 12/15/16 Polyethylene Glycol 3350 [Miralax 119 gm Btl -] 17 gm PO BID PRN #1 bottle 03/19 Ascorbic Acid [Vitamin C -] 2,000 mg PO DAILY tablet 10/03/19 Calcium 500Mg/Vit-D 200 Units [Os-Cale 500+D -] 1 tab PO BID tab 10/03/19 Enoxaparin [Lovenox -] 40 mg SQ DAILY disp.syrin 10/03/19 Ferrous Sulfate [Feosol] 325 mg PO DAILY ud 10/03/19 Lactobacillus Acidophilus [Bacid -] 1 tab PO BID tab 10/03/19 Lidocaine 5% Patch [Lidoderm -] 1 patch TP DAILY patch 10/03/19 Magnesium Oxide [Mag-Ox -] 400 mg PO DAILY tablet 10/03/19 Meropenem [Merrem (Restricted To Id) -] 1 gm IVPB Q8H-IV vial 10/03/19 Multivitamins [Multivit ([facility] Formulary)] 1 tab PO DAILY tab 10/03/19 Simethicone [Mylicon -] 80 mg PO QID PRN tab.chew 10/03/19 Tamsulosin HCl [Flomax -] 0.4 mg PO DAILY@0830 cap.er.24h 10/03/19 Thiamine HCl [Vitamin B1 -] 100 mg PO DAILY tablet 10/03/19 Vancomycin HCl 1,000 mg IV DAILY #7 vial 10/03/19 predniSONE [Deltasone -] 40 mg PO DAILY tablet 10/03/19 Problem List - Problems (1) Pneumonia Assessment/Plan: patient to get vanco 1250 mg daily for 7 days meropenam 1 gm every 8hrly for 14 days followed by oral doxy for 10 more days after vanco is completed Code(s): J18.9 - PNEUMONIA, UNSPECIFIED ORGANISM (2) UTI (urinary tract infection), bacterial Assessment/Plan: patient to get vanco 1250 mg daily for 7 days meropenam 1 gm every 8hrly for 14 days followed by oral doxy for 10 more days after vanco is completed Code(s): N39.0 - URINARY TRACT INFECTION, SITE NOT SPECIFIED; A49.9 - BACTERIAL INFECTION, UNSPECIFIED (3) Shortness of breath at rest Assessment/Plan: improved, attempt to take off oxygen today and monitor oxygen saturations. on prednisone taper Code(s): R06.02 - SHORTNESS OF BREATH (4) Thrombocytopenia Assessment/Plan: resolved, hit panel negative Code(s): D69.6 - THROMBOCYTOPENIA, UNSPECIFIED (5) Petechiae Code(s): R23.3 - SPONTANEOUS ECCHYMOSES (6) Abdominal pain Assessment/Plan: ct scan without acute finding of abdominal pain. tolerating diet. no further abdominal pain. Code(s): R10.9 - UNSPECIFIED ABDOMINAL PAIN (7) Chronic low back pain Assessment/Plan: on oxycodone prn Code(s): M54.5 - LOW BACK PAIN; G89.29 - OTHER CHRONIC PAIN (8) Head contusion Assessment/Plan: s/p fall at home HCT with small left parietal contusion no changes in neuro status patient denies any symptoms Code(s): S00.93XA - CONTUSION OF UNSPECIFIED PART OF HEAD, INITIAL ENCOUNTER (9) Hypokalemia Assessment/Plan: resolved Code(s): E87.6 - HYPOKALEMIA (10) Influenza A Assessment/Plan: completed tamiflu Code(s): J10.1 - FLU DUE TO OTH IDENT INFLUENZA VIRUS W OTH RESP MANIFEST (11) Hyponatremia Assessment/Plan: resolved Code(s): E87.1 - HYPO-OSMOLALITY AND HYPONATREMIA (12) Compression fracture Assessment/Plan: Acute T6 Vertebral fracture sp fall 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 Neurosurgery consulted -offered TLSO brace and pt declined no surgical intervention at this time c/w Oxycodone PRN & lidoderm patch Code(s): LAO3993 - (13) Hyponatremia Code(s): E87.1 - HYPO-OSMOLALITY AND HYPONATREMIA (14) Prophylactic measure Assessment/Plan: fen tolerating po monitor electrolytes low salt diet Code(s): Z29.9 - ENCOUNTER FOR PROPHYLACTIC MEASURES, UNSPECIFIED This patient is new to me today: No Emergency Visit: Yes ED Registration Date: 09/24/19 Care time: The patient presented to the Emergency Department on the above date and was hospitalized for further evaluation of their emergent condition. Critical Care patient: No - Discharge Referral Referred to [facility] No
== END 2019-10-03 20:57 | disposition home or self-care (01) | DRG 177 ==
LOC: JER 11:50 → JERBED 17:40 → J6S 09-25 02:29
PROVIDERS: ADMIT Internal Medicine; ATTEND Nurse Practitioner Family
PROC: 05HY33Z Insertion of Infusion Device into Upper Vein, Percutaneous Approach (ICD-10-PCS; principal; 2019-10-03)
DX: J10.00 Influenza due to other identified influenza virus with unspecified type of pneumonia (principal); E43 Unspecified severe protein-calorie malnutrition; J15.212 Pneumonia due to Methicillin resistant Staphylococcus aureus; J44.1 Chronic obstructive pulmonary disease with (acute) exacerbation; E87.1 Hypo-osmolality and hyponatremia; N39.0 Urinary tract infection, site not specified; M48.54XA Collapsed vertebra, not elsewhere classified, thoracic region, initial encounter for fracture; Z68.1 Body mass index [BMI] 19.9 or less, adult; S00.93XA Contusion of unspecified part of head, initial encounter; I73.00 Raynaud's syndrome without gangrene; D69.6 Thrombocytopenia, unspecified; E87.6 Hypokalemia; M54.5 Low back pain; Z87.891 Personal history of nicotine dependence; R35.0 Frequency of micturition; W19.XXXA Unspecified fall, initial encounter; Y93.9 Activity, unspecified; Y92.230 Patient room in hospital as the place of occurrence of the external cause; Y99.9 Unspecified external cause status; Z29.9 Encounter for prophylactic measures, unspecified; D64.9 Anemia, unspecified; F41.8 Other specified anxiety disorders; R33.9 Retention of urine, unspecified; R10.9 Unspecified abdominal pain
CPT/HCPCS: 36415; 36569; 70450-TC; 71045-TC-FY; 72070-TC-FY; 72100-TC-FY; 74019-TC-FY; 74177-TC; 80048; 80053; 81003; 82272; 82607; 82728; 82746; 83540; 83550; 83735; 85025; 85027; 85610; 86022; 87070; 87086; 87186; 87205; 87804; 93005; 93010; 94010; 94640; 97116-GP; 97162-GP; 99285-25; J0131; J7030; Q9967

== ENCOUNTER → 2020-11-24 | Day surgery (SDC) | payer OTHER, MEDICARE | END | disposition home or self-care (01) | LOC: JRADIR 09:39 | PROVIDERS: ATTEND Internal Medicine Endocrinology, Diabetes & Metabolism | PROC: 0G9K3ZX Drainage of Thyroid Gland, Percutaneous Approach, Diagnostic (ICD-10-PCS; principal; 2020-11-24) | DX: E04.1 Nontoxic single thyroid nodule (principal) | CPT/HCPCS: 10005; 76942; 88173; 88305-TC ==

== ENCOUNTER 2021-02-03 05:18 | Day surgery (SDC) | payer OTHER, MEDICARE ==
[2021-01-29 16:59] VITALS: BMI 19.5
[2021-02-03 10:46] VITALS: TEMP 97.4
[2021-02-03 11:32] VITALS: BP 155/79; PULSE 57
== END 2021-02-03 11:40 | disposition home or self-care (01) ==
LOC: JASU-ENDO 05:18
PROVIDERS: ATTEND Internal Medicine Gastroenterology
PROC: 0DJD8ZZ Inspection of Lower Intestinal Tract, Via Natural or Artificial Opening Endoscopic (ICD-10-PCS; principal; 2021-02-03 09:45)
DX: Z12.11 Encounter for screening for malignant neoplasm of colon (principal); Z80.0 Family history of malignant neoplasm of digestive organs; R10.9 Unspecified abdominal pain; K64.8 Other hemorrhoids; K57.30 Diverticulosis of large intestine without perforation or abscess without bleeding; K63.89 Other specified diseases of intestine

== ENCOUNTER 2021-10-03 17:31 | Emergency (ER) | payer OTHER, MEDICARE ==
[2021-10-03 17:46] VITALS: TEMP 98.2; BMI 19.5
[2021-10-03] MEDS ORDERED: oxyCODONE HCL 5 MG TABLET PO ONE (19:56)
[2021-10-03] MEDS ORDERED: oxyCODONE HCL 5 MG TABLET ONE (20:27)
[2021-10-03 20:36] LABS: BASO % 0.7 % (0-2.0); EOS % 2.5 % (0-4.5); HEMATOCRIT 30.7 % (32.4-45.2); HEMOGLOBIN 10.6 GM/dL (10.7-15.3); MCH 33.4 pg (25.7-33.7); MCHC 34.6 g/dl (32.0-36.0); MEAN CELL VOLUME 96.4 fl (80-96); MEAN PLT VOLUME 7.4 fl (7.5-11.1); MONO % 7.1 % (3.8-10.2); NEUT % 73.7 % (42.8-82.8); PLATELET COUNT 174 10^3/uL (134-434); RBC 3.18 M/mm3 (3.60-5.2); RDW 13.9 % (11.6-15.6)
[2021-10-03 20:56] LABS: CALCIUM 8.8 mg/dL (8.5-10.1)
[2021-10-03 20:57] LABS: ALBUMIN 3.4 g/dl (3.4-5.0); BLOOD UREA NITROGEN 16.1 mg/dL (7-18)
[2021-10-03 21:00] LABS: CREATININE 0.7 mg/dL (0.55-1.3)
[2021-10-03 21:02] LABS: BILIRUBIN,TOTAL 0.2 mg/dL (0.2-1); TOT PROT 6.4 g/dl (6.4-8.2)
[2021-10-03 22:22] VITALS: BP 140/56; PULSE 63
== END 2021-10-04 00:57 | disposition home or self-care (01) ==
LOC: JER 17:31
DX: S32.592A Other specified fracture of left pubis, initial encounter for closed fracture (principal); W01.0XXA Fall on same level from slipping, tripping and stumbling without subsequent striking against object, initial encounter
CPT/HCPCS: 36415; 70450-TC; 71045-TC-FY; 72125-TC; 72170-TC-FY; 72192-TC; 73030-TC-LT-FY; 73502-TC-LT-FY; 73552-TC-LT-FY; 80053; 85025; 99285-25

== ENCOUNTER 2023-10-06 04:07 | Day surgery (SDC) | payer OTHER, MEDICARE ==
[2023-10-03 16:01] VITALS: BMI 18.3
[2023-10-06 08:37] VITALS: TEMP 99
[2023-10-06 09:04] VITALS: BP 157/45; PULSE 70; RESP 20
== END 2023-10-06 09:20 | disposition home or self-care (01) ==
LOC: JASU-ENDO 04:07
PROVIDERS: ATTEND Internal Medicine Gastroenterology
PROC: 0DB78ZX Excision of Stomach, Pylorus, Via Natural or Artificial Opening Endoscopic, Diagnostic (ICD-10-PCS; 2023-10-06)
PROC: 0DB68ZX Excision of Stomach, Via Natural or Artificial Opening Endoscopic, Diagnostic (ICD-10-PCS; 2023-10-06)
PROC: 0DB98ZX Excision of Duodenum, Via Natural or Artificial Opening Endoscopic, Diagnostic (ICD-10-PCS; principal; 2023-10-06 08:00)
DX: K31.89 Other diseases of stomach and duodenum (principal); K44.9 Diaphragmatic hernia without obstruction or gangrene
CPT/HCPCS: 88305-TC; 88341-TC; 88342-TC

== ENCOUNTER → 2025-03-04 | Day surgery (SDC) | payer OTHER, MEDICARE | END | disposition home or self-care (01) | LOC: JRADIR 10:18 | PROVIDERS: ATTEND Internal Medicine Endocrinology, Diabetes & Metabolism | PROC: 0G9G3ZX Drainage of Left Thyroid Gland Lobe, Percutaneous Approach, Diagnostic (ICD-10-PCS; principal; 2025-03-04) | DX: E04.1 Nontoxic single thyroid nodule (principal) | CPT/HCPCS: 10005; 76942; 88173; 88305-TC ==